=== PATIENT | female | born 1940 | race Caucasian/White ===

== ENCOUNTER → 2017-12-31 13:21 | Outpatient (CLI) | payer OTHER, SELFPAY ==
--- NOTE | 2017-12-31 | DI.MG.S_ITS ---
BILATERAL DIGITAL SCREENING MAMMOGRAM 3D/2D WITH CAD: 12/31/2017 CLINICAL: Routine screening. Family history of breast cancer. Comparison is made to exams dated: 05/15/2014 mammogram, 02/05/2012 mammogram, and 10/27/2010 mammogram - [facility]. There are scattered fibroglandular elements in both breasts. Current study was also evaluated with a Computer Aided Detection (CAD) system. No significant masses, calcifications, or other findings are seen in either breast. There has been no significant interval change. IMPRESSION: NEGATIVE There is no mammographic evidence of malignancy. A 1 year screening mammogram is recommended. This exam was interpreted at Station ID: [id number]. NOTE: For mammograms, a report in lay terms will be sent to the patient. Approximately 15% of breast malignancies will not be visualized mammographically. In the management of a palpable breast mass, a negative mammogram must not discourage biopsy of a clinically suspicious lesion. Electronically Signed By: Kassy rosario/neda:12/31/2017 14:46:40 letter sent: Normal Exam ACR BI-RADS Category 1: Negative [id number]
== END ==
PROVIDERS: Family Provider Nurse Practitioner Family; PCP Family Medicine; Visit Provider Nurse Practitioner Family
DX: Z12.31 Encounter for screening mammogram for malignant neoplasm of breast (principal); Z80.3 Family history of malignant neoplasm of breast; M81.0 Age-related osteoporosis without current pathological fracture
CPT/HCPCS: 77063; 77067; 77080

== ENCOUNTER → 2018-03-02 13:09 | Outpatient (CLI) | payer OTHER, SELFPAY ==
--- NOTE | 2018-03-02 13:30 | DI.CT.S_ITS ---
PROCEDURE: CT CHEST WO CON INDICATIONS: DYSPNEA TECHNIQUE: Noncontrast 2.0-2.5 mm thick sections acquired from the pulmonary apices to the posterior costophrenic angles. 7 mm thick coronal and sagittal MIP reformats were then acquired. A low radiation dose technique was utilized. COMPARISON: [facility], CR, XR CHEST 2V, 12/16/2017, 14:53. FINDINGS: Image quality: Diagnostic, given the low radiation dose technique. Lungs and pleura: Lung is hyperexpanded and emphysematous. There is a 5 mm pulmonary nodule in the anterior right middle lobe, series 3/image 24. A small cluster of 2 mm nodules is present in the posterolateral right middle lobe, image 39. A 5 mm subpleural nodule is present along the right fissure, image 45. On the left, there are 2 mm and 3 mm adjacent nodules in the base of the lingula, image 42. There is a 4 mm nodule in the posterior sulcus of the left lower lobe, image 57. Mediastinum: Heart size is normal. Aortic and coronary artery calcifications. No pericardial effusion. No mediastinal adenopathy by size criteria. Thoracic aorta and central pulmonary arteries are normal in size. Esophagus is normal in caliber. No hiatal hernia. Bones and chest wall: No suspicious bony lesions. No vertebral body compression fractures. No axillary or supraclavicular adenopathy by size criteria. Thyroid gland appears normal. Abdomen: Visualized upper abdomen solid organs and bowel loops appear normal in the absence of contrast. Pneumobilia. IMPRESSION: 1. Centrilobular pulmonary emphysema, upper lobe predominant 2. Bilateral subcentimeter pulmonary nodules measuring up to 5 mm in size. Appropriate followup recommended. 3. Atherosclerosis. Fleischner Society criteria for SOLID lung nodule followup. Nodule size (mm)Low-risk patientHigh-risk patient<6 (single or multiple)No routine followup.Optional CT at 12 months. 6-8 (single or multiple)CT at 6-12 months, then optional CT at 18-24 mo.CT at 6-12 months, then CT at 18-24 months. >8 (single)CT at 3 months, PET-CT, or biopsy. Same as for low-risk pts. >8 (multiple)CT at 3-6 months, then optional CT at 18-24 mo.CT at 3-6 months, then CT at 18-24 months. Recommendations do not apply to lung cancer screening, patients with immunosuppression, or patients with known primary cancer. Dictated by: Claudio Salvador M.D. on 03/02/2018 at 15:13 Approved by: Claudio Salvador M.D. on 03/02/2018 at 15:32
== END ==
PROVIDERS: Family Provider Nurse Practitioner Family; PCP Family Medicine; Visit Provider Internal Medicine
DX: J43.2 Centrilobular emphysema (principal); R06.00 Dyspnea, unspecified; R91.8 Other nonspecific abnormal finding of lung field; I25.10 Atherosclerotic heart disease of native coronary artery without angina pectoris; I70.0 Atherosclerosis of aorta
CPT/HCPCS: 71250

== ENCOUNTER 2018-03-20 10:42 | Emergency (ER) | payer OTHER, SELFPAY ==
[2018-03-20] VITALS (10 sets, daily range): BP systolic 95–145; BP diastolic 47–82; PULSE 68–93; RESP 15–29; TEMP 36.8–36.9; O2SAT 94–97
--- NOTE | 2018-03-20 10:56 | DI.RAD.S_ITS ---
PROCEDURE: XR CHEST 2V INDICATIONS: SOB, cough, fever TECHNIQUE: 2 views of the chest were acquired. COMPARISON: [facility], , XR CHEST 2V, 12/16/2017, 14:53. [facility], , CHEST 2 VIEW, 10/07/2017, 14:10. [facility], CR, CHEST 2 VIEW, 01/15/2016, 8:58. [facility], , CHEST 2 VIEW, 06/11/2015, 11:31. FINDINGS: Surgical changes and devices: Surgical clips project over the left upper quadrant of the abdomen. Lungs and pleura: No pleural effusions or pneumothorax. Lungs are clear. Mediastinum: Mediastinal contours are normal. Heart size is normal. Bones and chest wall: No suspicious bony abnormalities. Soft tissues appear unremarkable. Multilevel degenerative changes of the spine. IMPRESSION: No focal consolidations consistent with pneumonia. Dictated by: Javan Foreman M.D. on 03/20/2018 at 12:14 Approved by: Javan Foreman M.D. on 03/20/2018 at 12:15
--- NOTE | 2018-03-20 10:56 | ED.URI ---
HPI - URI/Sore Throat General Chief Complaint: Upper Respiratory Symptoms Stated Complaint: trouble breathing, cold/shivering Time Seen by Provider: 03/20/18 10:43 Source: patient Mode of arrival: ambulatory Limitations: no limitations History of Present Illness HPI Narrative: 77-year-old female with history of COPD presents to the emergency department with a chief complaint of shaking chills and subjective fever with cough and some increased shortness of breath over the course of the day. She denies any chest pain and states her sputum is whitish. She denies nausea, vomiting or diarrhea. She has had no dysuria, frequency or urgency. She denies the use of home oxygen and has not increased the use of her bronchodilators. MD Complaint: fever and cough Onset (ago): hour(s) Duration: constant Severity: moderate Exacerbating factors: nothing Description of mucous: clear Able to tolerate fluids by mouth: Yes Associated symptoms: fever and chills Treatments prior to arrival: none Related Data Previous Rx's Medication Instructions Recorded albuterol sulfate [Ventolin HFA] 2 puff INH Q4HP PRN #1 ea 10/07/17 levofloxacin [Levaquin] 750 mg PO DAILY #6 tab 03/20/18 Allergies Allergy/AdvReac Type Severity Reaction Status Date / Time codeine [CODEINE] Allergy Unknown SLEEPY Unverified 11/17/17 12:05 iodine [IODINE] Allergy Unknown HIVES Unverified 11/17/17 12:05 lansoprazole [LANSOPRAZOLE] AdvReac Unknown GI UPSET Unverified 11/17/17 12:05 Review of Systems Review of Systems All systems reviewed & are unremarkable except as noted in HPI and below Constitutional Reports body ache(s), Reports chills, Reports fever(s), Denies lethargy and Denies weakness Eyes Denies change in vision, Denies eye discharge, Denies irritation and Denies loss of vision ENT Ears, Nose, Mouth, and Throat: Denies change in voice, Denies neck pain and Denies sore throat Cardiovascular Denies chest pain, Denies irregular heart rhythm, Denies lightheadedness, Denies palpitations, Reports dyspnea, Denies dyspnea on exertion and Denies orthopnea Respiratory Reports cough, Reports excessive phlegm production, Reports dyspnea, Denies dyspnea on exertion and Denies wheezing Gastrointestinal Gastrointestinal: Denies abdominal pain, Denies change in bowel habits, Denies diarrhea, Denies nausea and Denies vomiting Genitourinary Denies hematuria, Denies flank pain, Denies urinary incontinence and Denies urinary urgency Musculoskeletal Denies neck pain Integumentary/Breasts Denies pruritus, Denies erythema, Denies rash and Denies wounds Neurologic Denies confusion, Denies loss of vision and Denies weakness Psychiatric Denies anxiety, Denies confusion, Denies depression, Denies homicidal ideation and Denies suicidal ideation Endocrine Denies palpitations Hematologic/Lymphatic Denies easy bruising Allergic/Immunologic Denies wheezing PFSH Social History Smoking Status: Current every day smoker Exam Narrative Exam Narrative: Frail 77-year-old female, chronically ill in no significant distress. Pulse ox in the mid 90s on arrival, room air Initial Vital Signs Initial Vital Signs: Vital Signs Temperature 98.4 F 03/20/18 10:45 Pulse Rate 92 H 03/20/18 10:45 Respiratory Rate 22 03/20/18 10:45 Blood Pressure 145/71 H 03/20/18 10:45 Pulse Oximetry 97 03/20/18 10:45 Const General: cooperative and well developed Nutritional Appearance: thin and underweight Orientation: alert, awake, oriented x3 and not confused [facility] Head: normocephalic and atraumatic Ears: external ears normal and TM's normal bilaterally Nose: external nose normal and No nasal discharge Face and sinus: sinuses nontender, face symmetric, no sinus tenderness and No dry mucous membranes Mouth: oral mucosae normal and moist mucous membranes Teeth and gingiva: dentition normal Throat: tonsils normal and uvula midline Eyes General: appearance normal, both eyes and all related structures Eyelids: eyelids normal Conjunctivae: conjunctivae normal Sclera: sclerae normal Pupils: PERRL EOM: EOM intact bilaterally Neck Neck: normal visual inspection, trachea midline, No lymphadenopathy, No midline deformity and No JVD Lymphatic: No lymphedema Chest Chest: normal inspection of the chest Resp Effort & Inspection: normal respiratory effort, able to speak in complete sentences, no respiratory distress and no use of accessory muscles Auscultation: diminished lung sounds, no rales, no rhonchi and wheezes Cardio Rate: regular rate Rhythm: regular rhythm Heart Sounds: no click, no gallops, no murmurs and no rubs Pulses: normal peripheral pulses GI Inspection: non-distended Palpation: soft, no hepatosplenomegaly, No guarding, No pulsatile mass and No tender Auscultation: normal bowel sounds Back/Spine/Pelvis Back: No CVA tenderness Cervical Spine: cervical ROM normal and No pain with cervical ROM Thoracic/Lumbar Spine: thoracic and lumbar spine normal to inspection Skin General: no rashes or lesions noted, No jaundice and No petechiae Neuro General: alert, oriented x3, gait normal and no focal motor deficits Speech: speech normal Extrem General: full ROM, no clubbing, cyanosis or edema, no pedal edema and no calf tenderness Psych Appearance: well kempt Mental Status: mental status grossly normal Attitude: cooperative Thought Content: normal and suicidality Judgment: judgment good Course Orders Ordered: ED Orders 03/20/18 10:56 XR chest 2V Stat 03/20/18 11:05 Basic Metabolic Panel Stat Complete Blood Count AUTO DIFF Stat Procalcitonin Stat 03/20/18 11:30 Lactate (Lactic Acid) Stat 03/20/18 11:40 Blood Culture Stat 03/20/18 14:06 Urine Culture Stat Urine Microscopic Stat Levofloxacin (Levaquin) 750 mg in 150 mls @ 100 mls/hr IV NOW KELLI Last Admin: 03/20/18 11:57 Dose: 100 mls/hr Sodium Chloride (Normal Saline 0.9%) 1,578.51 mls @ 526.17 mls/hr 30 ml/kg infuse over 3 hr (1578.51 ml) IV CONT KELLI Last Admin: 03/20/18 11:56 Dose: 526.17 mls/hr Discontinued Medications Albuterol (Ventolin) 2.5 mg INH Q20M PRN PRN Reason: Shortness Of Breath Stop: 03/20/18 15:11 Last Admin: 03/20/18 14:32 Dose: 2.5 mg Consultations Consultation #1: CURB-65 Score for Pneumonia Severity from [email or web address] on 03/20/2018 All calculations should be rechecked by clinician prior to use RESULT SUMMARY: 1 points Low risk group: 2.7% 30-day mortality. Consider outpatient treatment. INPUTS: Confusion ?> 0 = No BUN > 19 mg/dL (> 7 mmol/L) ?> 0 = No Respiratory Rate ? 30 ?> 0 = No Systolic BP < 90 mmHg or Diastolic BP ? 60 mmHg ?> 0 = No Age ? 64 ?> 1 = Yes Vital Signs - 8 hr 03/20/18 10:45 03/20/18 11:08 03/20/18 11:55 Temperature 98.4 F Pulse Rate 92 H 68 93 H Respiratory Rate 22 24 19 Blood Pressure 145/71 H Blood Pressure [Left Arm] 128/82 H 119/47 L Pulse Oximetry 97 95 95 03/20/18 12:02 03/20/18 12:10 03/20/18 12:38 Temperature Pulse Rate 90 87 Respiratory Rate 22 22 23 Blood Pressure Blood Pressure [Left Arm] 106/48 L 95/54 L Pulse Oximetry 94 96 03/20/18 13:21 03/20/18 13:39 03/20/18 14:31 Temperature Pulse Rate 86 87 81 Respiratory Rate 25 H 29 H 15 Blood Pressure Blood Pressure [Left Arm] 104/56 L 103/54 L Pulse Oximetry 96 96 94 03/20/18 15:03 Temperature 98.2 F Pulse Rate 72 Respiratory Rate 22 Blood Pressure Blood Pressure [Left Arm] 95/54 L Pulse Oximetry 97 MDM - URI/Sore Throat Differential Diagnosis Differential diagnosis: Likely upper respiratory infection Medical Records Attestation: I reviewed the patient's medical records. Lab Data Attestation: I reviewed the patient's lab results. Result diagrams: 03/20/18 11:05 03/20/18 11:05 Lab Results 03/20/18 03/20/18 03/20/18 Range/Units 11:05 11:05 11:05 WBC 21.2 H (4.5-11.0) X10^3/uL RBC 4.68 (4.0-5.2) X10^6/uL Hgb 15.2 (12.0-16.0) g/dL Hct 44.8 (36-46) % MCV 95.8 (80-100) fL MCH 32.6 (26-34) PG MCHC 34.0 (30-36) % RDW 14.2 (11.6-14.8) % Plt Count 279 (150-400) X10^3/uL Neut % (Auto) 87.8 H (50-75) % Lymph % (Auto) 4.3 L (25-40) % [place] % (Auto) 6.9 (3-14) % Eos % (Auto) 0.3 L (2-4) % Baso % (Auto) 0.7 (0-2) % Neut # (Auto) 86544 H (5704-8533) /uL Sodium 135 L (137-145) mmol/L Potassium 4.7 (3.4-5.1) mmol/L Chloride 97 L (98-107) mmol/L Carbon Dioxide 31 (22-32) mmol/L BUN 10 (7-17) mg/dL Creatinine 0.40 L (0.52-1.04) mg/dL Estimated GFR > 60.0 (>60) mL/min BUN/Creatinine Ratio 25.0 H (6-22) Glucose 82 (80-110) mg/dL Lactate (0.7-2.1) mmol/L Calcium 8.7 (8.4-10.2) mg/dL Procalcitonin 0.13 (<0.5) ng/mL Urine RBC (0-5/HPF) Urine WBC (0-5/HPF) Ur Squamous Epith Cells Urine Bacteria (None) Ur Culture Indicated? Micro UA Comment 03/20/18 03/20/18 Range/Units 11:30 14:06 WBC (4.5-11.0) X10^3/uL RBC (4.0-5.2) X10^6/uL Hgb (12.0-16.0) g/dL Hct (36-46) % MCV (80-100) fL MCH (26-34) PG MCHC (30-36) % RDW (11.6-14.8) % Plt Count (150-400) X10^3/uL Neut % (Auto) (50-75) % Lymph % (Auto) (25-40) % [place] % (Auto) (3-14) % Eos % (Auto) (2-4) % Baso % (Auto) (0-2) % Neut # (Auto) (0230-1938) /uL Sodium (137-145) mmol/L Potassium (3.4-5.1) mmol/L Chloride (98-107) mmol/L Carbon Dioxide (22-32) mmol/L BUN (7-17) mg/dL Creatinine (0.52-1.04) mg/dL Estimated GFR (>60) mL/min BUN/Creatinine Ratio (6-22) Glucose (80-110) mg/dL Lactate 1.0 (0.7-2.1) mmol/L Calcium (8.4-10.2) mg/dL Procalcitonin (<0.5) ng/mL Urine RBC 0-1/hpf (0-5/HPF) Urine WBC 1-5/hpf (0-5/HPF) Ur Squamous Epith Cells 0-1 /hpf Urine Bacteria Few (2-10) H (None) Ur Culture Indicated? Specimen cultured Micro UA Comment Not Reportable Imaging Data Chest x-ray: My impression: NAP Radiologist's impression: CURB-65 Score for Pneumonia Severity from [employer] on 03/20/2018 All calculations should be rechecked by clinician prior to use RESULT SUMMARY: 1 points Low risk group: 2.7% 30-day mortality. Consider outpatient treatment. INPUTS: Confusion ?> 0 = No BUN > 19 mg/dL (> 7 mmol/L) ?> 0 = No Respiratory Rate ? 30 ?> 0 = No Systolic BP < 90 mmHg or Diastolic BP ? 60 mmHg ?> 0 = No Age ? 64 ?> 1 = Yes Discharge Plan Departure Prescriptions: New levofloxacin [Levaquin] 750 mg tablet 750 mg PO DAILY Qty: 6 RF: 0 No Action albuterol sulfate [Ventolin HFA] 90 MCG/PUFF HFA aerosol inhaler 2 puff INH Q4HP PRNQty: 1 RF: 0
[2018-03-20 11:20] LABS: Add Manual Diff / Slide Review NO; Basophils Percent Auto 0.7 % (0-2); Eosinophils Percent Auto 0.3 % (2-4); Hematocrit 44.8 % (36-46); Hemoglobin 15.2 g/dL (12.0-16.0); Lymphocytes Percent Auto 4.3 % (25-40); Mean Corpuscular Hemoglobin 32.6 PG (26-34); Mean Corpuscular Volume 95.8 fL (80-100); Monocytes Percent Auto 6.9 % (3-14); Neutrophils Absolute Auto 18600 /uL (3000-5900); Neutrophils Percent Auto 87.8 % (50-75); Platelet Count 279 X10^3/uL (150-400); Red Blood Cell Count 4.68 X10^6/uL (4.0-5.2); Red Cell Distribution Width 14.2 % (11.6-14.8); White Blood Cell Count 21.2 X10^3/uL (4.5-11.0)
[2018-03-20 11:30] LABS: Blood Urea Nitrogen 10 mg/dL (7-17); Calcium 8.7 mg/dL (8.4-10.2); Carbon Dioxide 31 mmol/L (22-32); Chloride 97 mmol/L (98-107); Estimated Glomerular Filt Rate > 60.0 mL/min (>60); Glucose 82 mg/dL (80-110); HEMOLYSIS 39 (0-50); Potassium 4.7 mmol/L (3.4-5.1); Sodium 135 mmol/L (137-145)
[2018-03-20 11:49] LABS: Procalcitonin 0.13 ng/mL (<0.5)
[2018-03-20] MEDS: SODIUM CHLORIDE 0.9% 526.17 ML IV (11:56)
[2018-03-20] MEDS: levoFLOXacin 750 MG/150 ML PIGGYBACK 100 MG IV (11:57)
[2018-03-20] MEDS: ALBUTEROL 2.5 MG/3 ML NEB (ADULT) INH (14:32)
[2018-03-20 15:03] LABS: Bacteria Urine Few (2-10); RBC Urine 0-1/HPF (0-5/HPF); Squamous Epithelial Cell Urine 0-1 /HPF; WBC Urine 1-5/HPF (0-5/HPF)
[2018-03-20 15:04] LABS: Culture Indicated Urine Specimen Cultured
== END 2018-03-20 15:15 | disposition home or self-care (01) ==
PROVIDERS: Emergency Provider Emergency Medicine; Family Provider Nurse Practitioner Family; PCP Family Medicine
DX: J18.9 Pneumonia, unspecified organism (principal); J44.9 Chronic obstructive pulmonary disease, unspecified
CPT/HCPCS: 71046; 80048; 81003; 81015; 83605; 84145; 85025; 87040; 87086; 94640; 96361; 96365; 96366; 99284; 99285; J1956; J7613

== ENCOUNTER → 2018-04-02 11:19 | Outpatient (CLI) | payer OTHER, SELFPAY ==
[2018-04-02 12:11] LABS: Alanine Aminotransferase 27 IU/L (9-52); Albumin 4.4 g/dL (3.5-5.0); Albumin Globulin Ratio 1.6 (1.0-2.8); Alkaline Phosphatase 54 U/L (38-126); Aspartate Aminotransferase 27 IU/L (14-36); BUN Creatinine Ratio 17.5 (6-22); Bilirubin Total 0.7 mg/dL (0.2-1.3); Blood Urea Nitrogen 7 mg/dL (7-17); Carbon Dioxide 30 mmol/L (22-32); Chloride 99 mmol/L (98-107); Estimated Glomerular Filt Rate > 60.0 mL/min (>60); Globulin 2.8 g/dL (1.7-4.1); Glucose 91 mg/dL (80-110); HEMOLYSIS 17 (0-50); Potassium 4.4 mmol/L (3.4-5.1); Sodium 139 mmol/L (137-145); Total Protein 7.2 g/dL (6.3-8.2)
[2018-04-02 12:16] LABS: Add Manual Diff / Slide Review NO; Basophils Percent Auto 0.6 % (0-2); Eosinophils Percent Auto 1.1 % (2-4); Hematocrit 48.6 % (36-46); Hemoglobin 16.7 g/dL (12.0-16.0); Lymphocytes Percent Auto 14.6 % (25-40); Mean Corpuscular HGB Conc 34.5 % (30-36); Mean Corpuscular Hemoglobin 32.9 PG (26-34); Mean Corpuscular Volume 95.4 fL (80-100); Monocytes Percent Auto 9.8 % (3-14); Neutrophils Absolute Auto 7200 /uL (3000-5900); Neutrophils Percent Auto 73.9 % (50-75); Platelet Count 324 X10^3/uL (150-400); Red Blood Cell Count 5.09 X10^6/uL (4.0-5.2); Red Cell Distribution Width 13.7 % (11.6-14.8); White Blood Cell Count 9.7 X10^3/uL (4.5-11.0)
[2018-04-02 12:42] LABS: Thyroid Stimulating Hormone 0.75 uIU/mL (0.47-4.68)
== END ==
PROVIDERS: Family Provider Nurse Practitioner Family; PCP Family Medicine; Visit Provider Family Medicine
DX: J18.9 Pneumonia, unspecified organism (principal); R53.83 Other fatigue
CPT/HCPCS: 36415; 80053; 84443; 85025

== ENCOUNTER → 2018-04-18 14:33 | Outpatient (CLI) | payer OTHER, SELFPAY ==
--- NOTE | 2018-04-18 | DI.US.S_ITS ---
PROCEDURE: US RETRO PERITONEAL LIMITED INDICATIONS: HISTORY OF ABDOMINAL AORTIC DISEASE TECHNIQUE: Real time scanning was performed of the aorta and iliac arteries, with image documentation. COMPARISON: None. FINDINGS: Aorta: Proximal aortic diameter measures 1.9 cm. Mid-aorta measures 1.4 cm. Distal aortic diameter is 1.7 cm AP, and 1.8 cm in transverse dimension. Iliac arteries: Right common iliac artery measures 0.8 cm. Left common iliac artery measures 0.8 cm. 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 Dictated by: Benito Duran M.D. on 04/18/2018 at 15:59 Approved by: Benito Duran M.D. on 04/18/2018 at 16:01
== END ==
PROVIDERS: Family Provider Nurse Practitioner Family; PCP Family Medicine; Visit Provider Family Medicine
DX: I71.4 Abdominal aortic aneurysm, without rupture (principal)
CPT/HCPCS: 76775

== ENCOUNTER 2018-08-10 09:24 | Emergency (ER) | payer OTHER, SELFPAY ==
--- NOTE | 2018-08-10 09:25 | ED.ABDPAIN ---
HPI - Abdominal Pain General Chief Complaint: Abdominal Pain Stated Complaint: Abdominal Pain Time Seen by Provider: 08/10/18 09:25 Source: patient and EMS Mode of arrival: EMS Limitations: no limitations History of Present Illness HPI narrative: 77-year-old female here for evaluation of inability to urinate and lower abdominal pain. Patient states that last evening she had some problems urinating. She states that she was been unable to urinate. The symptoms have worsened overnight till this morning where she had send significant lower abdominal pain. She called 911. No vomiting. Related Data Home Medications Medication Instructions Recorded Confirmed albuterol sulfate 2 puff INHALATION Q4-6H PRN 08/10/18 08/10/18 albuterol sulfate 2.5 mg INHALATION Q4H PRN 08/10/18 08/10/18 aspirin 81 mg PO DAILY 08/10/18 08/10/18 cetirizine [Aller-Ana] 10 mg PO DAILY 08/10/18 08/10/18 metoprolol succinate 25 mg PO BID 08/10/18 08/10/18 pravastatin 20 mg PO DAILY 08/10/18 08/10/18 Previous Rx's Medication Instructions Recorded albuterol sulfate [Ventolin HFA] 2 puff INH Q4HP PRN #1 ea 10/07/17 levofloxacin [Levaquin] 750 mg PO DAILY #6 tab 03/20/18 Allergies Allergy/AdvReac Type Severity Reaction Status Date / Time codeine [CODEINE] Allergy Unknown SLEEPY Verified 08/10/18 09:47 iodine [IODINE] Allergy Unknown HIVES Verified 08/10/18 09:47 lansoprazole [LANSOPRAZOLE] AdvReac Unknown GI UPSET Verified 08/10/18 09:47 Review of Systems Constitutional Denies fever(s) Cardiovascular Denies chest pain and Denies dyspnea Respiratory Denies dyspnea Gastrointestinal Gastrointestinal: Reports abdominal pain, Denies nausea and Denies vomiting Genitourinary Denies dysuria, Denies urinary incontinence and Denies vaginal discharge Comments: Urinary retention Integumentary/Breasts Denies rash Neurologic Denies behavioral changes Psychiatric Denies behavioral changes Hematologic/Lymphatic Denies easy bleeding and Denies easy bruising PFSH Medical History H/O: hysterectomy (Acute) Hypertension (Acute) Surgical History History of cholecystectomy (Acute) Social History Smoking Status: Current every day smoker Exam Initial Vital Signs Initial Vital Signs: Vital Signs Temperature 98.7 F 08/10/18 09:36 Pulse Rate 86 08/10/18 09:36 Respiratory Rate 18 08/10/18 09:36 Blood Pressure 183/79 H 08/10/18 09:36 Pulse Oximetry 91 08/10/18 09:36 Const General: cooperative, comfortable, well developed, well groomed and No acute distress Orientation: alert, awake and oriented x3 HENMT Head: normal to inspection and normocephalic Resp Effort & Inspection: normal respiratory effort Auscultation: clear to auscultation bilaterally Cardio Rate: regular rate Rhythm: regular rhythm Pulses: radial pulses present GI Inspection: non-distended Palpation: soft Skin Rashes: no rashes Extrem General: normal to inspection Course Orders Ordered: ED Orders 08/10/18 09:15 Complete Blood Count AUTO DIFF Stat 08/10/18 09:40 Comprehensive Metabolic Panel Stat Lipase Stat 08/10/18 10:00 Urinalysis and Microscopic Stat Sodium Chloride (Normal Saline 0.9%) 1,000 mls @ 150 mls/hr IV CONT KELLI Vital Signs - 8 hr 08/10/18 09:36 08/10/18 10:26 Temperature 98.7 F Pulse Rate 86 80 Respiratory Rate 18 16 Blood Pressure 183/79 H Blood Pressure [Left Arm] 110/52 L Pulse Oximetry 91 93 MDM - Abdominal Pain Lab Data Attestation: I reviewed the patient's lab results. Result diagrams: 08/10/18 09:15 08/10/18 09:40 Lab Results 08/10/18 08/10/18 08/10/18 Range/Units 09:15 09:40 10:00 WBC 13.7 H (4.5-11.0) X10^3/uL RBC 5.21 H (4.0-5.2) X10^6/uL Hgb 17.2 H (12.0-16.0) g/dL Hct 50.6 H (36-46) % MCV 97.0 (80-100) fL MCH 33.1 (26-34) PG MCHC 34.1 (30-36) % RDW 14.1 (11.6-14.8) % Plt Count 274 (150-400) X10^3/uL Neut % (Auto) 88.8 H (50-75) % Lymph % (Auto) 4.4 L (25-40) % [place] % (Auto) 6.3 (3-14) % Eos % (Auto) 0.1 L (2-4) % Baso % (Auto) 0.4 (0-2) % Neut # (Auto) 89413 H (1107-5649) /uL Sodium 134 L (137-145) mmol/L Potassium 4.4 (3.4-5.1) mmol/L Chloride 97 L (98-107) mmol/L Carbon Dioxide 21 L (22-32) mmol/L BUN 13 (7-17) mg/dL Creatinine 0.50 L (0.52-1.04) mg/dL Estimated GFR > 60.0 (>60) mL/min BUN/Creatinine Ratio 26.0 H (6-22) Glucose 103 (80-110) mg/dL Calcium 8.8 (8.4-10.2) mg/dL Total Bilirubin 1.3 (0.2-1.3) mg/dL AST 27 (14-36) IU/L ALT 23 (9-52) IU/L Alkaline Phosphatase 53 (38-126) U/L Total Protein 6.8 (6.3-8.2) g/dL Albumin 4.2 (3.5-5.0) g/dL Globulin 2.6 (1.7-4.1) g/dL Albumin/Globulin Ratio 1.6 (1.0-2.8) Lipase 26 (23-300) U/L Urine Color Yellow Urine Appearance Clear Urine pH 5.0 (4.5-8.0) Ur Specific [place] 1.010 (1.000-1.035) Urine Protein Negative (Negative) Urine Glucose (UA) Negative (Negative) g/dL Urine Ketones 1+ H (NEGATIVE) Urine Occult Blood 2+ H (Negative) Urine Nitrate Negative (Negative) Urine Bilirubin Negative (NEGATIVE) Urine Urobilinogen 0.2 (0.2) E.U./dL Ur Leukocyte Esterase Negative (NEGATIVE) Urine RBC 1-5/hpf (0-5/HPF) Urine WBC None seen (0-5/HPF) Urine Bacteria None seen (None) Ur Culture Indicated? Cult not indicated Micro UA Comment Not Reportable MDM Narrative Medical decision making narrative: Patient with multiple prior abdominal surgeries. She did have 700 cc of urine in her bladder on the bladder scan. Rand catheter was placed with return of approximately that amount of urine. No signs of urinary tract infection. She states that her abdominal pain has greatly improved after the placement of a Rand catheter. Discussed with her options to include removing the catheter here in the emergency department versus being sent home with a catheter in place and a leg bag and follow up with her primary doctor and Urology. The patient opted to be sent home with a catheter. I did contact her primary care doctor's office and they can see her this afternoon at 0430. The patient was given this information. She was given return precautions. She expressed understanding and agreement with plan. Discharge Plan Departure Patient Disposition: Home Clinical Impression: Acute urinary retention Instructions: How to Care for Your Rand Catheter -- Female, DI for Urinary Retention in Women Activity Restrictions/Additional Instructions: I was able to get an appointment set up with her primary doctor this afternoon at 4:30. I do recommend you make this appointment to discuss further evaluation and treatment of the urinary retention. Return to the emergency department for any new or worsening symptoms Prescriptions: No Action albuterol sulfate [Ventolin HFA] 90 MCG/PUFF HFA aerosol inhaler 2 puff INH Q4HP PRNQty: 1 RF: 0 levofloxacin [Levaquin] 750 mg tablet 750 mg PO DAILY Qty: 6 RF: 0 pravastatin 20 mg Tablet 20 mg PO DAILY RF: 0 metoprolol succinate 25 mg Tablet Extended Release 24 Hr 25 mg PO BID RF: 0 albuterol sulfate 2.5 mg /3 mL (0.083 %) Solution For Nebulization 2.5 mg INHALATION Q4H PRN (Reason: Shortness Of Breath) RF: 0 cetirizine [Aller-Ana] 10 mg Tablet 10 mg PO DAILY RF: 0 aspirin 81 mg Tablet,Chewable 81 mg PO DAILY RF: 0 albuterol sulfate 90 mcg/actuation Hfa Aerosol Inhaler 2 puff INHALATION Q4-6H PRN (Reason: Dyspnea) RF: 0
[2018-08-10 09:35] LABS: Add Manual Diff / Slide Review NO; Basophils Percent Auto 0.4 % (0-2); Eosinophils Percent Auto 0.1 % (2-4); Hematocrit 50.6 % (36-46); Hemoglobin 17.2 g/dL (12.0-16.0); Lymphocytes Percent Auto 4.4 % (25-40); Mean Corpuscular HGB Conc 34.1 % (30-36); Mean Corpuscular Hemoglobin 33.1 PG (26-34); Monocytes Percent Auto 6.3 % (3-14); Neutrophils Absolute Auto 12200 /uL (1500-7000); Neutrophils Percent Auto 88.8 % (50-75); Platelet Count 274 X10^3/uL (150-400); Red Blood Cell Count 5.21 X10^6/uL (4.0-5.2); Red Cell Distribution Width 14.1 % (11.6-14.8); White Blood Cell Count 13.7 X10^3/uL (4.5-11.0)
[2018-08-10 09:36] VITALS: BP 183/79; PULSE 86; RESP 18; TEMP 37.1; O2SAT 91
[2018-08-10 10:08] LABS: Alanine Aminotransferase 23 IU/L (9-52); Albumin 4.2 g/dL (3.5-5.0); Albumin Globulin Ratio 1.6 (1.0-2.8); Alkaline Phosphatase 53 U/L (38-126); Aspartate Aminotransferase 27 IU/L (14-36); Bilirubin Total 1.3 mg/dL (0.2-1.3); Blood Urea Nitrogen 13 mg/dL (7-17); Calcium 8.8 mg/dL (8.4-10.2); Carbon Dioxide 21 mmol/L (22-32); Chloride 97 mmol/L (98-107); Estimated Glomerular Filt Rate > 60.0 mL/min (>60); Globulin 2.6 g/dL (1.7-4.1); Glucose 103 mg/dL (80-110); HEMOLYSIS < 15 (0-50); Lipase 26 U/L (23-300); Potassium 4.4 mmol/L (3.4-5.1); Sodium 134 mmol/L (137-145); Total Protein 6.8 g/dL (6.3-8.2)
[2018-08-10 10:09] LABS: Bacteria Urine None Seen; WBC Urine None Seen (0-5/HPF)
[2018-08-10 10:11] LABS: Appearance Urine UA CLEAR; Bilirubin Urine UA NEGATIVE (NEGATIVE); Color Urine UA YELLOW; Glucose Urine UA NEGATIVE (Negative); Ketones Urine UA 1+ (NEGATIVE); Leukocyte Esterase Urine UA NEGATIVE (NEGATIVE); Nitrite Urine UA NEGATIVE (Negative); Occult Blood Urine UA 2+ (Negative); Protein Urine UA NEGATIVE (Negative); Urobilinogen Urine UA 0.2 E.U./dL (0.2)
[2018-08-10 10:16] LABS: Culture Indicated Urine Cult Not Indicated; RBC Urine 1-5/HPF (0-5/HPF)
[2018-08-10 10:26] VITALS: BP 110/52; PULSE 80; RESP 16; O2SAT 93
--- NOTE | 2018-08-10 11:05 | PC.NURSE ---
1000- while placing urinary catheter, it was noted that patient has growth/bump/scab that is brown to frontal pubic hair region. It is about [id number] in size. Patient states it has been there for two years, and occasionally the scab comes off but it always grows back. Patient reports she has not been to a PCP about this. I informed Dr. Alba to assess it.
[2018-08-10 11:34] VITALS: BP 108/55; PULSE 80; RESP 18; O2SAT 92
--- NOTE | 2018-08-10 11:34 | PC.NURSE ---
Leg bag placed prior to discharge and teaching performed.
== END 2018-08-10 11:40 | disposition home or self-care (01) ==
PROVIDERS: Emergency Provider Emergency Medicine; Family Provider Nurse Practitioner Family; PCP Family Medicine
DX: R10.9 Unspecified abdominal pain (principal); R33.9 Retention of urine, unspecified
CPT/HCPCS: 36415; 36591; 51701; 51798; 80053; 81001; 83690; 85025; 99283

== ENCOUNTER 2018-08-17 03:51 | Emergency (ER) | payer OTHER, SELFPAY ==
[2018-08-17 04:11] VITALS: BP 182/85; PULSE 96; RESP 24; TEMP 36.4; O2SAT 96
[2018-08-17 04:14] VITALS: BP 182/85; PULSE 96; RESP 24; TEMP 36.4; O2SAT 96; BMI 18.9
--- NOTE | 2018-08-17 04:15 | ED.FEMALEGU ---
HPI - Female Genitourinary General Chief complaint: Urogenital-Female Stated complaint: URINARY RETENTION Time Seen by Provider: 08/17/18 04:11 Source: patient Mode of arrival: ambulatory Limitations: no limitations History of Present Illness HPI Narrative: 77-year-old female who evaluated here in the emergency department approximately 1 week ago for acute urinary retention. A Rand catheter was placed. She left the department with a Rand catheter. She states she followed up with her primary care doctor. Had the Rand catheter removed yesterday. She states she was able to urinate afterwards. After that 1 episode of urination she stated that she then was unable to urinate and has not been able to since last evening. She is getting lower abdominal discomfort. She states that her primary doctor is working on getting her in to see Urology for these symptoms. Related Data Home Medications Medication Instructions Recorded Confirmed albuterol sulfate 2 puff INHALATION Q4-6H PRN 08/10/18 08/10/18 albuterol sulfate 2.5 mg INHALATION Q4H PRN 08/10/18 08/10/18 aspirin 81 mg PO DAILY 08/10/18 08/10/18 cetirizine [Aller-Ana] 10 mg PO DAILY 08/10/18 08/10/18 metoprolol succinate 25 mg PO BID 08/10/18 08/10/18 pravastatin 20 mg PO DAILY 08/10/18 08/10/18 Allergies Allergy/AdvReac Type Severity Reaction Status Date / Time codeine [CODEINE] Allergy Unknown SLEEPY Verified 08/10/18 09:47 iodine [IODINE] Allergy Unknown HIVES Verified 08/10/18 09:47 lansoprazole [LANSOPRAZOLE] AdvReac Unknown GI UPSET Verified 08/10/18 09:47 Review of Systems Constitutional Denies fever(s) Cardiovascular Denies chest pain and Denies dyspnea Respiratory Denies dyspnea Gastrointestinal Gastrointestinal: Reports abdominal pain Genitourinary Comments: Urinary retention Integumentary/Breasts Denies rash Hematologic/Lymphatic Denies easy bleeding and Denies easy bruising FOR[facility]LY [facility] Medical History H/O: hysterectomy (Acute) Hypertension (Acute) Surgical History History of cholecystectomy (Acute) Social History Smoking Status: Current every day smoker Exam Initial Vital Signs Initial Vital Signs: Vital Signs Temperature 97.5 F L 08/17/18 04:11 Pulse Rate 96 H 08/17/18 04:11 Respiratory Rate 24 08/17/18 04:11 Blood Pressure 182/85 H 08/17/18 04:11 Pulse Oximetry 96 08/17/18 04:11 Const General: cooperative, healthy appearing, well developed, well groomed and No acute distress Orientation: alert, awake and oriented x3 Resp Effort & Inspection: normal respiratory effort Cardio Rate: regular rate GI Other: Lower abdominal tenderness Neuro General: alert and awake Extrem General: normal to inspection and capillary refill normal Psych Appearance: grossly normal and well kempt Course Vital Signs - 8 hr 08/17/18 04:11 08/17/18 04:14 Temperature 97.5 F L 97.5 F L Pulse Rate 96 H 96 H Respiratory Rate 24 24 Blood Pressure 182/85 H Blood Pressure [Right Arm] 182/85 H Pulse Oximetry 96 96 MDM - Female Genitourinary MDM Narrative Medical decision making narrative: Bladder scan shows greater than 800 cc of urine in the bladder. A Rand catheter was placed with return of approximately that amount of urine. Patient states she feels much better. Informed her that we should leave the catheter in. Informed her that the catheter would probably stay in until she followed up with Urology. Sent her home with the larger Rand bag because she stated that the last time when she had the leg bed she had empty it too often. Will hold on any antibiotics for now. Will hold on any urinalysis for now as she is most likely colonized secondary to the week of having the Rand catheter in. She is not having any dysuria. The patient again was given return precautions. She expressed understanding and agreement with plan. Discharge Plan Departure Patient Disposition: Home Clinical Impression: Acute urinary retention Instructions: How to Care for Your Rand Catheter -- Female, DI for Urinary Retention in Women Activity Restrictions/Additional Instructions: I recommend that later today you contact your primary care doctor to tell them that we had to place the Rand again. I do recommend that you follow up with a urologist. Return to the emergency department for any new or worsening symptoms Prescriptions: No Action pravastatin 20 mg Tablet 20 mg PO DAILY RF: 0 metoprolol succinate 25 mg Tablet Extended Release 24 Hr 25 mg PO BID RF: 0 albuterol sulfate 2.5 mg /3 mL (0.083 %) Solution For Nebulization 2.5 mg INHALATION Q4H PRN (Reason: Shortness Of Breath) RF: 0 cetirizine [Aller-Ana] 10 mg Tablet 10 mg PO DAILY RF: 0 aspirin 81 mg Tablet,Chewable 81 mg PO DAILY RF: 0 albuterol sulfate 90 mcg/actuation Hfa Aerosol Inhaler 2 puff INHALATION Q4-6H PRN (Reason: Dyspnea) RF: 0
--- NOTE | 2018-08-17 04:55 | PC.NURSE ---
PT states urinary retention, had catheter placed last Wednesday for retention, removed yesterday by Dr Lemos, was able to urinate normally until 2129 last night. Denies other urinary symptoms than retention. States was to follow up with urology but could not get an appt. States normal BM x2 yesterday.
[2018-08-17 05:10] VITALS: BP 111/68; PULSE 90; RESP 15; O2SAT 97
== END 2018-08-17 05:11 | disposition home or self-care (01) ==
PROVIDERS: Emergency Provider Emergency Medicine; Family Provider Nurse Practitioner Family; PCP Family Medicine
DX: R33.9 Retention of urine, unspecified (principal)
CPT/HCPCS: 51798; 99283

== ENCOUNTER → 2018-08-24 10:37 | Outpatient (CLI) | payer OTHER, SELFPAY ==
--- NOTE | 2018-08-24 | DI.CT.S_ITS ---
PROCEDURE: CT ABDOMEN PELVIS WO/W CON INDICATIONS: HEMATURIA TECHNIQUE: Optional 5 mm thick noncontrast images acquired from the diaphragm to the symphysis pubis. After the administration of intravenous contrast, 5 mm thick images acquired from the diaphragm to the symphysis pubis after a 10-minute delay. 2 mm thick coronal and sagittal reformats were then performed of the kidneys and ureters. For radiation dose reduction, the following was used: automated exposure control, adjustment of mA and/or kV according to patient size. COMPARISON: [facility], CT, ABDOMEN/PELVIS WITH CONTRAST, 10/21/2015, 6:58. [facility], CT, CT CHEST WO CON, 03/02/2018, 13:20. FINDINGS: Image quality: Excellent. Lung bases: The 7 mm nodular density in posterior aspect of left lung base is seen series 4 image 11. This was previously measured 4 mm in size. 5 mm nodular density is seen in more inferior aspect of posterior left lung base series 4 image 14. This was not definitively seen on previous study. Chronic emphysematous changes are noted. Subtle sub-solid 4 mm nodular density is noted in lateral periphery of right lung base unchanged from previous study series 4 image 8. No pleural effusion or pneumothorax. Heart size is normal. Urinary system: Both kidneys are normal in size, without hydronephrosis on pre-contrast images. 3 mm calcification is seen in lower pole of right kidney. No gross left-sided nephrolithiasis is seen No perinephric fat stranding. There is normal bilateral renal enhancement. Tiny subcentimeter cortical cysts are noted in left kidney. Renal calyces appear normal in morphology when filled with contrast. Opacified portions of both ureters demonstrate normal caliber. Diffuse bladder wall thickening is seen. A Rand catheter is seen within the bladder lumen. No definite discrete bladder wall mass is noted. Other solid organs: Liver is normal in size and enhancement. Predominantly left-sided pneumobilia is again seen unchanged from prior study. Gallbladder is surgically absent. Biliary system is non dilated. Pancreas enhances normally. Spleen is normal in size and enhancement. No adrenal nodules. Peritoneum and bowel: Bowel loops demonstrate normal wall thickness and caliber. No free fluid or air. Nodes and vessels: No retroperitoneal or mesenteric adenopathy by size criteria. Aorta and inferior vena cava are normal in size. Atherosclerotic ossifications throughout abdominal aorta and bilateral iliac arteries are seen, unchanged from prior study. Abdominal wall: No ventral hernias. Pelvis: No pathologic free pelvic fluid. No inguinal hernias or adenopathy. Bones: No suspicious bony lesions. Degenerative disc disease throughout lower thoracic and lumbar spine is seen. Chronic appearing anterior wedge compression deformity at L4 level is again noted and unchanged from previous study. Chronic appearing anterior wedge compression deformity at T11 level is also unchanged. IMPRESSION: 1. Marked diffuse bladder wall thickening, which may represent infectious inflammatory cystitis. No gross calcified bladder stone. Rand catheter within bladder lumen. 2. Tiny nonobstructing right renal stone. No hydronephrosis. Normal appearing bilateral ureter. No gross enhancing renal lesion. Tiny left renal cortical cysts. 3. Subcentimeter nodule seen in left lung base, increased in size compared to [address] of chest in 6 month for further evaluation. 4. Pneumobilia, not significantly changed from prior study. Prior cholecystectomy. 5. Chronic appearing compression deformity involving T11 and L4 vertebral bodies, unchanged from prior study. Dictated by: Benito Duran M.D. on 08/24/2018 12:12 Approved by: Benito Duran M.D. on 08/24/2018 at 14:05
== END ==
PROVIDERS: PCP Family Medicine; Visit Provider Specialist
DX: R31.9 Hematuria, unspecified (principal); N20.0 Calculus of kidney; N28.1 Cyst of kidney, acquired; R91.1 Solitary pulmonary nodule; Z90.49 Acquired absence of other specified parts of digestive tract
CPT/HCPCS: 74178; Q9967

== ENCOUNTER → 2018-09-23 13:06 | Outpatient (CLI) | payer OTHER, SELFPAY ==
--- NOTE | 2018-09-23 | DI.CT.S_ITS ---
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 7 mm thick coronal and sagittal MIP reformats were acquired. For radiation dose reduction, the following was used: automated exposure control, adjustment of mA and/or kV according to patient size. COMPARISON: [facility], CT, CT CHEST WO [facility], 03/02/2018, 13:20. FINDINGS: Image quality: Excellent. Lungs and pleura: There are multiple lung nodules, increasing size and number. For example, there is a is a 8 mm nodule in the right middle lobe (series 3 image 22), which has increased in size since 03/02/2018 (previously measured 5 mm). A 5 minute nodule previously seen just above the major fissure now measures 7 mm. There is a 4 x 7 mm subpleural nodule in the left upper lobe, which is new. A 6 mm anterior left upper lobe nodule previously measured 4 mm. A 5 mm nodule in the left lung base seen on the prior examination now measures 10 mm. There is severe centrilobular emphysema. No acute air space opacities. No pleural effusions or pneumothorax. Central and peripheral airways are patent and normal in caliber. Mediastinum: Heart size is normal. No pericardial effusion. No mediastinal or hilar adenopathy by size criteria. Thoracic aorta and central pulmonary arteries are normal in size. Esophagus is normal in caliber. No hiatal hernia. Bones and chest wall: No suspicious bony lesions. No vertebral body compression fractures. No axillary or supraclavicular adenopathy by size criteria. Thyroid gland is normal. Abdomen: There is a 1.8 x 3.3 cm left adrenal mass, stable in size on the prior noncontrast head CT, the mass demonstrates CT density less than 10 HU, suggesting a benign adrenal adenoma. There is pneumobilia, unchanged. IMPRESSION: 1. Multiple pulmonary nodules bilaterally, demonstrating interval increase in size and number highly suspicious for pulmonary metastases. 2. Severe centrilobular emphysema. Dictated by: Kolby Gr M.D. on 09/23/2018 at 17:25 Approved by: Kolby Gr M.D. on 09/23/2018 at 17:40
== END ==
PROVIDERS: PCP Family Medicine; Visit Provider General Practice
DX: C79.11 Secondary malignant neoplasm of bladder (principal); C80.1 Malignant (primary) neoplasm, unspecified; J43.2 Centrilobular emphysema; R91.8 Other nonspecific abnormal finding of lung field
CPT/HCPCS: 71260; Q9967

== ENCOUNTER 2018-10-19 11:18 | Day surgery (SDC) | payer OTHER, SELFPAY ==
[2018-10-19] VITALS (9 sets, daily range): BP systolic 97–129; BP diastolic 54–76; PULSE 59–111; RESP 13–26; TEMP 36.2–36.8; O2SAT 92–108; BMI 18.4
[2018-10-19] MEDS: LACTATED RINGERS 1,000 ML 42 ML IV (12:42)
--- NOTE | 2018-10-19 12:45 | DI.RAD.S_ITS ---
PROCEDURE: XR CHEST 1V INDICATIONS: PORT A CATH PALCEMENT TECHNIQUE: One view of the chest was acquired. COMPARISON: [facility], CR, XR CHEST 1V, 10/19/2018, 13:40. FINDINGS: Surgical changes and devices: Residual left Port-A-Cath, the tip of which is projected over the confluence of the brachiocephalic veins. Lungs and pleura: Lungs are clear. No pleural effusions or pneumothorax. The lung volumes are large and the diaphragms are flattened suggesting emphysema. Mediastinum: Mediastinal contours appear normal. Heart size is normal. Bones and chest wall: No suspicious bony lesions. Overlying soft tissues appear unremarkable. IMPRESSION: 1. Status post left Port-A-Cath placement. No acute cardiopulmonary findings. Severe emphysematous change. Dictated by: Kassy Mccracken M.D. on 10/19/2018 at 15:03 Approved by: Kassy Mccracken M.D. on 10/19/2018 at 15:06
[2018-10-19] MEDS: CEFAZOLIN 2 GM/100 ML FROZ.PIGGY IV (13:30)
--- NOTE | 2018-10-19 13:32 | P.HP_ITS ---
History of Present Illness Date Patient Seen: 10/19/18 Time Patient Seen: 13:30 Chief complaint: [id number] Narrative: Unfortunate 77-year-old lady who presents for port placement. She has metastatic adenocarcinoma of the colon with liver lung and pelvic involvement. She is scheduled to start chemotherapy with FOLFIRI is soon as possible. She reports that she has in her usual state of health today. She reports that she is always somewhat short of breath. She has a deep cough which is not new for her. Patient History Medical History Adenocarcinoma (Acute) Current every day smoker (Acute) Hyperlipidemia (Acute) H/O: hysterectomy (Acute) Hypertension (Acute) Surgical History History of partial colectomy (Acute) Hx of vascular surgery (Acute) History of cholecystectomy (Acute) Social History household members: none Smoking Status: Current every day smoker alcohol intake: current Family & Social History Social History: household members none Safety & Behavioral: Feels Safe in Current Unwilling to Answer Environment Tobacco & Substance use: Smoking Status Current every day smoker alcohol intake current alcohol intake frequency 0-2 drinks per day Substance Use Type does not use Meds Home Medications Medication Instructions Recorded Confirmed Type albuterol sulfate 2 puff INHALATION Q4-6H PRN 08/10/18 10/19/18 History albuterol sulfate 2.5 mg INHALATION Q4H PRN 08/10/18 10/19/18 History aspirin 81 mg PO DAILY 08/10/18 10/18/18 History cetirizine [Aller-Ana] 10 mg PO DAILY 08/10/18 10/18/18 History pravastatin 20 mg PO DAILY 08/10/18 10/18/18 History alendronate [Fosamax] 1 tab PO QWEEK 10/05/18 10/18/18 History cholecalciferol (vitamin D3) 3,000 unit PO DAILY 10/05/18 10/18/18 History [Vitamin D3] diazepam 5 mg PO BID 10/05/18 10/19/18 History salmeterol [Serevent Diskus] 1 puff INHALATION DIRECTED 10/05/18 10/19/18 History Allergies Allergy/AdvReac Type Severity Reaction Status Date / Time iodine [IODINE] Allergy Severe HIVES Verified 10/19/18 12:18 codeine [CODEINE] AdvReac Unknown SLEEPY Verified 10/19/18 12:18 lansoprazole [LANSOPRAZOLE] AdvReac Unknown GI UPSET Verified 10/19/18 12:18 Review of Systems Review of Systems She complains of shortness of breath as above. She says this has been going on for some time. She continues to use tobacco products. This is not a change it has been ongoing for many years. She denies coughing up any blood. She denies any fever at home. She denies any nausea. She denies any sick contacts. Exam Vital Signs (past 8 hours): - 10/19/18 12:22 Temperature 97.1 F L Pulse Rate 59 L Respiratory Rate 18 Blood Pressure 113/76 Pulse Oximetry 99 Oxygen Delivery Method Room Air Narrative Exam Narrative: Unfortunate and very ill-appearing 77-year-old lady in mild distress HEENT: Normocephalic and atraumatic, pupils are equal round and reactive to light accommodation and sclera are anicteric. She has a grayish appearance and skin tone Lungs: Noisy breath sounds bilaterally. No audible wheezing or rales Abd: soft, nontender, active bowel sounds Ext: Cool and menendez in color Assessment & Plan Assessment & Plan narrative: Unfortunate 77 year old lady with metastatic colon cancer. We have discussed the risks and benefits of power port placement with the patient. She understands that she is very ill and very weak and the risk she will experience with any invasive procedure is high. She understands there is some risk of damage to the lung, or bleeding or infection or complications inclu ding stroke, heart attack and even .
--- NOTE | 2018-10-19 13:49 | DI.RAD.S_ITS ---
PROCEDURE: XR CHEST 1V INDICATIONS: DECREASED BREATH SOUNDS TECHNIQUE: One view of the chest was acquired. COMPARISON: [facility], CR, XR CHEST 2V, 03/20/2018, 10:54. FINDINGS: Surgical changes and devices: None. Lungs and pleura: Lungs are clear. No pleural effusions or pneumothorax. The lung volumes are large and the diaphragms are flattened suggesting emphysema. Mediastinum: Mediastinal contours appear normal. Heart size is normal. Bones and chest wall: No suspicious bony lesions. Overlying soft tissues appear unremarkable. IMPRESSION: No acute cardiopulmonary findings. Severe emphysematous change. Dictated by: Kassy Mccracken M.D. on 10/19/2018 at 14:39 Approved by: Kassy Mccracken M.D. on 10/19/2018 at 14:41
--- NOTE | 2018-10-19 14:00 | SUR.OPER ---
Supine on padded OR bed, head on pillow, Left arm padded and tucked at side, Right arm secured on padded armboard <90 degrees abduction, legs uncrossed, safety belt at thigh, tape over blanket over lower legs .
[2018-10-19] MEDS: BUPIVACAINE 0.5% (PF) VIAL 30 ML INJ (14:08)
[2018-10-19] MEDS: LIDOCAINE 1% W/EPI INJ 20 ML INJ (14:08)
[2018-10-19] MEDS: SODIUM CHLORIDE 0.9% FLUSH 10 ML IV (14:10)
--- NOTE | 2018-10-19 14:14 | PM.OP.1 ---
Operative Date/Time/Diagnoses Date of procedure: 10/19/18 Time of procedure: 14:14 Pre-op diagnosis: Metastatic colon cancer Post-op diagnosis: same Procedure & Clinicians Procedure: Left subclavian PowerPort placement Same procedure as scheduled: Yes Indications: METASTATIC COLON CANCER Surgeon: Nikky Meza Click Yes if Unassisted: Yes Anesthesia Type: General ( Dr. Lombardo) Operative Notes Findings: power port in good position in the superior vena cava Specimen(s): none sent Prosthetic devices, grafts, tissues, transplants, or devices: low-profile PowerPort Estimated Blood Loss (mL): 5 Procedure in detail: After obtaining informed consent, the patient was brought to the operating room and placed in the supine position on the operating table. Following successful induction of general endotracheal anesthesia, appropriate padding of all bony prominences, and placement of appropriate monitors, the right chest was prepped and draped in a standard surgical fashion. A timeout was held per SCOAP protocol. A mixture of local anesthetics was infiltrated in the deltopectoral groove on the right side. The right subclavian vein was accessed via the Seldinger technique and a wire was gently placed into the vein. Fluoroscopy was used to verify position of the wire in the subclavian vein. We next created a pocket of approximately 2 cm inferior to the access site of the vein. This was checked for size and found to fit the port nicely. The included tunneling device was used to place the tubing and the pocket connecting it to the access site of the subclavian vein. The tubing was trimmed to an appropriate length and connected to the Port-A-Cath. The Port-A-Cath was sewn into place in the pocket using interrupted Prolene sutures. The pocket was closed in 2 layers. The dilator and introducer were then gently passed over the wire and into the subclavian vein. The wire and dilator were removed leaving only the introducer. The tubing was then placed in the introducer and the introducer removed per parts administrator's directions. The port was then flushed with saline solution and found to be functional and in good position. It was then hep-locked with 2000 units of heparin. The incision was closed in 2 layers with Vicryl and Monocryl sutures. Dermabond was applied to the skin. All sponge, needle, and instrument counts were correct at the conclusion of the case. Patient was allowed to awaken from anesthesia and taken to the post-anesthesia care unit in good condition. Complications: none Condition: stable Disposition: PACU Plan for aftercare: 1. Discharge to home 2. The port is ready for use
--- NOTE | 2018-10-19 14:52 | SUR.PHASEI ---
Tolerated procedure well, A&O, pleasant, talking, tolerating juice well. Dr. Meza spoke with patient. Incision site remains CDI, IV site remains WnL. Ice pack to surg site in place.
--- NOTE | 2018-10-19 15:05 | SUR.PHASEI ---
TO OPD, bed down and locked, report given. A&O, friend to bedside. tolerating PO well. Resp unlabored, skin warm and dry, surgical site CDI.
== END 2018-10-19 15:30 | disposition home or self-care (01) ==
PROVIDERS: PCP Family Medicine; Visit Provider Surgery
PROC: (CPT 36561; principal; 2018-10-19 12:45)
DX: C18.9 Malignant neoplasm of colon, unspecified (principal); F17.210 Nicotine dependence, cigarettes, uncomplicated; E78.5 Hyperlipidemia, unspecified; I10 Essential (primary) hypertension
CPT/HCPCS: 36561; 71045; 76000; C1788; J0690; J1644; J2250; J2704

== ENCOUNTER → 2018-10-24 11:42 | Outpatient (CLI) | payer OTHER, SELFPAY ==
--- NOTE | 2018-10-24 11:47 | DI.MRI.S_ITS ---
PROCEDURE: MR BRAIN (IAC) WWO CON INDICATIONS: COLON CANCER TECHNIQUE: Noncontrast sagittal T1 spin echo, axial FLAIR, axial gradient echo, axial diffusion and ADC through the brain. Axial thin-slice 3D CISS, coronal TruFISP, axial T1 spin echo with fat saturation through the internal auditory canals. After the administration of contrast, thin slice axial and coronal T1 spin echo with fat saturation through the internal auditory canals, and axial T1 spin echo with fat saturation through the brain. COMPARISON: None. FINDINGS: Image quality: Excellent. Cerebellopontine angles: No cerebellopontine angle masses. Inner ear structures appear normally formed. No suspicious enhancement in the internal auditory canal or along the course of the 7th cranial nerve. CSF spaces: Ventricles are normal in size and shape. No extra-axial fluid collections. Basal cisterns are patent. Brain: No intracranial bleeds or mass effects. Navarro-white matter interface is intact. No abnormal intracranial enhancement. Diffusion weighted images demonstrate no acute ischemic insults. There is ill-defined mild T2 hyperintense foci in the joe, without associated enhancement. Normal intravascular flow voids are present. Skull and face: Calvarial marrow signal is normal. Orbits appear normal. Sinuses: Sinuses and mastoids are clear. IMPRESSION: No definite abnormal enhancement or discrete mass lesion seen within the IAC bilaterally. Ill-defined T2 hyperintensity involving the joe, potentially chronic demyelination, versus microvascular ischemic disease among other statistically less likely possibilities. No associated enhancement Dictated by: Edwin Benitez M.D. on 10/24/2018 at 13:42 Approved by: Edwin Benitez M.D. on 10/24/2018 at 14:41
== END ==
PROVIDERS: PCP Family Medicine
DX: C18.9 Malignant neoplasm of colon, unspecified (principal)
CPT/HCPCS: 70553; A9579

== ENCOUNTER → 2018-12-08 14:00 | Oncology outpatient (ONC) | payer OTHER, SELFPAY ==
[2018-10-05 09:49] VITALS: BP 103/60; PULSE 82; RESP 20; TEMP 37
--- NOTE | 2018-10-05 12:23 | ONC.CONS ---
History of Present Illness - Data of Consult Consult date: 10/05/18 Primary Care Provider: Rohan Lemos MD - Consult Narrative Narrative: Diagnosis: Adenocarcinoma involving the bladder neck. History of present illness: Makenzie Betts is a 77 year old female who is referred for further evaluation of a newly diagnosed cancer. The patient reports that the beginning about 3-4 months ago, she began to pass some blood clots vaginally. They were up to about the size of a quarter. She started wearing a pad because of this. Then, on August 09, she developed acute bladder outlet obstruction. She was seen in the emergency room and had a Rand catheter placed. After it was removed, she had recurrence of obstruction and was then referred to urology. She underwent a cystoscopy and was found to have a thickened bladder wall as well as a mass that seemed to be obstructing the bladder outlet. Biopsies were taken. They showed a well differentiated adenocarcinoma extending into the muscle. Immunohistochemistry showed that this was suggestive of a colorectal origin. CT scan of the chest abdomen and pelvis showed diffuse thickening of the gallbladder wall there was a stable left adrenal nodule and some slowly enlarging pulmonary nodules. She did have a colonoscopy performed which showed a few small polyps but no evidence of malignancy. She who noted an ulcer in anterior vaginal wall about 2 cm in size. There is no protruding soft tissue mass. She has been referred to a gynecologic oncologist in [place] and has an appointment this afternoon. She has been losing some weight. She thinks she has lost maybe 6-8 lb over the last couple of months. Her appetite has been stable. She has not noticed any adenopathy. She denies any new aches or pains. She does have underlying COPD and dyspnea on exertion. Bowels have been moving normally. She still has a Rand catheter in place. Her past medical history is notable for COPD. She did have a previous colon resection for a recurrent polyp. It appears that there may have been a small focus of cancer at 1 point. Her recent colonoscopy has not shown any recurrence. She has had a prior hysterectomy cholecystectomy. She had vascular surgery for sounds like stenosis perhaps of the renal artery or aorta. Her current medications include albuterol Fosamax aspirin vitamin D Flovent metoprolol pravastatin and diazepam. She reports allergies to codeine iodine and lansoprazole. Her family history is notable for father having had cancer although she does not know what type. Her daughter had breast cancer. Social history: She lives by herself. She continues to smoke about 6 cigarettes a day. CC: Dany Green MD Home Medications and Allergies Home Medications Medication Instructions Recorded Confirmed Type albuterol sulfate 2 puff INHALATION Q4-6H PRN 08/10/18 08/10/18 History albuterol sulfate 2.5 mg INHALATION Q4H PRN 08/10/18 08/10/18 History aspirin 81 mg PO DAILY 08/10/18 08/10/18 History cetirizine [Aller-Ana] 10 mg PO DAILY 08/10/18 08/10/18 History metoprolol succinate 25 mg PO BID 08/10/18 08/10/18 History pravastatin 20 mg PO DAILY 08/10/18 08/10/18 History alendronate [Fosamax] 10/05/18 History cholecalciferol (vitamin D3) 3,000 unit PO DAILY 10/05/18 10/05/18 History [Vitamin D3] diazepam 5 mg PO BID 10/05/18 10/05/18 History fluticasone [Flovent HFA] 2 puff INHALATION BID 10/05/18 10/05/18 History salmeterol [Serevent Diskus] 10/05/18 History Allergies Allergy/AdvReac Type Severity Reaction Status Date / Time codeine [CODEINE] Allergy Unknown SLEEPY Verified 08/10/18 09:47 iodine [IODINE] Allergy Unknown HIVES Verified 08/10/18 09:47 lansoprazole [LANSOPRAZOLE] AdvReac Unknown GI UPSET Verified 08/10/18 09:47 Medical History - Medical, Surgical, Family History Medical History: Medical History (Last Updated 08/10/18 @ 10:48 by Rambo Alba DO) H/O: hysterectomy Hypertension Surgical History: Surgical History (Last Updated 08/10/18 @ 10:48 by Rambo Alba DO) History of cholecystectomy - Social History Smoking Status: Current every day smoker Review of Systems - Patient Self-Reported Symptoms SR Constitution: Chills, Weight loss/gain, Fatigue/Malaise SR eye issues: Vision changes SR ears, nose, mouth, throat issues: Congestion SR respiratory issues: Shortness of breath, Difficulty breathing, Mucous SR Genitourinary issues: Blood in urine, Vaginal bleeding Constitutional: weight loss, decreased activity level Respiratory: shortness of breath Gastrointestinal: no change in appetite Genitourinary: urgency, frequency, hematuria Exam Vital signs: Vital Signs Temp Pulse Resp BP 10/05/18 09:49 98.6 F 82 20 103/60 Intake and Output 10/04/18 10/05/18 10/05/18 23:59 07:59 15:59 Other: Weight 51.3 kg Patient Weight 10/06/18 07:59 Weight 51.3 kg - Constitutional positive no acute distress, positive chronically ill appearing - Routine HEENT Exam Head: Present: normocephalic, atraumatic Eye: Present: EOMI, PERRL. Absent: conjunctival icterus, scleral injection ENT: Present: mucous membranes moist, oropharynx clear Comments: She has dentures. She does have some thrush on the soft palate. - Routine Neck Exam Present: supple. Absent: lymphadenopathy, thyromegaly - Routine Respiratory Exam Present: decreased breath sounds. Absent: rales, wheezes - Routine Cardiovascular Exam Present: RRR, S1, S2. Absent: murmur - Routine Abdominal Exam Present: soft, normoactive bowel sounds. Absent: tenderness, organomegaly, mass - Routine Extremities Exam Present: clubbing, edema. Absent: cyanosis Comments: She has trace lower extremity edema. - Routine Back/Spine Exam Back/Spine: Present: kyphosis. Absent: vertebral tenderness - Routine Skin Exam Present: intact. Absent: petechiae, rash - Routine Neurological Exam Present: alert, oriented X3 - Routine Psychiatric Exam Present: normal affect, normal thought process Results - Imaging Additional studies: Procedures Closure of skin and subcutaneous tissue of other sites (03/29/11) Assessment and Plan (1) Adenocarcinoma Current visit: Yes Status: Acute 77-year-old woman with a newly diagnosed adenocarcinoma involving the bladder outlet. It appears that there may be direct extension into the anterior wall the vagina. It also appears that she has some small bilateral lung metastases that have been slowly increasing in size. Based on immunohistochemistry, this appears to be compatible with a colorectal primary but her colonoscopy does not disclose any primary tumor. She does have a distant history of a small polyp with a focus of cancer but I think that that would be fairly low risk lesion. In addition, a spread to pelvic organs and to lungs would be an unusual pattern for colon cancer. It is possible that this may represent an atypical bladder tumor with lung metastasis. Given that the patient likely has lung metastasis I do not think that surgery is the optimal way of approaching this. Other options would include radiation therapy to try and decrease the mass in the bladder and improve her urinary symptoms. The 3rd option would be chemotherapy or immunotherapy. Traditionally, colon cancers have not responded as well to immunotherapy is other types. Bladder cancer however can respond. Her tumor was MSI stable which would predict less effectiveness to immunotherapy. Given the confusion about the primary source of her tumor and uncertainty regarding the optimal therapy, I think a next generation sequencing panel would be helpful both in identifying her primary tumor and suggesting possible treatment approaches. I have asked pathology to order 1 of these panels. The patient will return to clinic here in about 2 weeks for follow-up. Hopefully at that time, we will have a better idea about how to optimally treat her.
--- NOTE | 2018-10-13 11:11 | PC.NURSE ---
Received a call from [facility] oncology regarding this pt. They did recent BX on the lesion you mentioned and it appears that her colon cancer has reoccurred and invaded into the vaginal wall. We should be getting path reports and documentation from [facility] at the mentioned location.
[2018-10-18 10:23] VITALS: BP 120/69; PULSE 89; RESP 20; TEMP 36.8
--- NOTE | 2018-10-18 13:35 | ONC.PN ---
PN -Subjective Interval history: Diagnosis: Metastatic colon cancer. Previous treatment: 1. Adenocarcinoma of the colon in a polyp that was removed at the time of a screening colonoscopy in 2012. 2. Partial sigmoid colectomy in October 2013 with a 1.1 cm adenoma but no invasive carcinoma. Interval history: The patient is a 77-year-old woman who returns today for follow-up. She was seen here last about 2 weeks ago. She has had urinary obstruction and was found to have a mass involving the bladder neck with extension to the anterior wall of the vagina. Further staging CT showed some slowly enlarging pulmonary nodules. A biopsy of her vaginal wall mass showed an adenocarcinoma consistent with colorectal primary. Likewise, biopsy from the bladder outlet showed the same tumor. An cancer type ID was performed that confirmed colorectal gene expression. Since her last visit here, she has been bothered by some visual changes. She notes that it has been difficult for her to read the newspaper or a computer screen. She can see the letters but just cannot read them. She denies any headaches. No focal numbness or weakness. No seizures. She denies any nausea or vomiting. She does have generalized weakness and fatigue. Her appetite has been poor and she continues to lose weight. She does note some dyspnea with mild exertion. She has not noticed any adenopathy. She denies any new aches or pains. She denies any other changes in her health. Her medications include albuterol Fosamax aspirin allergy tach and vitamin-D. She also takes pravastatin and Serevent. - Patient Self-Reported Symptoms SR Constitution: Chills, Weight loss/gain, Fatigue/Malaise SR eye issues: Vision changes SR ears, nose, mouth, throat issues: Congestion SR respiratory issues: Shortness of breath, Mucous SR Skin issues: Hair loss or scalp prob SR Gastrointestinal issues: Poor or no appetite SR Genitourinary issues: Blood in urine, Vaginal bleeding SR Musculoskeletal issues: Cold hands or feet Home Medications and Allergies Home Medications Medication Instructions Recorded Confirmed Type albuterol sulfate 2 puff INHALATION Q4-6H PRN 08/10/18 08/10/18 History albuterol sulfate 2.5 mg INHALATION Q4H PRN 08/10/18 08/10/18 History aspirin 81 mg PO DAILY 08/10/18 08/10/18 History cetirizine [Aller-Ana] 10 mg PO DAILY 08/10/18 08/10/18 History pravastatin 20 mg PO DAILY 08/10/18 08/10/18 History alendronate [Fosamax] 10/05/18 History cholecalciferol (vitamin D3) 3,000 unit PO DAILY 10/05/18 10/05/18 History [Vitamin D3] diazepam 5 mg PO BID 10/05/18 10/05/18 History salmeterol [Serevent Diskus] 10/05/18 History fluorouracil 3,600 mg IV NOW 1 Days #1 device 10/18/18 Rx Allergies Allergy/AdvReac Type Severity Reaction Status Date / Time codeine [CODEINE] Allergy Unknown SLEEPY Verified 08/10/18 09:47 iodine [IODINE] Allergy Unknown HIVES Verified 08/10/18 09:47 lansoprazole [LANSOPRAZOLE] AdvReac Unknown GI UPSET Verified 08/10/18 09:47 Exam Vital signs: Vital Signs Temp Pulse Resp BP 10/18/18 10:23 98.2 F 89 20 120/69 Intake and Output 10/17/18 10/18/18 10/18/18 23:59 07:59 15:59 Other: Weight 50.3 kg Patient Weight 10/19/18 07:59 Weight 50.3 kg - Constitutional positive no acute distress, positive thin Comments: She is in a wheelchair. She is not further examined. Results - Imaging Additional studies: Procedures Closure of skin and subcutaneous tissue of other sites (03/29/11) Assessment and Plan (1) Adenocarcinoma Current visit: Yes Status: Acute 77-year-old woman with a newly diagnosed adenocarcinoma involving the bladder outlet. It appears that there may be direct extension into the anterior wall the vagina. It also appears that she has some small bilateral lung metastases that have been slowly increasing in size. Based on immunohistochemistry, this appears to be compatible with a colorectal primary but her colonoscopy does not disclose any primary tumor. Cancer type ID does in fact confirm that the colorectal primary is most likely. Given that she has a mass involving the pelvic organs as well as some enlarging lung lesions, I do not think that surgery is likely to be beneficial. Instead, I think we should proceed with chemotherapy. I described the regimen of FOLFIRI given intravenously over 2 days every 2 weeks. Side effects including alopecia nausea and vomiting fatigue diarrhea mouth sores and skin rash reviewed. We also talked about a low risk for myelosuppression. She does wish to be aggressive in the treatment of her cancer. She wants to get started as soon as can be practically arranged. Will get her scheduled for Port-A-Cath begin therapy as soon as possible after that. She does have some visual changes. I think it will be important to get an MRI of her brain to rule out any baseline metastasis. If that is negative, then perhaps ophthalmological evaluation would be helpful. 40 min was spent with the patient the majority in counseling.
--- NOTE | 2018-10-20 14:01 | ONC.NAV ---
Description: T/C re: need for caregiving resources Activity: Left message for pt's cg/friend re: the need for additional caregiving in the home for patient. Requested return call.
--- NOTE | 2018-10-25 08:05 | P.CHEMO_ITS ---
Chemotherapy Counseling - History of present illness History of present illness: The patient is a 77-year-old female who presents today for chemotherapy counseling. She has been recently diagnosed with what appears to be colorectal primary with bilateral lung metastases. Presented initially as bladder tumor with direct extension into the anterior wall of the vagina. Plan today is to initiate treatment with FOLFIRI administered over 2 days every 2 weeks. Her DIL and son accompany her today. - General New Chemotherapy Patient: Yes Treatment Plan Reviewed: yes - Chemotherapy Counseling Chemotherapy Counseling: Chemotherapy Education: Makenzie Betts provided written information on all topics discussed. Written materials printed from www.[facility] and www.[employer].org. Makenzie was given an overview of cancer and mechanism of action of cancer cells, that cancer is caused by cells that are dividing rapidly, and out of control. Traditional chemotherapy works by targeting the fast dividing cells and killing them. Chemotherapy affecting healthy cells dividing quickly causes many of the side effects (hair follicles, bone marrow, mucus membranes). Overview of blood cell functions of white cells to fight infection, red cells to carry oxygen, and platelets to stop bleeding was discussed, and that when bone marrow is affected by chemo, there is a decrease in production of these cells. Home care of the patient following chemotherapy was discussed. Body fluids will be contaminated for 48 hours following treatment, and any body fluids handled by caregivers should be handled wearing gloves, surfaces need to be cleaned with soap and water, any soiled linens or clothing need to be washed separately in hot water, toilet lid should be closed when flushing, person cleaning the toilet should wear gloves. How chemotherapy is administered by the RN?s in the clinic, that orders are double checked by pharmacy and checked again by two RN?s prior to administration. Nurses wear protective gear to prevent exposure to them of the chemotherapy agents which can also cause cancer. Cancer center information discussed and written hand out provided listing on- call oncologist available weekends and after hours triage R.N. hours and infusion room guide. New patient binder given to Makenzie, which includes clinic names, phone numbers, clinic information, calendar, cancer glossary, and list of resources. Handout on advanced directives Common side effects of chemotherapy were discussed with self care tips for prevention of complications. Information also provided in writing. These included: Low blood counts (anemia, thrombocytopenia, neutropenia) Hair loss (alopecia) Nausea and vomiting Decreased appetite Loss of fertility Diarrhea Mouth sores Constipation Peripheral neuropathy Chemo brain/cognitive changes Fatigue Instructions on when to call your healthcare team or on-call physician immediately: Fever of 100.4 or higher, chills, any signs of infection Shortness of breath, wheezing, difficulty breathing, closing of throat, swelling of face, hives (signs of possible allergic reaction) Chest pain, fast heart beat or feelings of a different heart rhythm Swelling of an extremity with or without pain signs of stroke Instructions on when to call your healthcare team within the next 24 hours Nausea that interferes with ability to eat and unrelieved with prescribed medication Diarrhea (4-6 episodes in 24 hour period). Unusual bleeding or bruising Black or tarry stools, or blood in your stools Blood in the urine pain or burning with urination Extreme fatigue (unable to perform self-care activities) Mouth sores or sore areas in your mouth Bad headache Dizziness or lightheadedness Large weight gain over a short period of time General self-care tips while undergoing treatment discussed were as follows. Written materials were provided covering in detail and additional self care tips. Drink at least 2-3 quarts (8-10 glasses) of no-caffeinated beverages daily unless you are instructed otherwise and empty your bladder frequently Report any concerning symptoms to your healthcare team Avoid crowds and sick people, wash your hands frequently Use a soft bristled toothbrush, rinse three times a day with 1 tsp baking soda or 1 tsp salt mixed with warm water Avoid any mouthwashes or oral and skin products containing alcohol or fragrances Use electric razors to avoid cutting yourself Avoid contact sports or activities that could cause head injury or bleeding Avoid sun exposure, wear SPF 15 or higher, wear protective clothing Get plenty of rest, meter your activities Maintain good nutrition Avoid alcoholic beverages Attend your scheduled appointments and lab draws Treatment regimen reviewed and medications were discussed with attention to specific side effects and self care for the pt?s treatment regimen which includes [FOLFIRI]. Makenzie was provided with literature regarding [] and common side effects. Additionally, Makenzie was provided with literature regarding the diagnosis ofmetastatic colorectal cancer ]. Makenzie instructed to read literature at home. Keep a list of questions which we are happy to go over at future visits. For any urgent questions please feel free to call any time. - Response to Teaching Response to Teaching: Verbalizes Understanding
[2018-10-25] MEDS: SODIUM CHLORIDE 0.9% 100 ML 21 ML IV (09:30)
[2018-10-25] MEDS: DEXAMETHASONE 12 MG in SODIUM CHLORIDE 0.9% 50 ML 212 ML IV (09:51)
[2018-10-25 09:56] LABS: Add Manual Diff / Slide Review NO; Basophils Absolute Auto 100 /uL (0-100); Basophils Percent Auto 1.2 % (0-2); Eosinophils Absolute Auto 200 /uL (0-450); Eosinophils Percent Auto 1.6 % (2-4); Hematocrit 48.6 % (36-46); Lymphocytes Absolute Auto 800 /uL (1100-4500); Lymphocytes Percent Auto 7.2 % (25-40); Mean Corpuscular HGB Conc 32.9 % (30-36); Mean Corpuscular Hemoglobin 32.6 PG (26-34); Mean Corpuscular Volume 99.2 fL (80-100); Monocytes Absolute Auto 1000 /uL (0-900); Monocytes Percent Auto 8.9 % (3-14); Neutrophils Absolute Auto 9200 /uL (1500-7000); Neutrophils Percent Auto 81.1 % (50-75); Platelet Count 192 X10^3/uL (150-400); Red Blood Cell Count 4.91 X10^6/uL (4.0-5.2); Red Cell Distribution Width 14.7 % (11.6-14.8); White Blood Cell Count 11.3 X10^3/uL (4.5-11.0)
[2018-10-25 10:03] LABS: Alanine Aminotransferase 21 IU/L (9-52); Albumin 3.6 g/dL (3.5-5.0); Albumin Globulin Ratio 1.2 (1.0-2.8); Alkaline Phosphatase 54 U/L (38-126); Aspartate Aminotransferase 35 IU/L (14-36); BUN Creatinine Ratio 17.5 (6-22); Bilirubin Total 0.9 mg/dL (0.2-1.3); Blood Urea Nitrogen 7 mg/dL (7-17); Carbon Dioxide 24 mmol/L (22-32); Chloride 98 mmol/L (98-107); Estimated Glomerular Filt Rate > 60.0 mL/min (>60); Glucose 63 mg/dL (80-110); Potassium 4.7 mmol/L (3.4-5.1); Sodium 132 mmol/L (137-145); Total Protein 6.6 g/dL (6.3-8.2)
[2018-10-25 10:04] LABS: HEMOLYSIS 124 (0-50)
[2018-10-25] MEDS: ONDANSETRON 16 MG in SODIUM CHLORIDE 0.9% 50 ML 232 ML IV (10:14)
[2018-10-25 10:39] LABS: Carcinoembryonic Antigen 10.2 ng/mL (0.1-3.0)
[2018-10-25] MEDS: DEXTROSE 5% IV ×2 (11:31→11:32)
[2018-10-25] MEDS: LEUCOVORIN IV (11:31)
[2018-10-25] MEDS: IRINOTECAN IV (11:32)
--- NOTE | 2018-10-25 13:06 | ONC.NAV ---
Addendum entered and electronically signed by RAULTIO Lopez 10/25/18 13:50: This [employer] [facility] will also be setting up transportation for patient for all future clinic appointments. Original Note: Description: Care Planning/Resources Activity: Met with pt, her brother, and [id number] to discuss caregiving resources, complete [facility] psychosocial assessment, and complete pt's POLST form. See Assessment in worklist for details. Pt expressed concern that although we had told her that her MRI yesterday had been approved my [place], she says that when she went to admitting, she was told that Medicare was denying payment for the MRI, and thus she had to sign a form stating that it may not be paid for, and she may be responsible for the cost. [facility] relayed this information to our clinic's lead fibrous wallboard inspector, Neida, to determine what steps need to happen in order for this to be covered. Plan: Pt/family will plan to contact this [employer]IAN in about 2-weeks, once her son is in town, and they discuss completion of DPOA authorization and forms.
[2018-10-25] MEDS: ISOOSMOTIC VEHICLE IV (13:43)
[2018-10-25] MEDS: FLUOROURACIL IV (13:43)
--- NOTE | 2018-10-25 14:09 | PC.NURSE ---
pump settings reviewed frank Tomlinson. Line was flushed equashield attached and pump verified to be running with pt. Pt advised to rtn at noon 10/27
--- NOTE | 2018-10-26 09:54 | ONC.NAV ---
Description: Transportation Activity: Called the [employer] and requested rides for pt's appts. on 10/27, 11/01, and 11/08. Patient will be the main point of contact for them to coordinate her rides with.
--- NOTE | 2018-10-26 11:38 | ONC.NAV ---
Description: T/C re: transportation, billing concerns Activity: Called pt to let her know that this MANAGER TECHNOLOGY spoke with the [employer] this morning and scheduled her rides. Explained that she will be hearing from them to coordinate. Also explained to pt that in speaking with the billing dept here at ([facility]), she clarified that the initial auth. by [facility] for the brain MRI will still meet the Medical Necessity for the codes that were authorized, and that she will not be getting a bill. MANAGER TECHNOLOGY encouraged her to call me should she get any letters from [facility] or that state otherwise, and that we would assist her navigate next steps. No further needs identified at this time.
--- NOTE | 2018-10-27 13:54 | PC.NURSE ---
Pt here today for pump disconnect after 46 hours of continuous infusion of 5FU. However when it was time to D/C it was discovered that the cartridge was still full and the pump read stopped. I called [facility] and spoke with Dave and he assured me that the medication was still stable and could be administered if provider wished. I called Dr Green and he agreed that she should have the infusion. I replaced the battery and recycled the pump to find that the pump had to have been started on our end as she received almost 2mls of her infusion. Pump was in working order, confirmed again with the pt to be running without problems. Pt advised to return on Sat @ 1035
--- NOTE | 2018-11-01 10:39 | ONC.NAV ---
Description: Transportation, Care Coordination Activity: Returned call to pt re: transportation coordination. She has decided that she won't be able to utilize the [employer] for transportation, due to not being able to get in/out of the vehicle without assistance, and having a walker. She has made other arrangements with various people from her taoist to assist. She also shared that her Home Health child protective services social worker assisted her with applying for Medicaid, which will hopefully be approved soon, which should also help with some of the cg, home chores, and transportation needs. No additional assistance indicated at this time. Plan: [employer] will f/u with pt again during her next appt. in infusion.
[2018-11-02 11:43] LABS: Add Manual Diff / Slide Review NO; Basophils Absolute Auto 0 /uL (0-100); Basophils Percent Auto 0.3 % (0-2); Eosinophils Absolute Auto 400 /uL (0-450); Eosinophils Percent Auto 5.3 % (2-4); Hematocrit 44.1 % (36-46); Lymphocytes Absolute Auto 900 /uL (1100-4500); Lymphocytes Percent Auto 12.9 % (25-40); Mean Corpuscular HGB Conc 34.1 % (30-36); Mean Corpuscular Hemoglobin 32.9 PG (26-34); Mean Corpuscular Volume 96.5 fL (80-100); Monocytes Absolute Auto 500 /uL (0-900); Monocytes Percent Auto 7.6 % (3-14); Neutrophils Absolute Auto 5100 /uL (1500-7000); Neutrophils Percent Auto 73.9 % (50-75); Platelet Count 302 X10^3/uL (150-400); Red Blood Cell Count 4.57 X10^6/uL (4.0-5.2); Red Cell Distribution Width 14.1 % (11.6-14.8); White Blood Cell Count 6.9 X10^3/uL (4.5-11.0)
[2018-11-02 12:01] LABS: Alanine Aminotransferase 27 IU/L (9-52); Albumin 3.4 g/dL (3.5-5.0); Albumin Globulin Ratio 1.4 (1.0-2.8); Alkaline Phosphatase 48 U/L (38-126); Aspartate Aminotransferase 17 IU/L (14-36); BUN Creatinine Ratio 26.7 (6-22); Bilirubin Total 0.4 mg/dL (0.2-1.3); Blood Urea Nitrogen 8 mg/dL (7-17); Calcium 8.5 mg/dL (8.4-10.2); Carbon Dioxide 27 mmol/L (22-32); Chloride 95 mmol/L (98-107); Estimated Glomerular Filt Rate > 60.0 mL/min (>60); Globulin 2.4 g/dL (1.7-4.1); Glucose 123 mg/dL (80-110); HEMOLYSIS 18 (0-50); Potassium 4.1 mmol/L (3.4-5.1); Sodium 130 mmol/L (137-145); Total Protein 5.8 g/dL (6.3-8.2)
[2018-11-08 10:37] LABS: Add Manual Diff / Slide Review NO; Basophils Absolute Auto 100 /uL (0-100); Eosinophils Absolute Auto 300 /uL (0-450); Hematocrit 44.3 % (36-46); Hemoglobin 14.8 g/dL (12.0-16.0); Lymphocytes Absolute Auto 1000 /uL (1100-4500); Mean Corpuscular HGB Conc 33.5 % (30-36); Mean Corpuscular Hemoglobin 32.9 PG (26-34); Monocytes Absolute Auto 700 /uL (0-900); Monocytes Percent Auto 10.3 % (3-14); Neutrophils Absolute Auto 5100 /uL (1500-7000); Neutrophils Percent Auto 70.7 % (50-75); Platelet Count 299 X10^3/uL (150-400); Red Blood Cell Count 4.52 X10^6/uL (4.0-5.2); Red Cell Distribution Width 14.1 % (11.6-14.8); White Blood Cell Count 7.2 X10^3/uL (4.5-11.0)
[2018-11-08 10:42] VITALS: BP 124/70; PULSE 111; RESP 18; TEMP 36.4
[2018-11-08 10:55] VITALS: O2SAT 95
[2018-11-08 10:58] LABS: Alanine Aminotransferase 27 IU/L (9-52); Albumin 3.4 g/dL (3.5-5.0); Albumin Globulin Ratio 1.4 (1.0-2.8); Alkaline Phosphatase 48 U/L (38-126); Aspartate Aminotransferase 15 IU/L (14-36); Bilirubin Total 0.3 mg/dL (0.2-1.3); Blood Urea Nitrogen 8 mg/dL (7-17); Calcium 8.6 mg/dL (8.4-10.2); Carbon Dioxide 31 mmol/L (22-32); Chloride 95 mmol/L (98-107); Estimated Glomerular Filt Rate > 60.0 mL/min (>60); Globulin 2.5 g/dL (1.7-4.1); Glucose 112 mg/dL (80-110); HEMOLYSIS < 15 (0-50); Potassium 3.6 mmol/L (3.4-5.1); Sodium 133 mmol/L (137-145); Total Protein 5.9 g/dL (6.3-8.2)
--- NOTE | 2018-11-08 11:02 | P.PNONC_ITS ---
PN -Subjective Interval history: Diagnosis: Metastatic colon cancer. Previous treatment: 1. Adenocarcinoma of the colon in a polyp that was removed at the time of a screening colonoscopy in 2012. 2. Partial sigmoid colectomy in October 2013 with a 1.1 cm adenoma but no invasive carcinoma. 3. One cycle of FOLFIRI Interval history: The patient is a 77-year-old woman who returns today for follow-up. She has a history of small colon cancer that was resected at the time of a polypectomy. She now has recurrence involving the bladder neck and anterior vaginal wall as well as small pulmonary nodules. She started her chemotherapy with FOLFIRI. She has tolerated the 1st cycle pretty well. She did not have any nausea or vomiting. No diarrhea or cramping. No mouth sores or skin rash. She denies any fevers or chills. She has had some ongoing cough that she thinks is related to drainage from her sinuses. She has chronic shortness of breath that has been unchanged. Strength and energy level have been low but stable. Her appetite has been a little bit diminished but she is eating and drinking. She denies any other changes in her health. Her medications include albuterol Fosamax aspirin allergy tach and vitamin-D. She also takes pravastatin and Serevent. - Patient Self-Reported Symptoms SR Constitution: Chills, Weight loss/gain, Fatigue/Malaise SR eye issues: Vision changes SR ears, nose, mouth, throat issues: Congestion SR respiratory issues: Shortness of breath, Mucous SR Cardiovascular issues: Shortness of breath with activity or lying flat SR Skin issues: Hair loss or scalp prob SR Gastrointestinal issues: Poor or no appetite SR Genitourinary issues: Blood in urine, Vaginal bleeding SR Musculoskeletal issues: Cold hands or feet SR Hematologic issues: Bleeding/bruising Home Medications and Allergies Home Medications Medication Instructions Recorded Confirmed Type albuterol sulfate 2 puff INHALATION Q4-6H PRN 08/10/18 10/19/18 History albuterol sulfate 2.5 mg INHALATION Q4H PRN 08/10/18 10/19/18 History aspirin 81 mg PO DAILY 08/10/18 10/18/18 History cetirizine [Aller-Ana] 10 mg PO DAILY 08/10/18 10/18/18 History pravastatin 20 mg PO DAILY 08/10/18 10/18/18 History Serevent Diskus 1 puff INHALATION DIRECTED 10/05/18 10/19/18 History alendronate [Fosamax] 1 tab PO QWEEK 10/05/18 10/18/18 History cholecalciferol (vitamin D3) 3,000 unit PO DAILY 10/05/18 10/18/18 History [Vitamin D3] diazepam 5 mg PO BID 10/05/18 10/19/18 History lidocaine-prilocaine See Rx Instructions .ROUTE 10/19/18 Rx .COMPLEX #30 gram ondansetron 4 mg PO QID PRN #20 tab 10/19/18 Rx oxycodone-acetaminophen [Percocet] 1 tab PO Q4-6H PRN #20 tab 10/19/18 Rx Allergies Allergy/AdvReac Type Severity Reaction Status Date / Time iodine [IODINE] Allergy Severe HIVES Verified 10/19/18 12:18 codeine [CODEINE] AdvReac Unknown SLEEPY Verified 10/19/18 12:18 lansoprazole [LANSOPRAZOLE] AdvReac Unknown GI UPSET Verified 10/19/18 12:18 Exam Vital signs: Vital Signs Temp Pulse Resp BP Pulse Ox 11/08/18 10:55 95 11/08/18 10:42 97.6 F 111 H 18 124/70 Intake and Output 11/07/18 11/08/18 11/08/18 23:59 07:59 15:59 Other: Weight 49.3 kg Patient Weight 11/08/18 23:59 Weight 49.3 kg - Constitutional positive no acute distress, positive chronically ill appearing Comments: She is in a wheelchair. - Routine HEENT Exam Head: Present: normocephalic, atraumatic Eye: Present: EOMI, PERRL. Absent: conjunctival icterus, scleral injection ENT: Present: mucous membranes moist, oropharynx clear - Routine Neck Exam Present: supple. Absent: lymphadenopathy, thyromegaly - Routine Respiratory Exam Present: decreased breath sounds, wheezes. Absent: rales - Routine Cardiovascular Exam Present: RRR, S1, S2. Absent: murmur - Routine Abdominal Exam Present: soft, normoactive bowel sounds. Absent: tenderness, organomegaly, mass Comments: She does have a Rand in place. - Routine Extremities Exam Present: clubbing. Absent: edema - Routine Skin Exam Present: intact. Absent: petechiae, rash - Routine Neurological Exam Present: alert, oriented X3 - Routine Psychiatric Exam Present: normal affect, normal thought process Results - Labs Laboratory Last Values WBC 7.2 X10^3/uL (4.5-11.0) 11/08/18 10:20 RBC 4.52 X10^6/uL (4.0-5.2) 11/08/18 10:20 Hgb 14.8 g/dL (12.0-16.0) 11/08/18 10:20 Hct 44.3 % (36-46) 11/08/18 10:20 MCV 98.0 fL (80-100) 11/08/18 10:20 MCH 32.9 PG (26-34) 11/08/18 10:20 MCHC 33.5 % (30-36) 11/08/18 10:20 RDW 14.1 % (11.6-14.8) 11/08/18 10:20 Plt Count 299 X10^3/uL (150-400) 11/08/18 10:20 Neut % (Auto) 70.7 % (50-75) 11/08/18 10:20 Lymph % (Auto) 14.0 % (25-40) L 11/08/18 10:20 [place] % (Auto) 10.3 % (3-14) 11/08/18 10:20 Eos % (Auto) 4.0 % (2-4) 11/08/18 10:20 Baso % (Auto) 1.0 % (0-2) 11/08/18 10:20 Neut # (Auto) 5100 /uL (1894-3440) 11/08/18 10:20 Lymph # (Auto) 1000 /uL (5588-1698) L 11/08/18 10:20 [place] # (Auto) 700 /uL (0-900) 11/08/18 10:20 Eos # (Auto) 300 /uL (0-450) 11/08/18 10:20 Baso # (Auto) 100 /uL (0-100) 11/08/18 10:20 Sodium 130 mmol/L (137-145) L 11/02/18 11:35 Potassium 4.1 mmol/L (3.4-5.1) 11/02/18 11:35 Chloride 95 mmol/L (98-107) L 11/02/18 11:35 Carbon Dioxide 27 mmol/L (22-32) 11/02/18 11:35 BUN 8 mg/dL (7-17) 11/02/18 11:35 Creatinine 0.30 mg/dL (0.52-1.04) L 11/02/18 11:35 Estimated GFR > 60.0 mL/min (>60) 11/02/18 11:35 BUN/Creatinine Ratio 26.7 (6-22) H 11/02/18 11:35 Glucose 123 mg/dL (80-110) H 11/02/18 11:35 Calcium 8.5 mg/dL (8.4-10.2) 11/02/18 11:35 Total Bilirubin 0.4 mg/dL (0.2-1.3) 11/02/18 11:35 AST 17 IU/L (14-36) 11/02/18 11:35 ALT 27 IU/L (9-52) 11/02/18 11:35 Alkaline Phosphatase 48 U/L (38-126) 11/02/18 11:35 Total Protein 5.8 g/dL (6.3-8.2) L 11/02/18 11:35 Albumin 3.4 g/dL (3.5-5.0) L 11/02/18 11:35 Globulin 2.4 g/dL (1.7-4.1) 11/02/18 11:35 Albumin/Globulin Ratio 1.4 (1.0-2.8) 11/02/18 11:35 Carcinoembryonic Ag 10.2 ng/mL (0.1-3.0) H 10/25/18 09:42 - Imaging Additional studies: Procedures Closure of skin and subcutaneous tissue of other sites (03/29/11) Assessment and Plan (1) Adenocarcinoma Current visit: Yes Status: Acute 77-year-old woman with a newly diagnosed adenocarcinoma involving the bladder outlet. It appears that there may be direct extension into the anterior wall the vagina. It also appears that she has some small bilateral lung metastases that have been slowly increasing in size. Based on immunohistochemistry, this appears to be compatible with a colorectal primary but her colonoscopy does not disclose any primary tumor. Cancer type ID does in fact confirm that the colorectal primary is most likely. She has tolerated her 1st cycle of chemotherapy well. She will go ahead with her 2nd cycle today. She will return to clinic in 2 weeks for follow-up. I would anticipate a CT scan following 4-6 cycles of treatment depending on her CEA response in symptoms.
[2018-11-08] MEDS: DEXAMETHASONE 12 MG in SODIUM CHLORIDE 0.9% 50 ML 212 ML IV (11:18)
[2018-11-08] MEDS: ONDANSETRON 16 MG in SODIUM CHLORIDE 0.9% 50 ML 232 ML IV (11:41)
[2018-11-08] MEDS: SODIUM CHLORIDE 0.9% 100 ML 20 ML IV (11:42)
[2018-11-08] MEDS: DEXTROSE 5% IV ×2 (12:10→12:18)
[2018-11-08] MEDS: LEUCOVORIN IV (12:10)
[2018-11-08] MEDS: IRINOTECAN IV (12:18)
--- NOTE | 2018-11-08 13:51 | ONC.NAV ---
*Pt received a Chemo Quilt today.
[2018-11-08] MEDS: FLUOROURACIL IV (14:12)
[2018-11-08] MEDS: ISOOSMOTIC VEHICLE IV (14:12)
[2018-11-08 15:03] LABS: Carcinoembryonic Antigen 11.4 ng/mL (0.1-3.0)
[2018-11-15 11:37] LABS: Add Manual Diff / Slide Review NO; Basophils Absolute Auto 100 /uL (0-100); Basophils Percent Auto 1.1 % (0-2); Eosinophils Absolute Auto 700 /uL (0-450); Eosinophils Percent Auto 13.2 % (2-4); Hematocrit 46.7 % (36-46); Hemoglobin 15.8 g/dL (12.0-16.0); Lymphocytes Absolute Auto 1100 /uL (1100-4500); Lymphocytes Percent Auto 20.8 % (25-40); Mean Corpuscular HGB Conc 33.8 % (30-36); Mean Corpuscular Hemoglobin 32.8 PG (26-34); Mean Corpuscular Volume 97.1 fL (80-100); Monocytes Absolute Auto 300 /uL (0-900); Monocytes Percent Auto 6.3 % (3-14); Neutrophils Absolute Auto 3000 /uL (1500-7000); Neutrophils Percent Auto 58.6 % (50-75); Platelet Count 255 X10^3/uL (150-400); Red Blood Cell Count 4.81 X10^6/uL (4.0-5.2); Red Cell Distribution Width 14.2 % (11.6-14.8); White Blood Cell Count 5.1 X10^3/uL (4.5-11.0)
[2018-11-15 11:49] LABS: Alanine Aminotransferase 24 IU/L (9-52); Albumin 3.7 g/dL (3.5-5.0); Albumin Globulin Ratio 1.4 (1.0-2.8); Alkaline Phosphatase 52 U/L (38-126); Aspartate Aminotransferase 18 IU/L (14-36); BUN Creatinine Ratio 22.5 (6-22); Bilirubin Total 0.3 mg/dL (0.2-1.3); Blood Urea Nitrogen 9 mg/dL (7-17); Calcium 8.4 mg/dL (8.4-10.2); Carbon Dioxide 28 mmol/L (22-32); Chloride 95 mmol/L (98-107); Estimated Glomerular Filt Rate > 60.0 mL/min (>60); Globulin 2.6 g/dL (1.7-4.1); Glucose 110 mg/dL (80-110); HEMOLYSIS 16 (0-50); Potassium 3.2 mmol/L (3.4-5.1); Sodium 132 mmol/L (137-145); Total Protein 6.3 g/dL (6.3-8.2)
[2018-11-22 09:29] VITALS: BP 100/58; PULSE 100; RESP 22; TEMP 36.5; O2SAT 96
[2018-11-22 09:29] LABS: Add Manual Diff / Slide Review NO; Basophils Absolute Auto 100 /uL (0-100); Basophils Percent Auto 1.3 % (0-2); Eosinophils Absolute Auto 200 /uL (0-450); Eosinophils Percent Auto 4.8 % (2-4); Hematocrit 43.4 % (36-46); Hemoglobin 14.7 g/dL (12.0-16.0); Lymphocytes Absolute Auto 800 /uL (1100-4500); Lymphocytes Percent Auto 17.9 % (25-40); Mean Corpuscular HGB Conc 33.9 % (30-36); Mean Corpuscular Hemoglobin 32.9 PG (26-34); Monocytes Absolute Auto 600 /uL (0-900); Monocytes Percent Auto 13.6 % (3-14); Neutrophils Absolute Auto 2900 /uL (1500-7000); Neutrophils Percent Auto 62.4 % (50-75); Platelet Count 251 X10^3/uL (150-400); Red Blood Cell Count 4.48 X10^6/uL (4.0-5.2); White Blood Cell Count 4.7 X10^3/uL (4.5-11.0)
[2018-11-22 09:40] LABS: Alanine Aminotransferase 23 IU/L (9-52); Albumin 3.1 g/dL (3.5-5.0); Albumin Globulin Ratio 1.3 (1.0-2.8); Alkaline Phosphatase 48 U/L (38-126); Aspartate Aminotransferase 17 IU/L (14-36); Bilirubin Total 0.3 mg/dL (0.2-1.3); Blood Urea Nitrogen 6 mg/dL (7-17); Calcium 8.2 mg/dL (8.4-10.2); Carbon Dioxide 30 mmol/L (22-32); Chloride 95 mmol/L (98-107); Estimated Glomerular Filt Rate > 60.0 mL/min (>60); Globulin 2.4 g/dL (1.7-4.1); Glucose 134 mg/dL (80-110); HEMOLYSIS < 15 (0-50); Potassium 3.7 mmol/L (3.4-5.1); Sodium 132 mmol/L (137-145); Total Protein 5.5 g/dL (6.3-8.2)
--- NOTE | 2018-11-22 09:47 | ONC.PN ---
PN -Subjective Interval history: Diagnosis: Metastatic colon cancer. Previous treatment: 1. Adenocarcinoma of the colon in a polyp that was removed at the time of a screening colonoscopy in 2012. 2. Partial sigmoid colectomy in October 2013 with a 1.1 cm adenoma but no invasive carcinoma. 3. 2 cycles of FOLFIRI Interval history: The patient is a 77-year-old woman who returns today for follow-up. She has a history of small colon cancer that was resected at the time of a polypectomy. She now has recurrence involving the bladder neck and anterior vaginal wall as well as small pulmonary nodules. She started her chemotherapy with FOLFIRI. She has completed 2 cycles thus far and is due for her 3rd today. She has been tolerating it quite well. She denies any nausea or vomiting. No mouth sores or skin rash. She has not had any diarrhea. Her strength and energy level have been improving. Her appetite has been stable. She denies any new aches or pains. No shortness of breath or cough. She was able to stop smoking and has been using lozenges. Her medications include albuterol Fosamax aspirin allergy tach and vitamin-D. She also takes pravastatin and Serevent. Social history: She has been excited about her family. Her son recently was here to visit. She is working to make him her durable power of sql server dba developer and update her will. She tells me that several of her grandsons are expecting children over the summer. Another grandson has just recently got engaged. She was able to stop smoking within the last few weeks. - Patient Self-Reported Symptoms SR Constitution: Chills, Weight loss/gain, Fatigue/Malaise SR eye issues: Vision changes SR ears, nose, mouth, throat issues: Congestion SR respiratory issues: Shortness of breath, Mucous SR Cardiovascular issues: Shortness of breath with activity or lying flat SR Skin issues: Hair loss or scalp prob SR Gastrointestinal issues: Poor or no appetite SR Genitourinary issues: Blood in urine, Vaginal bleeding SR Musculoskeletal issues: Cold hands or feet SR Hematologic issues: Bleeding/bruising Home Medications and Allergies Home Medications Medication Instructions Recorded Confirmed Type albuterol sulfate 2 puff INHALATION Q4-6H PRN 08/10/18 10/19/18 History albuterol sulfate 2.5 mg INHALATION Q4H PRN 08/10/18 10/19/18 History aspirin 81 mg PO DAILY 08/10/18 10/18/18 History cetirizine [Aller-Ana] 10 mg PO DAILY 08/10/18 10/18/18 History pravastatin 20 mg PO DAILY 08/10/18 10/18/18 History Serevent Diskus 1 puff INHALATION DIRECTED 10/05/18 10/19/18 History alendronate [Fosamax] 1 tab PO QWEEK 10/05/18 10/18/18 History cholecalciferol (vitamin D3) 3,000 unit PO DAILY 10/05/18 10/18/18 History [Vitamin D3] diazepam 5 mg PO BID 10/05/18 10/19/18 History lidocaine-prilocaine See Rx Instructions .ROUTE 10/19/18 Rx .COMPLEX #30 gram ondansetron 4 mg PO QID PRN #20 tab 10/19/18 Rx oxycodone-acetaminophen [Percocet] 1 tab PO Q4-6H PRN #20 tab 10/19/18 Rx Allergies Allergy/AdvReac Type Severity Reaction Status Date / Time iodine [IODINE] Allergy Severe HIVES Verified 10/19/18 12:18 codeine [CODEINE] AdvReac Unknown SLEEPY Verified 10/19/18 12:18 lansoprazole [LANSOPRAZOLE] AdvReac Unknown GI UPSET Verified 10/19/18 12:18 Exam Vital signs: Vital Signs Temp Pulse Resp BP Pulse Ox 11/22/18 09:29 97.7 F 100 H 22 100/58 L 96 Intake and Output 11/21/18 11/22/18 11/22/18 23:59 07:59 15:59 Other: Weight 47.4 kg Patient Weight 11/22/18 23:59 Weight 47.4 kg - Constitutional positive no acute distress, positive thin Comments: She is in a wheelchair. - Routine HEENT Exam Head: Present: normocephalic, atraumatic Eye: Present: EOMI, PERRL. Absent: conjunctival icterus, scleral injection ENT: Present: mucous membranes moist, oropharynx clear - Routine Neck Exam Present: supple. Absent: lymphadenopathy, thyromegaly - Routine Respiratory Exam Present: Clear to auscultation bilaterally. Absent: rales, wheezes - Routine Cardiovascular Exam Present: RRR, S1, S2. Absent: murmur - Routine Abdominal Exam Present: soft, normoactive bowel sounds. Absent: tenderness, organomegaly Comments: Her Rand catheter is in place. - Routine Extremities Exam Absent: cyanosis, clubbing, edema Comments: She does have Dupuytren's contractures - Routine Back/Spine Exam Back/Spine: Absent: vertebral tenderness - Routine Skin Exam Present: intact. Absent: petechiae, rash - Routine Neurological Exam Present: alert, oriented X3 - Routine Psychiatric Exam Present: normal affect, normal thought process Results - Labs Laboratory Last Values WBC 4.7 X10^3/uL (4.5-11.0) 11/22/18 09:15 RBC 4.48 X10^6/uL (4.0-5.2) 11/22/18 09:15 Hgb 14.7 g/dL (12.0-16.0) 11/22/18 09:15 Hct 43.4 % (36-46) 11/22/18 09:15 MCV 97.0 fL (80-100) 11/22/18 09:15 MCH 32.9 PG (26-34) 11/22/18 09:15 MCHC 33.9 % (30-36) 11/22/18 09:15 RDW 14.0 % (11.6-14.8) 11/22/18 09:15 Plt Count 251 X10^3/uL (150-400) 11/22/18 09:15 Neut % (Auto) 62.4 % (50-75) 11/22/18 09:15 Lymph % (Auto) 17.9 % (25-40) L 11/22/18 09:15 [place] % (Auto) 13.6 % (3-14) 11/22/18 09:15 Eos % (Auto) 4.8 % (2-4) H 11/22/18 09:15 Baso % (Auto) 1.3 % (0-2) 11/22/18 09:15 Neut # (Auto) 2900 /uL (5246-5707) 11/22/18 09:15 Lymph # (Auto) 800 /uL (4369-1996) L 11/22/18 09:15 [place] # (Auto) 600 /uL (0-900) 11/22/18 09:15 Eos # (Auto) 200 /uL (0-450) 11/22/18 09:15 Baso # (Auto) 100 /uL (0-100) 11/22/18 09:15 Sodium 132 mmol/L (137-145) L 11/15/18 11:25 Potassium 3.2 mmol/L (3.4-5.1) L 11/15/18 11:25 Chloride 95 mmol/L (98-107) L 11/15/18 11:25 Carbon Dioxide 28 mmol/L (22-32) 11/15/18 11:25 BUN 9 mg/dL (7-17) 11/15/18 11:25 Creatinine 0.40 mg/dL (0.52-1.04) L 11/15/18 11:25 Estimated GFR > 60.0 mL/min (>60) 11/15/18 11:25 BUN/Creatinine Ratio 22.5 (6-22) H 11/15/18 11:25 Glucose 110 mg/dL (80-110) 11/15/18 11:25 Calcium 8.4 mg/dL (8.4-10.2) 11/15/18 11:25 Total Bilirubin 0.3 mg/dL (0.2-1.3) 11/15/18 11:25 AST 18 IU/L (14-36) 11/15/18 11:25 ALT 24 IU/L (9-52) 11/15/18 11:25 Alkaline Phosphatase 52 U/L (38-126) 11/15/18 11:25 Total Protein 6.3 g/dL (6.3-8.2) 11/15/18 11:25 Albumin 3.7 g/dL (3.5-5.0) 11/15/18 11:25 Globulin 2.6 g/dL (1.7-4.1) 11/15/18 11:25 Albumin/Globulin Ratio 1.4 (1.0-2.8) 11/15/18 11:25 Carcinoembryonic Ag 11.4 ng/mL (0.1-3.0) H 11/08/18 10:20 - Imaging Additional studies: Procedures Closure of skin and subcutaneous tissue of other sites (03/29/11) Assessment and Plan (1) Adenocarcinoma Current visit: Yes Status: Acute 77-year-old woman with a newly diagnosed adenocarcinoma involving the bladder outlet. It appears that there may be direct extension into the anterior wall the vagina. It also appears that she has some small bilateral lung metastases that have been slowly increasing in size. Based on immunohistochemistry, this appears to be compatible with a colorectal primary but her colonoscopy does not disclose any primary tumor. Cancer type ID does in fact confirm that the colorectal primary is most likely. She is tolerating her chemotherapy well. We will proceed with her 3rd cycle today. She will return to clinic in about 2 weeks for follow-up. I would anticipate a CT scan after 2-3 months of treatment to assess response.
[2018-11-22] MEDS: SODIUM CHLORIDE 0.9% 100 ML 21 ML IV (10:17)
[2018-11-22] MEDS: DEXAMETHASONE 12 MG in SODIUM CHLORIDE 0.9% 50 ML 212 ML IV (10:25)
[2018-11-22] MEDS: ONDANSETRON 16 MG in SODIUM CHLORIDE 0.9% 50 ML 232 ML IV (10:47)
[2018-11-22 11:08] LABS: Carcinoembryonic Antigen 10.2 ng/mL (0.1-3.0)
[2018-11-22] MEDS: LEUCOVORIN IV (11:55)
[2018-11-22] MEDS: IRINOTECAN IV (11:55)
[2018-11-22] MEDS: DEXTROSE 5% IV ×2 (11:55)
[2018-11-22] MEDS: ISOOSMOTIC VEHICLE IV (14:19)
[2018-11-22] MEDS: FLUOROURACIL IV (14:19)
--- NOTE | 2018-11-22 15:29 | PC.NURSE ---
1500: CADD PUMP ATTACHED TO PATIENT'S PORT ACCESS POST CONFIRMING DOSE WITH 2ND NURSE NR.RXB AND CENTRAL LINE POSITIVE FOR BLOOD RETURN. INFUSION ATTACHED USING EQUASHIELD, ALL CLAMPS OPEN, PUMP SHOWS RUNNING WITH GREEN LIGHT FLASHING. PATIENT INSTRUCTED TO RETURN FOR DEACCESS ON WEDNESDAY AT 1PM.
--- NOTE | 2018-11-23 09:55 | PC.NURSE ---
Order sent to [facility] to add on ANJUM and BRAF testing to pt's recent specimen, per Dr. Green.
--- NOTE | 2018-11-23 11:15 | PC.NURSE ---
Received phone call from JACKIE Krishna RN. Erendira explained to this investment underwriter that pt's port neddle has come out. Pt on 5FU pump at home. Instructed RN to have pt take battery out from pump, pt complaint, battery removed. Per Erendira, no areas of saturation on or around pt can be identified. Pt instructed to return to clinic immediately for port site evaluation and possible pump reconnection. Erendira states she's going to call her neighbor to see if she can bring her to the hospital. Erendira agrees to call this investment underwriter back with plan for transportation.
--- NOTE | 2018-11-23 12:08 | PC.NURSE ---
pt returns today because she inadvertently removed her needle while her infusion was running. Pt states that she thought it was ok to remove the dressing and in doing so removed the needle as well. Pump has been off since 730 or 8 which puts her about 4 hours behind [facility] for her disconnect tomorrow at 1300. I have asked her to return at 1630 tomorrow but sooner it the pump starts beeping consistently. Pt agreed to this. Site cleaned per protocol, new needle inserted and pump restarted at exactly 1200.
[2018-11-29 14:25] LABS: Add Manual Diff / Slide Review NO; Basophils Absolute Auto 100 /uL (0-100); Basophils Percent Auto 1.3 % (0-2); Eosinophils Absolute Auto 500 /uL (0-450); Eosinophils Percent Auto 12.6 % (2-4); Hematocrit 43.7 % (36-46); Hemoglobin 14.7 g/dL (12.0-16.0); Lymphocytes Absolute Auto 1300 /uL (1100-4500); Lymphocytes Percent Auto 28.9 % (25-40); Mean Corpuscular HGB Conc 33.7 % (30-36); Mean Corpuscular Hemoglobin 32.5 PG (26-34); Mean Corpuscular Volume 96.5 fL (80-100); Monocytes Absolute Auto 400 /uL (0-900); Monocytes Percent Auto 9.1 % (3-14); Neutrophils Absolute Auto 2100 /uL (1500-7000); Neutrophils Percent Auto 48.1 % (50-75); Platelet Count 218 X10^3/uL (150-400); Red Blood Cell Count 4.52 X10^6/uL (4.0-5.2); Red Cell Distribution Width 14.1 % (11.6-14.8); White Blood Cell Count 4.3 X10^3/uL (4.5-11.0)
[2018-11-29 14:43] LABS: Alanine Aminotransferase 13 IU/L (9-52); Albumin Globulin Ratio 1.3 (1.0-2.8); Alkaline Phosphatase 47 U/L (38-126); Aspartate Aminotransferase 15 IU/L (14-36); BUN Creatinine Ratio 17.5 (6-22); Bilirubin Total 0.2 mg/dL (0.2-1.3); Blood Urea Nitrogen 7 mg/dL (7-17); Calcium 8.7 mg/dL (8.4-10.2); Carbon Dioxide 30 mmol/L (22-32); Chloride 96 mmol/L (98-107); Estimated Glomerular Filt Rate > 60.0 mL/min (>60); Globulin 2.3 g/dL (1.7-4.1); Glucose 95 mg/dL (80-110); HEMOLYSIS < 15 (0-50); Potassium 3.2 mmol/L (3.4-5.1); Sodium 132 mmol/L (137-145); Total Protein 5.3 g/dL (6.3-8.2)
[2018-12-06 09:39] LABS: Add Manual Diff / Slide Review NO; Basophils Absolute Auto 0 /uL (0-100); Basophils Percent Auto 0.6 % (0-2); Eosinophils Absolute Auto 100 /uL (0-450); Eosinophils Percent Auto 1.1 % (2-4); Hematocrit 41.8 % (36-46); Hemoglobin 14.2 g/dL (12.0-16.0); Lymphocytes Absolute Auto 900 /uL (1100-4500); Lymphocytes Percent Auto 13.7 % (25-40); Mean Corpuscular Hemoglobin 32.7 PG (26-34); Mean Corpuscular Volume 96.3 fL (80-100); Monocytes Absolute Auto 700 /uL (0-900); Monocytes Percent Auto 11.8 % (3-14); Neutrophils Absolute Auto 4600 /uL (1500-7000); Neutrophils Percent Auto 72.8 % (50-75); Platelet Count 273 X10^3/uL (150-400); Red Blood Cell Count 4.34 X10^6/uL (4.0-5.2); Red Cell Distribution Width 14.1 % (11.6-14.8); White Blood Cell Count 6.3 X10^3/uL (4.5-11.0)
[2018-12-06 09:46] VITALS: BP 106/52; PULSE 111; RESP 20; TEMP 36.1
[2018-12-06 09:51] LABS: Alanine Aminotransferase 20 IU/L (9-52); Albumin Globulin Ratio 1.2 (1.0-2.8); Alkaline Phosphatase 53 U/L (38-126); Aspartate Aminotransferase 13 IU/L (14-36); BUN Creatinine Ratio 26.7 (6-22); Bilirubin Total 0.3 mg/dL (0.2-1.3); Blood Urea Nitrogen 8 mg/dL (7-17); Calcium 7.9 mg/dL (8.4-10.2); Carbon Dioxide 30 mmol/L (22-32); Chloride 92 mmol/L (98-107); Estimated Glomerular Filt Rate > 60.0 mL/min (>60); Globulin 2.5 g/dL (1.7-4.1); Glucose 97 mg/dL (80-110); HEMOLYSIS < 15 (0-50); Potassium 3.1 mmol/L (3.4-5.1); Sodium 130 mmol/L (137-145); Total Protein 5.5 g/dL (6.3-8.2)
--- NOTE | 2018-12-06 09:55 | ONC.PN ---
PN -Subjective Interval history: Diagnosis: Metastatic colon cancer. MMR normal. Previous treatment: 1. Adenocarcinoma of the colon in a polyp that was removed at the time of a screening colonoscopy in 2012. 2. Partial sigmoid colectomy in October 2013 with a 1.1 cm adenoma but no invasive carcinoma. 3. 3 cycles of FOLFIRI Interval history: The patient is a 77-year-old woman who returns today for follow-up. She has a history of small colon cancer that was resected at the time of a polypectomy. She now has recurrence involving the bladder neck and anterior vaginal wall as well as small pulmonary nodules. She started her chemotherapy with FOLFIRI. She has completed 3 cycles thus far and is due for her 4th today. Since her last visit here, she has been feeling about the same. She did have some diarrhea for a few days with her last cycle of chemotherapy. She took some ralp-vls-mhrtkuh Kaopectate which helped. Her appetite has been low. She has not had any nausea or vomiting though. She has been using some Ensure with ice cream but only every few days. She denies any pain. No fevers chills or sweats. She has not had any mouth sores or skin rash. Strength and energy level have been low but stable. She does have some dyspnea on exertion and needs to use her nebulizer she walks too far are too quickly. She has not noted any adenopathy. no dizziness or lightheadedness. She is getting plenty of fluids. She denies any other changes in her health. Her medications include albuterol Fosamax aspirin allergy tach and vitamin-D. She also takes pravastatin and Serevent. Social history: She has been excited about her family. Her son recently was here to visit. She is working to make him her durable power of [employer] and update her will. She tells me that several of her grandsons are expecting children over the summer. Another grandson has just recently got engaged. She was able to stop smoking within the last few weeks. - Patient Self-Reported Symptoms SR Constitution: Weight loss/gain, Fatigue/Malaise SR eye issues: Vision changes SR ears, nose, mouth, throat issues: Congestion SR respiratory issues: Shortness of breath, Mucous SR Cardiovascular issues: Shortness of breath with activity or lying flat SR Skin issues: Hair loss or scalp prob SR Gastrointestinal issues: Diarrhea SR Genitourinary issues: Blood in urine, Vaginal bleeding SR Musculoskeletal issues: Cold hands or feet SR Hematologic issues: Bleeding/bruising Home Medications and Allergies Home Medications Medication Instructions Recorded Confirmed Type albuterol sulfate 2 puff INHALATION Q4-6H PRN 08/10/18 12/06/18 History albuterol sulfate 2.5 mg INHALATION Q4H PRN 08/10/18 12/06/18 History aspirin 81 mg PO DAILY 08/10/18 12/06/18 History cetirizine [Aller-Ana] 10 mg PO DAILY 08/10/18 12/06/18 History pravastatin 20 mg PO DAILY 08/10/18 12/06/18 History Serevent Diskus 1 puff INHALATION DIRECTED 10/05/18 12/06/18 History alendronate [Fosamax] 1 tab PO QWEEK 10/05/18 12/06/18 History cholecalciferol (vitamin D3) 3,000 unit PO DAILY 10/05/18 12/06/18 History [Vitamin D3] diazepam 5 mg PO BID 10/05/18 12/06/18 History lidocaine-prilocaine See Rx Instructions .ROUTE 10/19/18 12/06/18 Rx .COMPLEX #30 gram ondansetron 4 mg PO QID PRN #20 tab 10/19/18 12/06/18 Rx oxycodone-acetaminophen [Percocet] 1 tab PO Q4-6H PRN #20 tab 10/19/18 12/06/18 Rx Allergies Allergy/AdvReac Type Severity Reaction Status Date / Time iodine [IODINE] Allergy Severe HIVES Verified 10/19/18 12:18 codeine [CODEINE] AdvReac Unknown SLEEPY Verified 10/19/18 12:18 lansoprazole [LANSOPRAZOLE] AdvReac Unknown GI UPSET Verified 10/19/18 12:18 Exam Vital signs: Vital Signs Temp Pulse Resp BP 12/06/18 09:46 96.9 F L 111 H 20 106/52 L Intake and Output 12/05/18 12/06/18 12/06/18 23:59 07:59 15:59 Other: Weight 103.9 kg Patient Weight 12/06/18 23:59 Weight 103.9 kg - Constitutional positive no acute distress, positive thin - Routine HEENT Exam Head: Present: normocephalic, atraumatic Eye: Present: EOMI, PERRL. Absent: conjunctival icterus, scleral injection ENT: Present: mucous membranes moist, oropharynx clear - Routine Neck Exam Present: supple. Absent: lymphadenopathy, thyromegaly - Routine Respiratory Exam Present: Clear to auscultation bilaterally, decreased breath sounds. Absent: rales, wheezes - Routine Cardiovascular Exam Present: RRR, S1, S2. Absent: murmur - Routine Abdominal Exam Present: soft, normoactive bowel sounds. Absent: tenderness, organomegaly, mass - Routine Extremities Exam Present: clubbing. Absent: cyanosis, edema - Routine Skin Exam Present: intact. Absent: petechiae, rash - Routine Neurological Exam Present: alert, oriented X3 - Routine Psychiatric Exam Present: normal affect, normal thought process Results - Labs Laboratory Last Values WBC 6.3 X10^3/uL (4.5-11.0) 12/06/18 09:25 RBC 4.34 X10^6/uL (4.0-5.2) 12/06/18 09:25 Hgb 14.2 g/dL (12.0-16.0) 12/06/18 09:25 Hct 41.8 % (36-46) 12/06/18 09:25 MCV 96.3 fL (80-100) 12/06/18 09:25 MCH 32.7 PG (26-34) 12/06/18 09:25 MCHC 34.0 % (30-36) 12/06/18 09:25 RDW 14.1 % (11.6-14.8) 12/06/18 09:25 Plt Count 273 X10^3/uL (150-400) 12/06/18 09:25 Neut % (Auto) 72.8 % (50-75) 12/06/18 09:25 Lymph % (Auto) 13.7 % (25-40) L 12/06/18 09:25 Gibson % (Auto) 11.8 % (3-14) 12/06/18 09:25 Eos % (Auto) 1.1 % (2-4) L 12/06/18 09:25 Baso % (Auto) 0.6 % (0-2) 12/06/18 09:25 Neut # (Auto) 4600 /uL (7357-0232) 12/06/18 09:25 Lymph # (Auto) 900 /uL (1404-8754) L 12/06/18 09:25 Gibson # (Auto) 700 /uL (0-900) 12/06/18 09:25 Eos # (Auto) 100 /uL (0-450) 12/06/18 09:25 Baso # (Auto) 0 /uL (0-100) 12/06/18 09:25 Sodium 130 mmol/L (137-145) L 12/06/18 09:25 Potassium 3.1 mmol/L (3.4-5.1) L 12/06/18 09:25 Chloride 92 mmol/L (98-107) L 12/06/18 09:25 Carbon Dioxide 30 mmol/L (22-32) 12/06/18 09:25 BUN 8 mg/dL (7-17) 12/06/18 09:25 Creatinine 0.30 mg/dL (0.52-1.04) L 12/06/18 09:25 Estimated GFR > 60.0 mL/min (>60) 12/06/18 09:25 BUN/Creatinine Ratio 26.7 (6-22) H 12/06/18 09:25 Glucose 97 mg/dL (80-110) 12/06/18 09:25 Calcium 7.9 mg/dL (8.4-10.2) L 12/06/18 09:25 Total Bilirubin 0.3 mg/dL (0.2-1.3) 12/06/18 09:25 AST 13 IU/L (14-36) L 12/06/18 09:25 ALT 20 IU/L (9-52) 12/06/18 09:25 Alkaline Phosphatase 53 U/L (38-126) 12/06/18 09:25 Total Protein 5.5 g/dL (6.3-8.2) L 12/06/18 09:25 Albumin 3.0 g/dL (3.5-5.0) L 12/06/18 09:25 Globulin 2.5 g/dL (1.7-4.1) 12/06/18 09:25 Albumin/Globulin Ratio 1.2 (1.0-2.8) 12/06/18 09:25 Carcinoembryonic Ag 10.2 ng/mL (0.1-3.0) H 11/22/18 09:15 - Imaging Additional studies: Procedures Closure of skin and subcutaneous tissue of other sites (03/29/11) Assessment and Plan (1) Adenocarcinoma Current visit: Yes Status: Acute 77-year-old woman with a adenocarcinoma involving the bladder outlet. It appears that there may be direct extension into the anterior wall the vagina. It also appears that she has some small bilateral lung metastases that have been slowly increasing in size. Based on immunohistochemistry, this appears to be compatible with a colorectal primary but her colonoscopy does not disclose any primary tumor. Cancer type ID did in fact confirm that the colorectal primary is most likely. Mismatch repair proteins were normal. Her CPS score for PDL1 was 2%. A ANJUM and BRAF are still pending. She is tolerating her FOLFIRI with the expected side effects. We will proceed with her 4th cycle today. She will return to clinic in about 2 weeks for follow-up. She will be due for CT scan at that time to assess response.
[2018-12-06] MEDS: DEXAMETHASONE 12 MG in SODIUM CHLORIDE 0.9% 50 ML 212 ML IV (10:56)
[2018-12-06] MEDS: SODIUM CHLORIDE 0.9% 100 ML 21 ML IV (10:56)
[2018-12-06] MEDS: ONDANSETRON 16 MG in SODIUM CHLORIDE 0.9% 50 ML 232 ML IV (11:17)
[2018-12-06] MEDS: IRINOTECAN IV (11:55)
[2018-12-06] MEDS: DEXTROSE 5% IV ×2 (11:55→11:56)
[2018-12-06] MEDS: LEUCOVORIN IV (11:56)
[2018-12-06] MEDS: FLUOROURACIL IV (14:06)
[2018-12-06] MEDS: ISOOSMOTIC VEHICLE IV (14:06)
--- NOTE | 2018-12-06 16:26 | PC.NURSE ---
Connected to 5FU CADD pump after verifying dosage and settings with DESHAWN [place] and checking for brisk blood return from port. Reiterated to patient not to try to remove dressing or pump. Verbalized understanding.
--- NOTE | 2018-12-07 13:20 | PC.NURSE ---
Patient left message for triage on 12/07 at 1240 requesting to come in for pump disconnect at 1400 instead of 1300 due to transportation issue. This nurse informed her per telephone that she should just take out battery when pump beeps and it is ok to come at 1400. Scheduling informed.
--- NOTE | 2018-12-12 16:41 | PC.NURSE ---
late note: Spoke with pt this morning at approx 9:30am. Pt c/o vomiting since 6 am. Denies fever and chills. Denies pain. Denies eating anything outside of her usual pattern states It just started and won't stop. Pt reports taking one anti nausea pill earlier. This technical writer and editor instructed to take 4mg of Zofran of home medication, pt agreed. Told pt that if n/v didn't resolve within the next two hours to notify this technical writer and editor, pt agreeable. While on the phone pt also explained that she is scheduled for a CT scan tomorrow and is sensitive to the dye. Pt states they usually give me medication before hand, where I have to take a pill every few hours before the CT. Let pt know I would clarify premeditation with order with Dr. Green. Called pt back w/i two to see if n/vomiting had subsided, pt continues to report vomiting without improvement. Pt states I just feel terrible. I keep vomiting. Explained to pt that Dr. Green is not in clinic today to evaluate her and encouraged her to be evaluated in ER. Pt's neighbor present at time of phone call. Pt's neighbor agrees to take pt to ER for evaluation immediately. Prednisone and Benadryl called into pharmacy for pt with specific instructions to be followed prior to CT.
--- NOTE | 2018-12-19 11:38 | ONC.MSW ---
Description: T/C-Hospice Records Request Activity: Hospice called requesting ONC chart notes in order to provide an informational visit with patient while she is inpt here at . Faxed the records as requested.
--- NOTE | 2018-12-20 13:25 | ONC.MSW ---
Description: Care Coordination/inpt status Activity: RAULITO has been collaborating with the nurse shoe planner to assist with any coordination and/or decision making needs. Pt has had a hospice informational visit, and has verbalized the goal of wanting to go home and be kept comfortable, no snf. She also has verbalized that she intends to continue with aggressive cancer treatment, even though her functional status on the ECOG scale is a (4). She now requires total care, has very compromised pulmonary function, is very weak, and continues to require ample O2 therapy for comfort. Her family is encouraging her to elect hospice services and hired in-home care as the discharge plan. CARD TENDER offered support and validated her goal of wanting to get better, however gently facilitated the conversation of the reality of her limited function. RAULITO also reiterated the assessment of the medical team here at , that she is not likely to improve or regain her previous level of functioning. She was unable to participate at all in the physical therapy assessment in her hospital room, and stated to PT that she just did not have the ability. CARD TENDER f/u with Dr. Green and provided report. Dr. Green will plan to go up and visit patient later this afternoon, at which time he will assess and discuss his opinion re: oncology plan of care.
--- NOTE | 2018-12-26 15:44 | PC.NURSE ---
Addendum entered by Jessa Griffiths R.N. 12/28/18 09:57: Received note back from Dr Green in response to Elif [facility]'s note. His response said done. Original Note: [facility] to say that Makenzie Betts, BD: [id number] is being admitted today to hospice. She requests a VO from Dr. Green saying that she is eligible for hospice and whether he will be managing his care or wishes a hospice doctor to do so.
--- NOTE | 2019-01-30 14:12 | ONC.MSW ---
*Sent bereavement card.
== END ==
PROVIDERS: Nurse Practitioner Gerontology; PCP Family Medicine
DX: C67.5 Malignant neoplasm of bladder neck (principal); C52 Malignant neoplasm of vagina; C78.01 Secondary malignant neoplasm of right lung; C78.02 Secondary malignant neoplasm of left lung; Z85.038 Personal history of other malignant neoplasm of large intestine
CPT/HCPCS: 36415; 36592; 80053; 82378; 85025; 96368; 96375; 96376; 96411; 96413; 96415; 96523; 99204; 99214; 99215; J0640; J1100; J2405; J9190; J9206

== ENCOUNTER 2018-12-12 15:12 | Inpatient (IN) | payer OTHER, SELFPAY ==
[2018-12-12] VITALS (9 sets, daily range): BP systolic 94–144; BP diastolic 46–67; PULSE 107–117; RESP 14–37; TEMP 36.2–37.2; O2SAT 88–94; BMI 17.1
--- NOTE | 2018-12-12 16:05 | ED.NAVMDI ---
HPI - Nausea/Vomiting/Diarrhea <Yuridia Gordillo PA-C - Last Filed: 12/12/18 23:20> General Chief complaint: Nausea/Vomiting/Diarrhea Stated complaint: CANCER PATIENT HAS BEEN THROWING UP Time Seen by Provider: 12/12/18 16:05 Source: patient Mode of arrival: ambulatory Limitations: no limitations History of Present Illness HPI Narrative: This 77-year-old female comes to ED secondary to protracted vomiting earlier today. She states that she has been receiving rounds of chemotherapy every 2 weeks. She had her 4th treatment a few days ago. She states she has had some diarrhea in the past with this chemo but no vomiting. she states she has had no abdominal pain, but had persistent nausea this morning with vomiting every few minutes and unable to stop. She did try to take Zofran orally but not sure that she kept that down. She states that she has not had diarrhea this time. She denies any chest pain. She states that she felt short of breath ?puffing? while she was vomiting but does not now. She states she feels better with oxygen on. She does have COPD and uses nebulizers at home as needed but not oxygen. She denies any recent cough or illness. She denies any fever. She has not kept down any food or fluids today. She denies any new pain or swelling in her extremities or other new complaints Related Data Home Medications Medication Instructions Recorded Confirmed albuterol sulfate 2 puff INHALATION Q4-6H PRN 08/10/18 12/12/18 albuterol sulfate 2.5 mg INHALATION Q4H PRN 08/10/18 12/12/18 aspirin 81 mg PO DAILY 08/10/18 12/12/18 cetirizine [Aller-Ana] 10 mg PO DAILY 08/10/18 12/12/18 Serevent Diskus 1 puff INHALATION DIRECTED 10/05/18 12/12/18 alendronate [Fosamax] 1 tab PO QWEEK 10/05/18 12/12/18 cholecalciferol (vitamin D3) 3,000 unit PO DAILY 10/05/18 12/12/18 [Vitamin D3] diazepam 5 mg PO BID 10/05/18 12/12/18 indomethacin 25 mg PO TID 12/12/18 12/12/18 ipratropium-albuterol 1 dose INHALATION DIRECTED 12/12/18 12/12/18 metoprolol tartrate 25 mg PO BID 12/12/18 12/12/18 pravastatin 40 mg PO BEDTIME 12/12/18 12/12/18 Previous Rx's Medication Instructions Recorded lidocaine-prilocaine See Rx Instructions .ROUTE 10/19/18 .COMPLEX #30 gram ondansetron 4 mg PO QID PRN #20 tab 10/19/18 Allergies Allergy/AdvReac Type Severity Reaction Status Date / Time iodine [IODINE] Allergy Severe HIVES Verified 10/19/18 12:18 codeine [CODEINE] AdvReac Unknown SLEEPY Verified 10/19/18 12:18 lansoprazole [LANSOPRAZOLE] AdvReac Unknown GI UPSET Verified 10/19/18 12:18 Review of Systems <Yuridia Gordillo PA-C - Last Filed: 12/12/18 23:20> Review of Systems ROS Unobtainable: All systems reviewed & are unremarkable except as noted in HPI and below PFSH <Yuridia Gordillo PA-C - Last Filed: 12/12/18 23:20> Medical History (Updated 12/12/18 @ 21:16 by Yuridia Gordillo PA-C) Adenocarcinoma (Chronic) Current every day smoker (Chronic) Hyperlipidemia (Chronic) Hypertension (Chronic) H/O: hysterectomy (Resolved) Surgical History (Updated 12/12/18 @ 17:31 by Yuridia Gordillo PA-C) History of cholecystectomy (Resolved) History of partial colectomy (Resolved) Hx of vascular surgery (Resolved) Social History household members: none Smoking Status: Current every day smoker alcohol intake: current Social History household members: none Smoking Status: Current every day smoker alcohol intake: current Exam <Yuridia Gordillo PA-C - Last Filed: 12/12/18 23:20> Narrative Exam Narrative: GENERAL APPEARANCE: Patient resting comfortably, frail appearing HEENT: PERRL, EOMI, no scleral icterus NECK: Supple LUNGS: Coarse bilaterally with generalized reduced breath sounds, no cough on exam. HEART: Rate and rhythm regular, normal S1 and S2, no S3 or S4. ABDOMEN: Soft, nontender, nondistended, bowel sounds present x 4 quadrants, no masses palpable, no hepatosplenomegaly. EXTREMITIES: No edema, no calf tenderness DERMATOLOGIC: No jaundice or exanthem NEUROLOGIC: Alert and oriented with normal speech and coordination Initial Vital Signs Initial Vital Signs: Vital Signs Temperature 97.2 F L 12/12/18 15:33 Pulse Rate 115 H 12/12/18 15:33 Respiratory Rate 14 12/12/18 15:33 Blood Pressure 94/61 12/12/18 15:33 Pulse Oximetry 92 12/12/18 15:33 <Jessica Tobin DO - Last Filed: 12/13/18 06:54> Initial Vital Signs Initial Vital Signs: Vital Signs Temperature 97.2 F L 12/12/18 15:33 Pulse Rate 115 H 12/12/18 15:33 Respiratory Rate 14 12/12/18 15:33 Blood Pressure 94/61 12/12/18 15:33 Pulse Oximetry 92 12/12/18 15:33 Course <Yuridia Gordillo PA-C - Last Filed: 12/12/18 23:20> Additional Information: 1224: I have spoken with Dr. Eldridge, revenue enforcement collection agent for Dr. Lemos and reviewed patient's history in findings including bilateral pneumonia with COPD and chronic hypoxia that is exacerbated. She also had protracted vomiting earlier, possibly related to chemotherapy, which is resolved with dehydration. Reviewed vital signs including tachycardia and hypotension, which are improving. Oxygen saturation stable on high-flow oxygen (goal close to 90 as that is likely her baseline). He is agreeable with ICU admission, requested admit under Dr. Lemos. Discussed code statuus with patient and she wishes to remain full code Orders Ordered: ED Orders 12/12/18 22:30 MRSA PCR Stat 12/12/18 23:05 RT Consult Eval and Treat Now 12/12/18 23:28 Consult to Dietitian, Adult Routine Education, smoking cessation Once 12/13/18 06:41 CBC [Complete Blood Count AUTO DIFF] Urgent CMP [Comprehensive Metabolic Panel] Urgent Acetaminophen (Tylenol) 650 mg PO Q6HR PRN PRN Reason: As Needed for Fever/Mild Pain Last Admin: 12/13/18 00:26 Dose: 650 mg Albuterol (Ventolin) 2.5 mg INH [id number] PRN PRN Reason: Shortness Of Breath Albuterol/Ipratropium (Duoneb) 3 ml INH [id number] KELLI Last Admin: 12/13/18 06:12 Dose: 3 ml Admin: 12/13/18 03:09 Dose: 3 ml Sodium Chloride (Normal Saline 0.9%) 1,000 mls @ 75 mls/hr IV CONT KELLI Last Admin: 12/13/18 00:12 Dose: 75 mls/hr Ondansetron HCl (Zofran) 4 mg IV Q4HR PRN PRN Reason: Nausea And Vomiting Discontinued Medications Albuterol (Ventolin) 2.5 mg INH NOW ONE Stop: 12/12/18 18:47 Last Admin: 12/12/18 18:56 Dose: 2.5 mg Albuterol/Ipratropium (Duoneb) 3 ml INH NOW ONE Stop: 12/12/18 18:47 Last Admin: 12/12/18 18:56 Dose: 3 ml Albuterol/Ipratropium (Duoneb) 6 ml INH NOW ONE Stop: 12/12/18 19:07 Last Admin: 12/12/18 19:07 Dose: 6 ml Albuterol/Ipratropium (Duoneb) 3 ml INH RTQ4HR PRN PRN Reason: Shortness Of Breath Last Admin: 12/12/18 23:34 Dose: 3 ml Diphenhydramine HCl (Benadryl) 50 mg IV NOW ONE Stop: 12/12/18 19:02 Last Admin: 12/12/18 19:24 Dose: 50 mg Sodium Chloride (Normal Saline 0.9%) 1,000 mls @ 1,000 mls/hr IV BOLUS ONE Stop: 12/12/18 18:26 Last Infusion: 12/12/18 18:58 Dose: 0 mls/hr Admin: 12/12/18 17:33 Dose: 1,000 mls/hr Levofloxacin (Levaquin) 750 mg in 150 mls @ 100 mls/hr IV NOW ONE Stop: 12/12/18 21:44 Last Infusion: 12/12/18 22:30 Dose: 0 mls/hr Admin: 12/12/18 20:23 Dose: 100 mls/hr Sodium Chloride (Normal Saline 0.9%) 1,000 mls @ 1,000 mls/hr IV BOLUS ONE Stop: 12/12/18 21:40 Last Infusion: 12/12/18 22:33 Dose: 0 mls/hr Admin: 12/12/18 21:20 Dose: 1,000 mls/hr Methylprednisolone (Solu-Medrol 125 Mg Vial) 125 mg IV NOW ONE Stop: 12/12/18 19:02 Last Admin: 12/12/18 19:24 Dose: 125 mg Ondansetron HCl (Zofran) 4 mg IV NOW ONE Stop: 12/12/18 17:28 Last Admin: 12/12/18 17:33 Dose: 4 mg Pantoprazole Sodium (Protonix) 40 mg IV NOW ONE Stop: 12/12/18 17:28 Last Admin: 12/12/18 17:33 Dose: 40 mg Vital Signs - 8 hr 12/12/18 23:04 12/12/18 23:34 12/13/18 00:26 Temperature 98.9 F 99.6 F Pulse Rate 115 H 111 H Respiratory Rate 37 H 30 H Blood Pressure 107/46 L Pulse Oximetry 88 L 92 12/13/18 00:53 12/13/18 01:12 12/13/18 01:28 Temperature Pulse Rate 106 H Respiratory Rate 26 H Blood Pressure 108/58 L Pulse Oximetry 93 93 12/13/18 02:11 12/13/18 03:03 12/13/18 03:09 Temperature 97.8 F Pulse Rate 99 H 105 H 101 H Respiratory Rate 24 33 H 28 H Blood Pressure 109/58 L Pulse Oximetry 94 93 94 12/13/18 03:52 12/13/18 04:01 12/13/18 05:11 Temperature 97.7 F Pulse Rate 99 H 106 H Respiratory Rate 25 H 36 H Blood Pressure 115/59 L 126/64 Pulse Oximetry 95 95 95 12/13/18 06:06 12/13/18 06:13 Temperature 98.3 F Pulse Rate 111 H 92 H Respiratory Rate 22 35 H Blood Pressure 107/57 L Pulse Oximetry 95 95 <Jessica Tobin, - Last Filed: 12/13/18 06:54> Orders Ordered: ED Orders 12/12/18 22:30 MRSA PCR Stat 12/12/18 23:05 RT Consult Eval and Treat Now 12/12/18 23:28 Consult to Dietitian, Adult Routine Education, smoking cessation Once 12/13/18 06:41 CBC [Complete Blood Count AUTO DIFF] Urgent CMP [Comprehensive Metabolic Panel] Urgent Acetaminophen (Tylenol) 650 mg PO Q6HR PRN PRN Reason: As Needed for Fever/Mild Pain Last Admin: 12/13/18 00:26 Dose: 650 mg Albuterol (Ventolin) 2.5 mg INH [id number] PRN PRN Reason: Shortness Of Breath Albuterol/Ipratropium (Duoneb) 3 ml INH [id number] KELLI Last Admin: 12/13/18 06:12 Dose: 3 ml Admin: 12/13/18 03:09 Dose: 3 ml Sodium Chloride (Normal Saline 0.9%) 1,000 mls @ 75 mls/hr IV CONT KELLI Last Admin: 12/13/18 00:12 Dose: 75 mls/hr Ondansetron HCl (Zofran) 4 mg IV Q4HR PRN PRN Reason: Nausea And Vomiting Discontinued Medications Albuterol (Ventolin) 2.5 mg INH NOW ONE Stop: 12/12/18 18:47 Last Admin: 12/12/18 18:56 Dose: 2.5 mg Albuterol/Ipratropium (Duoneb) 3 ml INH NOW ONE Stop: 12/12/18 18:47 Last Admin: 12/12/18 18:56 Dose: 3 ml Albuterol/Ipratropium (Duoneb) 6 ml INH NOW ONE Stop: 12/12/18 19:07 Last Admin: 12/12/18 19:07 Dose: 6 ml Albuterol/Ipratropium (Duoneb) 3 ml INH RTQ4HR PRN PRN Reason: Shortness Of Breath Last Admin: 12/12/18 23:34 Dose: 3 ml Diphenhydramine HCl (Benadryl) 50 mg IV NOW ONE Stop: 12/12/18 19:02 Last Admin: 12/12/18 19:24 Dose: 50 mg Sodium Chloride (Normal Saline 0.9%) 1,000 mls @ 1,000 mls/hr IV BOLUS ONE Stop: 12/12/18 18:26 Last Infusion: 12/12/18 18:58 Dose: 0 mls/hr Admin: 12/12/18 17:33 Dose: 1,000 mls/hr Levofloxacin (Levaquin) 750 mg in 150 mls @ 100 mls/hr IV NOW ONE Stop: 12/12/18 21:44 Last Infusion: 12/12/18 22:30 Dose: 0 mls/hr Admin: 12/12/18 20:23 Dose: 100 mls/hr Sodium Chloride (Normal Saline 0.9%) 1,000 mls @ 1,000 mls/hr IV BOLUS ONE Stop: 12/12/18 21:40 Last Infusion: 12/12/18 22:33 Dose: 0 mls/hr Admin: 12/12/18 21:20 Dose: 1,000 mls/hr Methylprednisolone (Solu-Medrol 125 Mg Vial) 125 mg IV NOW ONE Stop: 12/12/18 19:02 Last Admin: 12/12/18 19:24 Dose: 125 mg Ondansetron HCl (Zofran) 4 mg IV NOW ONE Stop: 12/12/18 17:28 Last Admin: 12/12/18 17:33 Dose: 4 mg Pantoprazole Sodium (Protonix) 40 mg IV NOW ONE Stop: 12/12/18 17:28 Last Admin: 12/12/18 17:33 Dose: 40 mg Vital Signs - 8 hr 12/12/18 23:04 12/12/18 23:34 12/13/18 00:26 Temperature 98.9 F 99.6 F Pulse Rate 115 H 111 H Respiratory Rate 37 H 30 H Blood Pressure 107/46 L Pulse Oximetry 88 L 92 12/13/18 00:53 12/13/18 01:12 12/13/18 01:28 Temperature Pulse Rate 106 H Respiratory Rate 26 H Blood Pressure 108/58 L Pulse Oximetry 93 93 12/13/18 02:11 12/13/18 03:03 12/13/18 03:09 Temperature 97.8 F Pulse Rate 99 H 105 H 101 H Respiratory Rate 24 33 H 28 H Blood Pressure 109/58 L Pulse Oximetry 94 93 94 12/13/18 03:52 12/13/18 04:01 12/13/18 05:11 Temperature 97.7 F Pulse Rate 99 H 106 H Respiratory Rate 25 H 36 H Blood Pressure 115/59 L 126/64 Pulse Oximetry 95 95 95 12/13/18 06:06 12/13/18 06:13 Temperature 98.3 F Pulse Rate 111 H 92 H Respiratory Rate 22 35 H Blood Pressure 107/57 L Pulse Oximetry 95 95 MDM - Nausea/Vomiting/Diarrhea <Yuridia Gordillo PA-C - Last Filed: 12/12/18 23:20> Lab Data Attestation: I reviewed the patient's lab results. Result diagrams: 12/12/18 17:00 12/12/18 17:00 Lab Results 12/12/18 12/12/18 12/12/18 Range/Units 17:00 17:00 17:00 WBC 6.2 (4.5-11.0) X10^3/uL RBC 5.04 (4.0-5.2) X10^6/uL Hgb 16.0 (12.0-16.0) g/dL Hct 48.3 H (36-46) % MCV 95.8 (80-100) fL MCH 31.7 (26-34) PG MCHC 33.1 (30-36) % RDW 14.2 (11.6-14.8) % Plt Count 311 (150-400) X10^3/uL Neut % (Auto) 85.0 H (50-75) % Lymph % (Auto) 7.0 L (25-40) % Cavalier % (Auto) 7.3 (3-14) % Eos % (Auto) 0.5 L (2-4) % Baso % (Auto) 0.2 (0-2) % Neut # (Auto) 5300 (0327-8869) /uL Lymph # (Auto) 400 L (3989-4278) /uL Cavalier # (Auto) 500 (0-900) /uL Eos # (Auto) 0 (0-450) /uL Baso # (Auto) 0 (0-100) /uL ABG pH (7.35-7.45) ABG pCO2 (35-45) mmHg ABG pO2 (80-100) mmHg ABG HCO3 (22-26) mmol/L ABG Total CO2 (21-31) mmol/L ABG O2 Saturation (95-100) % ABG Base Excess (-2-2) mmol/L FiO2 Sodium 129 L (137-145) mmol/L Potassium 3.4 (3.4-5.1) mmol/L Chloride 88 L (98-107) mmol/L Carbon Dioxide 30 (22-32) mmol/L BUN 13 (7-17) mg/dL Creatinine 0.50 L (0.52-1.04) mg/dL Estimated GFR > 60.0 (>60) mL/min BUN/Creatinine Ratio 26.0 H (6-22) Glucose 127 H (80-110) mg/dL Lactate (0.7-2.1) mmol/L Calcium 8.3 L (8.4-10.2) mg/dL Total Bilirubin 0.5 (0.2-1.3) mg/dL AST 23 (14-36) IU/L ALT 25 (9-52) IU/L Alkaline Phosphatase 60 (38-126) U/L Total Creatine Kinase (30-135) U/L CK-MB (CK-2) CK-MB (CK-2) Rel Index Troponin I (0.01-0.034) ng/mL B-Natriuretic Peptide (<100) Total Protein 6.0 L (6.3-8.2) g/dL Albumin 3.3 L (3.5-5.0) g/dL Globulin 2.7 (1.7-4.1) g/dL Albumin/Globulin Ratio 1.2 (1.0-2.8) Lipase (23-300) U/L Urine Color Yellow Urine Appearance Cloudy Urine pH 5.0 (4.5-8.0) Ur Specific Vance >=1.030 H (1.000-1.035) Urine Protein 2+ H (Negative) Urine Glucose (UA) Negative (Negative) g/dL Urine Ketones 1+ H (NEGATIVE) Urine Occult Blood 3+ H (Negative) Urine Nitrate Negative (Negative) Urine Bilirubin 1+ H (NEGATIVE) Urine Ictotest Negative (Negative) Urine Urobilinogen 1.0 (0.2) E.U./dL Ur Leukocyte Esterase 2+ H (NEGATIVE) Urine RBC 1-5/hpf (0-5/HPF) Urine WBC 30-100/hpf H (0-5/HPF) Ur Squamous Epith Cells 1-5 /hpf (0-5/HPF) Calcium Oxalate Crystal Few H Urine Bacteria Many (>30) H (None) Ur Culture Indicated? Specimen cultured Nasal Screen MRSA (PCR) (Negative) 12/12/18 12/12/18 12/12/18 Range/Units 17:00 17:00 17:00 WBC (4.5-11.0) X10^3/uL RBC (4.0-5.2) X10^6/uL Hgb (12.0-16.0) g/dL Hct (36-46) % MCV (80-100) fL MCH (26-34) PG MCHC (30-36) % RDW (11.6-14.8) % Plt Count (150-400) X10^3/uL Neut % (Auto) (50-75) % Lymph % (Auto) (25-40) % Cavalier % (Auto) (3-14) % Eos % (Auto) (2-4) % Baso % (Auto) (0-2) % Neut # (Auto) (5735-4560) /uL Lymph # (Auto) (8936-5834) /uL Cavalier # (Auto) (0-900) /uL Eos # (Auto) (0-450) /uL Baso # (Auto) (0-100) /uL ABG pH (7.35-7.45) ABG pCO2 (35-45) mmHg ABG pO2 (80-100) mmHg ABG HCO3 (22-26) mmol/L ABG Total CO2 (21-31) mmol/L ABG O2 Saturation (95-100) % ABG Base Excess (-2-2) mmol/L FiO2 Sodium (137-145) mmol/L Potassium (3.4-5.1) mmol/L Chloride (98-107) mmol/L Carbon Dioxide (22-32) mmol/L BUN (7-17) mg/dL Creatinine (0.52-1.04) mg/dL Estimated GFR (>60) mL/min BUN/Creatinine Ratio (6-22) Glucose (80-110) mg/dL Lactate (0.7-2.1) mmol/L Calcium (8.4-10.2) mg/dL Total Bilirubin (0.2-1.3) mg/dL AST (14-36) IU/L ALT (9-52) IU/L Alkaline Phosphatase (38-126) U/L Total Creatine Kinase < 20 L (30-135) U/L CK-MB (CK-2) TNP CK-MB (CK-2) Rel Index TNP Troponin I < 0.012 (0.01-0.034) ng/mL B-Natriuretic Peptide < 100 (<100) Total Protein (6.3-8.2) g/dL Albumin (3.5-5.0) g/dL Globulin (1.7-4.1) g/dL Albumin/Globulin Ratio (1.0-2.8) Lipase 31 (23-300) U/L Urine Color Urine Appearance Urine pH (4.5-8.0) Ur Specific Vance (1.000-1.035) Urine Protein (Negative) Urine Glucose (UA) (Negative) g/dL Urine Ketones (NEGATIVE) Urine Occult Blood (Negative) Urine Nitrate (Negative) Urine Bilirubin (NEGATIVE) Urine Ictotest (Negative) Urine Urobilinogen (0.2) E.U./dL Ur Leukocyte Esterase (NEGATIVE) Urine RBC (0-5/HPF) Urine WBC (0-5/HPF) Ur Squamous Epith Cells (0-5/HPF) Calcium Oxalate Crystal Urine Bacteria (None) Ur Culture Indicated? Nasal Screen MRSA (PCR) (Negative) 12/12/18 12/12/18 12/12/18 Range/Units 17:46 20:18 22:30 WBC (4.5-11.0) X10^3/uL RBC (4.0-5.2) X10^6/uL Hgb (12.0-16.0) g/dL Hct (36-46) % MCV (80-100) fL MCH (26-34) PG MCHC (30-36) % RDW (11.6-14.8) % Plt Count (150-400) X10^3/uL Neut % (Auto) (50-75) % Lymph % (Auto) (25-40) % Cavalier % (Auto) (3-14) % Eos % (Auto) (2-4) % Baso % (Auto) (0-2) % Neut # (Auto) (7878-8402) /uL Lymph # (Auto) (3993-6546) /uL Cavalier # (Auto) (0-900) /uL Eos # (Auto) (0-450) /uL Baso # (Auto) (0-100) /uL ABG pH 7.40 (7.35-7.45) ABG pCO2 39.8 (35-45) mmHg ABG pO2 49 L* (80-100) mmHg ABG HCO3 25 (22-26) mmol/L ABG Total CO2 26 (21-31) mmol/L ABG O2 Saturation 84 L* (95-100) % ABG Base Excess 0.0 (-2-2) mmol/L FiO2 21 Sodium (137-145) mmol/L Potassium (3.4-5.1) mmol/L Chloride (98-107) mmol/L Carbon Dioxide (22-32) mmol/L BUN (7-17) mg/dL Creatinine (0.52-1.04) mg/dL Estimated GFR (>60) mL/min BUN/Creatinine Ratio (6-22) Glucose (80-110) mg/dL Lactate 1.1 (0.7-2.1) mmol/L Calcium (8.4-10.2) mg/dL Total Bilirubin (0.2-1.3) mg/dL AST (14-36) IU/L ALT (9-52) IU/L Alkaline Phosphatase (38-126) U/L Total Creatine Kinase (30-135) U/L CK-MB (CK-2) CK-MB (CK-2) Rel Index Troponin I (0.01-0.034) ng/mL B-Natriuretic Peptide (<100) Total Protein (6.3-8.2) g/dL Albumin (3.5-5.0) g/dL Globulin (1.7-4.1) g/dL Albumin/Globulin Ratio (1.0-2.8) Lipase (23-300) U/L Urine Color Urine Appearance Urine pH (4.5-8.0) Ur Specific Vance (1.000-1.035) Urine Protein (Negative) Urine Glucose (UA) (Negative) g/dL Urine Ketones (NEGATIVE) Urine Occult Blood (Negative) Urine Nitrate (Negative) Urine Bilirubin (NEGATIVE) Urine Ictotest (Negative) Urine Urobilinogen (0.2) E.U./dL Ur Leukocyte Esterase (NEGATIVE) Urine RBC (0-5/HPF) Urine WBC (0-5/HPF) Ur Squamous Epith Cells (0-5/HPF) Calcium Oxalate Crystal Urine Bacteria (None) Ur Culture Indicated? Nasal Screen MRSA (PCR) Negative for mrsa (Negative) Imaging Data Chest x-ray: Radiologist's impression: [address] [address] XRay Report Signed Patient: Makenzie Betts AMR#: [id number] : 1940Acct:[id number] Age/Sex: 77 / FDate of Service: 12/12/18 Loc: ED Accession Number: [id number] Procedure: XR chest 1V Ordering Provider: Yuridia Gordillo P.A-C PROCEDURE: XR CHEST 1V INDICATIONS: fatigue/cough/shortness of breath TECHNIQUE: One view of the chest was acquired. COMPARISON: [facility], CR, XR CHEST 1V, 10/19/2018, 14:31. FINDINGS: Surgical changes and devices: Left chest wall subclavian Port-A-Cath appears stable in position. Lungs and pleura: There is hyperinflation of the lungs with flattening of the hemidiaphragms compatible with COPD. There are increased confluent airspace opacities in the right lung base consistent with consolidation. No pleural effusions or pneumothorax. Mediastinum: Mediastinal contours appear unchanged. Heart size is normal. Bones and chest wall: No suspicious bony lesions. Overlying soft tissues appear unremarkable. IMPRESSION: 1. Increased confluent right basilar airspace opacities consistent with consolidation and pneumonia given clinical history. 2. Findings compatible with COPD redemonstrated. Dictated by: Scott Brewer M.D. on 12/12/2018 at 18:15 Approved by: Scott Brewer M.D. on 12/12/2018 at 18:19 CT scan - chest: Radiologist's impression: [place] [address] CT Scan Report Signed Patient: Makenzie Betts AMR#: [id number] : 1940Acct:[id number] Age/Sex: 77 / FDate of Service: 12/12/18 Loc: ED Accession Number: [id number] Procedure: CT angio chest PE protocol Ordering Provider: Yuridia Gordillo P.A-C PROCEDURE: CT ANGIO CHEST PE PROTOCOL INDICATIONS: hypoxia, tachycardia, SOB, cancer patient is TECHNIQUE: After the administration of intravenous contrast, 2 mm thick sections acquired from the pulmonary apices to the posterior costophrenic angles. 3-dimensional maximum intensity projection (MIP) coronal and sagittal reformats were then acquired through the thorax. For radiation dose reduction, the following was used: automated exposure control, adjustment of mA and/or kV according to patient size. COMPARISON: [facility], CT, CT ABDOMEN PELVIS WO/W CON, 08/24/2018, 10:37. [facility], CT, CT CHEST WO CON, 03/02/2018, 13:20. [facility], CT, CT CHEST W CON, 09/23/2018, 13:18. [facility], CR, XR CHEST 1V, 12/12/2018, 17:22. FINDINGS: Image quality: There is mild motion artifact. Pulmonary arteries: Pulmonary arteries are normal in size, and demonstrate no intraluminal filling defects to suggest central pulmonary embolism. Evaluation of distal subsegmental branches is limited by motion artifact. Lungs and pleura: There are new confluent areas of airspace consolidation predominantly involving the posterior lower lobes, right greater than left, as well as posterior segments of the right upper and middle lobes. Multiple bilateral pulmonary nodules are redemonstrated . These include a right upper lobe nodule anteriorly on series 5 image 27 measuring up to 0.6 cm which is slightly decreased from the prior study of 09/23/18. Another sales representative business courses nodule in the right middle lobe along the right major fissure on image 44 measures up to 0.6 cm, slightly decreased from 0.7 cm previously. Severe centrilobular emphysematous changes are redemonstrated. There are new small bilateral pleural effusions. There is a small amount of dependent filling defect within the right bronchus intermedius and right lower lobe bronchus compatible with mucus and suggestive of aspiration. Mediastinum: Heart size is normal, without pericardial effusion. No mediastinal or hilar adenopathy. Thoracic aorta is normal in caliber and enhancement. There is mild fluid distention in the esophagus with concentric esophageal wall thickening and mucosal enhancement. There is a small hiatal hernia. Bones and chest wall: No suspicious bony lesions. There is a mild kyphosis of the thoracic spine with minimal anterior wedging in the lower thoracic spine. Thyroid gland demonstrates no discrete nodules. No axillary or supraclavicular adenopathy. Abdomen: Visualized upper abdomen demonstrates fluid and gas distention of the stomach which is partially visualized. There is pneumobilia again noted within the visualized liver. There is a peripheral area of hyperattenuation in the visualized right kidney. There is masslike enlargement of the bilateral adrenal glands redemonstrated. IMPRESSION: 1. No evidence of central pulmonary embolism. Evaluation of distal subsegmental branches limited by motion artifact. 2. New bilateral consolidation within posterior segments of the lungs predominantly involving the lower lobes. Given the distribution as well as mucus in the right lower lobe bronchus, the findings likely represent aspiration pneumonia. 3. Small bilateral pleural effusions. 4. Multiple bilateral pulmonary nodules likely representing metastatic disease demonstrate slight interval decrease in size suggestive of partial response to therapy. 5. Prominent fluid distention of the visualized stomach as well as the esophagus. Recommend correlation with clinical symptoms and dedicated abdominal imaging if indicated. 6. Mild esophageal wall thickening and mucosal enhancement consistent with a nonspecific esophagitis. 7. Severe centrilobular emphysematous changes redemonstrated. Dictated by: Scott Brewer M.D. on 12/12/2018 at 20:11 Approved by: Scott Brewer M.D. on 12/12/2018 at 20:26 <Jessica Tobin DO - Last Filed: 12/13/18 06:54> Lab Data Attestation: I reviewed the patient's lab results. Lab Results 12/12/18 12/12/18 12/12/18 Range/Units 17:00 17:00 17:00 WBC 6.2 (4.5-11.0) X10^3/uL RBC 5.04 (4.0-5.2) X10^6/uL Hgb 16.0 (12.0-16.0) g/dL Hct 48.3 H (36-46) % MCV 95.8 (80-100) fL MCH 31.7 (26-34) PG MCHC 33.1 (30-36) % RDW 14.2 (11.6-14.8) % Plt Count 311 (150-400) X10^3/uL Neut % (Auto) 85.0 H (50-75) % Lymph % (Auto) 7.0 L (25-40) % Cavalier % (Auto) 7.3 (3-14) % Eos % (Auto) 0.5 L (2-4) % Baso % (Auto) 0.2 (0-2) % Neut # (Auto) 5300 (2179-4980) /uL Lymph # (Auto) 400 L (3924-0300) /uL [place]ier # (Auto) 500 (0-900) /uL Eos # (Auto) 0 (0-450) /uL Baso # (Auto) 0 (0-100) /uL ABG pH (7.35-7.45) ABG pCO2 (35-45) mmHg ABG pO2 (80-100) mmHg ABG HCO3 (22-26) mmol/L ABG Total CO2 (21-31) mmol/L ABG O2 Saturation (95-100) % ABG Base Excess (-2-2) mmol/L FiO2 Sodium 129 L (137-145) mmol/L Potassium 3.4 (3.4-5.1) mmol/L Chloride 88 L (98-107) mmol/L Carbon Dioxide 30 (22-32) mmol/L BUN 13 (7-17) mg/dL Creatinine 0.50 L (0.52-1.04) mg/dL Estimated GFR > 60.0 (>60) mL/min BUN/Creatinine Ratio 26.0 H (6-22) Glucose 127 H (80-110) mg/dL Lactate (0.7-2.1) mmol/L Calcium 8.3 L (8.4-10.2) mg/dL Total Bilirubin 0.5 (0.2-1.3) mg/dL AST 23 (14-36) IU/L ALT 25 (9-52) IU/L Alkaline Phosphatase 60 (38-126) U/L Total Creatine Kinase (30-135) U/L CK-MB (CK-2) CK-MB (CK-2) Rel Index Troponin I (0.01-0.034) ng/mL B-Natriuretic Peptide (<100) Total Protein 6.0 L (6.3-8.2) g/dL Albumin 3.3 L (3.5-5.0) g/dL Globulin 2.7 (1.7-4.1) g/dL Albumin/Globulin Ratio 1.2 (1.0-2.8) Lipase (23-300) U/L Urine Color Yellow Urine Appearance Cloudy Urine pH 5.0 (4.5-8.0) Ur Specific Vance >=1.030 H (1.000-1.035) Urine Protein 2+ H (Negative) Urine Glucose (UA) Negative (Negative) g/dL Urine Ketones 1+ H (NEGATIVE) Urine Occult Blood 3+ H (Negative) Urine Nitrate Negative (Negative) Urine Bilirubin 1+ H (NEGATIVE) Urine Ictotest Negative (Negative) Urine Urobilinogen 1.0 (0.2) E.U./dL Ur Leukocyte Esterase 2+ H (NEGATIVE) Urine RBC 1-5/hpf (0-5/HPF) Urine WBC 30-100/hpf H (0-5/HPF) Ur Squamous Epith Cells 1-5 /hpf (0-5/HPF) Calcium Oxalate Crystal Few H Urine Bacteria Many (>30) H (None) Ur Culture Indicated? Specimen cultured Nasal Screen MRSA (PCR) (Negative) 12/12/18 12/12/18 12/12/18 Range/Units 17:00 17:00 17:00 WBC (4.5-11.0) X10^3/uL RBC (4.0-5.2) X10^6/uL Hgb (12.0-16.0) g/dL Hct (36-46) % MCV (80-100) fL MCH (26-34) PG MCHC (30-36) % RDW (11.6-14.8) % Plt Count (150-400) X10^3/uL Neut % (Auto) (50-75) % Lymph % (Auto) (25-40) % Cavalier % (Auto) (3-14) % Eos % (Auto) (2-4) % Baso % (Auto) (0-2) % Neut # (Auto) (1182-0329) /uL Lymph # (Auto) (6088-6601) /uL Cavalier # (Auto) (0-900) /uL Eos # (Auto) (0-450) /uL Baso # (Auto) (0-100) /uL ABG pH (7.35-7.45) ABG pCO2 (35-45) mmHg ABG pO2 (80-100) mmHg ABG HCO3 (22-26) mmol/L ABG Total CO2 (21-31) mmol/L ABG O2 Saturation (95-100) % ABG Base Excess (-2-2) mmol/L FiO2 Sodium (137-145) mmol/L Potassium (3.4-5.1) mmol/L Chloride (98-107) mmol/L Carbon Dioxide (22-32) mmol/L BUN (7-17) mg/dL Creatinine (0.52-1.04) mg/dL Estimated GFR (>60) mL/min BUN/Creatinine Ratio (6-22) Glucose (80-110) mg/dL Lactate (0.7-2.1) mmol/L Calcium (8.4-10.2) mg/dL Total Bilirubin (0.2-1.3) mg/dL AST (14-36) IU/L ALT (9-52) IU/L Alkaline Phosphatase (38-126) U/L Total Creatine Kinase < 20 L (30-135) U/L CK-MB (CK-2) TNP CK-MB (CK-2) Rel Index TNP Troponin I < 0.012 (0.01-0.034) ng/mL B-Natriuretic Peptide < 100 (<100) Total Protein (6.3-8.2) g/dL Albumin (3.5-5.0) g/dL Globulin (1.7-4.1) g/dL Albumin/Globulin Ratio (1.0-2.8) Lipase 31 (23-300) U/L Urine Color Urine Appearance Urine pH (4.5-8.0) Ur Specific Vance (1.000-1.035) Urine Protein (Negative) Urine Glucose (UA) (Negative) g/dL Urine Ketones (NEGATIVE) Urine Occult Blood (Negative) Urine Nitrate (Negative) Urine Bilirubin (NEGATIVE) Urine Ictotest (Negative) Urine Urobilinogen (0.2) E.U./dL Ur Leukocyte Esterase (NEGATIVE) Urine RBC (0-5/HPF) Urine WBC (0-5/HPF) Ur Squamous Epith Cells (0-5/HPF) Calcium Oxalate Crystal Urine Bacteria (None) Ur Culture Indicated? Nasal Screen MRSA (PCR) (Negative) 12/12/18 12/12/18 12/12/18 Range/Units 17:46 20:18 22:30 WBC (4.5-11.0) X10^3/uL RBC (4.0-5.2) X10^6/uL Hgb (12.0-16.0) g/dL Hct (36-46) % MCV (80-100) fL MCH (26-34) PG MCHC (30-36) % RDW (11.6-14.8) % Plt Count (150-400) X10^3/uL Neut % (Auto) (50-75) % Lymph % (Auto) (25-40) % Cavalier % (Auto) (3-14) % Eos % (Auto) (2-4) % Baso % (Auto) (0-2) % Neut # (Auto) (2447-5261) /uL Lymph # (Auto) (4578-3182) /uL Cavalier # (Auto) (0-900) /uL Eos # (Auto) (0-450) /uL Baso # (Auto) (0-100) /uL ABG pH 7.40 (7.35-7.45) ABG pCO2 39.8 (35-45) mmHg ABG pO2 49 L* (80-100) mmHg ABG HCO3 25 (22-26) mmol/L ABG Total CO2 26 (21-31) mmol/L ABG O2 Saturation 84 L* (95-100) % ABG Base Excess 0.0 (-2-2) mmol/L FiO2 21 Sodium (137-145) mmol/L Potassium (3.4-5.1) mmol/L Chloride (98-107) mmol/L Carbon Dioxide (22-32) mmol/L BUN (7-17) mg/dL Creatinine (0.52-1.04) mg/dL Estimated GFR (>60) mL/min BUN/Creatinine Ratio (6-22) Glucose (80-110) mg/dL Lactate 1.1 (0.7-2.1) mmol/L Calcium (8.4-10.2) mg/dL Total Bilirubin (0.2-1.3) mg/dL AST (14-36) IU/L ALT (9-52) IU/L Alkaline Phosphatase (38-126) U/L Total Creatine Kinase (30-135) U/L CK-MB (CK-2) CK-MB (CK-2) Rel Index Troponin I (0.01-0.034) ng/mL B-Natriuretic Peptide (<100) Total Protein (6.3-8.2) g/dL Albumin (3.5-5.0) g/dL Globulin (1.7-4.1) g/dL Albumin/Globulin Ratio (1.0-2.8) Lipase (23-300) U/L Urine Color Urine Appearance Urine pH (4.5-8.0) Ur Specific Vance (1.000-1.035) Urine Protein (Negative) Urine Glucose (UA) (Negative) g/dL Urine Ketones (NEGATIVE) Urine Occult Blood (Negative) Urine Nitrate (Negative) Urine Bilirubin (NEGATIVE) Urine Ictotest (Negative) Urine Urobilinogen (0.2) E.U./dL Ur Leukocyte Esterase (NEGATIVE) Urine RBC (0-5/HPF) Urine WBC (0-5/HPF) Ur Squamous Epith Cells (0-5/HPF) Calcium Oxalate Crystal Urine Bacteria (None) Ur Culture Indicated? Nasal Screen MRSA (PCR) Negative for mrsa (Negative) Imaging Data Chest x-ray: Radiologist's impression: PROCEDURE: XR CHEST 1V INDICATIONS: fatigue/cough/shortness of breath TECHNIQUE: One view of the chest was acquired. COMPARISON: [facility], CR, XR CHEST 1V, 10/19/2018, 14:31. FINDINGS: Surgical changes and devices: Left chest wall subclavian Port-A-Cath appears stable in position. Lungs and pleura: There is hyperinflation of the lungs with flattening of the hemidiaphragms compatible with COPD. There are increased confluent airspace opacities in the right lung base consistent with consolidation. No pleural effusions or pneumothorax. Mediastinum: Mediastinal contours appear unchanged. Heart size is normal. Bones and chest wall: No suspicious bony lesions. Overlying soft tissues appear unremarkable. IMPRESSION: 1. Increased confluent right basilar airspace opacities consistent with consolidation and pneumonia given clinical history. 2. Findings compatible with COPD redemonstrated. Dictated by: Scott Brewer M.D. on 12/12/2018 at 18:15 CT scan - chest: Radiologist's impression: PROCEDURE: CT ANGIO CHEST PE PROTOCOL INDICATIONS: hypoxia, tachycardia, SOB, cancer patient is TECHNIQUE: After the administration of intravenous contrast, 2 mm thick sections acquired from the pulmonary apices to the posterior costophrenic angles. 3-dimensional maximum intensity projection (MIP) coronal and sagittal reformats were then acquired through the thorax. For radiation dose reduction, the following was used: automated exposure control, adjustment of mA and/or kV according to patient size. COMPARISON: [facility], CT, CT ABDOMEN PELVIS WO/W CON, 08/24/2018, 10:37. [facility], CT, CT CHEST WO CON, 03/02/2018, 13:20. [facility], CT, CT CHEST W CON, 09/23/2018, 13:18. [facility], CR, XR CHEST 1V, 12/12/2018, 17:22. FINDINGS: Image quality: There is mild motion artifact. Pulmonary arteries: Pulmonary arteries are normal in size, and demonstrate no intraluminal filling defects to suggest central pulmonary embolism. Evaluation of distal subsegmental branches is limited by motion artifact. Lungs and pleura: There are new confluent areas of airspace consolidation predominantly involving the posterior lower lobes, right greater than left, as well as posterior segments of the right upper and middle lobes. Multiple bilateral pulmonary nodules are redemonstrated . These include a right upper lobe nodule anteriorly on series 5 image 27 measuring up to 0.6 cm which is slightly decreased from the prior study of 09/23/18. Another sales representative business courses nodule in the right middle lobe along the right major fissure on image 44 measures up to 0.6 cm, slightly decreased from 0.7 cm previously. Severe centrilobular emphysematous changes are redemonstrated. There are new small bilateral pleural effusions. There is a small amount of dependent filling defect within the right bronchus intermedius and right lower lobe bronchus compatible with mucus and suggestive of aspiration. Mediastinum: Heart size is normal, without pericardial effusion. No mediastinal or hilar adenopathy. Thoracic aorta is normal in caliber and enhancement. There is mild fluid distention in the esophagus with concentric esophageal wall thickening and mucosal enhancement. There is a small hiatal hernia. Bones and chest wall: No suspicious bony lesions. There is a mild kyphosis of the thoracic spine with minimal anterior wedging in the lower thoracic spine. Thyroid gland demonstrates no discrete nodules. No axillary or supraclavicular adenopathy. Abdomen: Visualized upper abdomen demonstrates fluid and gas distention of the stomach which is partially visualized. There is pneumobilia again noted within the visualized liver. There is a peripheral area of hyperattenuation in the visualized right kidney. There is masslike enlargement of the bilateral adrenal glands redemonstrated. IMPRESSION: 1. No evidence of central pulmonary embolism. Evaluation of distal subsegmental branches limited by motion artifact. 2. New bilateral consolidation within posterior segments of the lungs predominantly involving the lower lobes. Given the distribution as well as mucus in the right lower lobe bronchus, the findings likely represent aspiration pneumonia. 3. Small bilateral pleural effusions. 4. Multiple bilateral pulmonary nodules likely representing metastatic disease demonstrate slight interval decrease in size suggestive of partial response to therapy. 5. Prominent fluid distention of the visualized stomach as well as the esophagus. Recommend correlation with clinical symptoms and dedicated abdominal imaging if indicated. 6. Mild esophageal wall thickening and mucosal enhancement consistent with a nonspecific esophagitis. 7. Severe centrilobular emphysematous changes redemonstrated. Dictated by: Scott Brewer M.D. on 12/12/2018 at 20:11 ECG Data Attestation: I personally reviewed and interpreted this ECG as follows: Prior ECG tracings: available for review Interpretation: Normal sinus rhythm rate 113 year interval [address] changes MDM Narrative Medical decision making narrative: I had seen evaluated patient myself on now has a blood pressure of 83, was initially placed on non-rebreather now satting 100%. Chronic COPD year patient was turned down placed on high-flow nasal cannula. Troponin BNP added to the labs PE study done. Patient has received multiple bronchodilators overall seems to be improving. Discharge Plan Departure Patient Disposition: Admitted As Inpatient Clinical Impression: Dehydration Pneumonia Qualifiers: Pneumonia type: due to unspecified organism Laterality: bilateral Lung location: unspecified part of lung Qualified Code(s): J18.9 - Pneumonia, unspecified organism COPD (chronic obstructive pulmonary disease) Qualifiers: COPD type: COPD with acute exacerbation Qualified Code(s): J44.1 - Chronic obstructive pulmonary disease with (acute) exacerbation Discharge Date/Time: 12/12/18 22:25 Interventions: ED Discharge Assessment Last Done: 12/12/18 22:16 Admit Date/Time: 12/12/18 21:25 Admit Provider: Rohan Lemos <Jessica Tobin DO - Last Filed: 12/13/18 06:54> Cosign ED Attending Ruthy Attestation: I was immediately available in the department for consultation. Documentation has been reviewed. I agree with assessment and plan.
--- NOTE | 2018-12-12 17:11 | ED_ITS ---
HPI - Nausea/Vomiting/Diarrhea <Yuridia Gordillo PA-C - Last Filed: 12/12/18 23:20> General Chief complaint: Nausea/Vomiting/Diarrhea Stated complaint: CANCER PATIENT HAS BEEN THROWING UP Time Seen by Provider: 12/12/18 16:05 Source: patient Mode of arrival: ambulatory Limitations: no limitations History of Present Illness HPI Narrative: This 77-year-old female comes to ED secondary to protracted vomiting earlier today. She states that she has been receiving rounds of chemotherapy every 2 weeks. She had her 4th treatment a few days ago. She states she has had some diarrhea in the past with this chemo but no vomiting. she states she has had no abdominal pain, but had persistent nausea this morning with vomiting every few minutes and unable to stop. She did try to take Zofran orally but not sure that she kept that down. She states that she has not had diarrhea this time. She denies any chest pain. She states that she felt short of breath ?puffing? while she was vomiting but does not now. She states she feels better with oxygen on. She does have COPD and uses nebulizers at home as needed but not oxygen. She denies any recent cough or illness. She denies any fever. She has not kept down any food or fluids today. She denies any new pain or swelling in her extremities or other new complaints Related Data Home Medications Medication Instructions Recorded Confirmed albuterol sulfate 2 puff INHALATION Q4-6H PRN 08/10/18 12/12/18 albuterol sulfate 2.5 mg INHALATION Q4H PRN 08/10/18 12/12/18 aspirin 81 mg PO DAILY 08/10/18 12/12/18 cetirizine [Aller-Ana] 10 mg PO DAILY 08/10/18 12/12/18 Serevent Diskus 1 puff INHALATION DIRECTED 10/05/18 12/12/18 alendronate [Fosamax] 1 tab PO QWEEK 10/05/18 12/12/18 cholecalciferol (vitamin D3) 3,000 unit PO DAILY 10/05/18 12/12/18 [Vitamin D3] diazepam 5 mg PO BID 10/05/18 12/12/18 indomethacin 25 mg PO TID 12/12/18 12/12/18 ipratropium-albuterol 1 dose INHALATION DIRECTED 12/12/18 12/12/18 metoprolol tartrate 25 mg PO BID 12/12/18 12/12/18 pravastatin 40 mg PO BEDTIME 12/12/18 12/12/18 Previous Rx's Medication Instructions Recorded lidocaine-prilocaine See Rx Instructions .ROUTE 10/19/18 .COMPLEX #30 gram ondansetron 4 mg PO QID PRN #20 tab 10/19/18 Allergies Allergy/AdvReac Type Severity Reaction Status Date / Time iodine [IODINE] Allergy Severe HIVES Verified 10/19/18 12:18 codeine [CODEINE] AdvReac Unknown SLEEPY Verified 10/19/18 12:18 lansoprazole [LANSOPRAZOLE] AdvReac Unknown GI UPSET Verified 10/19/18 12:18 Review of Systems <Yuridia Gordillo PA-C - Last Filed: 12/12/18 23:20> Review of Systems ROS Unobtainable: All systems reviewed & are unremarkable except as noted in HPI and below PFSH <Yuridia Gordillo PA-C - Last Filed: 12/12/18 23:20> Medical History (Updated 12/12/18 @ 21:16 by Yuridia Gordillo PA-C) Adenocarcinoma (Chronic) Current every day smoker (Chronic) Hyperlipidemia (Chronic) Hypertension (Chronic) H/O: hysterectomy (Resolved) Surgical History (Updated 12/12/18 @ 17:31 by Yuridia Gordillo PA-C) History of cholecystectomy (Resolved) History of partial colectomy (Resolved) Hx of vascular surgery (Resolved) Social History household members: none Smoking Status: Current every day smoker alcohol intake: current Social History household members: none Smoking Status: Current every day smoker alcohol intake: current Exam <Yuridia Gordillo PA-C - Last Filed: 12/12/18 23:20> Narrative Exam Narrative: GENERAL APPEARANCE: Patient resting comfortably, frail appearing HEENT: PERRL, EOMI, no scleral icterus NECK: Supple LUNGS: Coarse bilaterally with generalized reduced breath sounds, no cough on exam. HEART: Rate and rhythm regular, normal S1 and S2, no S3 or S4. ABDOMEN: Soft, nontender, nondistended, bowel sounds present x 4 quadrants, no masses palpable, no hepatosplenomegaly. EXTREMITIES: No edema, no calf tenderness DERMATOLOGIC: No jaundice or exanthem NEUROLOGIC: Alert and oriented with normal speech and coordination Initial Vital Signs Initial Vital Signs: Vital Signs Temperature 97.2 F L 12/12/18 15:33 Pulse Rate 115 H 12/12/18 15:33 Respiratory Rate 14 12/12/18 15:33 Blood Pressure 94/61 12/12/18 15:33 Pulse Oximetry 92 12/12/18 15:33 <Jessica Tobin DO - Last Filed: 12/13/18 06:54> Initial Vital Signs Initial Vital Signs: Vital Signs Temperature 97.2 F L 12/12/18 15:33 Pulse Rate 115 H 12/12/18 15:33 Respiratory Rate 14 12/12/18 15:33 Blood Pressure 94/61 12/12/18 15:33 Pulse Oximetry 92 12/12/18 15:33 Course <Yuridia Gordillo PA-C - Last Filed: 12/12/18 23:20> Additional Information: [id number]: I have spoken with Dr. Eldridge, salesperson men's furnishings for Dr. Lemos and reviewed patient's history in findings including bilateral pneumonia with COPD and chronic hypoxia that is exacerbated. She also had prot racted vomiting earlier, possibly related to chemotherapy, which is resolved with dehydration. Reviewed vital signs including tachycardia and hypotension, which are improving. Oxygen saturation stable on high-flow oxygen (goal close to 90 as that is likely her baseline). He is agreeable with ICU admission, requested admit under Dr. Lemos. Discussed code statuus with patient and she wishes to remain full code Orders Ordered: ED Orders 12/12/18 22:30 MRSA PCR Stat 12/12/18 23:05 RT Consult Eval and Treat Now 12/12/18 23:28 Consult to Dietitian, Adult Routine Education, smoking cessation Once 12/13/18 06:41 CBC [Complete Blood Count AUTO DIFF] Urgent CMP [Comprehensive Metabolic Panel] Urgent Acetaminophen (Tylenol) 650 mg PO Q6HR PRN PRN Reason: As Needed for Fever/Mild Pain Last Admin: 12/13/18 00:26 Dose: 650 mg Albuterol (Ventolin) 2.5 mg INH [id number] PRN PRN Reason: Shortness Of Breath Albuterol/Ipratropium (Duoneb) 3 ml INH [id number] KELLI Last Admin: 12/13/18 06:12 Dose: 3 ml Admin: 12/13/18 03:09 Dose: 3 ml Sodium Chloride (Normal Saline 0.9%) 1,000 mls @ 75 mls/hr IV CONT KELLI Last Admin: 12/13/18 00:12 Dose: 75 mls/hr Ondansetron HCl (Zofran) 4 mg IV Q4HR PRN PRN Reason: Nausea And Vomiting Discontinued Medications Albuterol (Ventolin) 2.5 mg INH NOW ONE Stop: 12/12/18 18:47 Last Admin: 12/12/18 18:56 Dose: 2.5 mg Albuterol/Ipratropium (Duoneb) 3 ml INH NOW ONE Stop: 12/12/18 18:47 Last Admin: 12/12/18 18:56 Dose: 3 ml Albuterol/Ipratropium (Duoneb) 6 ml INH NOW ONE Stop: 12/12/18 19:07 Last Admin: 12/12/18 19:07 Dose: 6 ml Albuterol/Ipratropium (Duoneb) 3 ml INH RTQ4HR PRN PRN Reason: Shortness Of Breath Last Admin: 12/12/18 23:34 Dose: 3 ml Diphenhydramine HCl (Benadryl) 50 mg IV NOW ONE Stop: 12/12/18 19:02 Last Admin: 12/12/18 19:24 Dose: 50 mg Sodium Chloride (Normal Saline 0.9%) 1,000 mls @ 1,000 mls/hr IV BOLUS ONE Stop: 12/12/18 18:26 Last Infusion: 12/12/18 18:58 Dose: 0 mls/hr Admin: 12/12/18 17:33 Dose: 1,000 mls/hr Levofloxacin (Levaquin) 750 mg in 150 mls @ 100 mls/hr IV NOW ONE Stop: 12/12/18 21:44 Last Infusion: 12/12/18 22:30 Dose: 0 mls/hr Admin: 12/12/18 20:23 Dose: 100 mls/hr Sodium Chloride (Normal Saline 0.9%) 1,000 mls @ 1,000 mls/hr IV BOLUS ONE Stop: 12/12/18 21:40 Last Infusion: 12/12/18 22:33 Dose: 0 mls/hr Admin: 12/12/18 21:20 Dose: 1,000 mls/hr Methylprednisolone (Solu-Medrol 125 Mg Vial) 125 mg IV NOW ONE Stop: 12/12/18 19:02 Last Admin: 12/12/18 19:24 Dose: 125 mg Ondansetron HCl (Zofran) 4 mg IV NOW ONE Stop: 12/12/18 17:28 Last Admin: 12/12/18 17:33 Dose: 4 mg Pantoprazole Sodium (Protonix) 40 mg IV NOW ONE Stop: 12/12/18 17:28 Last Admin: 12/12/18 17:33 Dose: 40 mg Vital Signs - 8 hr 12/12/18 23:04 12/12/18 23:34 12/13/18 00:26 Temperature 98.9 F 99.6 F Pulse Rate 115 H 111 H Respiratory Rate 37 H 30 H Blood Pressure 107/46 L Pulse Oximetry 88 L 92 12/13/18 00:53 12/13/18 01:12 12/13/18 01:28 Temperature Pulse Rate 106 H Respiratory Rate 26 H Blood Pressure 108/58 L Pulse Oximetry 93 93 12/13/18 02:11 12/13/18 03:03 12/13/18 03:09 Temperature 97.8 F Pulse Rate 99 H 105 H 101 H Respiratory Rate 24 33 H 28 H Blood Pressure 109/58 L Pulse Oximetry 94 93 94 12/13/18 03:52 12/13/18 04:01 12/13/18 05:11 Temperature 97.7 F Pulse Rate 99 H 106 H Respiratory Rate 25 H 36 H Blood Pressure 115/59 L 126/64 Pulse Oximetry 95 95 95 12/13/18 06:06 12/13/18 06:13 Temperature 98.3 F Pulse Rate 111 H 92 H Respiratory Rate 22 35 H Blood Pressure 107/57 L Pulse Oximetry 95 95 <Jessica Tobin, - Last Filed: 12/13/18 06:54> Orders Ordered: ED Orders 12/12/18 22:30 MRSA PCR Stat 12/12/18 23:05 RT Consult Eval and Treat Now 12/12/18 23:28 Consult to Dietitian, Adult Routine Education, smoking cessation Once 12/13/18 06:41 CBC [Complete Blood Count AUTO DIFF] Urgent CMP [Comprehensive Metabolic Panel] Urgent Acetaminophen (Tylenol) 650 mg PO Q6HR PRN PRN Reason: As Needed for Fever/Mild Pain Last Admin: 12/13/18 00:26 Dose: 650 mg Albuterol (Ventolin) 2.5 mg INH [id number] PRN PRN Reason: Shortness Of Breath Albuterol/Ipratropium (Duoneb) 3 ml INH [id number] KELLI Last Admin: 12/13/18 06:12 Dose: 3 ml Admin: 12/13/18 03:09 Dose: 3 ml Sodium Chloride (Normal Saline 0.9%) 1,000 mls @ 75 mls/hr IV CONT KELLI Last Admin: 12/13/18 00:12 Dose: 75 mls/hr Ondansetron HCl (Zofran) 4 mg IV Q4HR PRN PRN Reason: Nausea And Vomiting Discontinued Medications Albuterol (Ventolin) 2.5 mg INH NOW ONE Stop: 12/12/18 18:47 Last Admin: 12/12/18 18:56 Dose: 2.5 mg Albuterol/Ipratropium (Duoneb) 3 ml INH NOW ONE Stop: 12/12/18 18:47 Last Admin: 12/12/18 18:56 Dose: 3 ml Albuterol/Ipratropium (Duoneb) 6 ml INH NOW ONE Stop: 12/12/18 19:07 Last Admin: 12/12/18 19:07 Dose: 6 ml Albuterol/Ipratropium (Duoneb) 3 ml INH RTQ4HR PRN PRN Reason: Shortness Of Breath Last Admin: 12/12/18 23:34 Dose: 3 ml Diphenhydramine HCl (Benadryl) 50 mg IV NOW ONE Stop: 12/12/18 19:02 Last Admin: 12/12/18 19:24 Dose: 50 mg Sodium Chloride (Normal Saline 0.9%) 1,000 mls @ 1,000 mls/hr IV BOLUS ONE Stop: 12/12/18 18:26 Last Infusion: 12/12/18 18:58 Dose: 0 mls/hr Admin: 12/12/18 17:33 Dose: 1,000 mls/hr Levofloxacin (Levaquin) 750 mg in 150 mls @ 100 mls/hr IV NOW ONE Stop: 12/12/18 21:44 Last Infusion: 12/12/18 22:30 Dose: 0 mls/hr Admin: 12/12/18 20:23 Dose: 100 mls/hr Sodium Chloride (Normal Saline 0.9%) 1,000 mls @ 1,000 mls/hr IV BOLUS ONE Stop: 12/12/18 21:40 Last Infusion: 12/12/18 22:33 Dose: 0 mls/hr Admin: 12/12/18 21:20 Dose: 1,000 mls/hr Methylprednisolone (Solu-Medrol 125 Mg Vial) 125 mg IV NOW ONE Stop: 12/12/18 19:02 Last Admin: 12/12/18 19:24 Dose: 125 mg Ondansetron HCl (Zofran) 4 mg IV NOW ONE Stop: 12/12/18 17:28 Last Admin: 12/12/18 17:33 Dose: 4 mg Pantoprazole Sodium (Protonix) 40 mg IV NOW ONE Stop: 12/12/18 17:28 Last Admin: 12/12/18 17:33 Dose: 40 mg Vital Signs - 8 hr 12/12/18 23:04 12/12/18 23:34 12/13/18 00:26 Temperature 98.9 F 99.6 F Pulse Rate 115 H 111 H Respiratory Rate 37 H 30 H Blood Pressure 107/46 L Pulse Oximetry 88 L 92 12/13/18 00:53 12/13/18 01:12 12/13/18 01:28 Temperature Pulse Rate 106 H Respiratory Rate 26 H Blood Pressure 108/58 L Pulse Oximetry 93 93 12/13/18 02:11 12/13/18 03:03 12/13/18 03:09 Temperature 97.8 F Pulse Rate 99 H 105 H 101 H Respiratory Rate 24 33 H 28 H Blood Pressure 109/58 L Pulse Oximetry 94 93 94 12/13/18 03:52 12/13/18 04:01 12/13/18 05:11 Temperature 97.7 F Pulse Rate 99 H 106 H Respiratory Rate 25 H 36 H Blood Pressure 115/59 L 126/64 Pulse Oximetry 95 95 95 12/13/18 06:06 12/13/18 06:13 Temperature 98.3 F Pulse Rate 111 H 92 H Respiratory Rate 22 35 H Blood Pressure 107/57 L Pulse Oximetry 95 95 MDM - Nausea/Vomiting/Diarrhea <Yuridia Gordillo PA-C - Last Filed: 12/12/18 23:20> Lab Data Attestation: I reviewed the patient's lab results. Result diagrams: 12/12/18 17:00 12/12/18 17:00 Lab Results 12/12/18 12/12/18 12/12/18 Range/Units 17:00 17:00 17:00 WBC 6.2 (4.5-11.0) X10^3/uL RBC 5.04 (4.0-5.2) X10^6/uL Hgb 16.0 (12.0-16.0) g/dL Hct 48.3 H (36-46) % MCV 95.8 (80-100) fL MCH 31.7 (26-34) PG MCHC 33.1 (30-36) % RDW 14.2 (11.6-14.8) % Plt Count 311 (150-400) X10^3/uL Neut % (Auto) 85.0 H (50-75) % Lymph % (Auto) 7.0 L (25-40) % [place] % (Auto) 7.3 (3-14) % Eos % (Auto) 0.5 L (2-4) % Baso % (Auto) 0.2 (0-2) % Neut # (Auto) 5300 (0298-3217) /uL Lymph # (Auto) 400 L (3641-3434) /uL [place] # (Auto) 500 (0-900) /uL Eos # (Auto) 0 (0-450) /uL Baso # (Auto) 0 (0-100) /uL ABG pH (7.35-7.45) ABG pCO2 (35-45) mmHg ABG pO2 (80-100) mmHg ABG HCO3 (22-26) mmol/L ABG Total CO2 (21-31) mmol/L ABG O2 Saturation (95-100) % ABG Base Excess (-2-2) mmol/L FiO2 Sodium 129 L (137-145) mmol/L Potassium 3.4 (3.4-5.1) mmol/L Chloride 88 L (98-107) mmol/L Carbon Dioxide 30 (22-32) mmol/L BUN 13 (7-17) mg/dL Creatinine 0.50 L (0.52-1.04) mg/dL Estimated GFR > 60.0 (>60) mL/min BUN/Creatinine Ratio 26.0 H (6-22) Glucose 127 H (80-110) mg/dL Lactate (0.7-2.1) mmol/L Calcium 8.3 L (8.4-10.2) mg/dL Total Bilirubin 0.5 (0.2-1.3) mg/dL AST 23 (14-36) IU/L ALT 25 (9-52) IU/L Alkaline Phosphatase 60 (38-126) U/L Total Creatine Kinase (30-135) U/L CK-MB (CK-2) CK-MB (CK-2) Rel Index Troponin I (0.01-0.034) ng/mL B-Natriuretic Peptide (<100) Total Protein 6.0 L (6.3-8.2) g/dL Albumin 3.3 L (3.5-5.0) g/dL Globulin 2.7 (1.7-4.1) g/dL Albumin/Globulin Ratio 1.2 (1.0-2.8) Lipase (23-300) U/L Urine Color Yellow Urine Appearance Cloudy Urine pH 5.0 (4.5-8.0) Ur Specific [place] >=1.030 H (1.000-1.035) Urine Protein 2+ H (Negative) Urine Glucose (UA) Negative (Negative) g/dL Urine Ketones 1+ H (NEGATIVE) Urine Occult Blood 3+ H (Negative) Urine Nitrate Negative (Negative) Urine Bilirubin 1+ H (NEGATIVE) Urine Ictotest Negative (Negative) Urine Urobilinogen 1.0 (0.2) E.U./dL Ur Leukocyte Esterase 2+ H (NEGATIVE) Urine RBC 1-5/hpf (0-5/HPF) Urine WBC 30-100/hpf H (0-5/HPF) Ur Squamous Epith Cells 1-5 /hpf (0-5/HPF) Calcium Oxalate Crystal Few H Urine Bacteria Many (>30) H (None) Ur Culture Indicated? Specimen cultured Nasal Screen MRSA (PCR) (Negative) 12/12/18 12/12/18 12/12/18 Range/Units 17:00 17:00 17:00 WBC (4.5-11.0) X10^3/uL RBC (4.0-5.2) X10^6/uL Hgb (12.0-16.0) g/dL Hct (36-46) % MCV (80-100) fL MCH (26-34) PG MCHC (30-36) % RDW (11.6-14.8) % Plt Count (150-400) X10^3/uL Neut % (Auto) (50-75) % Lymph % (Auto) (25-40) % [place] % (Auto) (3-14) % Eos % (Auto) (2-4) % Baso % (Auto) (0-2) % Neut # (Auto) (9580-7810) /uL Lymph # (Auto) (4858-5117) /uL [place] # (Auto) (0-900) /uL Eos # (Auto) (0-450) /uL Baso # (Auto) (0-100) /uL ABG pH (7.35-7.45) ABG pCO2 (35-45) mmHg ABG pO2 (80-100) mmHg ABG HCO3 (22-26) mmol/L ABG Total CO2 (21-31) mmol/L ABG O2 Saturation (95-100) % ABG Base Excess (-2-2) mmol/L FiO2 Sodium (137-145) mmol/L Potassium (3.4-5.1) mmol/L Chloride (98-107) mmol/L Carbon Dioxide (22-32) mmol/L BUN (7-17) mg/dL Creatinine (0.52-1.04) mg/dL Estimated GFR (>60) mL/min BUN/Creatinine Ratio (6-22) Glucose (80-110) mg/dL Lactate (0.7-2.1) mmol/L Calcium (8.4-10.2) mg/dL Total Bilirubin (0.2-1.3) mg/dL AST (14-36) IU/L ALT (9-52) IU/L Alkaline Phosphatase (38-126) U/L Total Creatine Kinase < 20 L (30-135) U/L CK-MB (CK-2) TNP CK-MB (CK-2) Rel Index TNP Troponin I < 0.012 (0.01-0.034) ng/mL B-Natriuretic Peptide < 100 (<100) Total Protein (6.3-8.2) g/dL Albumin (3.5-5.0) g/dL Globulin (1.7-4.1) g/dL Albumin/Globulin Ratio (1.0-2.8) Lipase 31 (23-300) U/L Urine Color Urine Appearance Urine pH (4.5-8.0) Ur Specific [place] (1.000-1.035) Urine Protein (Negative) Urine Glucose (UA) (Negative) g/dL Urine Ketones (NEGATIVE) Urine Occult Blood (Negative) Urine Nitrate (Negative) Urine Bilirubin (NEGATIVE) Urine Ictotest (Negative) Urine Urobilinogen (0.2) E.U./dL Ur Leukocyte Esterase (NEGATIVE) Urine RBC (0-5/HPF) Urine WBC (0-5/HPF) Ur Squamous Epith Cells (0-5/HPF) Calcium Oxalate Crystal Urine Bacteria (None) Ur Culture Indicated? Nasal Screen MRSA (PCR) (Negative) 12/12/18 12/12/18 12/12/18 Range/Units 17:46 20:18 22:30 WBC (4.5-11.0) X10^3/uL RBC (4.0-5.2) X10^6/uL Hgb (12.0-16.0) g/dL Hct (36-46) % MCV (80-100) fL MCH (26-34) PG MCHC (30-36) % RDW (11.6-14.8) % Plt Count (150-400) X10^3/uL Neut % (Auto) (50-75) % Lymph % (Auto) (25-40) % [place] % (Auto) (3-14) % Eos % (Auto) (2-4) % Baso % (Auto) (0-2) % Neut # (Auto) (9848-2402) /uL Lymph # (Auto) (3943-7159) /uL [place] # (Auto) (0-900) /uL Eos # (Auto) (0-450) /uL Baso # (Auto) (0-100) /uL ABG pH 7.40 (7.35-7.45) ABG pCO2 39.8 (35-45) mmHg ABG pO2 49 L* (80-100) mmHg ABG HCO3 25 (22-26) mmol/L ABG Total CO2 26 (21-31) mmol/L ABG O2 Saturation 84 L* (95-100) % ABG Base Excess 0.0 (-2-2) mmol/L FiO2 21 Sodium (137-145) mmol/L Potassium (3.4-5.1) mmol/L Chloride (98-107) mmol/L Carbon Dioxide (22-32) mmol/L BUN (7-17) mg/dL Creatinine (0.52-1.04) mg/dL Estimated GFR (>60) mL/min BUN/Creatinine Ratio (6-22) Glucose (80-110) mg/dL Lactate 1.1 (0.7-2.1) mmol/L Calcium (8.4-10.2) mg/dL Total Bilirubin (0.2-1.3) mg/dL AST (14-36) IU/L ALT (9-52) IU/L Alkaline Phosphatase (38-126) U/L Total Creatine Kinase (30-135) U/L CK-MB (CK-2) CK-MB (CK-2) Rel Index Troponin I (0.01-0.034) ng/mL B-Natriuretic Peptide (<100) Total Protein (6.3-8.2) g/dL Albumin (3.5-5.0) g/dL Globulin (1.7-4.1) g/dL Albumin/Globulin Ratio (1.0-2.8) Lipase (23-300) U/L Urine Color Urine Appearance Urine pH (4.5-8.0) Ur Specific [place] (1.000-1.035) Urine Protein (Negative) Urine Glucose (UA) (Negative) g/dL Urine Ketones (NEGATIVE) Urine Occult Blood (Negative) Urine Nitrate (Negative) Urine Bilirubin (NEGATIVE) Urine Ictotest (Negative) Urine Urobilinogen (0.2) E.U./dL Ur Leukocyte Esterase (NEGATIVE) Urine RBC (0-5/HPF) Urine WBC (0-5/HPF) Ur Squamous Epith Cells (0-5/HPF) Calcium Oxalate Crystal Urine Bacteria (None) Ur Culture Indicated? Nasal Screen MRSA (PCR) Negative for mrsa (Negative) Imaging Data Chest x-ray: Radiologist's impression: [address] [address] XRay Report Signed Patient: Makenzie Betts [facility]R#: [id number] : 1940Acct:[id number] Age/Sex: 77 / FDate of Service: 12/12/18 Loc: ED Accession Number: [id number] Procedure: XR chest 1V Ordering Provider: Yuridia Gordillo P.A-C PROCEDURE: XR CHEST 1V INDICATIONS: fatigue/cough/shortness of breath TECHNIQUE: One view of the chest was acquired. COMPARISON: [facility], CR, XR CHEST 1V, 10/19/2018, 14:31. FINDINGS: Surgical changes and devices: Left chest wall subclavian Port-A-Cath appears stable in position. Lungs and pleura: There is hyperinflation of the lungs with flattening of the hemidiaphragms compatible with COPD. There are increased confluent airspace opacities in the right lung base consistent with consolidation. No pleural effusions or pneumothorax. Mediastinum: Mediastinal contours appear unchanged. Heart size is normal. Bones and chest wall: No suspicious bony lesions. Overlying soft tissues appear unremarkable. IMPRESSION: 1. Increased confluent right basilar airspace opacities consistent with consolidation and pneumonia given clinical history. 2. Findings compatible with COPD redemonstrated. Dictated by: Scott Brewer M.D. on 12/12/2018 at 18:15 Approved by: Scott Brewer M.D. on 12/12/2018 at 18:19 CT scan - chest: Radiologist's impression: [place] [address] CT Scan Report Signed Patient: Makenzie Betts AMR#: [id number] : 1940Acct:[id number] Age/Sex: 77 / FDate of Service: 12/12/18 Loc: ED Accession Number: [id number] Procedure: CT angio chest PE protocol Ordering Provider: Yuridia Gordillo P.A-C PROCEDURE: CT ANGIO CHEST PE PROTOCOL INDICATIONS: hypoxia, tachycardia, SOB, cancer patient is TECHNIQUE: After the administration of intravenous contrast, 2 mm thick sections acquired from the pulmonary apices to the posterior costophrenic angles. 3-dimensional maximum intensity projection (MIP) coronal and sagittal reformats were then acquired through the thorax. For radiation dose reduction, the following was used: automated exposure control, adjustment of mA and/or kV according to patient size. COMPARISON: [facility], CT, CT ABDOMEN PELVIS WO/W CON, 08/24/2018, 10:37. [facility], CT, CT CHEST WO CON, 03/02/2018, 13:20. [facility], CT, CT CHEST W CON, 09/23/2018, 13:18. [facility], CR, XR CHEST 1V, 12/12/2018, 17:22. FINDINGS: Image quality: There is mild motion artifact. Pulmonary arteries: Pulmonary arteries are normal in size, and demonstrate no intraluminal filling defects to suggest central pulmonary embolism. Evaluation of distal subsegmental branches is limited by motion artifact. Lungs and pleura: There are new confluent areas of airspace consolidation predominantly involving the posterior lower lobes, right greater than left, as well as posterior segments of the right upper and middle lobes. Multiple bilateral pulmonary nodules are redemonstrated . These include a right upper lobe nodule anteriorly on series 5 image 27 measuring up to 0.6 cm which is slightly decreased from the prior study of 09/23/18. Another site safety representative nodule in the right middle lobe along the right major fissure on image 44 measures up to 0.6 cm, slightly decreased from 0.7 cm previously. Severe centrilobular emphysematous changes are redemonstrated. There are new small bilateral pleural effusions. There is a small amount of dependent filling defect within the right bronchus intermedius and right lower lobe bronchus compatible with mucus and suggestive of aspiration. Mediastinum: Heart size is normal, without pericardial effusion. No mediastinal or hilar adenopathy. Thoracic aorta is normal in caliber and enhancement. There is mild fluid distention in the esophagus with concentric esophageal wall thickening and mucosal enhancement. There is a small hiatal hernia. Bones and chest wall: No suspicious bony lesions. There is a mild kyphosis of the thoracic spine with minimal anterior wedging in the lower thoracic spine. Thyroid gland demonstrates no discrete nodules. No axillary or supraclavicular adenopathy. Abdomen: Visualized upper abdomen demonstrates fluid and gas distention of the stomach which is partially visualized. There is pneumobilia again noted within the visualized liver. There is a peripheral area of hyperattenuation in the visualized right kidney. There is masslike enlargement of the bilateral adrenal glands redemonstrated. IMPRESSION: 1. No evidence of central pulmonary embolism. Evaluation of distal subsegmental branches limited by motion artifact. 2. New bilateral consolidation within posterior segments of the lungs predominantly involving the lower lobes. Given the distribution as well as mucus in the right lower lobe bronchus, the findings likely represent aspiration pneumonia. 3. Small bilateral pleural effusions. 4. Multiple bilateral pulmonary nodules likely representing metastatic disease demonstrate slight interval decrease in size suggestive of partial response to therapy. 5. Prominent fluid distention of the visualized stomach as well as the esophagus. Recommend correlation with clinical symptoms and dedicated abdominal imaging if indicated. 6. Mild esophageal wall thickening and mucosal enhancement consistent with a nonspecific esophagitis. 7. Severe centrilobular emphysematous changes redemonstrated. Dictated by: Scott Brewer M.D. on 12/12/2018 at 20:11 Approved by: Scott Brewer M.D. on 12/12/2018 at 20:26 <Jessica Tobin DO - Last Filed: 12/13/18 06:54> Lab Data Attestation: I reviewed the patient's lab results. Lab Results 12/12/18 12/12/18 12/12/18 Range/Units 17:00 17:00 17:00 WBC 6.2 (4.5-11.0) X10^3/uL RBC 5.04 (4.0-5.2) X10^6/uL Hgb 16.0 (12.0-16.0) g/dL Hct 48.3 H (36-46) % MCV 95.8 (80-100) fL MCH 31.7 (26-34) PG MCHC 33.1 (30-36) % RDW 14.2 (11.6-14.8) % Plt Count 311 (150-400) X10^3/uL Neut % (Auto) 85.0 H (50-75) % Lymph % (Auto) 7.0 L (25-40) % [place] % (Auto) 7.3 (3-14) % Eos % (Auto) 0.5 L (2-4) % Baso % (Auto) 0.2 (0-2) % Neut # (Auto) 5300 (8074-1457) /uL Lymph # (Auto) 400 L (4868-9556) /uL [place] # (Auto) 500 (0-900) /uL Eos # (Auto) 0 (0-450) /uL Baso # (Auto) 0 (0-100) /uL ABG pH (7.35-7.45) ABG pCO2 (35-45) mmHg ABG pO2 (80-100) mmHg ABG HCO3 (22-26) mmol/L ABG Total CO2 (21-31) mmol/L ABG O2 Saturation (95-100) % ABG Base Excess (-2-2) mmol/L FiO2 Sodium 129 L (137-145) mmol/L Potassium 3.4 (3.4-5.1) mmol/L Chloride 88 L (98-107) mmol/L Carbon Dioxide 30 (22-32) mmol/L BUN 13 (7-17) mg/dL Creatinine 0.50 L (0.52-1.04) mg/dL Estimated GFR > 60.0 (>60) mL/min BUN/Creatinine Ratio 26.0 H (6-22) Glucose 127 H (80-110) mg/dL Lactate (0.7-2.1) mmol/L Calcium 8.3 L (8.4-10.2) mg/dL Total Bilirubin 0.5 (0.2-1.3) mg/dL AST 23 (14-36) IU/L ALT 25 (9-52) IU/L Alkaline Phosphatase 60 (38-126) U/L Total Creatine Kinase (30-135) U/L CK-MB (CK-2) CK-MB (CK-2) Rel Index Troponin I (0.01-0.034) ng/mL B-Natriuretic Peptide (<100) Total Protein 6.0 L (6.3-8.2) g/dL Albumin 3.3 L (3.5-5.0) g/dL Globulin 2.7 (1.7-4.1) g/dL Albumin/Globulin Ratio 1.2 (1.0-2.8) Lipase (23-300) U/L Urine Color Yellow Urine Appearance Cloudy Urine pH 5.0 (4.5-8.0) Ur Specific [place] >=1.030 H (1.000-1.035) Urine Protein 2+ H (Negative) Urine Glucose (UA) Negative (Negative) g/dL Urine Ketones 1+ H (NEGATIVE) Urine Occult Blood 3+ H (Negative) Urine Nitrate Negative (Negative) Urine Bilirubin 1+ H (NEGATIVE) Urine Ictotest Negative (Negative) Urine Urobilinogen 1.0 (0.2) E.U./dL Ur Leukocyte Esterase 2+ H (NEGATIVE) Urine RBC 1-5/hpf (0-5/HPF) Urine WBC 30-100/hpf H (0-5/HPF) Ur Squamous Epith Cells 1-5 /hpf (0-5/HPF) Calcium Oxalate Crystal Few H Urine Bacteria Many (>30) H (None) Ur Culture Indicated? Specimen cultured Nasal Screen MRSA (PCR) (Negative) 12/12/18 12/12/18 12/12/18 Range/Units 17:00 17:00 17:00 WBC (4.5-11.0) X10^3/uL RBC (4.0-5.2) X10^6/uL Hgb (12.0-16.0) g/dL Hct (36-46) % MCV (80-100) fL MCH (26-34) PG MCHC (30-36) % RDW (11.6-14.8) % Plt Count (150-400) X10^3/uL Neut % (Auto) (50-75) % Lymph % (Auto) (25-40) % [place] % (Auto) (3-14) % Eos % (Auto) (2-4) % Baso % (Auto) (0-2) % Neut # (Auto) (8387-5149) /uL Lymph # (Auto) (0297-6638) /uL [place] # (Auto) (0-900) /uL Eos # (Auto) (0-450) /uL Baso # (Auto) (0-100) /uL ABG pH (7.35-7.45) ABG pCO2 (35-45) mmHg ABG pO2 (80-100) mmHg ABG HCO3 (22-26) mmol/L ABG Total CO2 (21-31) mmol/L ABG O2 Saturation (95-100) % ABG Base Excess (-2-2) mmol/L FiO2 Sodium (137-145) mmol/L Potassium (3.4-5.1) mmol/L Chloride (98-107) mmol/L Carbon Dioxide (22-32) mmol/L BUN (7-17) mg/dL Creatinine (0.52-1.04) mg/dL Estimated GFR (>60) mL/min BUN/Creatinine Ratio (6-22) Glucose (80-110) mg/dL Lactate (0.7-2.1) mmol/L Calcium (8.4-10.2) mg/dL Total Bilirubin (0.2-1.3) mg/dL AST (14-36) IU/L ALT (9-52) IU/L Alkaline Phosphatase (38-126) U/L Total Creatine Kinase < 20 L (30-135) U/L CK-MB (CK-2) TNP CK-MB (CK-2) Rel Index TNP Troponin I < 0.012 (0.01-0.034) ng/mL B-Natriuretic Peptide < 100 (<100) Total Protein (6.3-8.2) g/dL Albumin (3.5-5.0) g/dL Globulin (1.7-4.1) g/dL Albumin/Globulin Ratio (1.0-2.8) Lipase 31 (23-300) U/L Urine Color Urine Appearance Urine pH (4.5-8.0) Ur Specific [place] (1.000-1.035) Urine Protein (Negative) Urine Glucose (UA) (Negative) g/dL Urine Ketones (NEGATIVE) Urine Occult Blood (Negative) Urine Nitrate (Negative) Urine Bilirubin (NEGATIVE) Urine Ictotest (Negative) Urine Urobilinogen (0.2) E.U./dL Ur Leukocyte Esterase (NEGATIVE) Urine RBC (0-5/HPF) Urine WBC (0-5/HPF) Ur Squamous Epith Cells (0-5/HPF) Calcium Oxalate Crystal Urine Bacteria (None) Ur Culture Indicated? Nasal Screen MRSA (PCR) (Negative) 12/12/18 12/12/18 12/12/18 Range/Units 17:46 20:18 22:30 WBC (4.5-11.0) X10^3/uL RBC (4.0-5.2) X10^6/uL Hgb (12.0-16.0) g/dL Hct (36-46) % MCV (80-100) fL MCH (26-34) PG MCHC (30-36) % RDW (11.6-14.8) % Plt Count (150-400) X10^3/uL Neut % (Auto) (50-75) % Lymph % (Auto) (25-40) % [place] % (Auto) (3-14) % Eos % (Auto) (2-4) % Baso % (Auto) (0-2) % Neut # (Auto) (2689-7100) /uL Lymph # (Auto) (0574-7921) /uL [place] # (Auto) (0-900) /uL Eos # (Auto) (0-450) /uL Baso # (Auto) (0-100) /uL ABG pH 7.40 (7.35-7.45) ABG pCO2 39.8 (35-45) mmHg ABG pO2 49 L* (80-100) mmHg ABG HCO3 25 (22-26) mmol/L ABG Total CO2 26 (21-31) mmol/L ABG O2 Saturation 84 L* (95-100) % ABG Base Excess 0.0 (-2-2) mmol/L FiO2 21 Sodium (137-145) mmol/L Potassium (3.4-5.1) mmol/L Chloride (98-107) mmol/L Carbon Dioxide (22-32) mmol/L BUN (7-17) mg/dL Creatinine (0.52-1.04) mg/dL Estimated GFR (>60) mL/min BUN/Creatinine Ratio (6-22) Glucose (80-110) mg/dL Lactate 1.1 (0.7-2.1) mmol/L Calcium (8.4-10.2) mg/dL Total Bilirubin (0.2-1.3) mg/dL AST (14-36) IU/L ALT (9-52) IU/L Alkaline Phosphatase (38-126) U/L Total Creatine Kinase (30-135) U/L CK-MB (CK-2) CK-MB (CK-2) Rel Index Troponin I (0.01-0.034) ng/mL B-Natriuretic Peptide (<100) Total Protein (6.3-8.2) g/dL Albumin (3.5-5.0) g/dL Globulin (1.7-4.1) g/dL Albumin/Globulin Ratio (1.0-2.8) Lipase (23-300) U/L Urine Color Urine Appearance Urine pH (4.5-8.0) Ur Specific [place] (1.000-1.035) Urine Protein (Negative) Urine Glucose (UA) (Negative) g/dL Urine Ketones (NEGATIVE) Urine Occult Blood (Negative) Urine Nitrate (Negative) Urine Bilirubin (NEGATIVE) Urine Ictotest (Negative) Urine Urobilinogen (0.2) E.U./dL Ur Leukocyte Esterase (NEGATIVE) Urine RBC (0-5/HPF) Urine WBC (0-5/HPF) Ur Squamous Epith Cells (0-5/HPF) Calcium Oxalate Crystal Urine Bacteria (None) Ur Culture Indicated? Nasal Screen MRSA (PCR) Negative for mrsa (Negative) Imaging Data Chest x-ray: Radiologist's impression: PROCEDURE: XR CHEST 1V INDICATIONS: fatigue/cough/shortness of breath TECHNIQUE: One view of the chest was acquired. COMPARISON: [facility], CR, XR CHEST 1V, 10/19/2018, 14:31. FINDINGS: Surgical changes and devices: Left chest wall subclavian Port-A-Cath appears stable in position. Lungs and pleura: There is hyperinflation of the lungs with flattening of the hemidiaphragms compatible with COPD. There are increased confluent airspace opacities in the right lung base consistent with consolidation. No pleural effusions or pneumothorax. Mediastinum: Mediastinal contours appear unchanged. Heart size is normal. Bones and chest wall: No suspicious bony lesions. Overlying soft tissues appear unremarkable. IMPRESSION: 1. Increased confluent right basilar airspace opacities consistent with consoli dation and pneumonia given clinical history. 2. Findings compatible with COPD redemonstrated. Dictated by: Scott Brewer M.D. on 12/12/2018 at 18:15 CT scan - chest: Radiologist's impression: PROCEDURE: CT ANGIO CHEST PE PROTOCOL INDICATIONS: hypoxia, tachycardia, SOB, cancer patient is TECHNIQUE: After the administration of intravenous contrast, 2 mm thick sections acquired from the pulmonary apices to the posterior costophrenic angles. 3-dimensional maximum intensity projection (MIP) coronal and sagittal reformats were then acquired through the thorax. For radiation dose reduction, the following was used: automated exposure control, adjustment of mA and/or kV according to patient size. COMPARISON: [facility], CT, CT ABDOMEN PELVIS WO/W CON, 08/24/2018, 10:37. [facility], CT, CT CHEST WO CON, 03/02/2018, 13:20. [facility], CT, CT CHEST W CON, 09/23/2018, 13:18. [facility], CR, XR CHEST 1V, 12/12/2018, 17:22. FINDINGS: Image quality: There is mild motion artifact. Pulmonary arteries: Pulmonary arteries are normal in size, and demonstrate no intraluminal filling defects to suggest central pulmonary embolism. Evaluation of distal subsegmental branches is limited by motion artifact. Lungs and pleura: There are new confluent areas of airspace consolidation predominantly involving the posterior lower lobes, right greater than left, as well as posterior segments of the right upper and middle lobes. Multiple bilateral pulmonary nodules are redemonstrated . These include a right upper lobe nodule anteriorly on series 5 image 27 measuring up to 0.6 cm which is slightly decreased from the prior study of 09/23/18. Another site safety representative nodule in the right middle lobe along the right major fissure on image 44 measures up to 0.6 cm, slightly decreased from 0.7 cm previously. Severe centrilobular emphysematous changes are redemonstrated. There are new small bilateral pleural effusions. There is a small amount of dependent filling defect within the right bronchus intermedius and right lower lobe bronchus compatible with mucus and suggestive of aspiration. Mediastinum: Heart size is normal, without pericardial effusion. No mediastinal or hilar adenopathy. Thoracic aorta is normal in caliber and enhancement. There i s mild fluid distention in the esophagus with concentric esophageal wall thickening and mucosal enhancement. There is a small hiatal hernia. Bones and chest wall: No suspicious bony lesions. There is a mild kyphosis of the thoracic spine with minimal anterior wedging in the lower thoracic spine. Thyroid gland demonstrates no discrete nodules. No axillary or supraclavicular adenopathy. Abdomen: Visualized upper abdomen demonstrates fluid and gas distention of the stomach which is partially visualized. There is pneumobilia again noted within the visualized liver. There is a peripheral area of hyperattenuation in the visualized right kidney. There is masslike enlargement of the bilateral adrenal glands redemonstrated. IMPRESSION: 1. No evidence of central pulmonary embolism. Evaluation of distal subsegmental branches limited by motion artifact. 2. New bilateral consolidation within posterior segments of the lungs predominantly involving the lower lobes. Given the distribution as well as mucus in the right lower lobe bronchus, the findings likely represent aspiration pneumonia. 3. Small bilateral pleural effusions. 4. Multiple bilateral pulmonary nodules likely representing metastatic disease demonstrate slight interval decrease in size suggestive of partial response to therapy. 5. Prominent fluid distention of the visualized stomach as well as the esophagus. Recommend correlation with clinical symptoms and dedicated abdominal imaging if indicated. 6. Mild esophageal wall thickening and mucosal enhancement consistent with a nonspecific esophagitis. 7. Severe centrilobular emphysematous changes redemonstrated. Dictated by: Scott Brewer M.D. on 12/12/2018 at 20:11 ECG Data Attestation: I personally reviewed and interpreted this ECG as follows: Prior ECG tracings: available for review Interpretation: Normal sinus rhythm rate 113 year interval [address] changes MDM Narrative Medical decision making narrative: I had seen evaluated patient myself on now has a blood pressure of 83, was initially placed on non-rebreather now satting 100%. Chronic COPD year patient was turned down placed on high-flow nasal cannula. Troponin BNP added to the labs PE study done. Patient has received multiple bronchodilators overall seems to be improving. Discharge Plan Departure Patient Disposition: Admitted As Inpatient Clinical Impression: Dehydration Pneumonia Qualifiers: Pneumonia type: due to unspecified organism Laterality: bilateral Lung location: unspecified part of lung Qualified Code(s): J18.9 - Pneumonia, unspecified organism COPD (chronic obstructive pulmonary disease) Qualifiers: COPD type: COPD with acute exacerbation Qualified Code(s): J44.1 - Chronic obstructive pulmonary disease with (acute) exacerbation Discharge Date/Time: 12/12/18 22:25 Interventions: ED Discharge Assessment Last Done: 12/12/18 22:16 Admit Date/Time: 12/12/18 21:25 Admit Provider: Rohan Lemos <Jessica Tobin DO - Last Filed: 12/13/18 06:54> [facility] Attending Ruthy Attestation: I was immediately available in the department for consultation. Documentation has been reviewed. I agree with assessment and plan.
[2018-12-12 17:29] LABS: Add Manual Diff / Slide Review NO; Appearance Urine UA CLOUDY; Basophils Absolute Auto 0 /uL (0-100); Basophils Percent Auto 0.2 % (0-2); Bilirubin Urine UA 1+ (NEGATIVE); Color Urine UA YELLOW; Eosinophils Absolute Auto 0 /uL (0-450); Eosinophils Percent Auto 0.5 % (2-4); Glucose Urine UA NEGATIVE (Negative); Hematocrit 48.3 % (36-46); Ketones Urine UA 1+ (NEGATIVE); Leukocyte Esterase Urine UA 2+ (NEGATIVE); Lymphocytes Absolute Auto 400 /uL (1100-4500); Mean Corpuscular HGB Conc 33.1 % (30-36); Mean Corpuscular Hemoglobin 31.7 PG (26-34); Mean Corpuscular Volume 95.8 fL (80-100); Monocytes Absolute Auto 500 /uL (0-900); Monocytes Percent Auto 7.3 % (3-14); Neutrophils Absolute Auto 5300 /uL (1500-7000); Nitrite Urine UA NEGATIVE (Negative); Occult Blood Urine UA 3+ (Negative); Platelet Count 311 X10^3/uL (150-400); Protein Urine UA 2+ (Negative); Red Blood Cell Count 5.04 X10^6/uL (4.0-5.2); Red Cell Distribution Width 14.2 % (11.6-14.8); Specific Gravity Urine UA >=1.030 (1.000-1.035); White Blood Cell Count 6.2 X10^3/uL (4.5-11.0)
[2018-12-12] MEDS: PANTOPRAZOLE 40 MG VIAL IV (17:33)
[2018-12-12] MEDS: SODIUM CHLORIDE 0.9% 1,000 ML 1000 ML IV ×2 (17:33→21:20)
[2018-12-12] MEDS: ONDANSETRON 4 MG/2 ML INJ IV (17:33)
[2018-12-12 17:36] LABS: Alanine Aminotransferase 25 IU/L (9-52); Albumin 3.3 g/dL (3.5-5.0); Albumin Globulin Ratio 1.2 (1.0-2.8); Alkaline Phosphatase 60 U/L (38-126); Aspartate Aminotransferase 23 IU/L (14-36); Bilirubin Total 0.5 mg/dL (0.2-1.3); Blood Urea Nitrogen 13 mg/dL (7-17); Calcium 8.3 mg/dL (8.4-10.2); Carbon Dioxide 30 mmol/L (22-32); Chloride 88 mmol/L (98-107); Estimated Glomerular Filt Rate > 60.0 mL/min (>60); Globulin 2.7 g/dL (1.7-4.1); Glucose 127 mg/dL (80-110); HEMOLYSIS 15 (0-50); Potassium 3.4 mmol/L (3.4-5.1); Sodium 129 mmol/L (137-145)
[2018-12-12 18:10] LABS: Ictotest Urine Negative (Negative)
[2018-12-12 18:11] LABS: Bacteria Urine Many (>30); Calcium Oxalate Crystals Urine Few; Culture Indicated Urine Specimen Cultured; RBC Urine 1-5/HPF (0-5/HPF); Squamous Epithelial Cell Urine 1-5 /HPF (0-5/HPF); WBC Urine 30-100/HPF (0-5/HPF)
[2018-12-12 18:16] LABS: Lactate (Lactic Acid) 1.1 mmol/L (0.7-2.1)
[2018-12-12 18:45] LABS: Lipase 31 U/L (23-300)
--- NOTE | 2018-12-12 18:46 | DI.CT.S_ITS ---
PROCEDURE: CT ANGIO CHEST PE PROTOCOL INDICATIONS: hypoxia, tachycardia, SOB, cancer patient is TECHNIQUE: After the administration of intravenous contrast, 2 mm thick sections acquired from the pulmonary apices to the posterior costophrenic angles. 3-dimensional maximum intensity projection (MIP) coronal and sagittal reformats were then acquired through the thorax. For radiation dose reduction, the following was used: automated exposure control, adjustment of mA and/or kV according to patient size. COMPARISON: [facility], CT, CT ABDOMEN PELVIS WO/W CON, 08/24/2018, 10:37. [facility], CT, CT CHEST WO CON, 03/02/2018, 13:20. [facility], CT, CT CHEST W CON, 09/23/2018, 13:18. [facility], CR, XR CHEST 1V, 12/12/2018, 17:22. FINDINGS: Image quality: There is mild motion artifact. Pulmonary arteries: Pulmonary arteries are normal in size, and demonstrate no intraluminal filling defects to suggest central pulmonary embolism. Evaluation of distal subsegmental branches is limited by motion artifact. Lungs and pleura: There are new confluent areas of airspace consolidation predominantly involving the posterior lower lobes, right greater than left, as well as posterior segments of the right upper and middle lobes. Multiple bilateral pulmonary nodules are redemonstrated . These include a right upper lobe nodule anteriorly on series 5 image 27 measuring up to 0.6 cm which is slightly decreased from the prior study of 09/23/18. Another site safety representative nodule in the right middle lobe along the right major fissure on image 44 measures up to 0.6 cm, slightly decreased from 0.7 cm previously. Severe centrilobular emphysematous changes are redemonstrated. There are new small bilateral pleural effusions. There is a small amount of dependent filling defect within the right bronchus intermedius and right lower lobe bronchus compatible with mucus and suggestive of aspiration. Mediastinum: Heart size is normal, without pericardial effusion. No mediastinal or hilar adenopathy. Thoracic aorta is normal in caliber and enhancement. There is mild fluid distention in the esophagus with concentric esophageal wall thickening and mucosal enhancement. There is a small hiatal hernia. Bones and chest wall: No suspicious bony lesions. There is a mild kyphosis of the thoracic spine with minimal anterior wedging in the lower thoracic spine. Thyroid gland demonstrates no discrete nodules. No axillary or supraclavicular adenopathy. Abdomen: Visualized upper abdomen demonstrates fluid and gas distention of the stomach which is partially visualized. There is pneumobilia again noted within the visualized liver. There is a peripheral area of hyperattenuation in the visualized right kidney. There is masslike enlargement of the bilateral adrenal glands redemonstrated. IMPRESSION: 1. No evidence of central pulmonary embolism. Evaluation of distal subsegmental branches limited by motion artifact. 2. New bilateral consolidation within posterior segments of the lungs predominantly involving the lower lobes. Given the distribution as well as mucus in the right lower lobe bronchus, the findings likely represent aspiration pneumonia. 3. Small bilateral pleural effusions. 4. Multiple bilateral pulmonary nodules likely representing metastatic disease demonstrate slight interval decrease in size suggestive of partial response to therapy. 5. Prominent fluid distention of the visualized stomach as well as the esophagus. Recommend correlation with clinical symptoms and dedicated abdominal imaging if indicated. 6. Mild esophageal wall thickening and mucosal enhancement consistent with a nonspecific esophagitis. 7. Severe centrilobular emphysematous changes redemonstrated. Dictated by: Scott Brewer M.D. on 12/12/2018 at 20:11 Approved by: Scott Brewer M.D. on 12/12/2018 at 20:26
[2018-12-12] MEDS: ALBUTEROL/IPRATROPIUM 3 ML AMPUL INH ×2 (18:56→23:34)
[2018-12-12] MEDS: ALBUTEROL 2.5 MG/3 ML NEB (ADULT) INH (18:56)
[2018-12-12] MEDS: ALBUTEROL/IPRATROPIUM 3 ML AMPUL 6 ML INH (19:07)
[2018-12-12] MEDS: diphenhydrAMINE 50 MG/ML VIAL IV (19:24)
[2018-12-12] MEDS: methylPREDNISolone 125 MG/2 ML VIAL IV (19:24)
[2018-12-12] MEDS: levoFLOXacin 750 MG/150 ML PIGGYBACK 100 MG IV (20:23)
[2018-12-12 20:43] LABS: HCO3 ABG 25 mmol/L (22-26); PCO2 ABG 39.8 mmHg (35-45); PO2 ABG 49 mmHg (80-100); TCO2 ABG 26 mmol/L (21-31)
[2018-12-12 20:44] LABS: Fractionated Inspired Oxygen 21; Oxygen Saturation ABG 84 % (95-100)
--- NOTE | 2018-12-12 20:44 | PC.NURSE ---
rt attempted a room air abg, pt unable tot olerate room air desatting into the upper 70s. RT placed pt on high flow to maintain sats at or close to 90 per BOTE. Pressures in the 80s, verbal order from BOTE to bolus one liter. second line placed, bolus initiated, abx infusing.
[2018-12-12 21:12] LABS: Creatine Kinase < 20 U/L (30-135)
[2018-12-12 21:25] LABS: Troponin I < 0.012 ng/mL (0.01-0.034)
[2018-12-12 21:32] LABS: B Type Natriuretic Peptide < 100 (<100)
--- NOTE | 2018-12-12 23:43 | PC.NURSE ---
admit note Pt arrived from ER with 3 L/min NC, RT at bedside to place pt back on heated high flow cannula. Pt SOB at rest, able to speak about 5 word sentences. RR 38 on arrival.
[2018-12-13] VITALS (27 sets, daily range): BP systolic 107–131; BP diastolic 57–75; PULSE 92–111; RESP 17–36; TEMP 36.3–37.6; O2SAT 92–98; BMI 21.7
[2018-12-13] MEDS: SODIUM CHLORIDE 0.9% 1,000 ML 75 ML IV (00:12)
[2018-12-13] MEDS: ACETAMINOPHEN 325 MG TABLET 650 MG PO (00:26)
[2018-12-13] MEDS: ALBUTEROL/IPRATROPIUM 3 ML AMPUL INH ×5 (03:09→21:06)
--- NOTE | 2018-12-13 06:32 | PC.NURSE ---
Addendum entered by Dorota Valverde R.N. 12/13/18 06:59: 0630 Dr. Eldridge notified of pt's continued nausea, sm. emesis. Zofran IV ordered prn. AM labs ordered. Pt given only sips of water through shift due to possible aspiration. Continue to monitor. Original Note: NOC Shift: Pt AAOx3, drowsy, fatigued. Can only speak in short few word sentences due to SOB. Currently on heated high flow NC at 88% flow, 35% FIO2. Sats 90 to 95%. Coarse BS R>L. Dry weak cough. Questionable aspiration pnuemonia on CT scan. Pt continues to have intermittent nausea and minimal spitting up of clear, white to bile secretions. Complains of generalized ache at beginning of shift tylenol given, pain resolved. Pt on clear liquid diet, should be NPO until MD wallace. ICU care.
[2018-12-13] MEDS: ONDANSETRON 4 MG/2 ML INJ IV ×2 (06:40→14:37)
[2018-12-13 07:06] LABS: Hematocrit 43.2 % (36-46); Hemoglobin 14.4 g/dL (12.0-16.0); Mean Corpuscular HGB Conc 33.4 % (30-36); Mean Corpuscular Hemoglobin 32.2 PG (26-34); Mean Corpuscular Volume 96.4 fL (80-100); Platelet Count 238 X10^3/uL (150-400); Red Blood Cell Count 4.49 X10^6/uL (4.0-5.2); Red Cell Distribution Width 14.2 % (11.6-14.8); White Blood Cell Count 7.5 X10^3/uL (4.5-11.0)
[2018-12-13 07:10] LABS: Add Manual Diff / Slide Review YES
[2018-12-13 07:20] LABS: Alanine Aminotransferase 16 IU/L (9-52); Albumin 2.7 g/dL (3.5-5.0); Albumin Globulin Ratio 1.2 (1.0-2.8); Alkaline Phosphatase 45 U/L (38-126); Aspartate Aminotransferase 11 IU/L (14-36); Bilirubin Total 0.4 mg/dL (0.2-1.3); Blood Urea Nitrogen 14 mg/dL (7-17); Calcium 7.7 mg/dL (8.4-10.2); Carbon Dioxide 24 mmol/L (22-32); Chloride 96 mmol/L (98-107); Estimated Glomerular Filt Rate > 60.0 mL/min (>60); Globulin 2.3 g/dL (1.7-4.1); Glucose 126 mg/dL (80-110); HEMOLYSIS < 15 (0-50); Potassium 3.2 mmol/L (3.4-5.1); Sodium 130 mmol/L (137-145)
[2018-12-13 07:38] LABS: Neutrophils Absolute Manual 7125 /uL (3000-5900); Total Cells Counted 100
[2018-12-13 07:42] LABS: Dohle Bodies 1+; Poikilocytosis 1+
[2018-12-13 07:43] LABS: Toxic Vacuolation Pres
--- NOTE | 2018-12-13 09:07 | CM.DANOTE ---
DCP: Case received, EMR reviewed and met with patient. Introduced self and role. Baseline information regarding patient's health and living arrangements given by patient. DCP template completed based on current information. Patient is a 77 year old female who admitted yesterday evening to the care of the hospitalist team. PCP: Dr. Lemos. Payer: confirmed: [facility]. Patient came to hospital secondary to nausea and vomiting. Patient goes to [facility] for [facility] every 2 weeks. Patient has history of COPD, and uses nebulizer at home. She is not on oxygen at home. Patient is here for treatment of hydration, as well as hypotension. Met with patient in room. Alert and oriented. She lives alone, but she stated that [facility], [place], nursing, comes in a couple of times a week. She also stated that [facility] come in a few times a week as well to help with house work. Patient mentioned that her neighbors help her out by taking her to appts, for she does not drive. She has no local family, but does have a son that lives in [place]. P:DCP to follow closely as plan unfolds. Uncertain at this time if patient will need to resume home health, or if she may need long term. She has [place], so if skilled is needed, this would need to be approved. May need P.T. eval before discharge. Jenny Araya RN/Help Desk Administrator
--- NOTE | 2018-12-13 09:25 | PM.HP.1 ---
History of Present Illness Date Patient Seen: 12/13/18 Time Patient Seen: 09:26 Chief complaint: CANCER PATIENT HAS BEEN THROWING UP Narrative: 77-year-old female long-term smoker, with a recent finding of metastatic colon adenocarcinoma, undergoing treatment, had been doing her usual fairly fatigued self until yesterday morning when she developed acute and persistent emesis. She became quite short of breath with this her energy worsened even further than this persisted. She presented to the emergency room at afternoon was evaluated found to be in acute respiratory failure and with evidence of possible aspiration pneumonia with significant and persistent hypoxia. So referred for admission. She is IN I think her 4th cycle of chemo but this is the 1st time she has had any associated nausea, I believe her last treatment though was even last week. So not clear if this is directly treatment related or otherwise. This morning she is found lying quietly but a awake and appropriate describes her situation clearly. She feels as poorly as she has ever felt, and has certainly been ill before. Reviewed status with her this morning, reviewed her preference is for code, and she is quite clear that she would have us do full code intubation as needed. Patient History Medical History (Updated 12/13/18 @ 09:45 by Rohan Lemos MD) Adenocarcinoma (Chronic) Current every day smoker (Chronic) Hyperlipidemia (Chronic) Hypertension (Chronic) H/O: hysterectomy (Resolved) Surgical History (Updated 12/12/18 @ 17:31 by Yuridia Gordillo PA-C) History of cholecystectomy (Resolved) History of partial colectomy (Resolved) Hx of vascular surgery (Resolved) Social History household members: none Smoking Status: Current every day smoker alcohol intake: current Family & Social History Social History: household members none Prior Living Arrangements House Safety & Behavioral: Feels Safe in Current Yes Environment Been Physically Hurt or No Threatened By a Person Suicidal Ideation Description None Suicide Plan Description No Plan Tobacco & Substance use: Tobacco type cigarettes Smoking Status Current every day smoker Smoking packs per day 1 alcohol intake current alcohol intake frequency 0-2 drinks per day Substance Use Type does not use Meds Home Medications Medication Instructions Recorded Confirmed Type albuterol sulfate 2 puff INHALATION Q4-6H PRN 08/10/18 12/12/18 History albuterol sulfate 2.5 mg INHALATION Q4H PRN 08/10/18 12/12/18 History aspirin 81 mg PO DAILY 08/10/18 12/12/18 History cetirizine [Aller-Ana] 10 mg PO DAILY 08/10/18 12/12/18 History Serevent Diskus 1 puff INHALATION DIRECTED 10/05/18 12/12/18 History alendronate [Fosamax] 1 tab PO QWEEK 10/05/18 12/12/18 History cholecalciferol (vitamin D3) 3,000 unit PO DAILY 10/05/18 12/12/18 History [Vitamin D3] diazepam 5 mg PO BID 10/05/18 12/12/18 History lidocaine-prilocaine See Rx Instructions .ROUTE 10/19/18 12/12/18 Rx .COMPLEX #30 gram ondansetron 4 mg PO QID PRN #20 tab 10/19/18 12/12/18 Rx indomethacin 25 mg PO TID 12/12/18 12/12/18 History ipratropium-albuterol 1 dose INHALATION DIRECTED 12/12/18 12/12/18 History metoprolol tartrate 25 mg PO BID 12/12/18 12/12/18 History pravastatin 40 mg PO BEDTIME 12/12/18 12/12/18 History Allergies Allergy/AdvReac Type Severity Reaction Status Date / Time iodine [IODINE] Allergy Severe HIVES Verified 10/19/18 12:18 codeine [CODEINE] AdvReac Unknown SLEEPY Verified 10/19/18 12:18 lansoprazole [LANSOPRAZOLE] AdvReac Unknown GI UPSET Verified 10/19/18 12:18 Review of Systems Review of Systems Nauseous with many episodes of emesis, very short of breath, intermittent productive cough, some foot pain, otherwise -16 point review of systems. Exam Vital Signs (past 8 hours): - 12/13/18 01:28 12/13/18 02:11 12/13/18 03:03 Temperature 97.8 F Pulse Rate 99 H 105 H Respiratory Rate 24 33 H Blood Pressure 109/58 L Pulse Oximetry 93 94 93 12/13/18 03:09 12/13/18 03:52 12/13/18 04:01 Temperature Pulse Rate 101 H 99 H Respiratory Rate 28 H 25 H Blood Pressure 115/59 L Pulse Oximetry 94 95 95 12/13/18 05:11 12/13/18 06:06 12/13/18 06:13 Temperature 97.7 F 98.3 F Pulse Rate 106 H 111 H 92 H Respiratory Rate 36 H 22 35 H Blood Pressure 126/64 107/57 L Pulse Oximetry 95 95 95 12/13/18 07:00 12/13/18 08:00 12/13/18 09:00 Temperature 97.9 F 98.0 F 97.5 F L Pulse Rate 104 H 105 H 102 H Respiratory Rate 22 22 22 Blood Pressure 128/61 127/65 125/62 Pulse Oximetry 95 96 94 Fraction of Inspired Oxygen 35 Oxygen Delivery Method Heated High Flow Oxygen Flow Rate 12 Narrative Exam Narrative: Frail appearing older woman in moderate increased respiratory distress. with high-flow nasal cannula in place. HEENT benign pupils are equal round reactive to light extraocular movements are intact oropharynx appears somewhat dry but otherwise clear neck is benign without jugular venous distention or bruit chest shows overall distant breath sounds but some crackles in the bases heart has a regular rate and rhythm somewhat fast without murmur, abdomen is soft nontender nondistended somewhat hyperactive bowel tones, no masses organomegaly, extremities without edema intact pulses. Neurologically seems nonfocal. Objective Labs Result Diagrams: 12/13/18 06:55 12/13/18 06:55 Labs: Laboratory Results - last 24 hr 12/12/18 12/12/18 12/12/18 17:00 17:00 17:00 WBC 6.2 RBC 5.04 Hgb 16.0 Hct 48.3 H MCV 95.8 MCH 31.7 MCHC 33.1 RDW 14.2 Plt Count 311 Neut % (Auto) 85.0 H Lymph % (Auto) 7.[address] [place] % (Auto) 7.3 Eos % (Auto) 0.5 L Baso % (Auto) 0.2 Neut # (Auto) 5300 Lymph # (Auto) [address] [place] # (Auto) 500 Eos # (Auto) 0 Baso # (Auto) 0 Total Counted Seg Neutrophils % Band Neutrophils % Lymphocytes % (Manual) Monocytes % (Manual) Metamyelocytes % Neutrophils # (Manual) Toxic Vacuolation Dohle Bodies RBC Morphology Poikilocytosis ABG pH ABG pCO2 ABG pO2 ABG HCO3 ABG Total CO2 ABG O2 Saturation ABG Base Excess FiO2 Sodium 129 L Potassium 3.4 Chloride 88 L Carbon Dioxide 30 BUN 13 Creatinine 0.50 L Estimated GFR > 60.0 BUN/Creatinine Ratio 26.0 H Glucose 127 H Lactate Calcium 8.3 L Total Bilirubin 0.5 AST 23 ALT 25 Alkaline Phosphatase 60 Total Creatine Kinase CK-MB (CK-2) CK-MB (CK-2) Rel Index Troponin I B-Natriuretic Peptide Total Protein 6.0 L Albumin 3.3 L Globulin 2.7 Albumin/Globulin Ratio 1.2 Lipase Urine Color Yellow Urine Appearance Cloudy Urine pH 5.0 Ur Specific [place] >=1.030 H Urine Protein 2+ H Urine Glucose (UA) Negative Urine Ketones 1+ H Urine Occult Blood 3+ H Urine Nitrate Negative Urine Bilirubin 1+ H Urine Ictotest Negative Urine Urobilinogen 1.0 Ur Leukocyte Esterase 2+ H Urine RBC 1-5/hpf Urine WBC 30-100/hpf H Ur Squamous Epith Cells 1-5 /hpf Calcium Oxalate Crystal Few H Urine Bacteria Many (>30) H Ur Culture Indicated? Specimen cultured Nasal Screen MRSA (PCR) 12/12/18 12/12/18 12/12/18 17:00 17:00 17:00 WBC RBC Hgb Hct MCV MCH MCHC RDW Plt Count Neut % (Auto) Lymph % (Auto) [place] % (Auto) Eos % (Auto) Baso % (Auto) Neut # (Auto) Lymph # (Auto) [place] # (Auto) Eos # (Auto) Baso # (Auto) Total Counted Seg Neutrophils % Band Neutrophils % Lymphocytes % (Manual) Monocytes % (Manual) Metamyelocytes % Neutrophils # (Manual) Toxic Vacuolation Dohle Bodies RBC Morphology Poikilocytosis ABG pH ABG pCO2 ABG pO2 ABG HCO3 ABG Total CO2 ABG O2 Saturation ABG Base Excess FiO2 Sodium Potassium Chloride Carbon Dioxide BUN Creatinine Estimated GFR BUN/Creatinine Ratio Glucose Lactate Calcium Total Bilirubin AST ALT Alkaline Phosphatase Total Creatine Kinase < 20 L CK-MB (CK-2) TNP CK-MB (CK-2) Rel Index TNP Troponin I < 0.012 B-Natriuretic Peptide < 100 Total Protein Albumin Globulin Albumin/Globulin Ratio Lipase 31 Urine Color Urine Appearance Urine pH Ur Specific [place] Urine Protein Urine Glucose (UA) Urine Ketones Urine Occult Blood Urine Nitrate Urine Bilirubin Urine Ictotest Urine Urobilinogen Ur Leukocyte Esterase Urine RBC Urine WBC Ur Squamous Epith Cells Calcium Oxalate Crystal Urine Bacteria Ur Culture Indicated? Nasal Screen MRSA (PCR) 12/12/18 12/12/18 12/12/18 17:46 20:18 22:30 WBC RBC Hgb Hct MCV MCH MCHC RDW Plt Count Neut % (Auto) Lymph % (Auto) [place] % (Auto) Eos % (Auto) Baso % (Auto) Neut # (Auto) Lymph # (Auto) [place] # (Auto) Eos # (Auto) Baso # (Auto) Total Counted Seg Neutrophils % Band Neutrophils % Lymphocytes % (Manual) Monocytes % (Manual) Metamyelocytes % Neutrophils # (Manual) Toxic Vacuolation Dohle Bodies RBC Morphology Poikilocytosis ABG pH 7.40 ABG pCO2 39.8 ABG pO2 49 L* ABG HCO3 25 ABG Total CO2 26 ABG O2 Saturation 84 L* ABG Base Excess 0.0 FiO2 21 Sodium Potassium Chloride Carbon Dioxide BUN Creatinine Estimated GFR BUN/Creatinine Ratio Glucose Lactate 1.1 Calcium Total Bilirubin AST ALT Alkaline Phosphatase Total Creatine Kinase CK-MB (CK-2) CK-MB (CK-2) Rel Index Troponin I B-Natriuretic Peptide Total Protein Albumin Globulin Albumin/Globulin Ratio Lipase Urine Color Urine Appearance Urine pH Ur Specific [place] Urine Protein Urine Glucose (UA) Urine Ketones Urine Occult Blood Urine Nitrate Urine Bilirubin Urine Ictotest Urine Urobilinogen Ur Leukocyte Esterase Urine RBC Urine WBC Ur Squamous Epith Cells Calcium Oxalate Crystal Urine Bacteria Ur Culture Indicated? Nasal Screen MRSA (PCR) Negative for mrsa 12/13/18 12/13/18 06:55 06:55 WBC 7.5 RBC 4.49 Hgb 14.4 Hct 43.2 MCV 96.4 MCH 32.2 MCHC 33.4 RDW 14.2 Plt Count 238 Neut % (Auto) Not Reportable Lymph % (Auto) Not Reportable [place] % (Auto) Not Reportable Eos % (Auto) Not Reportable Baso % (Auto) Not Reportable Neut # (Auto) Lymph # (Auto) Not Reportable [place] # (Auto) Not Reportable Eos # (Auto) Baso # (Auto) Not Reportable Total Counted 100 Seg Neutrophils % 76.0 H Band Neutrophils % 19.0 H Lymphocytes % (Manual) 1.0 L Monocytes % (Manual) 2.0 Metamyelocytes % 2.0 H Neutrophils # (Manual) 7125 H Toxic Vacuolation Pres Dohle Bodies 1+ H RBC Morphology See below Poikilocytosis 1+ H ABG pH ABG pCO2 ABG pO2 ABG HCO3 ABG Total CO2 ABG O2 Saturation ABG Base Excess FiO2 Sodium 130 L Potassium 3.2 L Chloride 96 L Carbon Dioxide 24 BUN 14 Creatinine 0.50 L Estimated GFR > 60.0 BUN/Creatinine Ratio 28.0 H Glucose 126 H Lactate Calcium 7.7 L Total Bilirubin 0.4 AST 11 L ALT 16 Alkaline Phosphatase 45 Total Creatine Kinase CK-MB (CK-2) CK-MB (CK-2) Rel Index Troponin I B-Natriuretic Peptide Total Protein 5.0 L Albumin 2.7 L Globulin 2.3 Albumin/Globulin Ratio 1.2 Lipase Urine Color Urine Appearance Urine pH Ur Specific [place] Urine Protein Urine Glucose (UA) Urine Ketones Urine Occult Blood Urine Nitrate Urine Bilirubin Urine Ictotest Urine Urobilinogen Ur Leukocyte Esterase Urine RBC Urine WBC Ur Squamous Epith Cells Calcium Oxalate Crystal Urine Bacteria Ur Culture Indicated? Nasal Screen MRSA (PCR) Assessment & Plan (1) Pneumonia: Problem details: seem to have developed after an acute episode of emesis so suspect this is aspiration related, imaging supports this. Will treat for that. Qualifiers: Aspiration pneumonia type: Laterality: bilateral Lung location: unspecified part of lung Pneumonia type: due to unspecified organism Qualified Code(s): J18.9 - Pneumonia, unspecified organism Current visit: Yes Status: Acute (2) Respiratory failure with hypoxia and hypercapnia: Problem details: long history of COPD but usually maintains oxygen but now with above having an acute episode with rather severe hypoxia and hypercapnia. Current visit: Yes Status: Acute (3) Dehydration: Problem details: from persistent emesis, still behind a bili. Current visit: Yes Status: Acute (4) COPD (chronic obstructive pulmonary disease): Problem details: long standing on fairly minimal medications. Qualifiers: COPD type: COPD with acute exacerbation Chronic bronchitis type: Emphysema type: Qualified Code(s): J44.1 - Chronic obstructive pulmonary disease with (acute) exacerbation Current visit: Yes Status: Acute (5) Adenocarcinoma: Problem details: currently in treatment has been tolerating fairly well, this is thought to be a colon source with primary impact on bladder neck. Current visit: No Status: Acute (6) Emesis, persistent: Problem details: this the primary presenting problem contributing to several above issues. Could be related to chemotherapy but has had not had that issue in prior treatment. Current visit: Yes Status: Acute Assessment & Plan narrative: Will continue hydration will add antibiotic continue respiratory therapy and same oxygen treatments. Reviewed code status with her prefers to be full code. Will have speech therapy evaluate for aspiration risk and PT also for strength and ambulation. Time Spent With Patient Time with patient: Greater than 35 minutes Quality VTE Deep Vein Thrombosis/Pulmonary Embolism Present on Admission: No
[2018-12-13] MEDS: PANTOPRAZOLE 40 MG VIAL IV (10:24)
[2018-12-13] MEDS: diazePAM 5 MG TABLET PO (10:29)
[2018-12-13] MEDS: ENOXAPARIN 40 MG/0.4 ML SYRINGE SUBCUT (10:30)
[2018-12-13] MEDS: AMPICILLIN/SULBACTAM 1.5 GM 1.5 GM in SODIUM CHLORIDE 0.9% 100 ML IV ×2 (10:30→15:47)
[2018-12-13] MEDS: DEXTROSE 5%-0.45% NS 1,000 ML 125 ML IV (10:34)
[2018-12-13] MEDS: METOPROLOL IR 25 MG TABLET PO (10:34)
[2018-12-13] MEDS: ALBUTEROL 2.5 MG/3 ML NEB (ADULT) INH (12:22)
--- NOTE | 2018-12-13 13:08 | PM.OBPNLAB ---
Date/Time Date Patient Seen: 12/13/18 Time Patient Seen: 13:08 Pain Control Pain control: tolerating well Pelvic Exam Dilation (cm): 0 Effacement (%): 70 station: -1 Amniotic membrane status: Intact Contractions Contractions on admission: irregular Contraction pattern: Irregular Contraction intensity: Moderate Status status: Category l Assessment and Plan Assessment: induction ongoing Plan: continuous present management Comments: Patient overall is tolerating well but contractions are not consistent. We discussed options patient does not want Pitocin right now she has had some slight change in I think which is okay to give her a little more time will recheck at 5 and then had Pitocin. Will check sugar follow from there. No other changes. Recheck in a few hours discussed with both patient and significant other. Questions answered.
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
--- NOTE | 2018-12-13 15:11 | ONC.MSW ---
SCRAP YARD WORKER notified ICU nurse that Dr. Green will be visting patient at the end of his day today. She will notify her brother, who was not in the room at the time of SCRAP YARD WORKER visit.
--- NOTE | 2018-12-13 15:28 | DI.RAD.S_ITS ---
PROCEDURE: XR ACUTE ABDOMEN SERIES INDICATIONS: r/o bowel obstruction TECHNIQUE: One view chest and two views of the abdomen were acquired. COMPARISON: [facility], CR, XR CHEST 1V, 10/19/2018, 14:31. [facility], CR, XR CHEST 1V, 12/12/2018, 17:22. FINDINGS: Surgical changes and devices: Left chest wall Port-A-Cath. Multiple surgical clips in the left abdomen. Chest: Focal opacity noted in the right lung base suspicious for pneumonia or aspiration. Heart size is normal. No pleural effusions. No pneumoperitoneum. Abdomen: Dilated loops of small bowel noted. Dilated loops of small bowel measure up to 4.5 cm. There is marked gaseous distention of the stomach. No suspicious calcifications. Visualized solid organ contours appear normal. Bones: No suspicious bony lesions. IMPRESSION: 1. Small bowel obstruction. 2. Right lower lobe aspiration versus pneumonia. Dictated by: Adrianna Ward MD, PhD on 12/13/2018 at 16:59 Approved by: Adrianna Ward MD, PhD on 12/13/2018 at 17:01
--- NOTE | 2018-12-13 15:47 | ST.IPCSEOM ---
Addendum entered and electronically signed by Shawn Bravo 12/13/18 15:51: Recommend solid foods as tolerated. Original Note: Care Team Visit Care Team Role Provider Type Yuridia Gordillo PA-C Emergency Provider Advanced Computer Aided Design Designer Specialty: Emergency Medicine Address: [address] [place] [address] Email: Rohan Lemos MD Admit Provider Physician Attending Provider Primary Care Provider Specialty: Family Practice Address: [address] [place] [address], [facility] Email: [email or web address] Current Diagnoses Malignant (primary) neoplasm, unspecified (12/12/18) Dehydration (12/12/18) Pneumonia, unspecified organism (12/12/18) Chronic obstructive pulmonary disease with (acute) exacerbation (12/12/18) Respiratory failure, unspecified with hypoxia (12/12/18) Respiratory failure, unspecified with hypercapnia (12/12/18) Vomiting, unspecified (12/12/18) Past Medical History (Last Updated 12/12/18 @ 17:31 by Yuridia Gordillo PA-C) Adenocarcinoma (Chronic Medical) Bladder neck Current every day smoker (Chronic Medical) Hyperlipidemia (Chronic Medical) Hypertension (Chronic Medical) H/O: hysterectomy (Resolved Medical) Speech-Language Pathology Swallow Evaluation ETL TESTER Clinical Swallow Evaluation Start: 12/13/18 15:10 Freq: Status: Active Protocol: Document 12/13/18 15:10 LNK (Rec: 12/13/18 15:46 LNK [id number]) Clinical Swallow Evaluation Session Time Visit Start Time 14:30 Visit Stop Time 14:50 Total Visit Minutes 20 Setting Assessment Location Acute Care Visit Type Note Type Initial Evaluation Next Note Type Next Note Type Re-Evaluation Patient Information Identification Type Name ID Wristband History 77-year-old female long-term smoker, with a recent finding of metastatic colon adenocarcinoma, undergoing treatment, had been doing her usual fairly fatigued self until yesterday morning when she developed acute and persistent emesis. She became quite short of breath with this her energy worsened even further than this persisted. She presented to the emergency room at afternoon was evaluated found to be in acute respiratory failure and with evidence of possible aspiration pneumonia with significant and persistent hypoxia. Swallow evaluation ordered to r/o dysphagia. Subjective Observations Pt in bed withO2 via nasal canula. Pt just received a dose of anti-nausea medication . Evaluation Liquids Trialed Ice Chips Thin Administration Type Controlled Cup Sip Straw Pharyngeal Impairment WFL Findings Impressions Pt refused trials of solids secondary to vomiting She was agreeable to try water and jaqueline codi. Pt was observed to drink from a straw and swallow thin liquids without difficulty. She did not cough/ choke, her voice was clear. After a minute or two, she vomited again. She took another drink of jaqueline codi, remarking how much she liked the flavor. Pt appears to be able to tolerate thin liquids. No overt s/sx aspiration. Tolerance of solids is unknown at this point. It is possible that the pt aspirated her emesis leading to pneumonia. Will follow up with pt to assure safe PO intake without s/s/x aspiration. Diet Recommendations Liquids Order Thin Medication Recommendations As Tolerated Other Aspiration Precautions Recommended Precautions Upright at 90 Degrees Small Bites/Sips Treatment Plan Appropriate for Therapy Yes Therapy Recommendations Continue therapeutic evaluation as pt feels more like eating to determine safety for PO intake. ETL TESTER Follow Up 1-2x day
--- NOTE | 2018-12-13 16:58 | PT.IPTN ---
Current Diagnoses Malignant (primary) neoplasm, unspecified (12/12/18) Dehydration (12/12/18) Pneumonia, unspecified organism (12/12/18) Chronic obstructive pulmonary disease with (acute) exacerbation (12/12/18) Respiratory failure, unspecified with hypoxia (12/12/18) Respiratory failure, unspecified with hypercapnia (12/12/18) Vomiting, unspecified (12/12/18) Physical Therapy Treatment Note M3 PT-IP Subjective Start: 12/13/18 16:55 Freq: NEEDED Status: Active Protocol: Document 12/13/18 16:56 AB (Rec: 12/13/18 16:58 AB [id number]) Subjective Physical Therapy Visit Type Type Patient Refusal Notes pt refused PT. stated that she continues to vomit and since yesterday and last had emesis 10 min A. pt agreed to try tomorrow.
[2018-12-13] MEDS: POTASSIUM CHLORIDE 40 MEQ in SODIUM CHLORIDE 0.9% 500 ML 130 ML IV (17:45)
--- NOTE | 2018-12-13 18:37 | ONC.CONS ---
History of Present Illness - Data of Consult Patient: known to practice within the last 3 years Consult date: 12/13/18 Primary Care Provider: Rohan Lemos MD - Consult Narrative Narrative: Diagnosis: Metastatic colon cancer. MMR normal. Previous treatment: 1. Adenocarcinoma of the colon in a polyp that was removed at the time of a screening colonoscopy in 2012. 2. Partial sigmoid colectomy in October 2013 with a 1.1 cm adenoma but no invasive carcinoma. 3. 3 cycles of FOLFIRI History of present illness: Makenzie Betts is a 77 year old female who is known from clinic. She has recently been diagnosed with metastatic adenocarcinoma that is consistent with colon primary. She had presented with bladder outlet obstruction and was found to have a mass that was located at the bladder neck extending to the vaginal wall. Biopsies showed an adenocarcinoma. Molecular testing showed that this was most consistent with a colon cancer. Colonoscopy did not show any obvious primary. In 2013, she had had a a p sigmoid colectomy for an adenoma without any obvious invasive cancer. Staging evaluation currently showed that she had the mass in the pelvis as well as some small pulmonary nodules. She started chemotherapy with FOLFIRI and has received 4 cycles thus far most recently on December 06. She had been tolerating her chemotherapy reasonably well. She was having some fatigue and some diarrhea. She was due for restaging evaluation. Yesterday, she developed relatively acute onset of nausea and vomiting which was unusual for her. She in also had some abdominal pain. She was not having any bowel movements. She came to the emergency room and was found to have pneumonia. CT pulmonary angiogram did not show any thrombosis. Her pulmonary nodules had diminished slightly in size. There were bilateral infiltrates consistent with aspiration pneumonia. KUB done earlier today is consistent with obstruction. Her past medical history is notable for COPD. She did have a previous colon resection for a recurrent polyp. It appears that there may have been a small focus of cancer at 1 point. Her recent colonoscopy has not shown any recurrence. She has had a prior hysterectomy cholecystectomy. She had vascular surgery for sounds like stenosis perhaps of the renal artery or aorta. Her family history is notable for father having had cancer although she does not know what type. Her daughter had breast cancer. Social history: She lives by herself. She continues to smoke about 6 cigarettes a day. CC: Rohan Lemos MD - Pain Details Pain Intensity: 4 Pain Scale Used: Numeric (1 - 10) Home Medications and Allergies Home Medications Medication Instructions Recorded Confirmed Type albuterol sulfate 2 puff INHALATION Q4-6H PRN 08/10/18 12/12/18 History albuterol sulfate 2.5 mg INHALATION Q4H PRN 08/10/18 12/12/18 History aspirin 81 mg PO DAILY 08/10/18 12/12/18 History cetirizine [Aller-Ana] 10 mg PO DAILY 08/10/18 12/12/18 History Serevent Diskus 1 puff INHALATION DIRECTED 10/05/18 12/12/18 History alendronate [Fosamax] 1 tab PO QWEEK 10/05/18 12/12/18 History cholecalciferol (vitamin D3) 3,000 unit PO DAILY 10/05/18 12/12/18 History [Vitamin D3] diazepam 5 mg PO BID 10/05/18 12/12/18 History lidocaine-prilocaine See Rx Instructions .ROUTE 10/19/18 12/12/18 Rx .COMPLEX #30 gram ondansetron 4 mg PO QID PRN #20 tab 10/19/18 12/12/18 Rx indomethacin 25 mg PO TID 12/12/18 12/12/18 History ipratropium-albuterol 1 dose INHALATION DIRECTED 12/12/18 12/12/18 History metoprolol tartrate 25 mg PO BID 12/12/18 12/12/18 History pravastatin 40 mg PO BEDTIME 12/12/18 12/12/18 History Allergies Allergy/AdvReac Type Severity Reaction Status Date / Time iodine [IODINE] Allergy Severe HIVES Verified 10/19/18 12:18 codeine [CODEINE] AdvReac Unknown SLEEPY Verified 10/19/18 12:18 lansoprazole [LANSOPRAZOLE] AdvReac Unknown GI UPSET Verified 10/19/18 12:18 Medical History - Medical, Surgical, Family History Medical History: Medical History (Updated 12/13/18 @ 18:45 by Dany Green MD) Adenocarcinoma Current every day smoker Hyperlipidemia Hypertension H/O: hysterectomy Surgical History: Surgical History (Updated 12/13/18 @ 18:45 by Dany Green MD) History of cholecystectomy History of partial colectomy Hx of vascular surgery - Social History Smoking Status: Current every day smoker Review of Systems Constitutional: decreased activity level, no weight loss Cardiovascular: dyspnea on exertion Respiratory: shortness of breath, cough Gastrointestinal: change in appetite, abdominal pain, nausea, vomiting, constipation Exam Vital signs: Vital Signs Temp Pulse Resp BP BP Pulse Ox 12/13/18 16:50 100 H 32 H 93 12/13/18 16:00 97.7 F 101 H 36 H 121/63 92 12/13/18 15:00 96 12/13/18 12:59 96 12/13/18 12:22 98 H 35 H 96 12/13/18 12:00 97.4 F L 97 H 20 131/72 98 12/13/18 11:00 97.6 F 100 H 22 124/75 97 12/13/18 10:00 107 H 24 125/72 93 12/13/18 09:52 103 H 24 93 12/13/18 09:00 97.5 F L 102 H 22 125/62 94 12/13/18 08:40 96 12/13/18 08:00 98.0 F 105 H 22 127/65 96 12/13/18 07:00 97.9 F 104 H 22 128/61 95 12/13/18 06:13 92 H 35 H 95 12/13/18 06:06 98.3 F 111 H 22 107/57 L 95 12/13/18 05:11 97.7 F 106 H 36 H 126/64 95 12/13/18 04:01 99 H 25 H 115/59 L 95 12/13/18 03:52 95 12/13/18 03:09 101 H 28 H 94 12/13/18 03:03 105 H 33 H 109/58 L 93 12/13/18 02:11 97.8 F 99 H 24 94 12/13/18 01:28 93 12/13/18 01:12 108/58 L 12/13/18 00:53 106 H 26 H 93 12/13/18 00:26 99.6 F 12/12/18 23:34 111 H 30 H 92 12/12/18 23:04 98.9 F 115 H 37 H 107/46 L 88 L 12/12/18 22:00 110 H 35 H 113/63 92 12/12/18 20:40 90 L 12/12/18 19:08 114 H 30 H 92 12/12/18 18:56 116 H 32 H 92 Intake and Output 12/13/18 12/13/18 12/13/18 07:59 15:59 23:59 Intake Total 200 / 1145 845 / 1145 100 / 1145 Output Total 650 / 925 275 / 925 Balance -450 / 220 570 / 220 100 / 220 Intake: IV 845 / 945 100 / 945 Ampicillin/Sulbactam 1.5 gm 1.5 100 / 200 100 / 200 gm In Sodium Chloride 0.9% 100 ml @ 100 mls/hr IV Q6H KELLI Rx# :[id number] Sodium Chloride 0.9% 1,000 ml @ 745 / 745 75 mls/hr IV CONT KELLI Rx#: [id number] Oral 200 / 200 Output: Emesis 100 / 100 Urine Amount (Catheter) 650 / 825 175 / 825 Other: # Unmeasured Emesis Episodes 1 Weight 59 kg 59 kg Patient Weight 12/13/18 23:59 Weight 59 kg - Constitutional positive no acute distress, positive thin, positive chronically ill appearing Comments: She is a thin woman lying in bed. She has oxygen on. - Routine HEENT Exam Head: Present: normocephalic, atraumatic Eye: Present: EOMI, PERRL. Absent: conjunctival icterus, scleral injection ENT: Present: mucous membranes moist, oropharynx clear - Routine Neck Exam Present: supple. Absent: lymphadenopathy, thyromegaly - Routine Respiratory Exam Present: decreased breath sounds, wheezes - Routine Cardiovascular Exam Present: RRR, S1, S2. Absent: murmur - Routine Abdominal Exam Present: soft, distended. Absent: organomegaly, mass - Routine Extremities Exam Absent: edema - Routine Skin Exam Present: intact. Absent: rash - Routine Neurological Exam Present: alert, oriented X3 - Routine Psychiatric Exam Present: normal affect, normal thought process Results - Labs Laboratory Last Values WBC 7.5 X10^3/uL (4.5-11.0) 12/13/18 06:55 RBC 4.49 X10^6/uL (4.0-5.2) 12/13/18 06:55 Hgb 14.4 g/dL (12.0-16.0) 12/13/18 06:55 Hct 43.2 % (36-46) 12/13/18 06:55 MCV 96.4 fL (80-100) 12/13/18 06:55 MCH 32.2 PG (26-34) 12/13/18 06:55 MCHC 33.4 % (30-36) 12/13/18 06:55 RDW 14.2 % (11.6-14.8) 12/13/18 06:55 Plt Count 238 X10^3/uL (150-400) 12/13/18 06:55 Neut % (Auto) Not Reportable 12/13/18 06:55 Lymph % (Auto) Not Reportable 12/13/18 06:55 [place] % (Auto) Not Reportable 12/13/18 06:55 Eos % (Auto) Not Reportable 12/13/18 06:55 Baso % (Auto) Not Reportable 12/13/18 06:55 Neut # (Auto) 5300 /uL (3123-8116) 12/12/18 17:00 Lymph # (Auto) Not Reportable 12/13/18 06:55 [place] # (Auto) Not Reportable 12/13/18 06:55 Eos # (Auto) 0 /uL (0-450) 12/12/18 17:00 Baso # (Auto) Not Reportable 12/13/18 06:55 Total Counted 100 12/13/18 06:55 Seg Neutrophils % 76.0 % (38-70) H 12/13/18 06:55 Band Neutrophils % 19.0 % (3-7) H 12/13/18 06:55 Lymphocytes % (Manual) 1.0 % (25-45) L 12/13/18 06:55 Monocytes % (Manual) 2.0 % (2-11) 12/13/18 06:55 Metamyelocytes % 2.0 % (-0) H 12/13/18 06:55 Neutrophils # (Manual) 7125 /uL (9738-1664) H 12/13/18 06:55 Toxic Vacuolation Pres 12/13/18 06:55 Dohle Bodies 1+ H 12/13/18 06:55 RBC Morphology See below 12/13/18 06:55 Poikilocytosis 1+ H 12/13/18 06:55 ABG pH 7.40 (7.35-7.45) 12/12/18 20:18 ABG pCO2 39.8 mmHg (35-45) 12/12/18 20:18 ABG pO2 49 mmHg (80-100) L* 12/12/18 20:18 ABG HCO3 25 mmol/L (22-26) 12/12/18 20:18 ABG Total CO2 26 mmol/L (21-31) 12/12/18 20:18 ABG O2 Saturation 84 % (95-100) L* 12/12/18 20:18 ABG Base Excess 0.0 mmol/L (-2-2) 12/12/18 20:18 FiO2 21 12/12/18 20:18 Sodium 130 mmol/L (137-145) L 12/13/18 06:55 Potassium 3.2 mmol/L (3.4-5.1) L 12/13/18 06:55 Chloride 96 mmol/L (98-107) L 12/13/18 06:55 Carbon Dioxide 24 mmol/L (22-32) 12/13/18 06:55 BUN 14 mg/dL (7-17) 12/13/18 06:55 Creatinine 0.50 mg/dL (0.52-1.04) L 12/13/18 06:55 Estimated GFR > 60.0 mL/min (>60) 12/13/18 06:55 BUN/Creatinine Ratio 28.0 (6-22) H 12/13/18 06:55 Glucose 126 mg/dL (80-110) H 12/13/18 06:55 Lactate 1.1 mmol/L (0.7-2.1) 12/12/18 17:46 Calcium 7.7 mg/dL (8.4-10.2) L 12/13/18 06:55 Total Bilirubin 0.4 mg/dL (0.2-1.3) 12/13/18 06:55 AST 11 IU/L (14-36) L 12/13/18 06:55 ALT 16 IU/L (9-52) 12/13/18 06:55 Alkaline Phosphatase 45 U/L (38-126) 12/13/18 06:55 Total Creatine Kinase < 20 U/L (30-135) L 12/12/18 17:00 CK-MB (CK-2) TNP 12/12/18 17:00 CK-MB (CK-2) Rel Index TNP 12/12/18 17:00 Troponin I < 0.012 ng/mL (0.01-0.034) 12/12/18 17:00 B-Natriuretic Peptide < 100 (<100) 12/12/18 17:00 Total Protein 5.0 g/dL (6.3-8.2) L 12/13/18 06:55 Albumin 2.7 g/dL (3.5-5.0) L 12/13/18 06:55 Globulin 2.3 g/dL (1.7-4.1) 12/13/18 06:55 Albumin/Globulin Ratio 1.2 (1.0-2.8) 12/13/18 06:55 Lipase 31 U/L (23-300) 12/12/18 17:00 Urine Color Yellow 12/12/18 17:00 Urine Appearance Cloudy 12/12/18 17:00 Urine pH 5.0 (4.5-8.0) 12/12/18 17:00 Ur Specific [place] >=1.030 (1.000-1.035) H 12/12/18 17:00 Urine Protein 2+ (Negative) H 12/12/18 17:00 Urine Glucose (UA) Negative g/dL (Negative) 12/12/18 17:00 Urine Ketones 1+ (NEGATIVE) H 12/12/18 17:00 Urine Occult Blood 3+ (Negative) H 12/12/18 17:00 Urine Nitrate Negative (Negative) 12/12/18 17:00 Urine Bilirubin 1+ (NEGATIVE) H 12/12/18 17:00 Urine Ictotest Negative (Negative) 12/12/18 17:00 Urine Urobilinogen 1.0 E.U./dL (0.2) 12/12/18 17:00 Ur Leukocyte Esterase 2+ (NEGATIVE) H 12/12/18 17:00 Urine RBC 1-5/hpf (0-5/HPF) 12/12/18 17:00 Urine WBC 30-100/hpf (0-5/HPF) H 12/12/18 17:00 Ur Squamous Epith Cells 1-5 /hpf (0-5/HPF) 12/12/18 17:00 Calcium Oxalate Crystal Few H 12/12/18 17:00 Urine Bacteria Many (>30) (None) H 12/12/18 17:00 Ur Culture Indicated? Specimen cultured 12/12/18 17:00 Nasal Screen MRSA (PCR) Negative for mrsa (Negative) 12/12/18 22:30 - Imaging Additional studies: Procedures Closure of skin and subcutaneous tissue of other sites (03/29/11) Assessment and Plan (1) Adenocarcinoma Problem details: 77-year-old woman with metastatic colon cancer. She has completed 4 cycles of her initial chemotherapy. Her CEA has been fairly stable. CT scan of the chest shows minimal decrease in the size were pulmonary nodules. She does have larger pelvic mass. This has not been re-evaluated yet. I think a CT scan of the abdomen and pelvis will be helpful to evaluate this as well as the site of her obstruction. Given her underlying COPD and frail status, I am not sure that she would be an operative candidate. Hopefully, her obstruction resolve with conservative management. Current visit: No Status: Acute
--- NOTE | 2018-12-13 21:39 | PC.NURSE ---
francisco note pt with frequent emesis of small amount green-brown liquid. Scant bowel tones. Abd x-rays done. Report says SBO. Called Dr. Yañez to report. New orders received. NG tube to right nare required 3 attempts. 14 gauge NGT inserted. Over 1000 ml out initially/ No further emesis.
[2018-12-14] VITALS (16 sets, daily range): BP systolic 88–122; BP diastolic 37–64; PULSE 88–102; RESP 19–28; TEMP 36.3–37.4; O2SAT 91–98
--- NOTE | 2018-12-14 | DI.CT.S_ITS ---
PROCEDURE: CT ABDOMEN PELVIS W CON INDICATIONS: colon cancer, bowel obstruction TECHNIQUE: After the administration of intravenous contrast, 5 mm thick sections acquired from the diaphragm to the symphysis. 5 mm coronal and sagittal reformats were acquired. For radiation dose reduction, the following was used: automated exposure control, adjustment of mA and/or kV according to patient size. COMPARISON: [facility], CT, ABDOMEN/PELVIS WITH CONTRAST, 04/22/2015, 11:06. [facility], CT, CT ANGIO CHEST PE PROTOCOL, 12/12/2018, 19:37. [facility], CR, XR ACUTE ABDOMEN SERIES, 12/13/2018, 16:15. [facility], CT, ABDOMEN/PELVIS WITH CONTRAST, 10/21/2015, 6:58. FINDINGS: Image quality: Excellent. ABDOMEN: Lung bases: Small bilateral pleural effusions have increased since 12/12/18. There is adjacent atelectasis and right basilar consolidation. This appears increased as well. The heart is enlarged. Coronary artery calcifications are present. Solid organs: Diffuse fatty infiltration of the liver. Subcentimeter hypodensity seen in the right lobe are technically too small to characterize and indeterminate for example image 34 series 2. Gallbladder not seen presumably surgically absent. Pneumobilia is again noted with central location. Prominence of the extrahepatic bile ducts as was the pancreatic duct although this could be postsurgical/chronic in nature. Pancreas enhances normally. Spleen is normal in size and enhancement. There is enlargement of both adrenal glands as before, with no definite interval change since 04/22/15. Bilateral renal cortical atrophy. No hydronephrosis seen. Peritoneum and bowel: Enteric tube is present with the tip seen in the stomach air there is moderate distention of the stomach with debris and air-fluid level. There is also dilatation of the duodenum, small bowel and relatively decompressed appearance of the colon. Large amounts of stool present in the rectal vault. There are scattered air-fluid levels within the small bowel, which is dilated up to 3.8 cm in diameter. There is questionable diffuse colonic wall thickening. Questionable decompressed loops of small bowel present in the right lower quadrant although the exact transition point is unclear. No definite free air identified. There is trace scattered ascites. Nodes and vessels: No retroperitoneal or mesenteric adenopathy by size criteria. Aorta and inferior vena cava are normal in size. Miscellaneous: No ventral hernias. PELVIS: Genitourinary: The bladder is partially decompressed and a Rand catheter is noted. There is air within the bladder lumen presumably due to catheterization although technically nonspecific etiology. Miscellaneous: No inguinal hernias or adenopathy. Bones: Diffuse osteopenia although no suspicious bone lesion or fracture identified. Multilevel thoracic and lumbar spondylosis. IMPRESSION: Small bowel obstruction, with associated dilatation of the stomach, duodenum and proximal-mid small bowel. Severe adynamic ileus in the differential. An exact transition point is not seen. Of note, large amount of stool and gas present in the rectal vault raising the possibility of fecal impaction/severe constipation. Additionally, diffuse colonic wall thickening is present although suboptimal evaluation given largely collapsed state. This raises possibility of concurrent infectious or inflammatory pancolitis (physical and less likely ischemic). Please correlate clinically and with laboratory data. Increasing bilateral small pleural effusions with worsening right basilar consolidation concerning for pneumonia/aspiration. Additional chronic and incidental findings as above. Dictated by: Edwin Benitez M.D. on 12/15/2018 at 9:00 Approved by: Edwin Benitez M.D. on 12/15/2018 at 9:12
[2018-12-14] MEDS: ALBUTEROL/IPRATROPIUM 3 ML AMPUL INH ×6 (00:08→18:56)
[2018-12-14] MEDS: SALMETEROL 50 MCG DISKUS 1 PUFF INH ×3 (00:09→18:56)
[2018-12-14] MEDS: DEXTROSE 5%-0.45% NS 1,000 ML 125 ML IV ×3 (00:21→22:00)
[2018-12-14] MEDS: LORazepam 2 MG/ML SYRINGE 0.5 MG IV (02:01)
[2018-12-14] MEDS: AMPICILLIN/SULBACTAM 1.5 GM 1.5 GM in SODIUM CHLORIDE 0.9% 100 ML IV ×4 (04:00→22:00)
[2018-12-14 05:47] LABS: Alanine Aminotransferase 13 IU/L (9-52); Albumin 2.4 g/dL (3.5-5.0); Albumin Globulin Ratio 1.1 (1.0-2.8); Alkaline Phosphatase 35 U/L (38-126); Aspartate Aminotransferase 11 IU/L (14-36); Bilirubin Total 0.2 mg/dL (0.2-1.3); Blood Urea Nitrogen 16 mg/dL (7-17); Calcium 7.7 mg/dL (8.4-10.2); Carbon Dioxide 29 mmol/L (22-32); Chloride 97 mmol/L (98-107); Estimated Glomerular Filt Rate > 60.0 mL/min (>60); Globulin 2.2 g/dL (1.7-4.1); Glucose 113 mg/dL (80-110); HEMOLYSIS 31 (0-50); Potassium 3.7 mmol/L (3.4-5.1); Sodium 131 mmol/L (137-145); Total Protein 4.6 g/dL (6.3-8.2)
[2018-12-14 07:05] LABS: Add Manual Diff / Slide Review YES; Hematocrit 37.9 % (36-46); Hemoglobin 12.7 g/dL (12.0-16.0); Mean Corpuscular HGB Conc 33.5 % (30-36); Mean Corpuscular Hemoglobin 32.2 PG (26-34); Platelet Count 229 X10^3/uL (150-400); Red Blood Cell Count 3.94 X10^6/uL (4.0-5.2); White Blood Cell Count 7.9 X10^3/uL (4.5-11.0)
--- NOTE | 2018-12-14 07:10 | PC.NURSE ---
NOC Shift: Pt increasingly confused, agitated throughout shift wanting to get up and go, doesn't know where she wants to go. Knows she is in the hospital, but doesn't know why. States she feels fine. Ativan 0.5mg given x1 earlier in shift with some affectiveness but unsure if it caused more confusion. Remains on heated high flow NC at 35% at 55% flow. Sats stable high 90's through the shift. NG placed on eves for SBO for large amt. (1899) LIS overnight for only 100mls. NPO. IVF's and ABX tx for UTI. VSS. Needs to address Code status remains full code at this time. ICU care.
[2018-12-14 08:00] LABS: Neutrophils Absolute Manual 6952 /uL (3000-5900); Total Cells Counted 100
[2018-12-14 08:02] LABS: Dohle Bodies 1+
[2018-12-14] MEDS: ENOXAPARIN 40 MG/0.4 ML SYRINGE SUBCUT (08:35)
[2018-12-14] MEDS: PANTOPRAZOLE 40 MG VIAL IV (08:41)
--- NOTE | 2018-12-14 09:28 | PM.PN.1 ---
Subjective Date Patient Seen: 12/14/18 Time Patient Seen: 09:28 Interval history: Much better, with the NG tube in place. Yesterday x-rays indicated small-bowel obstruction which does fit her symptoms although seemingly not so much her exam but with the NG she has stopped having nausea her bowel feels less distended and just better overall. Still some struggle with breathing. Notes that Dr. Green visited last night gave her some good news with the recent CT scan suggesting that the mass in her lung is somewhat smaller, indicates she will need to get imaging a little lower end of the pelvis area to check the status of her bladder neck and vaginal area. She found that a positive note. Exam Vital Signs (past 8 hours): - 12/14/18 04:21 12/14/18 05:36 12/14/18 07:31 Temperature 97.4 F L 99.3 F Pulse Rate 97 H 97 H Respiratory Rate 28 H 26 H Blood Pressure 117/47 L 104/37 L Pulse Oximetry 97 95 97 12/14/18 08:16 Temperature Pulse Rate 90 Respiratory Rate 20 Blood Pressure Pulse Oximetry 95 Fraction of Inspired Oxygen 35 Oxygen Delivery Method Heated High Flow Oxygen Flow Rate 55 Narrative Exam Narrative: Frail appearing with nasal cannula in place but awake and alert and appropriate. HEENT unremarkable neck benign no jugular venous distention the chest shows fairly clear heart regular without murmur abdomen soft nondistended bowel tones likely due to NG extremities unremarkable neurologically nonfocal. Objective Labs Result Diagrams: 12/14/18 06:39 12/14/18 05:00 Labs: Laboratory Results - last 24 hr 12/14/18 12/14/18 05:00 06:39 WBC 7.9 RBC 3.94 L Hgb 12.7 Hct 37.9 MCV 96.0 MCH 32.2 MCHC 33.5 RDW 14.0 Plt Count 229 Neut % (Auto) Not Reportable Lymph % (Auto) Not Reportable [place] % (Auto) Not Reportable Eos % (Auto) Not Reportable Baso % (Auto) Not Reportable Lymph # (Auto) Not Reportable [place] # (Auto) Not Reportable Baso # (Auto) Not Reportable Total Counted 100 Seg Neutrophils % 71.0 H Band Neutrophils % 17.0 H Lymphocytes % (Manual) 3.0 L Monocytes % (Manual) 8.0 Metamyelocytes % 1.0 H Neutrophils # (Manual) 6952 H Dohle Bodies 1+ H RBC Morphology See below Sodium 131 L Potassium 3.7 Chloride 97 L Carbon Dioxide 29 BUN 16 Creatinine 0.40 L Estimated GFR > 60.0 BUN/Creatinine Ratio 40.0 H Glucose 113 H Calcium 7.7 L Total Bilirubin 0.2 AST 11 L ALT 13 Alkaline Phosphatase 35 L Total Protein 4.6 L Albumin 2.4 L Globulin 2.2 Albumin/Globulin Ratio 1.1 Assessment & Plan (1) Pneumonia: Problem details: Still suspect aspiration as an underlying cause that should be helped with the NG, and could certainly have been contributed to by her small bowel obstruction. Continue same antibiotics Qualifiers: Aspiration pneumonia type: Laterality: bilateral Lung location: unspecified part of lung Pneumonia type: due to unspecified organism Qualified Code(s): J18.9 - Pneumonia, unspecified organism Current visit: Yes Status: Acute (2) Respiratory failure with hypoxia and hypercapnia: Problem details: Despite some improvement with above item continues to have fair O2 demand continue same for now. Qualifiers: Chronicity: Current visit: Yes Status: Acute (3) Dehydration: Problem details: Seems largely resolved at this time will cut back on IV fluids Current visit: Yes Status: Acute (4) Emesis, persistent: Problem details: Now resolved with findings and treatment of small-bowel obstruction. Current visit: Yes Status: Acute (5) Small bowel obstruction: Problem details: New finding. She does have a history of adenocarcinoma of the colon with metastasis to the bladder neck and elsewhere so probably not unfair to suspect that there is some connection with this problem as well. Will continue NG tube bowel rest and hope this turns around soon. I believe general surgery has been consulted indicates patient unlikely to be a candidate for any surgical intervention. Especially given other and overall health status. Current visit: Yes Status: Acute (6) Adenocarcinoma: Problem details: Some good news it seems from Oncology indicating only some improvement with treatment. Current visit: No Status: Acute (7) Hypokalemia: Problem details: Likely due to persistent emesis, resolved now after replacement. Current visit: Yes Status: Acute Assessment & Plan narrative: Will cut back on IV fluids continue same antibiotics and other treatments. Time Spent With Patient Time with patient: 25 - 35 minutes Quality VTE Deep Vein Thrombosis/Pulmonary Embolism Present on Admission: No
--- NOTE | 2018-12-14 10:17 | SLP.IPNOTE ---
Chart review completed. Pt now on NG tube with small bowel obstruction. ST will d/c at this time and re- consult when indicated.
--- NOTE | 2018-12-14 11:46 | PT.IIE ---
Current Diagnoses Malignant (primary) neoplasm, unspecified (12/12/18) Dehydration (12/12/18) Hypokalemia (12/12/18) Pneumonia, unspecified organism (12/12/18) Chronic obstructive pulmonary disease with (acute) exacerbation (12/12/18) Respiratory failure, unspecified with hypoxia (12/12/18) Respiratory failure, unspecified with hypercapnia (12/12/18) Unspecified intestinal obstruction, unspecified as to partial versus complete obstruction (12/12/18) Vomiting, unspecified (12/12/18) Surgical History (Last Updated 12/12/18 @ 17:31 by Yuridia Gordillo PA-C) History of cholecystectomy (Resolved) History of partial colectomy (Resolved) Hx of vascular surgery (Resolved) Medical History (Last Updated 12/12/18 @ 17:31 by Yuridia Gordillo PA-C) Adenocarcinoma (Chronic) Current every day smoker (Chronic) Hyperlipidemia (Chronic) Hypertension (Chronic) H/O: hysterectomy (Resolved) Physical Therapy Inpatient Evaluation/Re-Eval M1 PT/OT-IP Prior Functional Status Start: 12/13/18 16:55 Freq: NEEDED Status: Active Protocol: Document 12/14/18 09:55 (Rec: 12/14/18 11:46 [email or web address]) Medical Review Prior Functional Status Medical History Reviewed Yes Diet/Fluid Consistency NPO Communication No deficits noted. Able to make needs known. Mobility and Gait Pt states she is mostly homebound and occasionally used FWW for home mobility recently due to increased weakness. Pt does not drive. Activities of Daily Living and IADL's Pt states she was independent for ADLs except bathing. She usually has her friend to come over and took her catheter out in order to shower since August. Pt has [employer] come in a few times a week as well to help with house work. Patient mentioned that her neighbors help her out by taking her to [employer], for she does not drive Social History Household Members none Living Arrangements House Number of Floors (Floors) One Floor Number of Stairs To Enter/Railing? 3/4 MOUSTAPHA to front porch without railing 1 MOUSTAPHA from garage to back entrance without railing Home Environment Standard Height Toilet Walk in Shower Home Equipment Front Wheel Walker Shower Seat with Backrest Hand Held Shower Grab Bars In Shower Employment Status Retired Additional Social History Comment Pt lives alone with her 13 years old dog in a 1 level house. Patient came to hospital secondary to nausea and vomiting. 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 Patient has history of COPD, and uses nebulizer at home. She is a current smoke and She is not on oxygen at home. Patient is here for treatment of hydration, as well as hypotension. Pt stated that [employer], [place], nursing, comes in twice a week. She also has [employer] come in a twice a week for 2.5 hrs each (Mon & Fri) as well to help with house work. Patient mentioned that her neighbors help her out by taking her to [employer], for she does not drive M2 PT-IP Current Condition Start: 12/13/18 16:55 Freq: NEEDED Status: Active Protocol: Document 12/14/18 09:55 (Rec: 12/14/18 11:46 [email or web address]) Physical Therapy Current Condition Current Condition Evaluation Date 12/14/18 Treatment Diagnosis Nausea, vomiting, diarrhea, generalized weakness, impaired activity manuel Onset Date 12/12/18 Weight Bearing Status Weight Bearing Status Weight Bear as Tolerated M3 PT-IP Subjective Start: 12/13/18 16:55 Freq: NEEDED Status: Active Protocol: Document 12/14/18 09:55 (Rec: 12/14/18 11:46 [email or web address]) Subjective Physical Therapy Visit Type Type Initial Evaluation Visit Start Time 09:55 Visit Stop Time 10:45 Total Visit Minutes 50 Notes Per RN, Pt with the NG tube in place. Yesterday x-rays indicated small-bowel obstruction. Remains on heated high flow NC at 35% at 55% flow. Sats stable high 90's. Number of [employer] SUSPENSION AND STEERING MECH[employer]IC Visits 0 Physical Therapy Visit Comments Patient Comments I amb getting better today. Patient Goals To get stronger and return home. Therapy Pain Assessment Pain When Pain Assessed At Rest Pain Present Pain Present Pain Reported Location Generalized Intensity 3 Scale Used Numeric (1 - 10) Description Dull Pain Management Techniques Timing of Activity with Medications M4 PT-IP Mobility and Gait Start: 12/13/18 16:55 Freq: NEEDED Status: Active Protocol: Document 12/14/18 09:55 (Rec: 12/14/18 11:46 [email or web address]) PT-Bed Mobility Assessment Rolling Type of Rolling Roll to Right Level of Assist Contact Guard Assistance Supine to Sit Supine to Sit Contact Guard Assistance Head of Bed Elevated Bedrails Sit to Supine Sit to Supine Contact Guard Assistance Head of Bed Elevated Bedrails Scooting Scooting to Edge of Bed Contact Guard Assistance PT-Transfer Assessment Sit to and From Stand Sit to and from Stand Contact Guard Assistance Use of Upper Extremities Equipment Transfer Assistive Device Gait Belt Front Wheeled Walker Orthotic/Prosthetic Devices or Brace: No Transfers Transfer Destination Bed Chair Transfer Technique Stand Step Pivot Transfer Ability Level of Assist Contact Guard Assistance Comments Mobility Comments HR 90-110, RR 20-28, O2 90-98% , BP 98/53 ==> 84/42 RN assisted in lines&tubes management during session. Pt performed 2 x supine <>sit due to false alarm of V-tach after she sat up at EOB for the first time. Notified RN and reset VS monitor. Pt then sat up again on R side of the bed. Pt sat up for 5 mins with B UE support on bed without c /o. Pt then stood up and transferred to chair on R side with FWW and CGA. Pt presents increased trunk flexion and required cues to stand upright . Pt sat in chair with elevated leg rest in place and call light within reach. Gait Assessment Comments Gait Comments did not attempt due to fatigue Stair Climbing Assessment Comments Stair Climbing Comments did not attempt due to fatigue PT-Balance Assessment Sitting Balance and Reactions Static Sitting Balance Ability Good Dynamic Sitting Balance Ability Fair Standing Balance and Reactions Static Standing Balance Ability Fair Dynamic Standing Balance Ability Fair Device Used FWW M5 PT-IP Objective Assessments Start: 12/13/18 16:55 Freq: NEEDED Status: Active Protocol: Document 12/14/18 09:55 (Rec: 12/14/18 11:46 [email or web address]) Orientation Orientation/Cognition Level of Alertness Alert Orientation Name Age Birthday Month Date Year Day of Week Place Situation Language Function Ability No Deficits Noted Safety Awareness Understands Safety Issues Memory Description No Deficits Noted Gross Range of Motion Upper Extremity ROM Assessment Within Functional Limits Lower Extremity ROM Assessment Within Functional Limits Strength Upper Extremity Strength Assessment Bilaterally Impaired Lower Extremity Strength Assessment Bilaterally Impaired Comments Strength Comments B UEs/LEs appear weak 3+/5 Coordination Assessment Gross Coordination Gross Coordination WNL Sensation Assessment Sensation Gross Sensation WNL Light Touch Intact Proprioception (Position) Intact Muscle Tone Muscle Tone WNL Yes M6 PT-IP Treatment Start: 12/13/18 16:55 Freq: NEEDED Status: Active Protocol: Document 12/14/18 09:55 HH (Rec: 12/14/18 11:46 HH [email or web address]) Physical Therapy Treatment Education Education Provided Safety M7 PT-IP Assessment and Plan Start: 12/13/18 16:55 Freq: NEEDED Status: Active Protocol: Document 12/14/18 09:55 HH (Rec: 12/14/18 11:46 HH [email or web address]) PT Summary Assessment and Plan Potential Rehabilitation Potential Excellent Status of Condition at Evaluation Stable Summary Impairments Pain Strength Balance Bed Mobility Transfers Gait Activity Tolerance Assessment Summary Pt is a high complexity at this point with her metastatic colon adenocarinoma and small bowel obstruction. Pt currently with the NG tube in place and heated high flow NC at 35% at 55% flow. Pt hasnt gotten OOB since admission and she appears very weak and fragile at this point. Pt did get up to chair during assessment with overall CGA and FWW but 2PA for lines & tubes management. Pt seems to be less confused during session and able to appropriate respond to questions and recalled her social hx and PMH. Pt at this point is far from baseline regarding mobility and will not able to manuel BID tx due to poor conditioning. She also requires extensive medical assistance and will not be safe to go home. Pt will benefit from SNF care to improve her overall mobility once she is medically stable. Goals Bed Mobility Goal Standby Assistance Transfer Goal Standby Assistance Front Wheeled Walker Gait Goal Standby Assistance Front Wheel Walker Gait Distance 50 Other Goals climb 3/4 steps without AD SBA Days to Meet Goals 10 Frequency of Treatment Frequency Of Treatment Once a Day Treatment Plan Physical Therapy Treatment Plan Bed Mobility Training Transfer Training Gait Training Therapeutic Exercise Discharge Planning Other Recommendations and Next Treatment bed mob, transfer and gait Focus training as manuel close monitoring on VSS Recommendations To Nursing Amount of Assist Needed 2 Person Assist Discharge Recommendations PT Discharge Recommendations SNF Rehab Other Discharge Recommendations She also requires extensive medical assistance and will not be safe to go home. Pt will benefit from SNF care to improve her overall mobility once she is medically stable. Equipment Needed for Home Before BSC if go home Discharge
--- NOTE | 2018-12-14 17:00 | ONC.PN ---
PN -Subjective Interval history: Diagnosis: Metastatic colon cancer. MMR normal. Previous treatment: 1. Adenocarcinoma of the colon in a polyp that was removed at the time of a screening colonoscopy in 2012. 2. Partial sigmoid colectomy in October 2013 with a 1.1 cm adenoma but no invasive carcinoma. 3. 3 cycles of FOLFIRI Interval history: Patient is a 77-year-old woman with a history of metastatic colon cancer. She has been on chemotherapy with FOLFIRI and has been tolerating it reasonably well. She is hospitalized now with acute onset of shortness of breath associated with nausea vomiting and abdominal distension. She has what appears to be an aspiration pneumonia and also a bowel obstruction. She has had a NG tube placed. She reports that her stomach is feeling much better. She no longer feels nauseated. She has less abdominal distention. She has not had any passage of stool or flatus however. She is not having any abdominal pain. she feels like her breathing has improved. She denies any significant cough. She was sitting up in a chair for a few hours today. Home Medications and Allergies Home Medications Medication Instructions Recorded Confirmed Type albuterol sulfate 2 puff INHALATION Q4-6H PRN 08/10/18 12/12/18 History albuterol sulfate 2.5 mg INHALATION Q4H PRN 08/10/18 12/12/18 History aspirin 81 mg PO DAILY 08/10/18 12/12/18 History cetirizine [Aller-Ana] 10 mg PO DAILY 08/10/18 12/12/18 History Serevent Diskus 1 puff INHALATION DIRECTED 10/05/18 12/12/18 History alendronate [Fosamax] 1 tab PO QWEEK 10/05/18 12/12/18 History cholecalciferol (vitamin D3) 3,000 unit PO DAILY 10/05/18 12/12/18 History [Vitamin D3] diazepam 5 mg PO BID 10/05/18 12/12/18 History lidocaine-prilocaine See Rx Instructions .ROUTE 10/19/18 12/12/18 Rx .COMPLEX #30 gram ondansetron 4 mg PO QID PRN #20 tab 10/19/18 12/12/18 Rx indomethacin 25 mg PO TID 12/12/18 12/12/18 History ipratropium-albuterol 1 dose INHALATION DIRECTED 12/12/18 12/12/18 History metoprolol tartrate 25 mg PO BID 12/12/18 12/12/18 History pravastatin 40 mg PO BEDTIME 12/12/18 12/12/18 History Allergies Allergy/AdvReac Type Severity Reaction Status Date / Time iodine [IODINE] Allergy Severe HIVES Verified 10/19/18 12:18 codeine [CODEINE] AdvReac Unknown SLEEPY Verified 10/19/18 12:18 lansoprazole [LANSOPRAZOLE] AdvReac Unknown GI UPSET Verified 10/19/18 12:18 Exam Vital signs: Vital Signs Temp Pulse Resp BP Pulse Ox 12/14/18 15:45 98.3 F 88 23 88/57 L 12/14/18 15:38 93 H 22 96 12/14/18 12:34 97.8 F 92 H 23 101/57 L 12/14/18 11:28 95 H 28 H 91 12/14/18 10:55 90 21 119/46 L 12/14/18 08:25 96 12/14/18 08:16 90 20 95 12/14/18 07:31 99.3 F 97 H 26 H 104/37 L 97 12/14/18 05:36 95 12/14/18 04:21 97.4 F L 97 H 28 H 117/47 L 97 12/14/18 00:09 95 12/14/18 00:00 98.0 F 102 H 19 112/59 L 92 12/13/18 21:05 93 12/13/18 19:51 97.8 F 107 H 17 114/69 94 Intake and Output 12/14/18 12/14/18 12/14/18 07:59 15:59 23:59 Intake Total 1200 / 1200 Output Total 275 / 1325 1050 / 1325 Balance -275 / -125 150 / -125 Intake: IV 1200 / 1200 Ampicillin/Sulbactam 1.5 gm 1.5 200 / 200 gm In Sodium Chloride 0.9% 100 ml @ 100 mls/hr IV Q6H KELLI Rx# :[id number] Dextrose 5%-0.45% Ns 1,000 ml @ 1000 / 1000 125 mls/hr IV CONT KELLI Rx#: [id number] Oral 0 / 0 Output: Urine Amount (Catheter) 175 / 375 200 / 375 Gastric Drainage 100 / 950 850 / 950 Right Nare 100 / 950 850 / 950 Other: Weight 60.8 kg Patient Weight 12/14/18 23:59 Weight 60.8 kg - Constitutional positive no acute distress, positive thin - Routine HEENT Exam Head: Present: normocephalic, atraumatic Eye: Present: EOMI. Absent: conjunctival icterus, scleral injection Comments: She is wearing oxygen. - Routine Respiratory Exam Present: Clear to auscultation bilaterally. Absent: wheezes - Routine Cardiovascular Exam Present: RRR, S1, S2 - Routine Abdominal Exam Present: soft. Absent: tenderness, distended, organomegaly - Routine Extremities Exam Absent: edema Comments: She does have some ecchymoses on her legs. - Routine Neurological Exam Present: alert, oriented X3 - Routine Psychiatric Exam Present: normal affect, normal thought process Results - Labs Laboratory Last Values WBC 7.9 X10^3/uL (4.5-11.0) 12/14/18 06:39 RBC 3.94 X10^6/uL (4.0-5.2) L 12/14/18 06:39 Hgb 12.7 g/dL (12.0-16.0) 12/14/18 06:39 Hct 37.9 % (36-46) 12/14/18 06:39 MCV 96.0 fL (80-100) 12/14/18 06:39 MCH 32.2 PG (26-34) 12/14/18 06:39 MCHC 33.5 % (30-36) 12/14/18 06:39 RDW 14.0 % (11.6-14.8) 12/14/18 06:39 Plt Count 229 X10^3/uL (150-400) 12/14/18 06:39 Neut % (Auto) Not Reportable 12/14/18 06:39 Lymph % (Auto) Not Reportable 12/14/18 06:39 [place] % (Auto) Not Reportable 12/14/18 06:39 Eos % (Auto) Not Reportable 12/14/18 06:39 Baso % (Auto) Not Reportable 12/14/18 06:39 Neut # (Auto) 5300 /uL (5147-2092) 12/12/18 17:00 Lymph # (Auto) Not Reportable 12/14/18 06:39 [place] # (Auto) Not Reportable 12/14/18 06:39 Eos # (Auto) 0 /uL (0-450) 12/12/18 17:00 Baso # (Auto) Not Reportable 12/14/18 06:39 Total Counted 100 12/14/18 06:39 Seg Neutrophils % 71.0 % (38-70) H 12/14/18 06:39 Band Neutrophils % 17.0 % (3-7) H 12/14/18 06:39 Lymphocytes % (Manual) 3.0 % (25-45) L 12/14/18 06:39 Monocytes % (Manual) 8.0 % (2-11) 12/14/18 06:39 Metamyelocytes % 1.0 % (-0) H 12/14/18 06:39 Neutrophils # (Manual) 6952 /uL (8312-0074) H 12/14/18 06:39 Toxic Vacuolation Pres 12/13/18 06:55 Dohle Bodies 1+ H 12/14/18 06:39 RBC Morphology See below 12/14/18 06:39 Poikilocytosis 1+ H 12/13/18 06:55 ABG pH 7.40 (7.35-7.45) 12/12/18 20:18 ABG pCO2 39.8 mmHg (35-45) 12/12/18 20:18 ABG pO2 49 mmHg (80-100) L* 12/12/18 20:18 ABG HCO3 25 mmol/L (22-26) 12/12/18 20:18 ABG Total CO2 26 mmol/L (21-31) 12/12/18 20:18 ABG O2 Saturation 84 % (95-100) L* 12/12/18 20:18 ABG Base Excess 0.0 mmol/L (-2-2) 12/12/18 20:18 FiO2 21 12/12/18 20:18 Sodium 131 mmol/L (137-145) L 12/14/18 05:00 Potassium 3.7 mmol/L (3.4-5.1) 12/14/18 05:00 Chloride 97 mmol/L (98-107) L 12/14/18 05:00 Carbon Dioxide 29 mmol/L (22-32) 12/14/18 05:00 BUN 16 mg/dL (7-17) 12/14/18 05:00 Creatinine 0.40 mg/dL (0.52-1.04) L 12/14/18 05:00 Estimated GFR > 60.0 mL/min (>60) 12/14/18 05:00 BUN/Creatinine Ratio 40.0 (6-22) H 12/14/18 05:00 Glucose 113 mg/dL (80-110) H 12/14/18 05:00 Lactate 1.1 mmol/L (0.7-2.1) 12/12/18 17:46 Calcium 7.7 mg/dL (8.4-10.2) L 12/14/18 05:00 Total Bilirubin 0.2 mg/dL (0.2-1.3) 12/14/18 05:00 AST 11 IU/L (14-36) L 12/14/18 05:00 ALT 13 IU/L (9-52) 12/14/18 05:00 Alkaline Phosphatase 35 U/L (38-126) L 12/14/18 05:00 Total Creatine Kinase < 20 U/L (30-135) L 12/12/18 17:00 CK-MB (CK-2) TNP 12/12/18 17:00 CK-MB (CK-2) Rel Index TNP 12/12/18 17:00 Troponin I < 0.012 ng/mL (0.01-0.034) 12/12/18 17:00 B-Natriuretic Peptide < 100 (<100) 12/12/18 17:00 Total Protein 4.6 g/dL (6.3-8.2) L 12/14/18 05:00 Albumin 2.4 g/dL (3.5-5.0) L 12/14/18 05:00 Globulin 2.2 g/dL (1.7-4.1) 12/14/18 05:00 Albumin/Globulin Ratio 1.1 (1.0-2.8) 12/14/18 05:00 Lipase 31 U/L (23-300) 12/12/18 17:00 Urine Color Yellow 12/12/18 17:00 Urine Appearance Cloudy 12/12/18 17:00 Urine pH 5.0 (4.5-8.0) 12/12/18 17:00 Ur Specific [place] >=1.030 (1.000-1.035) H 12/12/18 17:00 Urine Protein 2+ (Negative) H 12/12/18 17:00 Urine Glucose (UA) Negative g/dL (Negative) 12/12/18 17:00 Urine Ketones 1+ (NEGATIVE) H 12/12/18 17:00 Urine Occult Blood 3+ (Negative) H 12/12/18 17:00 Urine Nitrate Negative (Negative) 12/12/18 17:00 Urine Bilirubin 1+ (NEGATIVE) H 12/12/18 17:00 Urine Ictotest Negative (Negative) 12/12/18 17:00 Urine Urobilinogen 1.0 E.U./dL (0.2) 12/12/18 17:00 Ur Leukocyte Esterase 2+ (NEGATIVE) H 12/12/18 17:00 Urine RBC 1-5/hpf (0-5/HPF) 12/12/18 17:00 Urine WBC 30-100/hpf (0-5/HPF) H 12/12/18 17:00 Ur Squamous Epith Cells 1-5 /hpf (0-5/HPF) 12/12/18 17:00 Calcium Oxalate Crystal Few H 12/12/18 17:00 Urine Bacteria Many (>30) (None) H 12/12/18 17:00 Ur Culture Indicated? Specimen cultured 12/12/18 17:00 Nasal Screen MRSA (PCR) Negative for mrsa (Negative) 12/12/18 22:30 - Imaging Additional studies: Procedures Closure of skin and subcutaneous tissue of other sites (03/29/11) Assessment and Plan (1) Dehydration Problem details: Seems largely resolved at this time will cut back on IV fluids Current visit: Yes Status: Acute (2) Small bowel obstruction Problem details: Symptomatic lead improved with the insertion of her NG tube. She does have a fairly large pelvic mass related to her colon cancer. Will get her scheduled for CT scan of the abdomen and pelvis to see if there has been any evidence of progression or change there. It also help to evaluate the site of obstruction. I think given her frail status it is not clear that she would be a surgical candidate. Hopefully this will improve with conservative management. Current visit: Yes Status: Acute
[2018-12-14] MEDS: methylPREDNISolone 125 MG/2 ML VIAL IV (19:02)
[2018-12-14] MEDS: diphenhydrAMINE 50 MG/ML VIAL IV (19:03)
[2018-12-15] VITALS (16 sets, daily range): BP systolic 104–121; BP diastolic 46–62; PULSE 97–103; RESP 18–24; TEMP 36.4–37.2; O2SAT 93–98
--- NOTE | 2018-12-15 | DI.RAD.S_ITS ---
PROCEDURE: XR CHEST 1V INDICATIONS: no respiratory change TECHNIQUE: One view of the chest was acquired. COMPARISON: [facility], CT, CT ANGIO CHEST PE PROTOCOL, 12/12/2018, 19:37. [facility], CT, CT ABDOMEN PELVIS W CON, 12/14/2018, 19:32. [facility], CR, XR CHEST 1V, 12/12/2018, 17:22. FINDINGS: Surgical changes and devices: Left chest port with the tip projecting in the upper SVC. Enteric tube with the tip not well-visualized although probably projecting in the stomach. Lungs and pleura: Right basilar consolidation which is better depicted on the recent comparison CT. Please see report. Chronic diffuse interstitial disease/scarring Bilateral pleural effusions are also better depicted on the comparison CT study. No pneumothorax. Mediastinum: Mediastinal contours appear normal. Heart size is normal. Bones and chest wall: Diffuse osteopenia. Multilevel spondylosis. Lateral curvature of the spine noted. IMPRESSION: Worsening right basilar consolidation. Bilateral small pleural effusions, better depicted on the recent comparison CT. Please see report. Dictated by: Edwin Benitez M.D. on 12/15/2018 at 10:44 Approved by: Edwin Benitez M.D. on 12/15/2018 at 10:47
[2018-12-15] MEDS: AMPICILLIN/SULBACTAM 1.5 GM 1.5 GM in SODIUM CHLORIDE 0.9% 100 ML IV ×4 (03:49→21:54)
[2018-12-15 06:00] LABS: Blood Urea Nitrogen 10 mg/dL (7-17); Calcium 7.8 mg/dL (8.4-10.2); Carbon Dioxide 32 mmol/L (22-32); Chloride 95 mmol/L (98-107); Estimated Glomerular Filt Rate > 60.0 mL/min (>60); Glucose 147 mg/dL (80-110); HEMOLYSIS < 15 (0-50); Potassium 3.3 mmol/L (3.4-5.1); Sodium 132 mmol/L (137-145)
[2018-12-15 06:01] LABS: Add Manual Diff / Slide Review NO; Basophils Absolute Auto 0 /uL (0-100); Eosinophils Absolute Auto 0 /uL (0-450); Hematocrit 39.8 % (36-46); Hemoglobin 13.2 g/dL (12.0-16.0); Lymphocytes Absolute Auto 100 /uL (1100-4500); Lymphocytes Percent Auto 1.9 % (25-40); Mean Corpuscular HGB Conc 33.2 % (30-36); Mean Corpuscular Hemoglobin 31.9 PG (26-34); Mean Corpuscular Volume 95.9 fL (80-100); Monocytes Absolute Auto 200 /uL (0-900); Monocytes Percent Auto 3.2 % (3-14); Neutrophils Absolute Auto 6400 /uL (1500-7000); Neutrophils Percent Auto 94.9 % (50-75); Platelet Count 240 X10^3/uL (150-400); Red Blood Cell Count 4.14 X10^6/uL (4.0-5.2); Red Cell Distribution Width 14.4 % (11.6-14.8); White Blood Cell Count 6.7 X10^3/uL (4.5-11.0)
[2018-12-15] MEDS: SALMETEROL 50 MCG DISKUS 1 PUFF INH ×2 (06:09→19:41)
[2018-12-15] MEDS: ALBUTEROL/IPRATROPIUM 3 ML AMPUL INH ×4 (06:09→18:09)
--- NOTE | 2018-12-15 08:46 | PM.PN.1 ---
Subjective Date Patient Seen: 12/15/18 Time Patient Seen: 08:46 Interval history: Says she feels fine. Feels breathing is okay no pain she does feel hungry though. Had CT of the abdomen and pelvis last night no results available as yet. Exam Vital Signs (past 8 hours): - 12/15/18 04:39 12/15/18 06:10 12/15/18 08:15 Temperature 97.6 F 97.7 F Pulse Rate 103 H 101 H 99 H Respiratory Rate 20 24 Blood Pressure 104/51 L 121/62 Pulse Oximetry 93 94 96 12/15/18 08:36 Temperature Pulse Rate Respiratory Rate Blood Pressure Pulse Oximetry 97 Fraction of Inspired Oxygen 35 Oxygen Delivery Method Heated High Flow Oxygen Flow Rate 55 Narrative Exam Narrative: Frail-appearing somewhat increased respiratory effort HEENT unremarkable no jugular venous distention chest seems distant but fairly clear heart regular without murmur abdomen soft nontender nondistended normoactive bowel tones no organomegaly or mass extremities benign. Objective Labs Result Diagrams: 12/15/18 04:50 12/15/18 04:50 Labs: Laboratory Results - last 24 hr 12/15/18 12/15/18 04:50 04:50 WBC 6.7 RBC 4.14 Hgb 13.2 Hct 39.8 MCV 95.9 MCH 31.9 MCHC 33.2 RDW 14.4 Plt Count 240 Neut % (Auto) 94.9 H Lymph % (Auto) 1.9 L [place] % (Auto) 3.2 Eos % (Auto) 0.0 L Baso % (Auto) 0.0 Neut # (Auto) 6400 Lymph # (Auto) 100 L [place] # (Auto) 200 Eos # (Auto) 0 Baso # (Auto) 0 Sodium 132 L Potassium 3.3 L Chloride 95 L Carbon Dioxide 32 BUN 10 Creatinine 0.40 L Estimated GFR > 60.0 BUN/Creatinine Ratio 25.0 H Glucose 147 H Calcium 7.8 L Assessment & Plan (1) Pneumonia: Problem details: We are seeing little improvement in O2 demand though no white count or fever but wondering about adequacy of current antibiotics. Will add azithromycin for better atypical coverage continue same Unasyn. Qualifiers: Aspiration pneumonia type: Laterality: bilateral Lung location: unspecified part of lung Pneumonia type: due to unspecified organism Qualified Code(s): J18.9 - Pneumonia, unspecified organism Current visit: Yes Status: Acute (2) Respiratory failure with hypoxia and hypercapnia: Problem details: Again no significant improvement in O2 demand still requiring high-flow nasal cannula, see above. Qualifiers: Chronicity: Current visit: Yes Status: Acute (3) Small bowel obstruction: Problem details: I hear a few bowel tones with the NG clamped will continue for the time being. Interested to see the results of the CT of this area perhaps there will be some indication of why this is occurring. Current visit: Yes Status: Acute (4) Emesis, persistent: Problem details: Now resolved with findings and treatment of small-bowel obstruction. Current visit: Yes Status: Acute (5) Hypokalemia: Problem details: Likely due to persistent emesis, resolved now after replacement. Current visit: Yes Status: Acute (6) COPD (chronic obstructive pulmonary disease): Problem details: long standing on fairly minimal medications. Qualifiers: COPD type: COPD with acute exacerbation Chronic bronchitis type: Emphysema type: Qualified Code(s): J44.1 - Chronic obstructive pulmonary disease with (acute) exacerbation Current visit: Yes Status: Acute (7) Dehydration: Problem details: Seems stable but will need to consider nutritional status with ongoing NPO. Current visit: Yes Status: Acute Assessment & Plan narrative: Will get an additional plain film of the chest today to check pulmonary status, awaiting read of CT of the abdomen and pelvis, will add an additional antibiotic, will see General surgery can help us with the SBO issue depending on results of CT. Continue to follow labs Time Spent With Patient Time with patient: 25 - 35 minutes Quality VTE Deep Vein Thrombosis/Pulmonary Embolism Present on Admission: No
[2018-12-15] MEDS: DEXTROSE 5%-0.45% NS 1,000 ML 100 ML IV (09:29)
[2018-12-15] MEDS: AZITHROMYCIN 500 MG in DEXTROSE 5% IN WATER 250 ML IV (09:58)
[2018-12-15] MEDS: PANTOPRAZOLE 40 MG VIAL IV (09:58)
[2018-12-15] MEDS: ENOXAPARIN 40 MG/0.4 ML SYRINGE SUBCUT (09:58)
[2018-12-15] MEDS: POTASSIUM CHLORIDE 40 MEQ in SODIUM CHLORIDE 0.9% 500 ML 130 ML IV (10:05)
--- NOTE | 2018-12-15 11:12 | PM.CN ---
History of Present Illness Date Patient Seen: 12/15/18 Time Patient Seen: 11:12 Chief complaint: CANCER PATIENT HAS BEEN THROWING UP Reason for consult: Small-bowel obstruction metastatic colon cancer Narrative: 77-year-old white female patient with stage IV colon carcinoma. She has been in the hospital for several days now with small bowel obstruction. She has a severe pneumonia possibly related to aspiration of emesis. She is in intensive care on high-flow oxygen to maintain her oxygen saturations above 90%. She denies abdominal pain. [facility] Medical History Adenocarcinoma (Chronic) Current every day smoker (Chronic) Hyperlipidemia (Chronic) Hypertension (Chronic) H/O: hysterectomy (Resolved) Surgical History History of cholecystectomy (Resolved) History of partial colectomy (Resolved) Hx of vascular surgery (Resolved) Social History household members: none Smoking Status: Current every day smoker alcohol intake: current Social History household members: none Smoking Status: Current every day smoker alcohol intake: current Meds Home Medications Medication Instructions Recorded Confirmed Type albuterol sulfate 2 puff INHALATION Q4-6H PRN 08/10/18 12/12/18 History albuterol sulfate 2.5 mg INHALATION Q4H PRN 08/10/18 12/12/18 History aspirin 81 mg PO DAILY 08/10/18 12/12/18 History cetirizine [Aller-Ana] 10 mg PO DAILY 08/10/18 12/12/18 History Serevent Diskus 1 puff INHALATION DIRECTED 10/05/18 12/12/18 History alendronate [Fosamax] 1 tab PO QWEEK 10/05/18 12/12/18 History cholecalciferol (vitamin D3) 3,000 unit PO DAILY 10/05/18 12/12/18 History [Vitamin D3] diazepam 5 mg PO BID 10/05/18 12/12/18 History lidocaine-prilocaine See Rx Instructions .ROUTE 10/19/18 12/12/18 Rx .COMPLEX #30 gram ondansetron 4 mg PO QID PRN #20 tab 10/19/18 12/12/18 Rx indomethacin 25 mg PO TID 12/12/18 12/12/18 History ipratropium-albuterol 1 dose INHALATION DIRECTED 12/12/18 12/12/18 History metoprolol tartrate 25 mg PO BID 12/12/18 12/12/18 History pravastatin 40 mg PO BEDTIME 12/12/18 12/12/18 History Allergies Allergy/AdvReac Type Severity Reaction Status Date / Time iodine [IODINE] Allergy Severe HIVES Verified 10/19/18 12:18 codeine [CODEINE] AdvReac Unknown SLEEPY Verified 10/19/18 12:18 lansoprazole [LANSOPRAZOLE] AdvReac Unknown GI UPSET Verified 10/19/18 12:18 Exam Vital Signs (past 8 hours): - 12/15/18 04:39 12/15/18 06:10 12/15/18 07:45 Temperature 97.6 F Pulse Rate 103 H 101 H Respiratory Rate 20 24 Blood Pressure 104/51 L Pulse Oximetry 93 94 98 12/15/18 08:15 12/15/18 08:36 12/15/18 10:27 Temperature 97.7 F Pulse Rate 99 H 100 H Respiratory Rate 22 Blood Pressure 121/62 Pulse Oximetry 96 97 98 Fraction of Inspired Oxygen 35 Oxygen Delivery Method Heated High Flow Oxygen Flow Rate 55 Narrative Exam Narrative: Patient is fairly alert and oriented and does give valid historical data. She denies pain at this time. Patient is emaciated. She is using accessory muscles of respiration. She is on high-flow oxygen with an oxygen saturation 95%. NG tube is in place producing bilious fluid. Abdomen is not distended, is fairly soft. There is no focal abdominal tenderness. I do not palpate any abdominal masses. Patient has normal-sounding borborygmi. Objective Labs Result Diagrams: 12/15/18 04:50 12/15/18 04:50 Labs: Laboratory Results - last 24 hr 12/15/18 12/15/18 04:50 04:50 WBC 6.7 RBC 4.14 Hgb 13.2 Hct 39.8 MCV 95.9 MCH 31.9 MCHC 33.2 RDW 14.4 Plt Count 240 Neut % (Auto) 94.9 H Lymph % (Auto) 1.9 L [place] % (Auto) 3.2 Eos % (Auto) 0.0 L Baso % (Auto) 0.0 Neut # (Auto) 6400 Lymph # (Auto) 100 L [place] # (Auto) 200 Eos # (Auto) 0 Baso # (Auto) 0 Sodium 132 L Potassium 3.3 L Chloride 95 L Carbon Dioxide 32 BUN 10 Creatinine 0.40 L Estimated GFR > 60.0 BUN/Creatinine Ratio 25.0 H Glucose 147 H Calcium 7.8 L Assessment & Plan Assessment & Plan narrative: I have personally reviewed her recent CT scans of chest and abdomen over the past few weeks including 1 CT scan of the abdomen done last night. I reviewed these studies with the radiologist here. CT of the chest clearly shows a large right lower lobe pneumonia and bilateral pleural effusions. She also has bilateral pulmonary solid nodules. These are likely representing metastatic carcinoma. Abdominal CT scan shows some small nodularity to the liver. These nodules are suspicious but not conclusive for hepatic metastases. I do not see evidence of tumor within the abdominal cavity. She does have dilated loops of small bowel and a dilated stomach. This would be indicative of partial small bowel obstruction in the mid to late jejunum. The colon is relatively collapsed however there is air and stool present in the left colon and clearly a large amount of air in the rectum. This is indicative of a partial small-bowel obstruction. Despite her advanced stage IV carcinoma, with only a partial obstruction of the small bowel demonstrated on CT scanning it gives us some room to try conservative manipulations to restore some intestinal function. Clearly with her pneumonia and bilateral pleural effusions and distant metastatic disease, I would not consider that she would be a candidate for surgical remedy of her bowel obstruction. Furthermore would be likely although we cannot see clearly tumor causing this obstruction, often that would be the cause. I have done some things to try to remedy her partial small-bowel obstruction using enemas stimulants etc if we can establish some degree of GI function then she could be placed on oral nutrition in the next 24-48 hours. I have explained all of this to the patient who understands and has no further questions.
--- NOTE | 2018-12-15 11:34 | PT.IPTN ---
Current Diagnoses Malignant (primary) neoplasm, unspecified (12/12/18) Dehydration (12/12/18) Hypokalemia (12/12/18) Pneumonia, unspecified organism (12/12/18) Chronic obstructive pulmonary disease with (acute) exacerbation (12/12/18) Respiratory failure, unspecified with hypoxia (12/12/18) Respiratory failure, unspecified with hypercapnia (12/12/18) Unspecified intestinal obstruction, unspecified as to partial versus complete obstruction (12/12/18) Vomiting, unspecified (12/12/18) Physical Therapy Treatment Note M2 PT-IP Current Condition Start: 12/13/18 16:55 Freq: NEEDED Status: Active Protocol: Document 12/14/18 09:55 HH (Rec: 12/14/18 11:46 HH [email or web address]) Physical Therapy Current Condition Current Condition Evaluation Date 12/14/18 Treatment Diagnosis Nausea, vomiting, diarrhea, generalized weakness, impaired activity manuel Onset Date 12/12/18 Weight Bearing Status Weight Bearing Status Weight Bear as Tolerated M3 PT-IP Subjective Start: 12/13/18 16:55 Freq: NEEDED Status: Active Protocol: Document 12/15/18 11:33 GGD (Rec: 12/15/18 11:34 [email or web address] [id number]) Subjective Physical Therapy Visit Type Type Patient Unavailable Notes Per RN, wait to see pt until afternoon.
[2018-12-15] MEDS: FLEETS ENEMA 2 EACH PR (11:58)
[2018-12-15] MEDS: MINERAL OIL EMULSIFIED 30 ML PO (11:58)
[2018-12-15] MEDS: ALBUTEROL 2.5 MG/3 ML NEB (ADULT) INH (12:36)
--- NOTE | 2018-12-15 14:33 | PT.IPTN ---
Current Diagnoses Malignant (primary) neoplasm, unspecified (12/12/18) Dehydration (12/12/18) Hypokalemia (12/12/18) Pneumonia, unspecified organism (12/12/18) Chronic obstructive pulmonary disease with (acute) exacerbation (12/12/18) Respiratory failure, unspecified with hypoxia (12/12/18) Respiratory failure, unspecified with hypercapnia (12/12/18) Unspecified intestinal obstruction, unspecified as to partial versus complete obstruction (12/12/18) Vomiting, unspecified (12/12/18) Physical Therapy Treatment Note M2 PT-IP Current Condition Start: 12/13/18 16:55 Freq: NEEDED Status: Active Protocol: Document 12/14/18 09:55 HH (Rec: 12/14/18 11:46 [email or web address]) Physical Therapy Current Condition Current Condition Evaluation Date 12/14/18 Treatment Diagnosis Nausea, vomiting, diarrhea, generalized weakness, impaired activity manuel Onset Date 12/12/18 Weight Bearing Status Weight Bearing Status Weight Bear as Tolerated M3 PT-IP Subjective Start: 12/13/18 16:55 Freq: NEEDED Status: Active Protocol: Document 12/15/18 14:29 GGD (Rec: 12/15/18 14:32 GGD [id number]) Subjective Physical Therapy Visit Type Notes Hold per RN, due to fatigue from activity. M4 PT-IP Mobility and Gait Start: 12/13/18 16:55 Freq: NEEDED Status: Active Protocol: Document 12/14/18 09:55 HH (Rec: 12/14/18 11:46 [email or web address]) PT-Bed Mobility Assessment Rolling Type of Rolling Roll to Right Level of Assist Contact Guard Assistance Supine to Sit Supine to Sit Contact Guard Assistance Head of Bed Elevated Bedrails Sit to Supine Sit to Supine Contact Guard Assistance Head of Bed Elevated Bedrails Scooting Scooting to Edge of Bed Contact Guard Assistance PT-Transfer Assessment Sit to and From Stand Sit to and from Stand Contact Guard Assistance Use of Upper Extremities Equipment Transfer Assistive Device Gait Belt Front Wheeled Walker Orthotic/Prosthetic Devices or Brace: No Transfers Transfer Destination Bed Chair Transfer Technique Stand Step Pivot Transfer Ability Level of Assist Contact Guard Assistance Comments Mobility Comments HR 90-110, RR 20-28, O2 90-98% , BP 98/53 ==> 84/42 RN assisted in lines&tubes management during session. Pt performed 2 x supine <>sit due to false alarm of V-tach after she sat up at EOB for the first time. Notified RN and reset VS monitor. Pt then sat up again on R side of the bed. Pt sat up for 5 mins with B UE support on bed without c /o. Pt then stood up and transferred to chair on R side with FWW and CGA. Pt presents increased trunk flexion and required cues to stand upright . Pt sat in chair with elevated leg rest in place and call light within reach. Gait Assessment Comments Gait Comments did not attempt due to fatigue Stair Climbing Assessment Comments Stair Climbing Comments did not attempt due to fatigue PT-Balance Assessment Sitting Balance and Reactions Static Sitting Balance Ability Good Dynamic Sitting Balance Ability Fair Standing Balance and Reactions Static Standing Balance Ability Fair Dynamic Standing Balance Ability Fair Device Used FWW M5 PT-IP Objective Assessments Start: 12/13/18 16:55 Freq: NEEDED Status: Active Protocol: Document 12/14/18 09:55 (Rec: 12/14/18 11:46 [email or web address]) Orientation Orientation/Cognition Level of Alertness Alert Orientation Name Age Birthday Month Date Year Day of Week Place Situation Language Function Ability No Deficits Noted Safety Awareness Understands Safety Issues Memory Description No Deficits Noted Gross Range of Motion Upper Extremity ROM Assessment Within Functional Limits Lower Extremity ROM Assessment Within Functional Limits Strength Upper Extremity Strength Assessment Bilaterally Impaired Lower Extremity Strength Assessment Bilaterally Impaired Comments Strength Comments B UEs/LEs appear weak 3+/5 Coordination Assessment Gross Coordination Gross Coordination WNL Sensation Assessment Sensation Gross Sensation WNL Light Touch Intact Proprioception (Position) Intact Muscle Tone Muscle Tone WNL Yes M6 PT-IP Treatment Start: 12/13/18 16:55 Freq: NEEDED Status: Active Protocol: Document 12/14/18 09:55 (Rec: 12/14/18 11:46 [email or web address]) Physical Therapy Treatment Education Education Provided Safety M7 PT-IP Assessment and Plan Start: 12/13/18 16:55 Freq: NEEDED Status: Active Protocol: Document 12/14/18 09:55 (Rec: 12/14/18 11:46 [email or web address]) PT Summary Assessment and Plan Potential Rehabilitation Potential Excellent Status of Condition at Evaluation Stable Summary Impairments Pain Strength Balance Bed Mobility Transfers Gait Activity Tolerance Assessment Summary Pt is a high complexity at this point with her metastatic colon adenocarinoma and small bowel obstruction. Pt currently with the NG tube in place and heated high flow NC at 35% at 55% flow. Pt hasnt gotten OOB since admission and she appears very weak and fragile at this point. Pt did get up to chair during assessment with overall CGA and FWW but 2PA for lines & tubes management. Pt seems to be less confused during session and able to appropriate respond to questions and recalled her social hx and PMH. Pt at this point is far from baseline regarding mobility and will not able to manuel BID tx due to poor conditioning. She also requires extensive medical assistance and will not be safe to go home. Pt will benefit from SNF care to improve her overall mobility once she is medically stable. Goals Bed Mobility Goal Standby Assistance Transfer Goal Standby Assistance Front Wheeled Walker Gait Goal Standby Assistance Front Wheel Walker Gait Distance 50 Other Goals climb 3/4 steps without AD SBA Days to Meet Goals 10 Frequency of Treatment Frequency Of Treatment Once a Day Treatment Plan Physical Therapy Treatment Plan Bed Mobility Training Transfer Training Gait Training Therapeutic Exercise Discharge Planning Other Recommendations and Next Treatment bed mob, transfer and gait Focus training as manuel close monitoring on VSS Recommendations To Nursing Amount of Assist Needed 2 Person Assist Discharge Recommendations PT Discharge Recommendations SNF Rehab Other Discharge Recommendations She also requires extensive medical assistance and will not be safe to go home. Pt will benefit from SNF care to improve her overall mobility once she is medically stable. Equipment Needed for Home Before BSC if go home Discharge
[2018-12-15] MEDS: METOCLOPRAMIDE 10 MG/2 ML INJ IV ×2 (14:34→21:55)
[2018-12-15] MEDS: BISACODYL 10 MG SUPP PR ×2 (14:34→21:55)
--- NOTE | 2018-12-15 15:24 | OT.IP.EVAL ---
Current Diagnoses Malignant (primary) neoplasm, unspecified (12/12/18) Dehydration (12/12/18) Hypokalemia (12/12/18) Pneumonia, unspecified organism (12/12/18) Chronic obstructive pulmonary disease with (acute) exacerbation (12/12/18) Respiratory failure, unspecified with hypoxia (12/12/18) Respiratory failure, unspecified with hypercapnia (12/12/18) Unspecified intestinal obstruction, unspecified as to partial versus complete obstruction (12/12/18) Vomiting, unspecified (12/12/18) Past Medical History (Last Reviewed 12/15/18 @ 11:13 by Francisco Jaimes MD) Adenocarcinoma (Chronic) Current every day smoker (Chronic) Hyperlipidemia (Chronic) Hypertension (Chronic) H/O: hysterectomy (Resolved) Surgical History (Last Reviewed 12/15/18 @ 11:13 by Francisco Jaimes MD) History of cholecystectomy (Resolved) History of partial colectomy (Resolved) Hx of vascular surgery (Resolved) Occupational Therapy Inpatient Evaluation/Re-Eval M1 PT/OT-IP Prior Functional Status Start: 12/13/18 16:55 Freq: NEEDED Status: Active Protocol: Document 12/15/18 15:24 PJM (Rec: 12/15/18 18:12 PJM [id number]) Medical Review Prior Functional Status Medical History Reviewed Yes Diet/Fluid Consistency Regular NPO Communication WNL Mobility and Gait Pt states she is mostly homebound and occasionally used FWW for home mobility recently due to increased weakness. Activities of Daily Living and IADL's Pt states she was independent for ADLs except bathing. She usually has her friend ( retired APPRENTICESHIP TRAINING REPRESENTATIVE) assist her with shower since August. Pt has [employer] caregivers for 2.5 hrs Mon & Fri to assist with conveyor line bakery worker, shopping. Pt has home health RN services 2x week. Pt states her neighbors assist with transport to app, as she no longer drives. Prior Functional Level (Other details) Neighbors are caring for pt's dog at present. Her son (BRISA) lives in [place] and brother lives in [place]. Social History Household Members none Living Arrangements House Number of Floors (Floors) One Floor Number of Stairs To Enter/Railing? 4 MOUSTAPHA to front porch without railing 1 MOUSTAPHA from garage to back entrance without railing Home Environment Standard Height Toilet Walk in Shower Home Equipment Front Wheel Walker Shower Seat with Backrest Hand Held Shower Grab Bars In Shower Employment Status Retired Additional Social History Comment Patient goes to [facility] for chemo tx's for adenocarcinoma of the colon with multiple mets. Patient has history of COPD, and uses nebulizer at home. She is a current smoker; not on oxygen at home. M2 OT-IP Current Condition Start: 12/15/18 17:42 Freq: Status: Active Protocol: Document 12/15/18 15:24 PJM (Rec: 12/15/18 18:12 PJ [id number]) Occupational Therapy Current Condition Current Condition Evaluation Date 12/15/18 Treatment Diagnosis decreased act manuel,mobility, self care due to partial SBO w /stage IV colon CA Diagnosis Onset Date 12/12/18 Post Operative Precautions Other Precautions ICU status, heated high flow O2 (flow rate 55), NG suction, sánchez M3 OT- IP Subjective and Pain Start: 12/15/18 17:42 Freq: Status: Active Protocol: Document 12/15/18 15:24 PJM (Rec: 12/15/18 18:12 [facility] [id number]) OT- Subjective Occupational Therapy Visit Type Type Initial Evaluation Visit Start Time 15:00 Visit Stop Time 15:24 Total Visit Minutes 24 Notes Pt seen at bedside due to fatigue from enema earlier this afternoon. Occupational Therapy Visit Comments Patient Comments I don't think I can get up again today, I am so tired. Patient/Caregiver Goals to go home and see her dog OT Pain Assessment Pain When Pain Assessed After Treatment Pain Present Pain Present Denied Pain M4 OT- IP ADL's Start: 12/15/18 17:42 Freq: Status: Active Protocol: Document 12/15/18 15:24 PJM (Rec: 12/15/18 18:12 [facility] [id number]) OT [id number] General Evaluation Diet Level for Self-Feeding NPO, ice chips Self-Feeding Ability Standby Assistance Comments OT Self-Feeding Comments to eat ice chips from cup with spoon OT ADL-Grooming Comments OT Grooming Comments did not occur this session OT ADL-Oral Care Comments Oral Care Comments did not occur this session OT ADL-Dressing General Eval Upper Body Dressing Ability Moderate Assistance with gown Lower Body Dressing Ability Total Assistance OT ADL-Toileting General Evaluation Toileting Ability Total Assistance Areas Needing Assistance Empty Catheter or Colostomy Devices Toileting Assistive Devices Bedpan OT ADL-Bathing Bathing Type Bathing Type Bed Bath General Evaluation Bathing Ability Maximal Assistance M5 OT- IP IADL's Start: 12/15/18 17:42 Freq: Status: Active Protocol: Document 12/15/18 15:24 PJM (Rec: 12/15/18 18:12 PJ [id number]) OT-Instrumental Activities of Daily Living Deficits IADL Deficits Identified Deficits Home Safety Awareness Awareness of Need for Assistance at Home Good Awareness Ability to Problem Solve Emergency Able to Problem Solve Situations Medication Management Medication Management Comments pt normally manges own meds at home with HH RN 2x week Money Management Money Management Comments son/brother have been assisting PRN Meal Preparation Meal Preparation Comments total assist at present due to weakness, pt has been doing own simple meal prep at home by her report except when caregivers there 2x week Practice Clinician Practice Clinician Caregiver Provides Assist Practice Clinician Comments caregivers 2x week to assist with cleaning, meal prep, shopping Driving Driving Comments neighbors provide assist M6 OT- IP Functional Cognition Start: 12/15/18 17:42 Freq: Status: Active Protocol: Document 12/15/18 15:24 PJM (Rec: 12/15/18 18:12 [facility] [id number]) Cognitive Factors Limiting Selfcare Function Cognitive Ability Level of Alertness Alert Patient Orientation Name Month Date Year Place Attention Span Ability Capable of Focused Attention Capable of Sustained Attention Ability to Follow Commands Able to Follow One Step Commands Safety Awareness Underestimates Need for Assistance Cognitive Comments Cognitive Assessment Comments Pt alert and oriented, pleasant with minimal complaints. Pt initiates use of white board to determine date. She is able to use cell phone using stylus to text her family. OT- Vision and Hearing OT- Hearing Assessment OT- Hearing Assessment WFL OT- Vision Assessment Vision History Cataracts Blurred Vision Visual Acuity Glasses All The Time Vision Assessment Comments Pt reports low blurred vision in R eye due to cataract and uses magnifier to read mail and pill bottles at home. She has bifocals in place this session. Pt can read clock white board with glasses. M7 OT- IP Mobility and Balance Start: 12/15/18 17:42 Freq: Status: Active Protocol: Document 12/15/18 15:24 PJM (Rec: 12/15/18 18:12 [facility] [id number]) OT-Transfer Assessment Comments Mobility Comments see P.T. notes, pt too tired to get up second time today OT- Gait Assessment Comments Gait Ability Comments did not occur due to ICU status with multiple lines OT- Balance Assessment Comments Other Balance Tests/Deviations/Treatment see P.T. notes : M8 OT- IP Objective Assessments Start: 12/15/18 17:42 Freq: Status: Active Protocol: Document 12/15/18 15:24 PJM (Rec: 12/15/18 18:12 PJ [id number]) OT Gross Range of Motion Upper Extremity Range of Motion Assessment Bilaterally Impaired ROM Impairments B shoulder scaption to 70 degrees due to stiffness, B Dupytren's contractures R worse than L in R fifth finger and L fourth/fifth fingers. Mildly limited IP extension in other fingers due to arthritis. OT Strength Upper Extremity Strength Assessment Bilaterally Impaired Hand Medical Technologist Generalist Strength Hand Dominance Right Comments Strength Comments Pt presents with generalized weakness with B shoulders 3-/5 , 3+/5 distally. No focal weakness noted. OT- Coordination Assessment Comments Coordination Comments impaired by long standing arthritic changes and B Dupytren's contractures OT-Muscle Tone Assessment Muscle Tone WNL Yes OT Sensation Assessment Comments Summary Comments Pt denies sensory deficits in BUE's Edema Edema Absent M9 OT- IP Assessment and Plan Start: 12/15/18 17:42 Freq: Status: Active Protocol: Document 12/15/18 15:24 PJM (Rec: 12/15/18 18:12 [facility] [id number]) OT Summary Assessment and Plan Potential Analytic Complexity at Evaluation Moderate Summary OT Impairments Range of Motion Strength Balance Coordination Functional Mobility Grooming Dressing Toileting Bathing Toilet Transfers Shower Transfers Assessment Summary Moderate complexity OT assessment completed due to high acuity/ICU status on this 77 yr old female admitted with partial SBO (not a surgical candidate) with hx of Stage IV metastatic colon CA, currently receiving chemo tx's Pt being treated conservatively with NG suction , enemas, NPO status except ice chips. Pt currently on heated high flow O2 (flow rate 55). Pt is alert and oriented but with significantly decreased activity tolerance and performance deficits in all functional mobility/ transfers, and all self care at present. Pt will benefit from OT services here, if consistent with goals of care, to increase activity tolerance, independence and safety in basic self care and functional mobility. Will update OT plan of care pending progress. Currently pt would need SNF at d/c due to high care needs as she lives alone. Goals Self-Feeding Goal Independent Grooming Goal Standby Assistance Dressing Goal Minimal Assistance Toileting Goal Minimal Assistance Bathing Goal Moderate Assistance Toilet Transfer Goal Standby Assistance Patient/Caregiver Education Goal Demonstrate Energy Conservation and Pacing Days to Meet Goals 7 Frequency of Treatment Frequency Of Treatment Once a Day Treatment Plan OT Treatment Plan ADL Training Functional Mobility Patient/Family Education Discharge Planning Discharge Recommendations OT Discharge Recommendations SNF Rehab Other Discharge Recommendations will update d/c recommendations pending progress here
[2018-12-15] MEDS: LIDOCAINE VISCOUS 2% 30 ML, MAG HYDROX/ALUMINUM/SIMETH SUS 30 ML, NYSTATIN SUSP 3,000,0... MM ×2 (16:16→21:52)
[2018-12-16] VITALS (16 sets, daily range): BP systolic 106–136; BP diastolic 48–60; PULSE 98–113; RESP 20–33; TEMP 36.6–37.6; O2SAT 90–97
[2018-12-16] MEDS: AMPICILLIN/SULBACTAM 1.5 GM 1.5 GM in SODIUM CHLORIDE 0.9% 100 ML IV (04:17)
[2018-12-16 05:25] LABS: Add Manual Diff / Slide Review NO; Basophils Absolute Auto 0 /uL (0-100); Basophils Percent Auto 0.1 % (0-2); Eosinophils Absolute Auto 0 /uL (0-450); Eosinophils Percent Auto 0.1 % (2-4); Hematocrit 39.4 % (36-46); Hemoglobin 12.8 g/dL (12.0-16.0); Lymphocytes Absolute Auto 600 /uL (1100-4500); Lymphocytes Percent Auto 4.7 % (25-40); Mean Corpuscular HGB Conc 32.6 % (30-36); Mean Corpuscular Hemoglobin 31.3 PG (26-34); Monocytes Absolute Auto 1200 /uL (0-900); Monocytes Percent Auto 9.7 % (3-14); Neutrophils Absolute Auto 10400 /uL (1500-7000); Neutrophils Percent Auto 85.4 % (50-75); Platelet Count 262 X10^3/uL (150-400); Red Cell Distribution Width 13.9 % (11.6-14.8); White Blood Cell Count 12.2 X10^3/uL (4.5-11.0)
[2018-12-16 05:38] LABS: Blood Urea Nitrogen 8 mg/dL (7-17); Calcium 7.7 mg/dL (8.4-10.2); Carbon Dioxide 32 mmol/L (22-32); Chloride 97 mmol/L (98-107); Estimated Glomerular Filt Rate > 60.0 mL/min (>60); Glucose 113 mg/dL (80-110); HEMOLYSIS < 15 (0-50); Sodium 133 mmol/L (137-145)
[2018-12-16] MEDS: METOCLOPRAMIDE 10 MG/2 ML INJ IV ×3 (05:46→21:09)
[2018-12-16] MEDS: BISACODYL 10 MG SUPP PR ×3 (05:50→21:09)
[2018-12-16] MEDS: SALMETEROL 50 MCG DISKUS 1 PUFF INH (06:15)
[2018-12-16] MEDS: ALBUTEROL/IPRATROPIUM 3 ML AMPUL INH ×4 (06:15→17:45)
--- NOTE | 2018-12-16 08:00 | PC.NURSE ---
Reviewed NGT output and stool frequency with Dr. Jaimes on rounds at 0740. Reported labs. VORB to dc NGT and start clear liquid diet. Removed NGT at 0750. Pt tolerated well. Denies abd pain, bloating, nausea. BTs active. Pt requesting water.
[2018-12-16] MEDS: AZITHROMYCIN 500 MG in DEXTROSE 5% IN WATER 250 ML IV (08:09)
[2018-12-16] MEDS: ENOXAPARIN 40 MG/0.4 ML SYRINGE SUBCUT (08:10)
[2018-12-16] MEDS: PANTOPRAZOLE 40 MG VIAL IV (08:10)
--- NOTE | 2018-12-16 08:52 | PM.PN.1 ---
Subjective Date Patient Seen: 12/16/18 Time Patient Seen: 08:52 Interval history: Says she feels a bit better today. Quite groggy at the moment, the NG tube was removed just recently. Appreciate input from General surgery. They have advised the removal of the NG tube after some success in getting stool and gas out last night and on reviewing images feel that the obstruction is no longer complete but partial so therefore advancing as possible. So while the NG has been out only for a little while she has so far had no nausea but some bits of emesis. Says breathing has been okay but coughing a bit more and somewhat productive with cough. Denies any pain. Exam Vital Signs (past 8 hours): - 12/16/18 04:04 12/16/18 06:15 12/16/18 07:50 Temperature 98.1 F Pulse Rate 112 H 101 H Respiratory Rate 24 27 H Blood Pressure 110/58 L Pulse Oximetry 97 91 94 12/16/18 07:57 Temperature 98.2 F Pulse Rate 98 H Respiratory Rate 27 H Blood Pressure 111/58 L Pulse Oximetry 94 Fraction of Inspired Oxygen 35 Oxygen Delivery Method Heated High Flow Oxygen Flow Rate 55 Narrative Exam Narrative: Frail-appearing, somewhat sluggish but no obvious distress. HEENT unremarkable neck is benign without jugular venous distention chest seems pretty clear although distant heart regular without murmur, somewhat fast, abdomen soft NG is out but I could hear only trace bowel tones. Extremities benign neurologically nonfocal. Objective Labs Result Diagrams: 12/16/18 04:56 12/16/18 04:56 Labs: Laboratory Results - last 24 hr 12/16/18 12/16/18 04:56 04:56 WBC 12.2 H D RBC 4.10 Hgb 12.8 Hct 39.4 MCV 96.0 MCH 31.3 MCHC 32.6 RDW 13.9 Plt Count 262 Neut % (Auto) 85.4 H Lymph % (Auto) 4.7 L [place] % (Auto) 9.7 Eos % (Auto) 0.1 L Baso % (Auto) 0.1 Neut # (Auto) 60335 H Lymph # (Auto) 600 L [place] # (Auto) 1200 H Eos # (Auto) 0 Baso # (Auto) 0 Sodium 133 L Potassium 3.0 L Chloride 97 L Carbon Dioxide 32 BUN 8 Creatinine 0.40 L Estimated GFR > 60.0 BUN/Creatinine Ratio 20.0 Glucose 113 H Calcium 7.7 L Assessment & Plan (1) Pneumonia: Problem details: There is a bit of a white count today, O2 demand remains stable, this is after I added azithromycin to the Unasyn. And the reading of the chest x-ray suggestive anything the lung consolidation has gotten a bit bigger. So I will switch over to ceftriaxone continue the Zithromax consider other options. Qualifiers: Aspiration pneumonia type: Laterality: bilateral Lung location: unspecified part of lung Pneumonia type: due to unspecified organism Qualified Code(s): J18.9 - Pneumonia, unspecified organism Current visit: Yes Status: Acute (2) Respiratory failure with hypoxia and hypercapnia: Problem details: No significant change see above. Qualifiers: Chronicity: Current visit: Yes Status: Acute (3) Dehydration: Problem details: Continue same IV fluid and now is allowed a clear liquid diet so that should help her hydration and nutritional status. Current visit: Yes Status: Acute (4) Small bowel obstruction: Problem details: Appreciate input from General surgery, they feel this is at this point more of a partial small-bowel, he could not find any clear evidence that malignancy was contributing but there remained some suspicion. So she is now without NG and allowed a diet. Will hope that works today. Current visit: Yes Status: Acute (5) Hypokalemia: Problem details: Dropped considerably over night even with 40 mEq yesterday, will check magnesium, and additional supplement today. Current visit: Yes Status: Acute (6) Adenocarcinoma: Problem details: Continues to seem that her malignancy has been improved a bit. Speaking with General surgery yesterday and considering all aspects of this current admission, long-term prognosis came up and it seems that given her current state of health complicated by pneumonia, small-bowel obstruction, and others, that her prognosis perhaps is not great for long-term survival. No changes but it may be worth considering hospice in the near future Current visit: No Status: Acute Assessment & Plan narrative: Changes as indicated above. Time Spent With Patient Time with patient: 25 - 35 minutes Quality VTE Deep Vein Thrombosis/Pulmonary Embolism Present on Admission: No
[2018-12-16] MEDS: POTASSIUM CHLORIDE 40 MEQ in SODIUM CHLORIDE 0.9% 500 ML 130 ML IV (09:38)
[2018-12-16] MEDS: CEFTRIAXONE 1 GM/50 ML FROZ.PIGGY IV ×2 (09:38→21:05)
[2018-12-16] MEDS: LIDOCAINE VISCOUS 2% 30 ML, MAG HYDROX/ALUMINUM/SIMETH SUS 30 ML, NYSTATIN SUSP 3,000,0... MM ×3 (09:39→21:06)
--- NOTE | 2018-12-16 10:45 | PT.IPTN ---
Current Diagnoses Malignant (primary) neoplasm, unspecified (12/12/18) Dehydration (12/12/18) Hypokalemia (12/12/18) Pneumonia, unspecified organism (12/12/18) Chronic obstructive pulmonary disease with (acute) exacerbation (12/12/18) Respiratory failure, unspecified with hypoxia (12/12/18) Respiratory failure, unspecified with hypercapnia (12/12/18) Unspecified intestinal obstruction, unspecified as to partial versus complete obstruction (12/12/18) Vomiting, unspecified (12/12/18) Physical Therapy Treatment Note M2 PT-IP Current Condition Start: 12/13/18 16:55 Freq: NEEDED Status: Active Protocol: Document 12/14/18 09:55 HH (Rec: 12/14/18 11:46 HH [email or web address]) Physical Therapy Current Condition Current Condition Evaluation Date 12/14/18 Treatment Diagnosis Nausea, vomiting, diarrhea, generalized weakness, impaired activity manuel Onset Date 12/12/18 Weight Bearing Status Weight Bearing Status Weight Bear as Tolerated M3 PT-IP Subjective Start: 12/13/18 16:55 Freq: NEEDED Status: Active Protocol: Document 12/16/18 10:45 GGD (Rec: 12/16/18 11:18 GGD [id number]) Subjective Physical Therapy Visit Type Type Treatment Note Visit Start Time 10:20 Visit Stop Time 10:45 Total Visit Minutes 30 Number of ROUTE RELIEF DRIVER Visits 1 Physical Therapy Visit Comments Patient Comments Pt states she needs to use the bathroom. M4 PT-IP Mobility and Gait Start: 12/13/18 16:55 Freq: NEEDED Status: Active Protocol: Document 12/16/18 10:45 GGD (Rec: 12/16/18 11:18 GGD [id number]) PT-Bed Mobility Assessment Rolling Type of Rolling Roll to Right Level of Assist Contact Guard Assistance Supine to Sit Supine to Sit Contact Guard Assistance Head of Bed Elevated Bedrails Scooting Scooting to Edge of Bed Contact Guard Assistance PT-Transfer Assessment Sit to and From Stand Sit to and from Stand Contact Guard Assistance Use of Upper Extremities Equipment Transfer Assistive Device Gait Belt Front Wheeled Walker Orthotic/Prosthetic Devices or Brace: No Transfers Transfer Destination Chair Bedside Commode Transfer Technique Stand Step Pivot Transfer Ability Level of Assist Contact Guard Assistance Gait Assessment Gait Gait Assistance Required: Contact Guard Assist 1 Person Assist Distance (Feet) 5 Able to Maintain Weight Bearing Status Yes During Gait Assistive Devices Assistive Device Front Wheeled Walker Orthotic/Prosthetic Devices or Brace: No Gait Deviations General Gait Pattern Decreased Stride Length Decreased Feet Clearance Flexed Trunk Factors Limiting Gait Function Factors Limiting Gait Function Decreased Activity Tolerance Decreased Strength Pain Poor Balance Respiratory Distress M5 PT-IP Objective Assessments Start: 12/13/18 16:55 Freq: NEEDED Status: Active Protocol: Document 12/14/18 09:55 (Rec: 12/14/18 11:46 [email or web address]) Orientation Orientation/Cognition Level of Alertness Alert Orientation Name Age Birthday Month Date Year Day of Week Place Situation Language Function Ability No Deficits Noted Safety Awareness Understands Safety Issues Memory Description No Deficits Noted Gross Range of Motion Upper Extremity ROM Assessment Within Functional Limits Lower Extremity ROM Assessment Within Functional Limits Strength Upper Extremity Strength Assessment Bilaterally Impaired Lower Extremity Strength Assessment Bilaterally Impaired Comments Strength Comments B UEs/LEs appear weak 3+/5 Coordination Assessment Gross Coordination Gross Coordination WNL Sensation Assessment Sensation Gross Sensation WNL Light Touch Intact Proprioception (Position) Intact Muscle Tone Muscle Tone WNL Yes M6 PT-IP Treatment Start: 12/13/18 16:55 Freq: NEEDED Status: Active Protocol: Document 12/14/18 09:55 (Rec: 12/14/18 11:46 [email or web address]) Physical Therapy Treatment Education Education Provided Safety M7 PT-IP Assessment and Plan Start: 12/13/18 16:55 Freq: NEEDED Status: Active Protocol: Document 12/16/18 10:45 GGD (Rec: 12/16/18 11:18 GGD [id number]) PT Summary Assessment and Plan Summary Assessment Summary Pt slowly with mobility. She fatigues quickly. She did need 2nd assist for lines and tubes. She would benefit from SNF to improve strength and mobility. Frequency of Treatment Frequency Of Treatment Once a Day Treatment Plan Physical Therapy Treatment Plan Bed Mobility Training Transfer Training Gait Training Therapeutic Exercise Discharge Planning Recommendations To Nursing Amount of Assist Needed 1 Person Assist Discharge Recommendations PT Discharge Recommendations SNF Rehab
[2018-12-16] MEDS: DEXTROSE 5%-0.45% NS 1,000 ML 100 ML IV ×2 (11:36→21:18)
--- NOTE | 2018-12-16 14:18 | DIET.PN ---
F/U: Per notes/surgeon consult, SBO now partial. Pt starting PO clears. Intervention: Adding Ensure Clear to trays. Will continue to monitor progress
--- NOTE | 2018-12-16 16:01 | OT.IP.TRT ---
Current Diagnoses Malignant (primary) neoplasm, unspecified (12/12/18) Dehydration (12/12/18) Hypokalemia (12/12/18) Pneumonia, unspecified organism (12/12/18) Chronic obstructive pulmonary disease with (acute) exacerbation (12/12/18) Respiratory failure, unspecified with hypoxia (12/12/18) Respiratory failure, unspecified with hypercapnia (12/12/18) Unspecified intestinal obstruction, unspecified as to partial versus complete obstruction (12/12/18) Vomiting, unspecified (12/12/18) Occupational Therapy Treatment Note M2 OT-IP Current Condition Start: 12/15/18 17:42 Freq: Status: Active Protocol: Document 12/15/18 15:24 PJM (Rec: 12/15/18 18:12 PJ [id number]) Occupational Therapy Current Condition Current Condition Evaluation Date 12/15/18 Treatment Diagnosis decreased act manuel,mobility, self care due to partial SBO w /stage IV colon CA Diagnosis Onset Date 12/12/18 Post Operative Precautions Other Precautions ICU status, heated high flow O2 (flow rate 55), NG suction, sánchez M3 OT- IP Subjective and Pain Start: 12/15/18 17:42 Freq: Status: Active Protocol: Document 12/16/18 16:00 CCC (Rec: 12/16/18 16:01 CCC [email or web address]) OT- Subjective Occupational Therapy Visit Type Type Patient Refusal Notes Approached pt for OT treatment and pt states just got back to bed earlier and just wanting to sleep. Therefore check on pt tomorrow for OT treatment.
--- NOTE | 2018-12-16 16:34 | CM.DPC ---
DCP: continued: Case discussed in Team Rounds, OLVIN Wu noted that therapy is now recommending SNF stay. PT/OT and MARGARINE MAKER are seeing pt. Review of the DCP assessment notes show that pt does have quite a bit of support at home. Due to lateness of hour will need to defer further discussion with pt and her support team until tomorrow. DCP team will be following to see pt again and update the d/c plan. Received a message from team that Chelsea: [phone] had called from [facility]. That office is now closed for the weekend but will follow up prn. Pt does recieve caregiver support from [facility].
[2018-12-16] MEDS: SIMETHICONE 80 MG TABLET PO ×2 (17:13→21:07)
[2018-12-16] MEDS: LORazepam 2 MG/ML SYRINGE 0.5 MG IV (18:07)
[2018-12-16] MEDS: METOPROLOL TARTRATE 5 MG/5 ML INJ IV (23:05)
--- NOTE | 2018-12-16 23:35 | PC.NURSE ---
2300: Pt HR sustained 120-130, BP 130/59. C/O SOB, Remains on HFNC at 35% FiO2, Spo2 92%. Given metoprolol 5mg IV push- HR now 90s. Resp called for breathing tx.
[2018-12-17] VITALS (15 sets, daily range): BP systolic 114–146; BP diastolic 56–71; PULSE 91–126; RESP 20–37; TEMP 36.5–37.4; O2SAT 91–97; BMI 23.0
[2018-12-17] MEDS: ALBUTEROL 2.5 MG/3 ML NEB (ADULT) INH (00:04)
[2018-12-17] MEDS: LORazepam 2 MG/ML SYRINGE 1 MG IV (00:13)
[2018-12-17 05:39] LABS: Hematocrit 39.8 % (36-46); Hemoglobin 13.1 g/dL (12.0-16.0); Mean Corpuscular HGB Conc 32.9 % (30-36); Mean Corpuscular Hemoglobin 31.8 PG (26-34); Mean Corpuscular Volume 96.6 fL (80-100); Platelet Count 227 X10^3/uL (150-400); Red Blood Cell Count 4.12 X10^6/uL (4.0-5.2); White Blood Cell Count 14.2 X10^3/uL (4.5-11.0)
[2018-12-17 05:43] LABS: Blood Urea Nitrogen 3 mg/dL (7-17); Calcium 7.3 mg/dL (8.4-10.2); Carbon Dioxide 34 mmol/L (22-32); Chloride 90 mmol/L (98-107); Estimated Glomerular Filt Rate > 60.0 mL/min (>60); Glucose 87 mg/dL (80-110); HEMOLYSIS < 15 (0-50); Sodium 129 mmol/L (137-145)
[2018-12-17 05:45] LABS: Add Manual Diff / Slide Review YES
[2018-12-17] MEDS: METOCLOPRAMIDE 10 MG/2 ML INJ IV ×2 (06:13→14:30)
[2018-12-17] MEDS: BISACODYL 10 MG SUPP PR ×2 (06:13→12:50)
[2018-12-17] MEDS: SALMETEROL 50 MCG DISKUS 1 PUFF INH (06:14)
[2018-12-17] MEDS: ALBUTEROL/IPRATROPIUM 3 ML AMPUL INH ×5 (06:14→22:18)
[2018-12-17 06:21] LABS: Potassium 2.7 mmol/L (3.4-5.1)
[2018-12-17 06:33] LABS: Anisocytosis 1+; Macrocytosis 1+; Neutrophils Absolute Manual 10934 /uL (3000-5900); Total Cells Counted 100
[2018-12-17] MEDS: DEXTROSE 5%-0.45% NS 1,000 ML 100 ML IV ×2 (06:56→18:42)
[2018-12-17] MEDS: POTASSIUM CHLORIDE 40 MEQ in SODIUM CHLORIDE 0.9% 500 ML 130 ML IV (07:33)
[2018-12-17] MEDS: POTASSIUM CHLORIDE 20 MEQ TAB 40 MEQ PO (08:52)
[2018-12-17] MEDS: CEFTRIAXONE 1 GM/50 ML FROZ.PIGGY IV (08:52)
[2018-12-17] MEDS: SIMETHICONE 80 MG TABLET PO ×4 (08:53→23:14)
[2018-12-17] MEDS: ENOXAPARIN 40 MG/0.4 ML SYRINGE SUBCUT (08:53)
[2018-12-17] MEDS: PANTOPRAZOLE 40 MG VIAL IV (08:53)
[2018-12-17] MEDS: LIDOCAINE VISCOUS 2% 30 ML, MAG HYDROX/ALUMINUM/SIMETH SUS 30 ML, NYSTATIN SUSP 3,000,0... MM ×2 (08:58→23:14)
[2018-12-17] MEDS: AZITHROMYCIN 500 MG in DEXTROSE 5% IN WATER 250 ML IV (11:05)
--- NOTE | 2018-12-17 12:02 | PM.PN.1 ---
Subjective Date Patient Seen: 12/17/18 Time Patient Seen: 12:02 Interval history: Met with patient and her brother and [id number] at bedside. Greater than 30 minutes spent with patient. Reviewed chart and history and evaluation thus far. This is a new patient to me. Dr. gloria mejia has seen patient already this morning. Patient had NG tube removed yesterday and is not having any nausea or vomiting and is tolerating clear liquids without difficulty. Patient states that she is feeling better but still feels very weak. She denies any pain. Her brother feels that she is improved from how she was doing on Wednesday in terms of cognitively and obviously is no longer vomiting excessively. Patient has a daughter in [place] who she does not speak too for the last 14 years. She has a son who lives in [place] and they are working on the paperwork to have him be the durable power of tax attorney. Twelve point review of systems is otherwise negative She has a history of smoking previous diagnosis of COPD and has been on nebulizers for the same. Exam Vital Signs (past 8 hours): - 12/17/18 06:14 12/17/18 07:55 12/17/18 08:25 Temperature 97.7 F Pulse Rate 111 H 107 H Respiratory Rate 24 24 Blood Pressure 133/71 Pulse Oximetry 94 93 93 12/17/18 11:14 Temperature Pulse Rate 106 H Respiratory Rate 28 H Blood Pressure Pulse Oximetry 97 Fraction of Inspired Oxygen 0.35 Oxygen Delivery Method Heated High Flow Oxygen Flow Rate 50 Narrative Exam Narrative: Afebrile, vital signs stable Patient appears very tired is alert and oriented x3. She is very weak her and her voice is barely audible Mucous membranes moist and pink Neck: Supple without masses or adenopathy Chest: Shows decreased breath sounds bibasilar. She has diffuse rhonchi and very wet weak cough she has some expiratory wheezes and diffusely prolonged expiratory phase Cor: Regular rate and rhythm with distant S1 and S2 but no murmurs rubs or gallops Abdomen: Positive bowel sounds, soft, nontender, nondistended, slightly tympanitic bowel sounds. No guarding, no rebound Extremities: No edema, pulses intact Objective Labs Result Diagrams: 12/17/18 04:45 12/17/18 04:45 Labs: Laboratory Results - last 24 hr 12/17/18 12/17/18 04:45 04:45 WBC 14.2 H RBC 4.12 Hgb 13.1 Hct 39.8 MCV 96.6 MCH 31.8 MCHC 32.9 RDW 14.0 Plt Count 227 Neut % (Auto) Not Reportable Lymph % (Auto) Not Reportable [place] % (Auto) Not Reportable Eos % (Auto) Not Reportable Baso % (Auto) Not Reportable Lymph # (Auto) Not Reportable [place] # (Auto) Not Reportable Baso # (Auto) Not Reportable Total Counted 100 Seg Neutrophils % 64.0 Band Neutrophils % 13.0 H Lymphocytes % (Manual) 11.0 L Monocytes % (Manual) 12.0 H Neutrophils # (Manual) 71750 H Plt Morphology Comment RBC Morphology See below Anisocytosis 1+ H Macrocytosis 1+ H Sodium 129 L Potassium 2.7 L* Chloride 90 L Carbon Dioxide 34 H BUN 3 L Creatinine 0.30 L Estimated GFR > 60.0 BUN/Creatinine Ratio 10.0 Glucose 87 Calcium 7.3 L Assessment & Plan Assessment & Plan narrative: 77-year-old female Assessment 1. Small bowel obstruction of unclear etiology but suspicious for possible metastatic colon cancer contributing. She is improving with conservative treatment and I appreciate Dr. gloria casesed input. Plan: Continue the same. Continue with clear liquids and advanced as tolerated. Continue with IV fluids. Assessment 2. Acute respiratory failure in the setting of a long-term smoker with COPD. Suspect a component of aspiration pneumonia and worsened with change from Unasyn to ceftriaxone Plan: Will stop ceftriaxone and restart Unasyn. Will continue azithromycin. Will add Solu-Medrol. Will continue with oxygen support, will continue with respiratory therapy. Again we readdressed code status and patient is adamant that she wants to be a full code and would want to be intubated and put on a ventilator if her condition warranted this. She understands she has a very poor prognosis given her underlying health. And her comorbidities. Assessment 3. Chronic kidney disease stable Plan: Continue to monitor Assessment 4. Severe hypokalemia thought to be attributed to vomiting. Certainly may be she is not absorbing the oral potassium. She was given K rider and oral potassium and has a potassium pending. We will reassess in the a.m. as well. Assessment 5. DVT prophylaxis Plan: Continue on Lovenox Assessment 6. GI prophylaxis Plan: Continue on proton pump inhibitor Quality VTE Deep Vein Thrombosis/Pulmonary Embolism Present on Admission: No
--- NOTE | 2018-12-17 12:09 | P.PN_ITS ---
Subjective Date Patient Seen: 12/17/18 Time Patient Seen: 12:02 Interval history: Met with patient and her brother and [id number] at bedside. Greater than 30 minutes spent with patient. Reviewed chart and history and evaluation thus far. This is a new patient to me. Dr. gloria mejia has seen patient already this morning. Patient had NG tube removed yesterday and is not having any nausea or vomiting and is tolerating clear liquids without difficulty. Patient states that she is feeling better but still feels very weak. She denies any pain. Her brother feels that she is improved from how she was doing on Wednesday in terms of cognitively and obviously is no longer vomiting excessively. Patient has a daughter in [place] who she does not speak too for the last 14 years. She has a son who lives in [place] and they are working on the paperwork to have him be the durable power of health care attorney. Twelve point review of systems is otherwise negative She has a history of smoking previous diagnosis of COPD and has been on nebulizers for the same. Exam Vital Signs (past 8 hours): - 12/17/18 06:14 12/17/18 07:55 12/17/18 08:25 Temperature 97.7 F Pulse Rate 111 H 107 H Respiratory Rate 24 24 Blood Pressure 133/71 Pulse Oximetry 94 93 93 12/17/18 11:14 Temperature Pulse Rate 106 H Respiratory Rate 28 H Blood Pressure Pulse Oximetry 97 Fraction of Inspired Oxygen 0.35 Oxygen Delivery Method Heated High Flow Oxygen Flow Rate 50 Narrative Exam Narrative: Afebrile, vital signs stable Patient appears very tired is alert and oriented x3. She is very weak her and her voice is barely audible Mucous membranes moist and pink Neck: Supple without masses or adenopathy Chest: Shows decreased breath sounds bibasilar. She has diffuse rhonchi and very wet weak cough she has some expiratory wheezes and diffusely prolonged expiratory phase Cor: Regular rate and rhythm with distant S1 and S2 but no murmurs rubs or gallops Abdomen: Positive bowel sounds, soft, nontender, nondistended, slightly tympanitic bowel sounds. No guarding, no rebound Extremities: No edema, pulses intact Objective Labs Result Diagrams: 12/17/18 04:45 12/17/18 04:45 Labs: Laboratory Results - last 24 hr 12/17/18 12/17/18 04:45 04:45 WBC 14.2 H RBC 4.12 Hgb 13.1 Hct 39.8 MCV 96.6 MCH 31.8 MCHC 32.9 RDW 14.0 Plt Count 227 Neut % (Auto) Not Reportable Lymph % (Auto) Not Reportable [place] % (Auto) Not Reportable Eos % (Auto) Not Reportable Baso % (Auto) Not Reportable Lymph # (Auto) Not Reportable [place] # (Auto) Not Reportable Baso # (Auto) Not Reportable Total Counted 100 Seg Neutrophils % 64.0 Band Neutrophils % 13.0 H Lymphocytes % (Manual) 11.0 L Monocytes % (Manual) 12.0 H Neutrophils # (Manual) 74657 H Plt Morphology Comment RBC Morphology See below Anisocytosis 1+ H Macrocytosis 1+ H Sodium 129 L Potassium 2.7 L* Chloride 90 L Carbon Dioxide 34 H BUN 3 L Creatinine 0.30 L Estimated GFR > 60.0 BUN/Creatinine Ratio 10.0 Glucose 87 Calcium 7.3 L Assessment & Plan Assessment & Plan narrative: 77-year-old female Assessment 1. Small bowel obstruction of unclear etiology but suspicious for possible metastatic colon cancer contributing. She is improving with conservat ruben treatment and I appreciate all tossed input. Plan: Continue the same. Continue with clear liquids and advanced as tolerated. Continue with IV fluids. Assessment 2. Acute respiratory failure in the setting of a long-term smoker with COPD. Suspect a component of aspiration pneumonia and worsened with change from Unasyn to ceftriaxone Plan: Will stop ceftriaxone and restart Unasyn. Will continue azithromycin. Will add Solu-Medrol. Will continue with oxygen support, will continue with respiratory therapy. Again we readdressed code status and patient is adamant that she wants to be a full code and would want to be intubated and put on a ventilator if her condition warranted this. She understands she has a very poor prognosis given her underlying health. And her comorbidities. Assessment 3. Chronic kidney disease stable Plan: Continue to monitor Assessment 4. Severe hypokalemia thought to be attributed to vomiting. Certainly may be she is not absorbing the oral potassium. She was given K rider and oral potassium and has a potassium pending. We will reassess in the a.m. as well. Assessment 5. DVT prophylaxis Plan: Continue on Lovenox Assessment 6. GI prophylaxis Plan: Continue on proton pump inhibitor Quality VTE Deep Vein Thrombosis/Pulmonary Embolism Present on Admission: No
[2018-12-17 12:45] LABS: HEMOLYSIS 15 (0-50); Potassium 3.2 mmol/L (3.4-5.1)
[2018-12-17] MEDS: methylPREDNISolone 125 MG/2 ML VIAL 60 MG IV ×2 (12:47→18:45)
[2018-12-17] MEDS: AMPICILLIN/SULBACTAM 1.5 GM 1.5 GM in SODIUM CHLORIDE 0.9% 100 ML IV ×2 (12:47→18:42)
--- NOTE | 2018-12-17 15:31 | CM.DPC ---
DCP Cont: Met with patient's family today, brother, Trell, and his . Discussed possible long-term rehab at discharge. At this time, patient continues to be medically unstable for discharge, and is on high flow oxygen. P.T. recommending long-term at discharge secondary to increased weakness. Gave Medicare choice list to brother today. He stated that [facility] might [facility] and look at facility. Encouraged him to make second choice as well. Alysha is case therapist at [facility]. Left her a message regarding patient needing long-term. At this time, discharge date is not known, but will go ahead and send over physical therapy notes that are available so they can be reviewed. Do not have notes from today from therapy, but will include provider's note from today. P: DCP to continue to follow closely. Will fax over therapy notes to [facility], and will continue to collaborate with family on plan. Will also continue to consult with physical therapy team. Jenny Araya RN/Chemical Engineering Technologist
--- NOTE | 2018-12-17 16:54 | PT.IPTN ---
Current Diagnoses Malignant (primary) neoplasm, unspecified (12/12/18) Dehydration (12/12/18) Hypokalemia (12/12/18) Pneumonia, unspecified organism (12/12/18) Chronic obstructive pulmonary disease with (acute) exacerbation (12/12/18) Respiratory failure, unspecified with hypoxia (12/12/18) Respiratory failure, unspecified with hypercapnia (12/12/18) Unspecified intestinal obstruction, unspecified as to partial versus complete obstruction (12/12/18) Vomiting, unspecified (12/12/18) Physical Therapy Treatment Note M2 PT-IP Current Condition Start: 12/13/18 16:55 Freq: NEEDED Status: Active Protocol: Document 12/14/18 09:55 HH (Rec: 12/14/18 11:46 HH [id number]) Physical Therapy Current Condition Current Condition Evaluation Date 12/14/18 Treatment Diagnosis Nausea, vomiting, diarrhea, generalized weakness, impaired activity manuel Onset Date 12/12/18 Weight Bearing Status Weight Bearing Status Weight Bear as Tolerated M3 PT-IP Subjective Start: 12/13/18 16:55 Freq: NEEDED Status: Active Protocol: Document 12/17/18 16:53 AB (Rec: 12/17/18 16:54 AB [id number]) Subjective Physical Therapy Visit Type Type Patient Refusal Notes pt refused PT. stated that she is tired and does not want to do anything. she stated that she was already up with nurses this morning.
--- NOTE | 2018-12-17 17:43 | OT.IP.TRT ---
Current Diagnoses Malignant (primary) neoplasm, unspecified (12/12/18) Dehydration (12/12/18) Hypokalemia (12/12/18) Pneumonia, unspecified organism (12/12/18) Chronic obstructive pulmonary disease with (acute) exacerbation (12/12/18) Respiratory failure, unspecified with hypoxia (12/12/18) Respiratory failure, unspecified with hypercapnia (12/12/18) Unspecified intestinal obstruction, unspecified as to partial versus complete obstruction (12/12/18) Vomiting, unspecified (12/12/18) Occupational Therapy Treatment Note M2 OT-IP Current Condition Start: 12/15/18 17:42 Freq: Status: Active Protocol: Document 12/15/18 15:24 PJM (Rec: 12/15/18 18:12 PJ [email or web address]) Occupational Therapy Current Condition Current Condition Evaluation Date 12/15/18 Treatment Diagnosis decreased act manuel,mobility, self care due to partial SBO w /stage IV colon CA Diagnosis Onset Date 12/12/18 Post Operative Precautions Other Precautions ICU status, heated high flow O2 (flow rate 55), NG suction, sánchez M3 OT- IP Subjective and Pain Start: 12/15/18 17:42 Freq: Status: Active Protocol: Document 12/17/18 17:42 CCC (Rec: 12/17/18 17:43 CCC [id number]) OT- Subjective Occupational Therapy Visit Type Type Patient Refusal Notes PT check on pt in PM and states too tired to do therapy as already go up with nursing earlier.
--- NOTE | 2018-12-17 23:23 | PC.NURSE ---
francisco note pt had loose stool, incontinent. Denies N/V. Butt red, does not want to turn hourly. Waffle cushion added to bed.
[2018-12-18] VITALS (18 sets, daily range): BP systolic 86–139; BP diastolic 45–73; PULSE 86–122; RESP 20–24; TEMP 35.9–37.7; O2SAT 78–100
[2018-12-18] MEDS: HYDROMORPHONE 0.5 MG INJ IV (00:37)
[2018-12-18] MEDS: AMPICILLIN/SULBACTAM 1.5 GM 1.5 GM in SODIUM CHLORIDE 0.9% 100 ML IV ×4 (00:41→18:16)
[2018-12-18] MEDS: methylPREDNISolone 125 MG/2 ML VIAL 60 MG IV ×4 (00:41→18:19)
[2018-12-18 04:59] LABS: Add Manual Diff / Slide Review NO; Basophils Absolute Auto 0 /uL (0-100); Eosinophils Absolute Auto 0 /uL (0-450); Hematocrit 36.5 % (36-46); Lymphocytes Absolute Auto 200 /uL (1100-4500); Lymphocytes Percent Auto 3.7 % (25-40); Mean Corpuscular HGB Conc 32.9 % (30-36); Mean Corpuscular Hemoglobin 31.5 PG (26-34); Mean Corpuscular Volume 95.9 fL (80-100); Monocytes Absolute Auto 300 /uL (0-900); Monocytes Percent Auto 5.4 % (3-14); Neutrophils Absolute Auto 5600 /uL (1500-7000); Neutrophils Percent Auto 90.9 % (50-75); Platelet Count 201 X10^3/uL (150-400); Red Cell Distribution Width 13.8 % (11.6-14.8); White Blood Cell Count 6.2 X10^3/uL (4.5-11.0)
--- NOTE | 2018-12-18 05:00 | DI.RAD.S_ITS ---
PROCEDURE: XR CHEST 1V INDICATIONS: respiratory failure TECHNIQUE: One view of the chest was acquired. COMPARISON: [facility], CT, CT ANGIO CHEST PE PROTOCOL, 12/12/2018, 19:37. [facility], CT, CT ABDOMEN PELVIS W CON, 12/14/2018, 19:32. [facility], CR, XR CHEST 1V, 12/15/2018, 8:48. FINDINGS: Surgical changes and devices: There is a stable right-sided chest port. The previously seen gastric tube has been removed. Epigastric clips are seen. Lungs and pleura: On this supine study, there is increased opacity seen involving the right lower lung, which is attributed to a layering pleural effusion. No large pneumothorax is seen. Interstitial prominence can be seen throughout. Mediastinum: The cardiac contours are within normal limits. The aorta demonstrates calcification and tortuosity. Bones and chest wall: Mild dextroconvex scoliotic curvature is seen. Age-appropriate bony degenerative changes are seen. No suspicious bony lesions. Overlying soft tissues appear unremarkable. IMPRESSION: Right-sided pleural effusion, which is better demonstrated on the prior recent CT. Interstitial prominence is seen throughout. This may be related to pulmonary edema. Postoperative and degenerative changes are seen. As clinically appropriate, a short-term followup chest series (with PA and lateral views) performed in deep inspiration or a dedicated chest CT would be suggested for further evaluation. Dictated by: Jeff Blancas M.D. on 12/18/2018 at 7:07 Approved by: Jeff Blancas M.D. on 12/18/2018 at 7:10
[2018-12-18 05:01] LABS: Alanine Aminotransferase 11 IU/L (9-52); Albumin 2.1 g/dL (3.5-5.0); Alkaline Phosphatase 49 U/L (38-126); Aspartate Aminotransferase 10 IU/L (14-36); BUN Creatinine Ratio 7.5 (6-22); Bilirubin Total 0.2 mg/dL (0.2-1.3); Blood Urea Nitrogen 3 mg/dL (7-17); Calcium 7.4 mg/dL (8.4-10.2); Carbon Dioxide 33 mmol/L (22-32); Chloride 90 mmol/L (98-107); Estimated Glomerular Filt Rate > 60.0 mL/min (>60); Globulin 2.2 g/dL (1.7-4.1); Glucose 195 mg/dL (80-110); HEMOLYSIS < 15 (0-50); Potassium 3.3 mmol/L (3.4-5.1); Sodium 129 mmol/L (137-145); Total Protein 4.3 g/dL (6.3-8.2)
[2018-12-18] MEDS: LORazepam 2 MG/ML SYRINGE 1 MG IV (05:28)
[2018-12-18] MEDS: METOCLOPRAMIDE 10 MG/2 ML INJ IV ×3 (05:28→22:01)
[2018-12-18] MEDS: DEXTROSE 5%-0.45% NS 1,000 ML 100 ML IV (05:29)
[2018-12-18] MEDS: BISACODYL 10 MG SUPP PR (07:06)
[2018-12-18] MEDS: ALBUTEROL/IPRATROPIUM 3 ML AMPUL INH ×4 (08:51→19:54)
[2018-12-18] MEDS: SALMETEROL 50 MCG DISKUS 1 PUFF INH ×2 (08:53→19:54)
--- NOTE | 2018-12-18 08:59 | P.PN_ITS ---
Subjective Date Patient Seen: 12/18/18 Time Patient Seen: 08:52 Interval history: Patient received lorazepam for anxiety last night and slept but required some increased oxygen to maintain saturations. She is awake and alert this morning and is feeling better. She denies any chest pain. She does not feel air hunger or shortness of breath. She is tolerating clear liquids without difficulty. She is getting scheduled Reglan and schedule due a lax and is now having diarrheal stools. She is not having abdominal pain. She is not having any nausea. Twelve point review of systems is negative other than above. No blood in her stool. No chest pain. No headaches. Exam Vital Signs (past 8 hours): - 12/18/18 04:30 12/18/18 07:20 Temperature 98.7 F 98.6 F Pulse Rate 106 H 111 H Respiratory Rate 24 24 Blood Pressure 124/65 139/73 Pulse Oximetry 92 98 Fraction of Inspired Oxygen 35 Oxygen Delivery Method Heated High Flow Oxygen Flow Rate 50 Narrative Exam Narrative: Afebrile, vital signs are stable HEENT: Unchanged mucous membranes moist and pink no oral mucosal lesions neck: Supple without adenopathy chest: unchanged from yesterday. Decreased breath sounds. New crackles in the base. Scattered rhonchi. Cor: Regular rate and rhythm without murmur abdomen benign, positive bowel sounds, soft, nontender, nondistended extremities: No edema, pulses intact Objective Labs Result Diagrams: 12/18/18 04:20 12/18/18 04:20 Labs: Laboratory Results - last 24 hr 12/17/18 12/18/18 12/18/18 12:15 04:20 04:20 WBC 6.2 D RBC 3.80 L Hgb 12.0 Hct 36.5 MCV 95.9 MCH 31.5 MCHC 32.9 RDW 13.8 Plt Count 201 Neut % (Auto) 90.9 H Lymph % (Auto) 3.7 L [place] % (Auto) 5.4 Eos % (Auto) 0.0 L Baso % (Auto) 0.0 Neut # (Auto) 5600 Lymph # (Auto) 200 L [place] # (Auto) 300 Eos # (Auto) 0 Baso # (Auto) 0 Sodium 129 L Potassium 3.2 L 3.3 L Chloride 90 L Carbon Dioxide 33 H BUN 3 L Creatinine 0.40 L Estimated GFR > 60.0 BUN/Creatinine Ratio 7.5 Glucose 195 H D Calcium 7.4 L Total Bilirubin 0.2 AST 10 L ALT 11 Alkaline Phosphatase 49 Total Protein 4.3 L Albumin 2.1 L Globulin 2.2 Albumin/Globulin Ratio 1.0 Assessment & Plan Assessment & Plan narrative: 77-year-old female assessment 1. Partial small-bowel obstruction resolving and now taking full liquid diet without difficulty and advancing as tolerated. We will stop the Nair lax and continue to monitor. Assessment 2. Metastatic colon cancer with suspicion that this contributed to the small-bowel obstruction. At this point patient is not a candidate for further chemotherapy. Although patient wishes to pursue if she improves her baseline functional status. At this time patient is still requesting to be a full code. Assessment 3. suspected aspiration pneumonia. Acute respiratory failure. Underlying COPD. Subjective improvement in respiratory status but maintains requiring high level oxygen requirements. Plan: Continue on Unasyn and azithromycin. Continue on Solu-Medrol which was started on 12/17/2018. Continue with respiratory therapy and oxygen support. Some component of fluid overload. Will add 20 mg of Lasix assessment 4. acute congestive heart failure with suspected maintained left ventricular systolic function. Plan: Will stop IV fluids. Will give 20 mg of IV Lasix. Will re-evaluate in a.m.. Assessment 5. Hypokalemia improved will give 40 mEq of oral potassium. Will give this is this morning as well as at noon because we are giving IV Lasix. We will reassess at 3:00 p.m.. A assessment 6. GI prophylaxis plan: Continue proton pump inhibitor assessment 7. DVT prophylaxis plan: Continue on Lovenox Quality VTE Deep Vein Thrombosis/Pulmonary Embolism Present on Admission: No
[2018-12-18] MEDS: FUROSEMIDE 20 MG/2 ML VIAL IV ×2 (09:03→10:20)
[2018-12-18] MEDS: AZITHROMYCIN 500 MG in DEXTROSE 5% IN WATER 250 ML IV (09:03)
[2018-12-18] MEDS: POTASSIUM CHLORIDE 20 MEQ TAB 40 MEQ PO (09:05)
[2018-12-18] MEDS: ENOXAPARIN 40 MG/0.4 ML SYRINGE SUBCUT (09:07)
[2018-12-18] MEDS: LORATADINE 10 MG TABLET PO (09:08)
[2018-12-18] MEDS: PANTOPRAZOLE 40 MG VIAL IV (09:08)
[2018-12-18] MEDS: SIMETHICONE 80 MG TABLET PO ×3 (09:08→22:01)
[2018-12-18] MEDS: CHOLECALCIFEROL (VITAMIN D3) 1,000 UNIT TABLET 3000 UNIT PO (09:08)
[2018-12-18] MEDS: LIDOCAINE VISCOUS 2% 30 ML, MAG HYDROX/ALUMINUM/SIMETH SUS 30 ML, NYSTATIN SUSP 3,000,0... MM ×2 (09:09→22:02)
--- NOTE | 2018-12-18 11:00 | PC.NURSE ---
Addendum entered by Pete Taylor R.N. 12/18/18 14:51: error noted in previous note, Heated high flow at 34% with 50L (not 15L) flow. Original Note: 1015 patient noted to have desaturation on continuous pulse ox. Patient laying bed on side, talking with her friend and mouth breathing. Denied acute shortness of breath. Assisted to sit upright, 02 readings confirmed and matching, RT called to bedside to assist with oxygenation adjustments. RR 24-26. Oxygen increased by RT upto 100% with 55L flow on heated high flow until patient able to maintain saturation above 92%. Dr. Yañez notified and ABG and IV lasix stat ordered and completed. ABG taken by RT without complications, and oxygen again adjusted down to off. Patient currently sleeping without signs of distress. Heated high flow at 34% with 15L. Will continue to follow closely. Bed alarm on for safety with call light within reach.
[2018-12-18 11:18] LABS: PCO2 ABG 54.4 mmHg (35-45); pH ABG 7.43 (7.35-7.45)
[2018-12-18 11:19] LABS: Oxygen Saturation ABG 99 % (95-100); PO2 ABG 140 mmHg (80-100); TCO2 ABG 38 mmol/L (21-31)
[2018-12-18 11:20] LABS: Fractionated Inspired Oxygen 100
[2018-12-18] MEDS: SODIUM CHLORIDE 0.9% 250 ML 21 ML IV (12:15)
[2018-12-18] MEDS: POTASSIUM CHLORIDE 20 MEQ/15 ML UDC 40 MEQ PO (12:16)
--- NOTE | 2018-12-18 14:25 | CM.DPC ---
DCP Cont: Attempted to reach patient's brother, Trell, to inquire upon facility of choice. Left a message for him to call back. Called son, Álvaro, in [place]. He stated that he is not sure which facility that his uncle has picked out as of yet. Son did mention that he spoke to his mother briefly this morning, and stated that she mentioned going home on hospice. Looked at provider notes, and this was not indicated in note. Note indicates that patient wishes to continue being a full code. Let son know that this case operator would speak to ICU nurse and call him back. Pete, ICU nurse indicated that Dr. Yañez had discussion with patient and her brother, and indicated that she wishes to continue to be a full code, and have treatments. Updated son on this matter. Let him know that care management would continue to update him on condition. P: DCP to continue to follow closely. Will fax updated P.T. notes to [facility] as soon as they are in. Will also continue to reach out to patient's brother regarding choice of facility. Jenny Araya RN/Chief Operations Officer
--- NOTE | 2018-12-18 15:11 | PT.IPTN ---
Current Diagnoses Malignant (primary) neoplasm, unspecified (12/12/18) Dehydration (12/12/18) Hypokalemia (12/12/18) Pneumonia, unspecified organism (12/12/18) Chronic obstructive pulmonary disease with (acute) exacerbation (12/12/18) Respiratory failure, unspecified with hypoxia (12/12/18) Respiratory failure, unspecified with hypercapnia (12/12/18) Unspecified intestinal obstruction, unspecified as to partial versus complete obstruction (12/12/18) Vomiting, unspecified (12/12/18) Physical Therapy Treatment Note M2 PT-IP Current Condition Start: 12/13/18 16:55 Freq: NEEDED Status: Active Protocol: Document 12/14/18 09:55 HH (Rec: 12/14/18 11:46 HH [id number]) Physical Therapy Current Condition Current Condition Evaluation Date 12/14/18 Treatment Diagnosis Nausea, vomiting, diarrhea, generalized weakness, impaired activity manuel Onset Date 12/12/18 Weight Bearing Status Weight Bearing Status Weight Bear as Tolerated M3 PT-IP Subjective Start: 12/13/18 16:55 Freq: NEEDED Status: Active Protocol: Document 12/18/18 14:00 CLB (Rec: 12/18/18 15:11 CLB [id number]) Subjective Physical Therapy Visit Type Type Patient Refusal Notes Pt refused tx.
[2018-12-18 16:17] LABS: HCO3 ABG 36 mmol/L (22-26)
[2018-12-18 16:18] LABS: B Type Natriuretic Peptide 281 (<100)
[2018-12-18 16:24] LABS: Alanine Aminotransferase 21 IU/L (9-52); Albumin 2.4 g/dL (3.5-5.0); Alkaline Phosphatase 45 U/L (38-126); Aspartate Aminotransferase 24 IU/L (14-36); BUN Creatinine Ratio 13.3 (6-22); Bilirubin Total 0.4 mg/dL (0.2-1.3); Blood Urea Nitrogen 4 mg/dL (7-17); Calcium 7.5 mg/dL (8.4-10.2); Carbon Dioxide 33 mmol/L (22-32); Chloride 88 mmol/L (98-107); Estimated Glomerular Filt Rate > 60.0 mL/min (>60); Globulin 2.4 g/dL (1.7-4.1); Glucose 176 mg/dL (80-110); HEMOLYSIS 40 (0-50); Potassium 3.2 mmol/L (3.4-5.1); Sodium 129 mmol/L (137-145); Total Protein 4.8 g/dL (6.3-8.2)
[2018-12-18] MEDS: POTASSIUM CHLORIDE 40 MEQ in SODIUM CHLORIDE 0.9% 500 ML 130 ML IV (19:30)
[2018-12-19] VITALS (15 sets, daily range): BP systolic 94–112; BP diastolic 51–60; PULSE 96–126; RESP 18–28; TEMP 35.9–37.1; O2SAT 91–100
[2018-12-19] MEDS: AMPICILLIN/SULBACTAM 1.5 GM 1.5 GM in SODIUM CHLORIDE 0.9% 100 ML IV ×4 (00:08→17:28)
[2018-12-19] MEDS: methylPREDNISolone 125 MG/2 ML VIAL 60 MG IV ×4 (00:15→17:28)
[2018-12-19] MEDS: SODIUM CHLORIDE 0.9% FLUSH 10 ML IV ×11 (01:12→20:35)
[2018-12-19] MEDS: SALMETEROL 50 MCG DISKUS 1 PUFF INH ×2 (05:38→20:39)
[2018-12-19] MEDS: ALBUTEROL/IPRATROPIUM 3 ML AMPUL INH ×4 (05:38→20:39)
[2018-12-19] MEDS: METOCLOPRAMIDE 10 MG/2 ML INJ IV ×2 (05:39→14:43)
--- NOTE | 2018-12-19 06:00 | DI.RAD.S_ITS ---
PROCEDURE: XR CHEST 1V INDICATIONS: COPD, PNA, Cancer TECHNIQUE: One view of the chest was acquired. COMPARISON: [facility], CR, XR CHEST 1V, 12/18/2018, 5:11. FINDINGS: Surgical changes and devices: Left chest wall Port-A-Cath is stable. Multiple surgical clips in the left upper abdomen. Lungs and pleura: Small right subpleural fluid collection is stable. Small left subdural fluid collection is developed. There is increased opacification in the left lung base which could represent atelectasis or developing pneumonia. Bilateral interstitial prominence is not significantly changed. Mediastinum: Mediastinal contours appear normal. Heart size is normal. Bones and chest wall: No suspicious bony lesions. Overlying soft tissues appear unremarkable. IMPRESSION: 1. Increased opacification the left lung base compatible atelectasis or developing pneumonia. 2. Trace left-sided pleural fluid collection. 3. Small right pleural fluid collection stable compared to 12/18/2018. Dictated by: Adrianna Ward MD, PhD on 12/19/2018 at 8:59 Approved by: Adrianna Ward MD, PhD on 12/19/2018 at 9:01
--- NOTE | 2018-12-19 08:00 | PC.NURSE ---
Upon my arrival this morning, patient wakes easily, states she is feeling better this morning and denies pain or shortness of breath. VSS, on 30% fio2 with 35L heated high adria, with continous pulse ox in place 94-97% noted. Patient to be transferred upstairs to an acute care room this morning. Belongings packed and report called to Radha HESS. charge master specialist here to take up patient to room.
--- NOTE | 2018-12-19 08:30 | P.PN_ITS ---
Subjective Date Patient Seen: 12/19/18 Time Patient Seen: 08:24 Interval history: Patient had excellent diuresis yesterday with 40 mg of IV Lasix. Her oxygen requirement increased and then after the Lasix as AA in significantly decreased. She states she is feeling better today and would like to go home. We discussed options at this point. Patient is now requesting hospice consult. She still wishes to be full code. She understands what hospice would mean. She would like to discuss with them further. She really wants to get home to her dog. She is eating without nausea or vomiting. She is not having abdominal pain. She is still stooling. She still has a Rand catheter in place. She denies chest pain lightheadedness or dizziness Exam Vital Signs (past 8 hours): - 12/19/18 03:23 12/19/18 05:38 12/19/18 08:00 Temperature 96.7 F L 97.0 F L Pulse Rate 96 H 100 H Respiratory Rate 22 18 Blood Pressure 112/60 109/52 L Pulse Oximetry 95 97 94 Fraction of Inspired Oxygen 0.32 Oxygen Delivery Method High Flow Nasal Cannula Oxygen Flow Rate 35 Narrative Exam Narrative: Afebrile, vital signs are stable Patient alert and oriented in no apparent distress. HEENT: No lesions of mucous membranes moist And pink Neck: Supple without jugular venous distention or bruit. No masses Chest: Improved air exchange. Increase proved breath sounds in the base. Still diminished bilaterally. Still scattered rhonchi. Abdomen: Positive bowel sounds, soft, nontender, nondistended Extremities: No edema pulses intact Objective Labs Result Diagrams: 12/18/18 04:20 12/18/18 15:00 Labs: Laboratory Results - last 24 hr 12/18/18 12/18/18 12/18/18 10:50 15:00 15:00 WBC Cancelled RBC Cancelled Hgb Cancelled Hct Cancelled MCV Cancelled MCH Cancelled MCHC Cancelled RDW Cancelled Plt Count Cancelled Neut % (Auto) Cancelled Lymph % (Auto) Cancelled [place] % (Auto) Cancelled Eos % (Auto) Cancelled Baso % (Auto) Cancelled Neut # (Auto) Cancelled Lymph # (Auto) Cancelled [place] # (Auto) Cancelled Eos # (Auto) Cancelled Baso # (Auto) Cancelled ABG pH 7.43 ABG pCO2 54.4 H ABG pO2 140 H ABG HCO3 36 H ABG Total CO2 38 H ABG O2 Saturation 99 ABG Base Excess 12.0 H FiO2 100 Sodium 129 L Potassium 3.2 L Chloride 88 L Carbon Dioxide 33 H BUN 4 L Creatinine 0.30 L Estimated GFR > 60.0 BUN/Creatinine Ratio 13.3 Glucose 176 H Calcium 7.5 L Total Bilirubin 0.4 AST 24 ALT 21 Alkaline Phosphatase 45 B-Natriuretic Peptide 281 H Total Protein 4.8 L Albumin 2.4 L Globulin 2.4 Albumin/Globulin Ratio 1.0 Assessment & Plan Assessment & Plan narrative: 77-year-old female Assessment 1. Small-bowel obstruction, partial, resolved Plan: Continue with regular diet. Appreciate surgery's input. Assessment 2. Acute respiratory failure improved with IV antibiotics, Unasyn and azithromycin and IV steroids and IV Lasix. Still requiring significant oxygen supplementation. Will continue the same. Will consult hospice. Will continue with respiratory therapy. Assessment 3. Metastatic colon cancer now wishing for hospice consult Plan: Consult hospice Assessment 4. Hypokalemia. Unfortunately labs were not drawn this morning and t hey are pending. We will give 40 mg IV Lasix now. We will continue with potassium supplement. I will reassess. Assessment 5. DVT prophylaxis Plan: Continue on Lovenox Assessment 6. GI prophylaxis Plan: Continue on pantoprazole Quality VTE Deep Vein Thrombosis/Pulmonary Embolism Present on Admission: No
[2018-12-19] MEDS: POTASSIUM CHLORIDE 20 MEQ TAB 40 MEQ PO (08:58)
[2018-12-19] MEDS: FUROSEMIDE 40 MG/4 ML VIAL IV (09:03)
[2018-12-19] MEDS: SODIUM CHLORIDE 0.9% 250 ML 21 ML IV ×2 (09:05→17:36)
[2018-12-19 09:30] LABS: Add Manual Diff / Slide Review NO; Basophils Absolute Auto 0 /uL (0-100); Eosinophils Absolute Auto 0 /uL (0-450); Hematocrit 37.7 % (36-46); Hemoglobin 12.7 g/dL (12.0-16.0); Lymphocytes Absolute Auto 300 /uL (1100-4500); Lymphocytes Percent Auto 4.3 % (25-40); Mean Corpuscular HGB Conc 33.6 % (30-36); Mean Corpuscular Hemoglobin 31.9 PG (26-34); Mean Corpuscular Volume 94.9 fL (80-100); Monocytes Absolute Auto 700 /uL (0-900); Monocytes Percent Auto 11.9 % (3-14); Neutrophils Absolute Auto 5200 /uL (1500-7000); Neutrophils Percent Auto 83.8 % (50-75); Platelet Count 285 X10^3/uL (150-400); Red Blood Cell Count 3.98 X10^6/uL (4.0-5.2); Red Cell Distribution Width 14.1 % (11.6-14.8); White Blood Cell Count 6.2 X10^3/uL (4.5-11.0)
[2018-12-19] MEDS: AZITHROMYCIN 500 MG in DEXTROSE 5% IN WATER 250 ML IV (09:43)
[2018-12-19] MEDS: ENOXAPARIN 40 MG/0.4 ML SYRINGE SUBCUT (09:53)
[2018-12-19] MEDS: CHOLECALCIFEROL (VITAMIN D3) 1,000 UNIT TABLET 3000 UNIT PO (09:53)
[2018-12-19] MEDS: LORATADINE 10 MG TABLET PO (09:53)
[2018-12-19] MEDS: SIMETHICONE 80 MG TABLET PO ×4 (09:54→20:35)
[2018-12-19] MEDS: PANTOPRAZOLE 40 MG VIAL IV (09:54)
[2018-12-19] MEDS: LIDOCAINE VISCOUS 2% 30 ML, MAG HYDROX/ALUMINUM/SIMETH SUS 30 ML, NYSTATIN SUSP 3,000,0... MM ×3 (09:54→20:35)
[2018-12-19 09:57] LABS: Alanine Aminotransferase 21 IU/L (9-52); Albumin 2.4 g/dL (3.5-5.0); Alkaline Phosphatase 48 U/L (38-126); Aspartate Aminotransferase 15 IU/L (14-36); BUN Creatinine Ratio 23.3 (6-22); Bilirubin Total 0.4 mg/dL (0.2-1.3); Blood Urea Nitrogen 7 mg/dL (7-17); Calcium 8.1 mg/dL (8.4-10.2); Carbon Dioxide 35 mmol/L (22-32); Chloride 91 mmol/L (98-107); Estimated Glomerular Filt Rate > 60.0 mL/min (>60); Globulin 2.4 g/dL (1.7-4.1); Glucose 121 mg/dL (80-110); HEMOLYSIS 43 (0-50); Potassium 4.3 mmol/L (3.4-5.1); Sodium 132 mmol/L (137-145); Total Protein 4.8 g/dL (6.3-8.2)
--- NOTE | 2018-12-19 11:32 | PC.NURSE ---
Addendum entered by Radha Gabriel R.N. 12/19/18 13:52: pt refused afternoon RT treatment. patient is still missing magnifying glass (pink and has lights). I looked through personal belongings and linen two times now and still unsuccessful. ICU and coordinator aware. Addendum entered by Radha Gabriel R.N. 12/19/18 11:40: pt reports her magnifying glass missing. We checked her purse and personal items in the closet, the table drawers, and pink basins, but unsuccessful. I called down to ICU and have [facility] on the lookout. Original Note: AM Shift Patient arrived to room from ICU at 0750. pt is AO and pleasant. Denying pt, receptive to most care, but has refused PT the last couple days. PT has yet to see patient as time of this note (5991). pt has productive, intermittent cough and is able to expel phlegm into tissues. States she feels like she is getting enough air and oxygen. Incontinent of loose stool x1 this AM and able to help reposition during pericare. Catheter is draining to gravity, nelia/cath care provided during brief change this AM. ABX infusing and pt tolerating well. BP low at 1130 at 97/55 and heart rate between 100-114. Heated high flow NC applied at 35L and O2 sat is between 89-95%. Lungs were clear, but diminished. Hospice has been discussed and consulted. Son in [place] has called to check up on pt, pt gave the okay to provide information to him as he will be her POA.
--- NOTE | 2018-12-19 15:09 | OT.IP.TRT ---
Current Diagnoses Malignant (primary) neoplasm, unspecified (12/12/18) Dehydration (12/12/18) Hypokalemia (12/12/18) Pneumonia, unspecified organism (12/12/18) Chronic obstructive pulmonary disease with (acute) exacerbation (12/12/18) Respiratory failure, unspecified with hypoxia (12/12/18) Respiratory failure, unspecified with hypercapnia (12/12/18) Unspecified intestinal obstruction, unspecified as to partial versus complete obstruction (12/12/18) Vomiting, unspecified (12/12/18) Occupational Therapy Treatment Note M2 OT-IP Current Condition Start: 12/15/18 17:42 Freq: Status: Active Protocol: Document 12/15/18 15:24 PJM (Rec: 12/15/18 18:12 PJM [id number]) Occupational Therapy Current Condition Current Condition Evaluation Date 12/15/18 Treatment Diagnosis decreased act manuel,mobility, self care due to partial SBO w /stage IV colon CA Diagnosis Onset Date 12/12/18 Post Operative Precautions Other Precautions ICU status, heated high flow O2 (flow rate 55), NG suction, sánchez M3 OT- IP Subjective and Pain Start: 12/15/18 17:42 Freq: Status: Active Protocol: Document 12/19/18 15:06 CCC (Rec: 12/19/18 15:09 CCC [id number]) OT- Subjective Occupational Therapy Visit Type Type Administrative Note Notes Spoke to manager rn casecredentialing manager to consult with pt at this time and therefore hold OT treatments at this time.
--- NOTE | 2018-12-19 15:23 | PT.IPTN ---
Current Diagnoses Malignant (primary) neoplasm, unspecified (12/12/18) Dehydration (12/12/18) Hypokalemia (12/12/18) Pneumonia, unspecified organism (12/12/18) Chronic obstructive pulmonary disease with (acute) exacerbation (12/12/18) Respiratory failure, unspecified with hypoxia (12/12/18) Respiratory failure, unspecified with hypercapnia (12/12/18) Unspecified intestinal obstruction, unspecified as to partial versus complete obstruction (12/12/18) Vomiting, unspecified (12/12/18) Physical Therapy Treatment Note M2 PT-IP Current Condition Start: 12/13/18 16:55 Freq: NEEDED Status: Active Protocol: Document 12/14/18 09:55 HH (Rec: 12/14/18 11:46 HH [email or web address]) Physical Therapy Current Condition Current Condition Evaluation Date 12/14/18 Treatment Diagnosis Nausea, vomiting, diarrhea, generalized weakness, impaired activity manuel Onset Date 12/12/18 Weight Bearing Status Weight Bearing Status Weight Bear as Tolerated M3 PT-IP Subjective Start: 12/13/18 16:55 Freq: NEEDED Status: Active Protocol: Document 12/19/18 15:22 CLB (Rec: 12/19/18 15:23 CLB [id number]) Subjective Physical Therapy Visit Type Type Patient Unavailable Notes Pt on hold per Yarn Dumper
--- NOTE | 2018-12-19 15:25 | CM.DPC ---
DCP: continued: case received, EMR reviewed. Noted that Dr. Yañez has discussed plan for consideration of [facility]. EMR reviewed and then met with pt. Pt confirms this plan but does say I want to be a full code still. She currently has limited assist at home: is on TSOA program with [facility]. JAKY Tran confirms that this support is only 2x week for housekeeping and errands. [facility] has been seeing pt and their high school social studies teacher has helped pt apply for [employer]. The application went in 12/12. Chelsea was aware of this, could see this in her [facility] information base and said it appeared that pt would qualify for this program. Pt says she just wants to be in her home. She says she has helpful neighbors but this is not yet confirmed and [employer] high school social studies teacher Josie has indicated that pt may have limited insight into the assist that she will need and what is actually available. Have set up [facility] infor visit now with Jayson. She says Isabella will be out here tomorrow at 1100. Pt is updated. Have called her son Álvaro with update. He is POA, lives in [place]. He is agreeable to discussing the situation with Hospice but is unsure what help he can offer. Have also left a vm for pt's brother Trell: [place], with her permission. Pt is currently on HI Ian O@ at 30 L. She has not been working with PT and OT as does not feel able to do so.
--- NOTE | 2018-12-19 19:33 | PC.NURSE ---
Addendum entered by Jessa Swift R.N. 12/19/18 23:01: pt able to be weaned to 3L high flow nc. hr 104, o2 saturation 98% Original Note: francisco shift- assumed care of pt from outgoing shift. PT awake and alert. pt calls appropriately. uses call wong. belongings and call light within reach. refusing PT or to get up. RT changed pt to high flow NC with humidification. currently 10L, 100% will attempt to wean. see worklist for weaning. Pt currently on 5:L high adria humidified, saturation 97%. PT doing well. family from [place] arrived around 6. Pt uses call wong. still on full liquid diet. doing well. will continue to monitor.
[2018-12-20] VITALS (16 sets, daily range): BP systolic 101–125; BP diastolic 55–63; PULSE 100–125; RESP 16–28; TEMP 36.3–37.2; O2SAT 85–100
[2018-12-20] MEDS: AMPICILLIN/SULBACTAM 1.5 GM 1.5 GM in SODIUM CHLORIDE 0.9% 100 ML IV ×4 (00:40→17:34)
[2018-12-20] MEDS: methylPREDNISolone 125 MG/2 ML VIAL 60 MG IV ×4 (00:40→17:45)
--- NOTE | 2018-12-20 00:54 | PC.NURSE ---
Rehabilitation Clerk Note: 0030: Awake, resting in bed. Vital signs stable. IV in place in rt upper arm. Pt remains on O2 3L/HHFNC. Incontinent of small amt liquid stool. Nova care and sánchez cath care given. Allevyn on coccyx removed due to fecal contamination: skin under dressing intact, no breakdown noted but pt has bony prominence. Turned and repositioned.
[2018-12-20] MEDS: HYDROMORPHONE 0.5 MG INJ IV (04:47)
[2018-12-20] MEDS: ALBUTEROL/IPRATROPIUM 3 ML AMPUL INH ×4 (05:17→19:54)
[2018-12-20] MEDS: SALMETEROL 50 MCG DISKUS 1 PUFF INH ×2 (05:18→19:54)
[2018-12-20 05:53] LABS: Add Manual Diff / Slide Review NO; Basophils Absolute Auto 0 /uL (0-100); Basophils Percent Auto 0.1 % (0-2); Eosinophils Absolute Auto 0 /uL (0-450); Hematocrit 35.4 % (36-46); Hemoglobin 11.9 g/dL (12.0-16.0); Lymphocytes Absolute Auto 200 /uL (1100-4500); Lymphocytes Percent Auto 3.3 % (25-40); Mean Corpuscular HGB Conc 33.8 % (30-36); Mean Corpuscular Hemoglobin 32.3 PG (26-34); Mean Corpuscular Volume 95.7 fL (80-100); Monocytes Absolute Auto 800 /uL (0-900); Monocytes Percent Auto 13.3 % (3-14); Neutrophils Absolute Auto 5300 /uL (1500-7000); Neutrophils Percent Auto 83.3 % (50-75); Platelet Count 286 X10^3/uL (150-400); Red Cell Distribution Width 13.9 % (11.6-14.8); White Blood Cell Count 6.4 X10^3/uL (4.5-11.0)
[2018-12-20 06:13] LABS: Blood Urea Nitrogen 12 mg/dL (7-17); Calcium 7.6 mg/dL (8.4-10.2); Carbon Dioxide 36 mmol/L (22-32); Chloride 93 mmol/L (98-107); Estimated Glomerular Filt Rate > 60.0 mL/min (>60); Glucose 177 mg/dL (80-110); HEMOLYSIS 16 (0-50); Potassium 3.5 mmol/L (3.4-5.1); Sodium 132 mmol/L (137-145)
[2018-12-20] MEDS: METOCLOPRAMIDE 10 MG/2 ML INJ IV ×3 (06:18→22:24)
--- NOTE | 2018-12-20 08:57 | PM.PN.1 ---
Subjective Date Patient Seen: 12/20/18 Time Patient Seen: 08:57 Interval history: Seems in good spirits today, perhaps feeling a bit better. She understands recent discussions about hospice but still insists that she would have full code. She explains that when she became ill she feels she made an arrangement with her God, they would he would look after her and see that she survive this. She feels that resuscitation as part of that deal. She also understands that there may be limitations with hospice as far as what can be provided, nothing that could be considered curative. They will be meeting with her later this morning. She is quite insistent on going home, has no interest whatsoever in SNF. I explained what she needs to be able to do physically in order to be home independent, she is certain she can do that, even as she has refused physical therapy recently because she did not feel up to it. So I have asked that she allow PT to evaluate her for home independent. She says she has neighbors that are always willing to come had moments notice, thinks family may be helpful as well. Exam Vital Signs (past 8 hours): - 12/20/18 01:00 12/20/18 04:00 12/20/18 05:18 Temperature 98.8 F Pulse Rate 105 H Respiratory Rate 16 Blood Pressure 125/63 Pulse Oximetry 100 98 99 12/20/18 07:48 12/20/18 07:53 Temperature 97.3 F L Pulse Rate 100 H Respiratory Rate 16 Blood Pressure 105/57 L Pulse Oximetry 99 98 Fraction of Inspired Oxygen 30 Oxygen Delivery Method Nasal Cannula,Humidification Oxygen Flow Rate 2 Narrative Exam Narrative: Frail-appearing but awake and alert and appropriate. HEENT unremarkable neck is benign without JVD, chest fairly clear heart regular without murmur abdomen soft nontender nondistended normoactive bowel tones extremities benign neurologically nonfocal. Objective Labs Result Diagrams: 12/20/18 05:00 12/20/18 05:00 Labs: Laboratory Results - last 24 hr 12/19/18 12/19/18 12/20/18 08:15 08:15 05:00 WBC 6.2 6.4 RBC 3.98 L 3.70 L Hgb 12.7 11.9 L Hct 37.7 35.4 L MCV 94.9 95.7 MCH 31.9 32.3 MCHC 33.6 33.8 RDW 14.1 13.9 Plt Count 285 286 Neut % (Auto) 83.8 H 83.3 H Lymph % (Auto) 4.3 L 3.3 L [place] % (Auto) 11.9 13.3 Eos % (Auto) 0.0 L 0.0 L Baso % (Auto) 0.0 0.1 Neut # (Auto) 5200 5300 Lymph # (Auto) 300 L 200 L [place] # (Auto) 700 800 Eos # (Auto) 0 0 Baso # (Auto) 0 0 Sodium 132 L Potassium 4.3 Chloride 91 L Carbon Dioxide 35 H BUN 7 Creatinine 0.30 L Estimated GFR > 60.0 BUN/Creatinine Ratio 23.3 H Glucose 121 H Calcium 8.1 L Total Bilirubin 0.4 AST 15 ALT 21 Alkaline Phosphatase 48 Total Protein 4.8 L Albumin 2.4 L Globulin 2.4 Albumin/Globulin Ratio 1.0 12/20/18 05:00 WBC RBC Hgb Hct MCV MCH MCHC RDW Plt Count Neut % (Auto) Lymph % (Auto) [place] % (Auto) Eos % (Auto) Baso % (Auto) Neut # (Auto) Lymph # (Auto) [place] # (Auto) Eos # (Auto) Baso # (Auto) Sodium 132 L Potassium 3.5 Chloride 93 L Carbon Dioxide 36 H BUN 12 Creatinine 0.40 L Estimated GFR > 60.0 BUN/Creatinine Ratio 30.0 H Glucose 177 H Calcium 7.6 L Total Bilirubin AST ALT Alkaline Phosphatase Total Protein Albumin Globulin Albumin/Globulin Ratio Assessment & Plan (1) Pneumonia: Problem details: Does seem a bit better now back on Unasyn and along with Zithromax. Chest x-ray was not convincing yesterday. Qualifiers: Aspiration pneumonia type: Laterality: bilateral Lung location: unspecified part of lung Pneumonia type: due to unspecified organism Qualified Code(s): J18.9 - Pneumonia, unspecified organism Current visit: Yes Status: Acute (2) Respiratory failure with hypoxia and hypercapnia: Problem details: O2 demand has improved somewhat. Qualifiers: Chronicity: Current visit: Yes Status: Acute (3) CHF (congestive heart failure): Problem details: This was identified over the weekend suspected as a volume overload, has improved with diuresis. Will continue oral diuresis. Current visit: Yes Status: Acute (4) Small bowel obstruction: Problem details: Seems resolved, no emesis bowel function resuming. Current visit: Yes Status: Acute (5) Hypokalemia: Problem details: Maintain with daily supplement. Current visit: Yes Status: Acute (6) Adenocarcinoma: Problem details: This seems to be doing okay, patient is hoping for a visit by Oncology today. Current visit: No Status: Acute (7) Terminal care: Problem details: Given the last item above, and the range of issues during this hospitalization, and general frail health of this individual my sense is her long-term survival is limited. I feel hospice is absolutely appropriate however I am not sure she can go home independently I will evaluate that with PT today, but if they feel that that is not the case and I do not see that we have any option other than SNF unless 24 hour home care as possible. Continue all usual care at this time but will defer to hospice as far as what can be for right at long-term under their services. Current visit: Yes Status: Acute Assessment & Plan narrative: Continue same as above, home as possible versus SNF soon. Time Spent With Patient Time with patient: Greater than 35 minutes Quality VTE Deep Vein Thrombosis/Pulmonary Embolism Present on Admission: No
[2018-12-20] MEDS: CHOLECALCIFEROL (VITAMIN D3) 1,000 UNIT TABLET 3000 UNIT PO (10:27)
[2018-12-20] MEDS: POTASSIUM CHLORIDE 20 MEQ TAB 40 MEQ PO (10:27)
[2018-12-20] MEDS: ENOXAPARIN 40 MG/0.4 ML SYRINGE SUBCUT (10:28)
[2018-12-20] MEDS: SIMETHICONE 80 MG TABLET PO ×4 (10:29→20:27)
[2018-12-20] MEDS: LORATADINE 10 MG TABLET PO (10:29)
[2018-12-20] MEDS: FUROSEMIDE 40 MG TABLET PO (10:29)
[2018-12-20] MEDS: LIDOCAINE VISCOUS 2% 30 ML, MAG HYDROX/ALUMINUM/SIMETH SUS 30 ML, NYSTATIN SUSP 3,000,0... MM ×3 (10:30→20:27)
[2018-12-20] MEDS: SODIUM CHLORIDE 0.9% FLUSH 10 ML IV ×2 (10:41→20:27)
[2018-12-20] MEDS: PANTOPRAZOLE 40 MG VIAL IV (10:41)
--- NOTE | 2018-12-20 12:29 | PT.IPTN ---
Current Diagnoses Malignant (primary) neoplasm, unspecified (12/12/18) Dehydration (12/12/18) Hypokalemia (12/12/18) Heart failure, unspecified (12/12/18) Pneumonia, unspecified organism (12/12/18) Chronic obstructive pulmonary disease with (acute) exacerbation (12/12/18) Respiratory failure, unspecified with hypoxia (12/12/18) Respiratory failure, unspecified with hypercapnia (12/12/18) Unspecified intestinal obstruction, unspecified as to partial versus complete obstruction (12/12/18) Vomiting, unspecified (12/12/18) Encounter for palliative care (12/12/18) Physical Therapy Treatment Note M2 PT-IP Current Condition Start: 12/13/18 16:55 Freq: NEEDED Status: Active Protocol: Document 12/14/18 09:55 HH (Rec: 12/14/18 11:46 HH [email or web address]) Physical Therapy Current Condition Current Condition Evaluation Date 12/14/18 Treatment Diagnosis Nausea, vomiting, diarrhea, generalized weakness, impaired activity manuel Onset Date 12/12/18 Weight Bearing Status Weight Bearing Status Weight Bear as Tolerated M3 PT-IP Subjective Start: 12/13/18 16:55 Freq: NEEDED Status: Active Protocol: Document 12/20/18 12:28 CLB (Rec: 12/20/18 12:29 CLB [id number]) Subjective Physical Therapy Visit Type Type Discharge Summary Notes Discharging pt due to pt opting to go on hospice. M4 PT-IP Mobility and Gait Start: 12/13/18 16:55 Freq: NEEDED Status: Active Protocol: Document 12/16/18 10:45 GGD (Rec: 12/16/18 11:18 GGD [id number]) PT-Bed Mobility Assessment Rolling Type of Rolling Roll to Right Level of Assist Contact Guard Assistance Supine to Sit Supine to Sit Contact Guard Assistance Head of Bed Elevated Bedrails Scooting Scooting to Edge of Bed Contact Guard Assistance PT-Transfer Assessment Sit to and From Stand Sit to and from Stand Contact Guard Assistance Use of Upper Extremities Equipment Transfer Assistive Device Gait Belt Front Wheeled Walker Orthotic/Prosthetic Devices or Brace: No Transfers Transfer Destination Chair Bedside Commode Transfer Technique Stand Step Pivot Transfer Ability Level of Assist Contact Guard Assistance Gait Assessment Gait Gait Assistance Required: Contact Guard Assist 1 Person Assist Distance (Feet) 5 Able to Maintain Weight Bearing Status Yes During Gait Assistive Devices Assistive Device Front Wheeled Walker Orthotic/Prosthetic Devices or Brace: No Gait Deviations General Gait Pattern Decreased Stride Length Decreased Feet Clearance Flexed Trunk Factors Limiting Gait Function Factors Limiting Gait Function Decreased Activity Tolerance Decreased Strength Pain Poor Balance Respiratory Distress M5 PT-IP Objective Assessments Start: 12/13/18 16:55 Freq: NEEDED Status: Active Protocol: Document 12/14/18 09:55 (Rec: 12/14/18 11:46 [email or web address]) Orientation Orientation/Cognition Level of Alertness Alert Orientation Name Age Birthday Month Date Year Day of Week Place Situation Language Function Ability No Deficits Noted Safety Awareness Understands Safety Issues Memory Description No Deficits Noted Gross Range of Motion Upper Extremity ROM Assessment Within Functional Limits Lower Extremity ROM Assessment Within Functional Limits Strength Upper Extremity Strength Assessment Bilaterally Impaired Lower Extremity Strength Assessment Bilaterally Impaired Comments Strength Comments B UEs/LEs appear weak 3+/5 Coordination Assessment Gross Coordination Gross Coordination WNL Sensation Assessment Sensation Gross Sensation WNL Light Touch Intact Proprioception (Position) Intact Muscle Tone Muscle Tone WNL Yes M6 PT-IP Treatment Start: 12/13/18 16:55 Freq: NEEDED Status: Active Protocol: Document 12/14/18 09:55 (Rec: 12/14/18 11:46 [email or web address]) Physical Therapy Treatment Education Education Provided Safety M7 PT-IP Assessment and Plan Start: 12/13/18 16:55 Freq: NEEDED Status: Active Protocol: Document 12/16/18 10:45 GGD (Rec: 12/16/18 11:18 GGD [id number]) PT Summary Assessment and Plan Summary Assessment Summary Pt slowly with mobility. She fatigues quickly. She did need 2nd assist for lines and tubes. She would benefit from SNF to improve strength and mobility. Frequency of Treatment Frequency Of Treatment Once a Day Treatment Plan Physical Therapy Treatment Plan Bed Mobility Training Transfer Training Gait Training Therapeutic Exercise Discharge Planning Recommendations To Nursing Amount of Assist Needed 1 Person Assist Discharge Recommendations PT Discharge Recommendations SNF Rehab
--- NOTE | 2018-12-20 12:46 | OT.IP.TRT ---
Current Diagnoses Malignant (primary) neoplasm, unspecified (12/12/18) Dehydration (12/12/18) Hypokalemia (12/12/18) Heart failure, unspecified (12/12/18) Pneumonia, unspecified organism (12/12/18) Chronic obstructive pulmonary disease with (acute) exacerbation (12/12/18) Respiratory failure, unspecified with hypoxia (12/12/18) Respiratory failure, unspecified with hypercapnia (12/12/18) Unspecified intestinal obstruction, unspecified as to partial versus complete obstruction (12/12/18) Vomiting, unspecified (12/12/18) Encounter for palliative care (12/12/18) Occupational Therapy Treatment Note M2 OT-IP Current Condition Start: 12/15/18 17:42 Freq: Status: Active Protocol: Document 12/15/18 15:24 PJM (Rec: 12/15/18 18:12 PJM [id number]) Occupational Therapy Current Condition Current Condition Evaluation Date 12/15/18 Treatment Diagnosis decreased act manuel,mobility, self care due to partial SBO w /stage IV colon CA Diagnosis Onset Date 12/12/18 Post Operative Precautions Other Precautions ICU status, heated high flow O2 (flow rate 55), NG suction, sánchez M3 OT- IP Subjective and Pain Start: 12/15/18 17:42 Freq: Status: Active Protocol: Document 12/20/18 12:45 CCC (Rec: 12/20/18 12:46 CCC [id number]) OT- Subjective Occupational Therapy Visit Type Type Discharge Summary Notes Pt and family now deciding on Hospice, therefore discharge from OT services.
--- NOTE | 2018-12-20 17:27 | PC.NURSE ---
francisco shift- assumed care of pt from outgoing shift at 1500 this day. pt awake and alert. makes needs known. bed alarm on. side rails upx3 for pt request.safety. uses call wong. belongings and call light within reach. refusing at this time to get up for dinner. sánchez patent. clear, straw colored urine with sediment. cooperative with staff. states she feels much better ans stronger today. will continue to monitor pt for safety.
--- NOTE | 2018-12-20 17:56 | P.PNONC_ITS ---
PN -Subjective Interval history: Diagnosis: Metastatic colon cancer. MMR normal. Previous treatment: 1. Adenocarcinoma of the colon in a polyp that was removed at the time of a screening colonoscopy in 2012. 2. Partial sigmoid colectomy in October 2013 with a 1.1 cm adenoma but no invasive carcinoma. 3. 3 cycles of FOLFIRI Interval history: Patient is a 77-year-old woman with a history of metastatic colon cancer. She has been on chemotherapy with FOLFIRI and has been tolerating it reasonably well. She is hospitalized now with a bowel obstruction and pneumonia. Over the last several days, her bowel obstruction has improved. She is not having any further abdominal pain. Her bowels are moving. She is eating although she does not feel hungry. Her shortness of breath has improved. She still has a little bit of a cough but no pain. She is not having any fever. She anticipates going home with hospice tomorrow. On exam: She is alert and oriented ill-appearing but in no acute distress. She is wearing oxygen. Her lungs show some coarse breath sounds anteriorly do not hear any wheezes. Heart is regular rate and rhythm without murmur. Abdomen is soft and nontender. Assessment plan: Metastatic colon cancer. She does not have any ashley evidence of progression but did have a recent bowel obstruction and pneumonia. Her performance status at this point is limited. I do not think that she is in any shape for any further chemotherapy at this time. I think discharged home on hospice is appropriate. The patient is hopeful that she may improve enough to tolerate further chemotherapy. I think if her performance status does improved sufficiently, we could consider that. The more likely outcome however is that it will not. Home Medications and Allergies Home Medications Medication Instructions Recorded Confirmed Type albuterol sulfate 2 puff INHALATION Q4-6H PRN 08/10/18 12/12/18 History albuterol sulfate 2.5 mg INHALATION Q4H PRN 08/10/18 12/12/18 History aspirin 81 mg PO DAILY 08/10/18 12/12/18 History cetirizine [Aller-Ana] 10 mg PO DAILY 08/10/18 12/12/18 History Serevent Diskus 1 puff INHALATION DIRECTED 10/05/18 12/12/18 History alendronate [Fosamax] 1 tab PO QWEEK 10/05/18 12/12/18 History cholecalciferol (vitamin D3) 3,000 unit PO DAILY 10/05/18 12/12/18 History [Vitamin D3] diazepam 5 mg PO BID 10/05/18 12/12/18 History lidocaine-prilocaine See Rx Instructions .ROUTE 10/19/18 12/12/18 Rx .COMPLEX #30 gram ondansetron 4 mg PO QID PRN #20 tab 10/19/18 12/12/18 Rx indomethacin 25 mg PO TID 12/12/18 12/12/18 History ipratropium-albuterol 1 dose INHALATION DIRECTED 12/12/18 12/12/18 History metoprolol tartrate 25 mg PO BID 12/12/18 12/12/18 History pravastatin 40 mg PO BEDTIME 12/12/18 12/12/18 History Allergies Allergy/AdvReac Type Severity Reaction Status Date / Time iodine [IODINE] Allergy Severe HIVES Verified 10/19/18 12:18 codeine [CODEINE] AdvReac Unknown SLEEPY Verified 10/19/18 12:18 lansoprazole [LANSOPRAZOLE] AdvReac Unknown GI UPSET Verified 10/19/18 12:18 Exam Vital signs: Vital Signs Temp Pulse Resp BP Pulse Ox 12/20/18 15:45 98 12/20/18 15:00 98.0 F 113 H 17 112/58 L 97 12/20/18 14:30 94 12/20/18 13:36 118 H 28 H 90 L 12/20/18 11:54 97.5 F L 125 H 20 101/61 96 12/20/18 09:25 99 12/20/18 09:10 117 H 24 98 12/20/18 08:30 109/60 12/20/18 07:53 97.3 F L 100 H 16 105/57 L 98 12/20/18 07:48 99 12/20/18 05:18 99 12/20/18 04:00 98.8 F 105 H 16 125/63 98 12/20/18 01:00 100 12/20/18 00:55 98.9 F 106 H 16 112/55 L 100 12/19/18 20:40 99 12/19/18 20:34 98.7 F 102 H 20 95/51 L 100 12/19/18 19:22 97 12/19/18 18:42 100 12/19/18 18:17 100 Intake and Output 12/20/18 12/20/18 12/20/18 07:59 15:59 23:59 Intake Total 200 / 1132 932 / 1132 Output Total 200 / 925 725 / 925 Balance 0 207 / 207 Intake: IV 200 / 292 92 / 292 Ampicillin/Sulbactam 1.5 gm 1.5 200 / 292 92 / 292 gm In Sodium Chloride 0.9% 100 ml @ 100 mls/hr IV Q6H [facility] Rx# :[id number] Oral 840 / 840 Output: Urine Amount (Catheter) 200 / 925 725 / 925 Other: Percent Meal Consumed 25% Stool Size Small # Bowel Movements 1 Weight 64.9 kg Patient Weight 12/20/18 23:59 Weight 64.9 kg Results - Labs Laboratory Last Values WBC 6.4 X10^3/uL (4.5-11.0) 12/20/18 05:00 RBC 3.70 X10^6/uL (4.0-5.2) L 12/20/18 05:00 Hgb 11.9 g/dL (12.0-16.0) L 12/20/18 05:00 Hct 35.4 % (36-46) L 12/20/18 05:00 MCV 95.7 fL (80-100) 12/20/18 05:00 MCH 32.3 PG (26-34) 12/20/18 05:00 MCHC 33.8 % (30-36) 12/20/18 05:00 RDW 13.9 % (11.6-14.8) 12/20/18 05:00 Plt Count 286 X10^3/uL (150-400) 12/20/18 05:00 Neut % (Auto) 83.3 % (50-75) H 12/20/18 05:00 Lymph % (Auto) 3.3 % (25-40) L 12/20/18 05:00 [place] % (Auto) 13.3 % (3-14) 12/20/18 05:00 Eos % (Auto) 0.0 % (2-4) L 12/20/18 05:00 Baso % (Auto) 0.1 % (0-2) 12/20/18 05:00 Neut # (Auto) 5300 /uL (8228-8533) 12/20/18 05:00 Lymph # (Auto) 200 /uL (6666-0514) L 12/20/18 05:00 [place] # (Auto) 800 /uL (0-900) 12/20/18 05:00 Eos # (Auto) 0 /uL (0-450) 12/20/18 05:00 Baso # (Auto) 0 /uL (0-100) 12/20/18 05:00 Total Counted 100 12/17/18 04:45 Seg Neutrophils % 64.0 % (38-70) 12/17/18 04:45 Band Neutrophils % 13.0 % (3-7) H 12/17/18 04:45 Lymphocytes % (Manual) 11.0 % (25-45) L 12/17/18 04:45 Monocytes % (Manual) 12.0 % (2-11) H 12/17/18 04:45 Metamyelocytes % 1.0 % (-0) H 12/14/18 06:39 Neutrophils # (Manual) 12741 /uL (7845-1721) H 12/17/18 04:45 Toxic Vacuolation Pres 12/13/18 06:55 Dohle Bodies 1+ H 12/14/18 06:39 Plt Morphology Comment 12/17/18 04:45 RBC Morphology See below 12/17/18 04:45 Poikilocytosis 1+ H 12/13/18 06:55 Anisocytosis 1+ H 12/17/18 04:45 Macrocytosis 1+ H 12/17/18 04:45 ABG pH 7.43 (7.35-7.45) 12/18/18 10:50 ABG pCO2 54.4 mmHg (35-45) H 12/18/18 10:50 ABG pO2 140 mmHg (80-100) H 12/18/18 10:50 ABG HCO3 36 mmol/L (22-26) H 12/18/18 10:50 ABG Total CO2 38 mmol/L (21-31) H 12/18/18 10:50 ABG O2 Saturation 99 % (95-100) 12/18/18 10:50 ABG Base Excess 12.0 mmol/L (-2-2) H 12/18/18 10:50 FiO2 100 12/18/18 10:50 Sodium 132 mmol/L (137-145) L 12/20/18 05:00 Potassium 3.5 mmol/L (3.4-5.1) 12/20/18 05:00 Chloride 93 mmol/L (98-107) L 12/20/18 05:00 Carbon Dioxide 36 mmol/L (22-32) H 12/20/18 05:00 BUN 12 mg/dL (7-17) 12/20/18 05:00 Creatinine 0.40 mg/dL (0.52-1.04) L 12/20/18 05:00 Estimated GFR > 60.0 mL/min (>60) 12/20/18 05:00 BUN/Creatinine Ratio 30.0 (6-22) H 12/20/18 05:00 Glucose 177 mg/dL (80-110) H 12/20/18 05:00 Lactate 1.1 mmol/L (0.7-2.1) 12/12/18 17:46 Calcium 7.6 mg/dL (8.4-10.2) L 12/20/18 05:00 Magnesium 2.0 mg/dL (1.6-2.3) 12/16/18 04:36 Total Bilirubin 0.4 mg/dL (0.2-1.3) 12/19/18 08:15 AST 15 IU/L (14-36) 12/19/18 08:15 ALT 21 IU/L (9-52) 12/19/18 08:15 Alkaline Phosphatase 48 U/L (38-126) 12/19/18 08:15 Total Creatine Kinase < 20 U/L (30-135) L 12/12/18 17:00 CK-MB (CK-2) TNP 12/12/18 17:00 CK-MB (CK-2) Rel Index TNP 12/12/18 17:00 Troponin I < 0.012 ng/mL (0.01-0.034) 12/12/18 17:00 B-Natriuretic Peptide 281 (<100) H 12/18/18 15:00 Total Protein 4.8 g/dL (6.3-8.2) L 12/19/18 08:15 Albumin 2.4 g/dL (3.5-5.0) L 12/19/18 08:15 Globulin 2.4 g/dL (1.7-4.1) 12/19/18 08:15 Albumin/Globulin Ratio 1.0 (1.0-2.8) 12/19/18 08:15 Lipase 31 U/L (23-300) 12/12/18 17:00 Urine Color Yellow 12/12/18 17:00 Urine Appearance Cloudy 12/12/18 17:00 Urine pH 5.0 (4.5-8.0) 12/12/18 17:00 Ur Specific [place] >=1.030 (1.000-1.035) H 12/12/18 17:00 Urine Protein 2+ (Negative) H 12/12/18 17:00 Urine Glucose (UA) Negative g/dL (Negative) 12/12/18 17:00 Urine Ketones 1+ (NEGATIVE) H 12/12/18 17:00 Urine Occult Blood 3+ (Negative) H 12/12/18 17:00 Urine Nitrate Negative (Negative) 12/12/18 17:00 Urine Bilirubin 1+ (NEGATIVE) H 12/12/18 17:00 Urine Ictotest Negative (Negative) 12/12/18 17:00 Urine Urobilinogen 1.0 E.U./dL (0.2) 12/12/18 17:00 Ur Leukocyte Esterase 2+ (NEGATIVE) H 12/12/18 17:00 Urine RBC 1-5/hpf (0-5/HPF) 12/12/18 17:00 Urine WBC 30-100/hpf (0-5/HPF) H 12/12/18 17:00 Ur Squamous Epith Cells 1-5 /hpf (0-5/HPF) 12/12/18 17:00 Calcium Oxalate Crystal Few H 12/12/18 17:00 Urine Bacteria Many (>30) (None) H 12/12/18 17:00 Ur Culture Indicated? Specimen cultured 12/12/18 17:00 Nasal Screen MRSA (PCR) Negative for mrsa (Negative) 12/12/18 22:30 - Imaging Additional studies: Procedures Closure of skin and subcutaneous tissue of other sites (03/29/11) Assessment and Plan (1) Pneumonia Problem details: Does seem a bit better now back on Unasyn and along with Zithromax. Chest x-ray was not convincing yesterday. Current visit: Yes Status: Acute (2) Respiratory failure with hypoxia and hypercapnia Problem details: O2 demand has improved somewhat. Current visit: Yes Status: Acute (3) CHF (congestive heart failure) Problem details: This was identified over the weekend suspected as a volume overload, has improved with diuresis. Will continue oral diuresis. Current visit: Yes Status: Acute (4) Small bowel obstruction Problem details: Seems resolved, no emesis bowel function resuming. Current visit: Yes Status: Acute (5) Hypokalemia Problem details: Maintain with daily supplement. Current visit: Yes Status: Acute (6) Adenocarcinoma Problem details: This seems to be doing okay, patient is hoping for a visit by Oncology today. Current visit: No Status: Acute (7) Terminal care Problem details: Given the last item above, and the range of issues during this hospitalization, and general frail health of this individual my sense is her long-term survival is limited. I feel hospice is absolutely appropriate however I am not sure she can go home independently I will evaluate that with PT today, but if they feel that that is not the case and I do not see that we have any option other than SNF unless 24 hour home care as possible. Continue all usual care at this time but will defer to hospice as far as what can be for right at long-term under their services. Current visit: Yes Status: Acute (1) Pneumonia Qualifiers: Pneumonia type: due to unspecified organism Laterality: bilateral Lung location: unspecified part of lung Qualified Code(s): J18.9 - Pneumonia, unspecified organism
--- NOTE | 2018-12-20 18:01 | CM.DPC ---
DCP: continued: HNW visit did occur as planned at 1100. Pt's brother Dottie and his were in attendence. Pt did sign consents with HNW Isabella after much discussion and with continuation of her Full Code status Pt expressed hopefulness that she would recover enough to continue with her oncology treatment and was hoping that Dr. Green would see her later today. electrical worker Josie did come over during and after the Hospice info visit discussion. Pt at this point wishes to go to her home setting, with HNW if appropriate and very likely to be bedbound. She already has her ongoing suprapubic catherter in place and says she uses a brief for incontinence of bowel. She has limited options for care at this time and this was discussed in detail. Pt says she has about $7000 that she just tranferred into her account from an NICK that she wishes to use for extra caregiving. She also has the FLORA option which has just been initiated and the silver spray worker will need to continue to assist with this. Isabella/HNW will alert the RN at [facility] that pt should be a priority for an open to service as her home plan is tenuous and she would not have an appropriate home d/c plan if the HNW RN was not there at time of d/c. DCP team will need to continue to follow on all this in collaboration with HNW and oncology [employer] Josie as wll as pt's family. No family members are able to be a part of her care team at home, at this point. Pt does seem to have limited insight into what her needs might be at home but she has no interest in being in any other setting. She plans to have the hospital bed put up in her family room and to stay in bed unless someone is there to assist her. Progress was made on her d/c plan but still far from completed. Total time spend today on a safe appropriate d/c plan for pt: approx 2.5 hours.
[2018-12-21] VITALS (13 sets, daily range): BP systolic 103–126; BP diastolic 56–68; PULSE 93–120; RESP 15–24; TEMP 36.3–36.7; O2SAT 86–95
[2018-12-21] MEDS: AMPICILLIN/SULBACTAM 1.5 GM 1.5 GM in SODIUM CHLORIDE 0.9% 100 ML IV ×2 (00:53→06:12)
[2018-12-21] MEDS: methylPREDNISolone 125 MG/2 ML VIAL 60 MG IV ×2 (00:54→06:11)
[2018-12-21] MEDS: SODIUM CHLORIDE 0.9% FLUSH 10 ML IV ×5 (00:55→22:02)
[2018-12-21] MEDS: SODIUM CHLORIDE 0.9% 250 ML 21 ML IV (00:55)
--- NOTE | 2018-12-21 05:29 | PC.NURSE ---
Addendum entered by Mag Sanchez R.N. 12/21/18 06:20: Incontinent loose stools this am. Sats decreased to 88%; increased oxygen to 2.5L Hum NC. Denies SOB, Denies discomfort. Original Note: Assumed care of pt at 2300 on 12/20/18. Pt sleeping during hand-off. Awakens to voice. A/O. Denies pain or discomfort. 2L hum NC sats 95%, cpox on. Able to reposition independently or with minimal assist. Chronic sánchez draining to gravity. IV with intermit abx. IV changed on prior shift. Bed alarm on. Calling appropriately for needs.
[2018-12-21 05:51] LABS: Add Manual Diff / Slide Review NO; Basophils Absolute Auto 0 /uL (0-100); Basophils Percent Auto 0.2 % (0-2); Eosinophils Absolute Auto 0 /uL (0-450); Hematocrit 37.4 % (36-46); Hemoglobin 12.7 g/dL (12.0-16.0); Lymphocytes Absolute Auto 300 /uL (1100-4500); Lymphocytes Percent Auto 3.6 % (25-40); Mean Corpuscular HGB Conc 33.9 % (30-36); Mean Corpuscular Hemoglobin 32.1 PG (26-34); Mean Corpuscular Volume 94.8 fL (80-100); Monocytes Absolute Auto 800 /uL (0-900); Monocytes Percent Auto 9.9 % (3-14); Neutrophils Absolute Auto 6700 /uL (1500-7000); Neutrophils Percent Auto 86.3 % (50-75); Platelet Count 279 X10^3/uL (150-400); Red Blood Cell Count 3.95 X10^6/uL (4.0-5.2); Red Cell Distribution Width 14.1 % (11.6-14.8); White Blood Cell Count 7.7 X10^3/uL (4.5-11.0)
[2018-12-21 06:06] LABS: Blood Urea Nitrogen 12 mg/dL (7-17); Calcium 7.7 mg/dL (8.4-10.2); Carbon Dioxide 37 mmol/L (22-32); Chloride 91 mmol/L (98-107); Estimated Glomerular Filt Rate > 60.0 mL/min (>60); Glucose 100 mg/dL (80-110); HEMOLYSIS < 15 (0-50); Sodium 130 mmol/L (137-145)
[2018-12-21] MEDS: METOCLOPRAMIDE 10 MG/2 ML INJ IV ×3 (06:11→22:02)
[2018-12-21] MEDS: SALMETEROL 50 MCG DISKUS 1 PUFF INH ×2 (07:55→19:21)
[2018-12-21] MEDS: ALBUTEROL/IPRATROPIUM 3 ML AMPUL INH ×4 (07:55→19:21)
[2018-12-21] MEDS: POTASSIUM CHLORIDE 20 MEQ TAB 40 MEQ PO (09:25)
[2018-12-21] MEDS: CHOLECALCIFEROL (VITAMIN D3) 1,000 UNIT TABLET 3000 UNIT PO (09:25)
[2018-12-21] MEDS: ENOXAPARIN 40 MG/0.4 ML SYRINGE SUBCUT (09:26)
[2018-12-21] MEDS: FUROSEMIDE 40 MG TABLET PO (09:27)
[2018-12-21] MEDS: SIMETHICONE 80 MG TABLET PO ×3 (09:27→20:56)
[2018-12-21] MEDS: LORATADINE 10 MG TABLET PO (09:27)
--- NOTE | 2018-12-21 09:38 | P.PN_ITS ---
Subjective Date Patient Seen: 12/21/18 Time Patient Seen: 09:28 Interval history: Feels about the same. She is expecting to go home today, as a variety of discussions yesterday indicated to her that everything will be in place. Reading all notes I see 1st of all and PT as indicated a need for SNF placement, I do see that hospice has met with her and indicated a willingness to work with her even with her full code status, and that they would be trying to be available by today if discharge occurred, given that they understood that she will need extensive assistance right away. She also notes that she has other support in place with family and perhaps neighbors although I do not get a sense that they will be there a community support associate. She has indicated that she would be okay with a Rand and a diaper so that she would not need someone there all the time to get into the bathroom and back. Finally noting that doctor Peter has ?over ruled? me by indicating he feels that she can go home. She continues to insist that she is confident that she will overcome this, with God's help. So she just needs to get home so she can get on with her recovery. Review of systems is unchanged. Exam Vital Signs (past 8 hours): - 12/21/18 05:28 12/21/18 07:57 12/21/18 09:00 Temperature 97.8 F 97.4 F L Pulse Rate 98 H 93 H 100 H Respiratory Rate 20 24 20 Blood Pressure 125/68 126/66 Pulse Oximetry 92 93 93 Fraction of Inspired Oxygen 30 Oxygen Delivery Method Nasal Cannula Oxygen Flow Rate 2 Narrative Exam Narrative: Frail-appearing, no acute distress, awake and appropriate. HEENT unremarkable neck is benign no jugular venous distention, chest seems actually pretty clear although distant, heart regular without murmur abdomen slightly distended but without tenderness but with active bowel tones. Extremities unremarkable neurologically unremarkable. Objective Labs Result Diagrams: 12/21/18 05:15 12/21/18 05:15 Labs: Laboratory Results - last 24 hr 12/21/18 12/21/18 05:15 05:15 WBC 7.7 RBC 3.95 L Hgb 12.7 Hct 37.4 MCV 94.8 MCH 32.1 MCHC 33.9 RDW 14.1 Plt Count 279 Neut % (Auto) 86.3 H Lymph % (Auto) 3.6 L [place] % (Auto) 9.9 Eos % (Auto) 0.0 L Baso % (Auto) 0.2 Neut # (Auto) 6700 Lymph # (Auto) 300 L [place] # (Auto) 800 Eos # (Auto) 0 Baso # (Auto) 0 Sodium 130 L Potassium 4.0 Chloride 91 L Carbon Dioxide 37 H BUN 12 Creatinine 0.50 L Estimated GFR > 60.0 BUN/Creatinine Ratio 24.0 H Glucose 100 Calcium 7.7 L Assessment & Plan (1) Pneumonia: Problem details: Does seem a bit better now back on Unasyn and along with Zithromax. Chest x-ray was not convincing yesterday. Qualifiers: Aspiration pneumonia type: Laterality: bilateral Lung location: unspecified part of lung Pneumonia type: due to unspecified organism Qualified Code(s): J18.9 - Pneumonia, unspecified organism Current visit: Yes Status: Acute (2) Respiratory failure with hypoxia and hypercapnia: Problem details: Has improved now to 2 L by nasal cannula. Qualifiers: Chronicity: Current visit: Yes Status: Acute (3) Small bowel obstruction: Problem details: Seems resolved, no emesis bowel function resuming. Current visit: Yes Status: Acute (4) Hypokalemia: Problem details: Maintain with daily supplement. Current visit: Yes Status: Acute (5) CHF (congestive heart failure): Problem details: Remains stable on oral diuresis Qualifiers: Heart failure type: Heart failure chronicity: Current visit: Yes Status: Acute (6) Adenocarcinoma: Problem details: I believe Oncology met with her yesterday, they seem to indicate given the setting of this hospitalization and her history that her prognosis remains rather poor. Did seem to support home discharge. Current visit: No Status: Acute (7) Terminal care: Problem details: I remain convinced that she is not strong enough to go home, especially given absence of resources required for 24 hour care, she seems convinced on the other hand that she can manage, with a Rand and or diaper and therefore does not need to be cared for at all times. I do not believe that she will live very much longer although I hope that her desires overcome this. I also do not that everything will be in place today so Care Management is working on that to assure that all was in place that as much support as possible as available to pursue comfort care with hospice and minimal additional therapies. Current visit: Yes Status: Acute Assessment & Plan narrative: Will switch to orals from IV medications, for portability, anticipating likely discharge tomorrow if everything falls in place. Time Spent With Patient Time with patient: Greater than 35 minutes Quality VTE Deep Vein Thrombosis/Pulmonary Embolism Present on Admission: No
[2018-12-21] MEDS: AMOXICILLIN/CLAV 875/125 MG 1 TAB PO ×2 (09:41→20:56)
[2018-12-21] MEDS: predniSONE 20 MG TABLET 60 MG PO (09:42)
[2018-12-21] MEDS: PANTOPRAZOLE 40 MG TABLET PO (09:50)
[2018-12-21] MEDS: LORazepam 2 MG/ML SYRINGE 0.5 MG IV ×2 (11:15→21:04)
--- NOTE | 2018-12-21 11:34 | PC.NURSE ---
AM NOTE - pt is alert, sitting upright in bed, asking for RT treatment during bedside shift report, pursed lipped breathing, 2l high flow cannula 93%, expir wheezes upper airways, dim,, thin, fragile skin with mult skin tears, bruising deonte ue, dry, flaky skin feet, applied allevyn dsg to tape tear near iv site, lotion to feet, RT in this am for tmt, later when pt awoke from sleep, sat were decr to 78%, breathing shallow, incr RR, incr 02 to 5L and RT notified, pt states she feels anxious, RT in and treatment provided, 0.5mg iv ativan given and pt gradually improved to where her 02 sat 96% and placed back on 2L, more relaxed, less shallow breaths and able to speak to her friend at bedside.
--- NOTE | 2018-12-21 13:01 | ONC.MSW ---
Discharge Plan Cont. This FILTER ASSEMBLER has been coordinating with discharge planners and hospice re: creating a safe discharge plan home for patient. She has told various people in her room that she thinks that she is going home today, however this is not the case. FILTER ASSEMBLER called pt's son/DPOA, Álvaro, to discuss the steps necessary to discharge patient home with hospice, which is primarily hiring 24-hour care in the home prior to pt's return home. He stated that he was feeling frustrated and angry that he doesn't know what's really going on, and insisted that he needed to speak to a doctor to clarify what her plan is. FILTER ASSEMBLER shared that both Dr. Lazaro and I had met with the patient, and he is in agreement with the inpt providers that pt is not a candidate for further chemotherapy due to her diminished functional status, and that he supports her transitioning to hospice care. Discussed the costs of hiring in-home care, what to expect with hospice services, and updated him on pt's total inability to care for herself. He already knew that she was refusing to go to a chcf facility, and that this could become an option once she spends down her money and qualifies for Medicaid. FILTER ASSEMBLER also discussed that hospice will have a outreach and education social worker to assist him and the family in continuing to assess her level of care needs in the home, offer resources and assist with a SNF placement if it becomes too difficult to manage her care in the home. He resides in [place], and her local brother (Antonio Santillan) is not available to help with her care. Pt is now incontinent of stool, has an in-dwelling catheter, is unable to bear weight, and is continuing to have respiratory difficulty with breathing, even on O2. Discussed that the best case scenario is for hospice to deliver all DME, including O2, and have a hospice nurse waiting at the home when pt's ambulance arrives from hospital discharge. FILTER ASSEMBLER and Álvaro agreed on plan that I would email him a caregiving resource list, as well as a resource for affordable burial, which was also one of his expressed concerns/needs. He expressed feeling much better, understands now his next steps in order to get pt back home. He will review the caregiving info when he gets home tonight, and will begin making calls by tomorrow morning in order to secure 24-hour in-home care. Additionally, FILTER ASSEMBLER informed him that pt has told hospital staff that she has moved $7000 from her NICK into her checking account to pay for care. He stated that she doesn't have much more money than that, and that she will most likely run out of funds by the end of 1-month. He also stated that given her diminished mental capacity and difficulty with memory/processing, that she should not be signing anything on her own, nor should she be moving money around. He will take care of this as both her healthcare DPOA/General DPOA for finances. Plan: Álvaro will call this FILTER ASSEMBLER tomorrow late morning to update on his progress with the care plan.
[2018-12-22] VITALS (15 sets, daily range): BP systolic 114–131; BP diastolic 59–65; PULSE 88–110; RESP 16–22; TEMP 36.2–37.1; O2SAT 86–99
--- NOTE | 2018-12-22 02:55 | PC.NURSE ---
Addendum entered by Mag Sanchez R.N. 12/22/18 06:53: Desats to 84% on 3L NC. Increased oxygen to 5L with no change in sats, increased to 7L, sats increased to 91% Pt requests neb, Notified RT. Original Note: Assumed care of pt at 2300 on 12/21/18. Pt sleeping during bedside hand-off. CPOX on. Desats to 81% on 2L. RT notified; per RT increase oxygen to 5L . Sats increased to 89% on 5L and then to 99% 5L. Titrated Oxygen to 3L Sats 95%. Denies pain or sob. BS dim. Rand draining to gravity. Pt is able to reposition with minimal assist. Declines to turn so far tonight. Pressure injury prevention education provided. Bed alarm on. Door open for close monitoring.
[2018-12-22 05:47] LABS: Add Manual Diff / Slide Review NO; Basophils Absolute Auto 0 /uL (0-100); Basophils Percent Auto 0.1 % (0-2); Eosinophils Absolute Auto 0 /uL (0-450); Eosinophils Percent Auto 0.1 % (2-4); Hematocrit 37.7 % (36-46); Hemoglobin 12.6 g/dL (12.0-16.0); Lymphocytes Absolute Auto 600 /uL (1100-4500); Mean Corpuscular HGB Conc 33.4 % (30-36); Mean Corpuscular Hemoglobin 31.9 PG (26-34); Mean Corpuscular Volume 95.5 fL (80-100); Monocytes Absolute Auto 1500 /uL (0-900); Monocytes Percent Auto 13.9 % (3-14); Neutrophils Absolute Auto 8400 /uL (1500-7000); Neutrophils Percent Auto 79.9 % (50-75); Platelet Count 293 X10^3/uL (150-400); Red Blood Cell Count 3.95 X10^6/uL (4.0-5.2); Red Cell Distribution Width 14.1 % (11.6-14.8); White Blood Cell Count 10.5 X10^3/uL (4.5-11.0)
[2018-12-22 05:56] LABS: Blood Urea Nitrogen 11 mg/dL (7-17); Calcium 7.7 mg/dL (8.4-10.2); Carbon Dioxide 37 mmol/L (22-32); Chloride 90 mmol/L (98-107); Estimated Glomerular Filt Rate > 60.0 mL/min (>60); Glucose 79 mg/dL (80-110); HEMOLYSIS < 15 (0-50); Potassium 4.6 mmol/L (3.4-5.1); Sodium 128 mmol/L (137-145)
[2018-12-22] MEDS: METOCLOPRAMIDE 10 MG/2 ML INJ IV (06:11)
[2018-12-22] MEDS: SODIUM CHLORIDE 0.9% FLUSH 10 ML IV ×3 (06:11→21:35)
[2018-12-22] MEDS: PANTOPRAZOLE 40 MG TABLET PO (06:13)
[2018-12-22] MEDS: ALBUTEROL/IPRATROPIUM 3 ML AMPUL INH (07:06)
[2018-12-22] MEDS: SALMETEROL 50 MCG DISKUS 1 PUFF INH (07:07)
[2018-12-22] MEDS: POTASSIUM CHLORIDE 20 MEQ TAB 40 MEQ PO (09:01)
[2018-12-22] MEDS: AMOXICILLIN/CLAV 875/125 MG 1 TAB PO ×2 (09:01→21:36)
[2018-12-22] MEDS: predniSONE 20 MG TABLET 60 MG PO (09:02)
[2018-12-22] MEDS: CHOLECALCIFEROL (VITAMIN D3) 1,000 UNIT TABLET 3000 UNIT PO (09:02)
[2018-12-22] MEDS: FUROSEMIDE 40 MG TABLET PO (09:02)
[2018-12-22] MEDS: LORATADINE 10 MG TABLET PO (09:02)
[2018-12-22] MEDS: ENOXAPARIN 40 MG/0.4 ML SYRINGE SUBCUT (09:02)
[2018-12-22] MEDS: SIMETHICONE 80 MG TABLET PO ×4 (09:03→21:35)
--- NOTE | 2018-12-22 09:06 | P.PN_ITS ---
Subjective Date Patient Seen: 12/22/18 Time Patient Seen: 08:55 Interval history: She says she feels fine. Quite frustrated though in the process of getting home. Again had expectation that she could go home yesterday full arrangements could not be made so discharge was delayed at least until today and I was expecting that we could make those arrangements this morning. However, see the electronic instrument trades worker note, about the involvement of her son, Álvaro, who is in [place], but who is her DPOA, enlisting his help in arranging 24 hour care. Certainly this has been her primary goal feeling that she would not be safe at home alone but that she insisted on not going to SNF. So getting some combination of care to be available 24 hours was very important. She understands that, though this and continues to insist on home today. Exam Vital Signs (past 8 hours): - 12/22/18 01:00 12/22/18 01:31 12/22/18 05:13 Temperature 97.4 F L Pulse Rate 92 H Respiratory Rate 18 Blood Pressure 124/63 Pulse Oximetry 95 95 95 12/22/18 07:15 12/22/18 08:09 12/22/18 08:34 Temperature 97.1 F L Pulse Rate 95 H 97 H Respiratory Rate 17 22 Blood Pressure 118/60 Pulse Oximetry 91 95 97 Fraction of Inspired Oxygen 30 Oxygen Delivery Method Nasal Cannula Oxygen Flow Rate 2 Narrative Exam Narrative: Resting quietly in bed no acute distress HEENT unremarkable neck is benign without JVD, chest a crackle or 2 in the left otherwise clear heart regular without murmur abdomen soft nontender nondistended normoactive bowel tones extremities benign neurologically nonfocal Objective Labs Result Diagrams: 12/22/18 05:08 12/22/18 05:08 Labs: Laboratory Results - last 24 hr 12/22/18 12/22/18 05:08 05:08 WBC 10.5 RBC 3.95 L Hgb 12.6 Hct 37.7 MCV 95.5 MCH 31.9 MCHC 33.4 RDW 14.1 Plt Count 293 Neut % (Auto) 79.9 H Lymph % (Auto) 6.0 L [place] % (Auto) 13.9 Eos % (Auto) 0.1 L Baso % (Auto) 0.1 Neut # (Auto) 8400 H Lymph # (Auto) 600 L [place] # (Auto) 1500 H Eos # (Auto) 0 Baso # (Auto) 0 Sodium 128 L Potassium 4.6 Chloride 90 L Carbon Dioxide 37 H BUN 11 Creatinine 0.50 L Estimated GFR > 60.0 BUN/Creatinine Ratio 22.0 Glucose 79 L Calcium 7.7 L Assessment & Plan (1) Pneumonia: Problem details: Continues to improve, now on oral antibiotics. Qualifiers: Aspiration pneumonia type: Laterality: bilateral Lung location: unspecified part of lung Pneumonia type: due to unspecified organism Qualified Code(s): J18.9 - Pneumonia, unspecified organism Current visit: Yes Status: Acute (2) Respiratory failure with hypoxia and hypercapnia: Problem details: Doing pretty well still on 2 L Qualifiers: Chronicity: Current visit: Yes Status: Acute (3) COPD (chronic obstructive pulmonary disease): Problem details: Continue same medications returning to baseline Qualifiers: COPD type: COPD with acute exacerbation Chronic bronchitis type: Emphysema type: Qualified Code(s): J44.1 - Chronic obstructive pulmonary disease with (acute) exacerbation Current visit: Yes Status: Acute (4) Small bowel obstruction: Problem details: Seems resolved, no emesis bowel function resuming. Current visit: Yes Status: Acute (5) Hypokalemia: Problem details: Approaching high will back off on oral supplement Current visit: Yes Status: Acute (6) CHF (congestive heart failure): Problem details: Stable continue oral diuresis Qualifiers: Heart failure type: Heart failure chronicity: Current visit: Yes Status: Acute (7) Adenocarcinoma: Problem details: See Oncology QUARTER LINING SMOOTHER note yesterday that indicates they no longer feel chemotherapy is appropriate but that hospice is appropriate. Current visit: No Status: Acute (8) Terminal care: Problem details: Hospice is involved sounds like equipment has been delivered but still needs 24 hour care, at this point that is the holdup, son is involved with arranging for that if that is not possible my sense is the patient will still insist on going home regardless of what can be arranged, continues to insist that she can get the help she needs and can do so without someone there all the time. Current visit: Yes Status: Acute (9) Protein calorie malnutrition: Problem details: New issue understand that there was a nutritional evaluation, she notes that she has not been eating much over the past few months as continued during this hospitalization, and in fact was NPO for several days with her SBO, only compounding the issue. Not clear at this time that we need to supplement nutrition further except with standard oral supplements. Current visit: Yes Status: Acute Assessment & Plan narrative: Continue to follow pending home care arrangements. Reviewing recent QUARTER LINING SMOOTHER notes as well as meeting with care management on the floor and extensive visit with patient. Time Spent With Patient Time with patient: Greater than 35 minutes Quality VTE Deep Vein Thrombosis/Pulmonary Embolism Present on Admission: No
--- NOTE | 2018-12-22 10:35 | PC.NURSE ---
Addendum entered by Lety Duran R.N. 12/22/18 13:39: ANXIETY - pt lying bed, RR unlabored and declined earlier RT tmt, 2l 94%, states she is anxious regarding disposition home and arrangements, states she does take valium at home, given 0.5mg iv ztivan now. Original Note: AM NOTE - pt is awake, RT in tmt this am, sat 93% 2l, moist, congested non productive cough, expir wheezes upper lobes, denies pain, after breakfast states I'd like to go sleep, repositioned for comfort.
[2018-12-22] MEDS: LORazepam 2 MG/ML SYRINGE 0.5 MG IV ×2 (13:24→21:33)
--- NOTE | 2018-12-22 13:39 | ONC.MSW ---
DCP: Cont... This SIDE SEAM TENDER called pt's son/DPOA, Álvaro, to find out about the status of his process of calling caregiving agencies to establish 24-hour care for pt's discharge. He had originally said that he would have this done before noon today, however when I just called him at approx. 1:30pm, he had not begun to make calls yet. He states that he will call this SIDE SEAM TENDER by 3:00pm today to update re: his progress and the plan.
[2018-12-23] VITALS (14 sets, daily range): BP systolic 90–143; BP diastolic 56–75; PULSE 79–112; RESP 14–30; TEMP 36.4–37.1; O2SAT 79–100
[2018-12-23 05:43] LABS: Add Manual Diff / Slide Review NO; Basophils Absolute Auto 0 /uL (0-100); Basophils Percent Auto 0.1 % (0-2); Eosinophils Absolute Auto 100 /uL (0-450); Eosinophils Percent Auto 0.7 % (2-4); Hematocrit 39.8 % (36-46); Hemoglobin 13.3 g/dL (12.0-16.0); Lymphocytes Absolute Auto 1200 /uL (1100-4500); Lymphocytes Percent Auto 9.4 % (25-40); Mean Corpuscular HGB Conc 33.6 % (30-36); Mean Corpuscular Hemoglobin 31.6 PG (26-34); Mean Corpuscular Volume 94.3 fL (80-100); Monocytes Absolute Auto 1700 /uL (0-900); Monocytes Percent Auto 13.1 % (3-14); Neutrophils Absolute Auto 9800 /uL (1500-7000); Neutrophils Percent Auto 76.7 % (50-75); Platelet Count 311 X10^3/uL (150-400); Red Blood Cell Count 4.22 X10^6/uL (4.0-5.2); Red Cell Distribution Width 14.2 % (11.6-14.8); White Blood Cell Count 12.8 X10^3/uL (4.5-11.0)
[2018-12-23 05:54] LABS: Blood Urea Nitrogen 9 mg/dL (7-17); Calcium 7.9 mg/dL (8.4-10.2); Carbon Dioxide 34 mmol/L (22-32); Chloride 90 mmol/L (98-107); Estimated Glomerular Filt Rate > 60.0 mL/min (>60); Glucose 62 mg/dL (80-110); HEMOLYSIS < 15 (0-50); Potassium 4.1 mmol/L (3.4-5.1); Sodium 128 mmol/L (137-145)
[2018-12-23] MEDS: PANTOPRAZOLE 40 MG TABLET PO (06:26)
--- NOTE | 2018-12-23 08:37 | PM.PN.1 ---
Subjective Date Patient Seen: 12/23/18 Time Patient Seen: 08:37 Interval history: Feels fine, no particular complaints. Not much appetite but is eating a bit. Main issue for her at home. Reviewing information seems the ball is in her son's Court at this point he has promised to look into 24 hour care options but I can see that that has occurred yet. Exam Vital Signs (past 8 hours): - 12/23/18 00:50 12/23/18 05:15 12/23/18 07:21 Temperature 98.7 F 97.6 F 97.6 F Pulse Rate 93 H 93 H 109 H Respiratory Rate 16 16 20 Blood Pressure 126/73 127/67 143/75 H Pulse Oximetry 98 95 94 12/23/18 07:52 Temperature Pulse Rate 104 H Respiratory Rate Blood Pressure Pulse Oximetry 96 Fraction of Inspired Oxygen 30 Oxygen Delivery Method High Flow Nasal Cannula Oxygen Flow Rate 4 Narrative Exam Narrative: Frail no acute distress HEENT unremarkable neck is benign without jugular venous distention, chest is clear heart regular somewhat fast without murmur abdomen soft nontender nondistended normoactive bowel tones no organomegaly or mass extremities and neurologic benign Objective Labs Result Diagrams: 12/23/18 04:58 12/23/18 04:58 Labs: Laboratory Results - last 24 hr 12/23/18 12/23/18 04:58 04:58 WBC 12.8 H RBC 4.22 Hgb 13.3 Hct 39.8 MCV 94.3 MCH 31.6 MCHC 33.6 RDW 14.2 Plt Count 311 Neut % (Auto) 76.7 H Lymph % (Auto) 9.4 L [place] % (Auto) 13.1 Eos % (Auto) 0.7 L Baso % (Auto) 0.1 Neut # (Auto) 9800 H Lymph # (Auto) 1200 [place] # (Auto) 1700 H Eos # (Auto) 100 Baso # (Auto) 0 Sodium 128 L Potassium 4.1 Chloride 90 L Carbon Dioxide 34 H BUN 9 Creatinine 0.50 L Estimated GFR > 60.0 BUN/Creatinine Ratio 18.0 Glucose 62 L Calcium 7.9 L Assessment & Plan (1) Pneumonia: Problem details: Continues to improve, now on oral antibiotics. Qualifiers: Aspiration pneumonia type: Laterality: bilateral Lung location: unspecified part of lung Pneumonia type: due to unspecified organism Qualified Code(s): J18.9 - Pneumonia, unspecified organism Current visit: Yes Status: Acute (2) Respiratory failure with hypoxia and hypercapnia: Problem details: Doing pretty well still on 2 L, will need at home. Qualifiers: Chronicity: Current visit: Yes Status: Acute (3) CHF (congestive heart failure): Problem details: Stable continue oral diuresis, will resume beta-danielle Qualifiers: Heart failure type: Heart failure chronicity: Current visit: Yes Status: Acute (4) COPD (chronic obstructive pulmonary disease): Problem details: Continue same medications returning to baseline, will cut prednisone dose Qualifiers: COPD type: COPD with acute exacerbation Chronic bronchitis type: Emphysema type: Qualified Code(s): J44.1 - Chronic obstructive pulmonary disease with (acute) exacerbation Current visit: Yes Status: Acute (5) Small bowel obstruction: Problem details: Seems resolved, no emesis bowel function resuming. Current visit: Yes Status: Acute (6) Protein calorie malnutrition: Problem details: Not eating much, not making much headway here. Current visit: Yes Status: Acute (7) Terminal care: Problem details: We are still on holding pattern for home care. She is still I believe a terminal status, as hospice in place, but really too weak to go home alone and insistent on not going to SNF. The son is to arrange 24 hour care hopefully he will follow through, understand he may be traveling up to take care of an on-site. I think she is stable enough medically at this point that she could be discharged at any time as soon as those resources are available. Current visit: Yes Status: Acute (8) Hypokalemia: Problem details: Stable on oral dose Current visit: Yes Status: Acute Assessment & Plan narrative: This point awaiting home care arrangements. Reviewed situation in detail with patient also reviewed with care management, grain i farmworker is currently following through with home planning. Time Spent With Patient Time with patient: Greater than 35 minutes Quality VTE Deep Vein Thrombosis/Pulmonary Embolism Present on Admission: No
[2018-12-23] MEDS: SIMETHICONE 80 MG TABLET PO ×4 (09:01→20:26)
[2018-12-23] MEDS: POTASSIUM CHLORIDE 20 MEQ TAB PO (09:02)
[2018-12-23] MEDS: AMOXICILLIN/CLAV 875/125 MG 1 TAB PO ×2 (09:02→20:27)
[2018-12-23] MEDS: LORATADINE 10 MG TABLET PO (09:04)
[2018-12-23] MEDS: ENOXAPARIN 40 MG/0.4 ML SYRINGE SUBCUT (09:04)
[2018-12-23] MEDS: FUROSEMIDE 40 MG TABLET PO (09:04)
[2018-12-23] MEDS: SODIUM CHLORIDE 0.9% FLUSH 10 ML IV ×2 (09:05→20:27)
[2018-12-23] MEDS: predniSONE 20 MG TABLET 40 MG PO (09:05)
[2018-12-23] MEDS: METOPROLOL ER 25 MG TABLET PO (09:06)
[2018-12-23] MEDS: CHOLECALCIFEROL (VITAMIN D3) 1,000 UNIT TABLET 3000 UNIT PO (09:14)
[2018-12-23] MEDS: LORazepam 2 MG/ML SYRINGE 0.5 MG IV (09:16)
[2018-12-23] MEDS: ALBUTEROL/IPRATROPIUM 3 ML AMPUL INH (10:09)
--- NOTE | 2018-12-23 10:15 | CM.DPNOTE ---
DCP: note: case was discussed today in Team Rounds. RAULITO Vidal stated that after discussion with the dc materials planner/production planner Jenny on 12/21 the laceworker team had agreed to take over this case in collaboration with the humidifier maintenance worker (who will follow again today.)
[2018-12-23] MEDS: FUROSEMIDE 40 MG/4 ML VIAL IV (10:19)
--- NOTE | 2018-12-23 12:19 | CM.DPNOTE ---
DCP efforts reviewed w/both Dr Lemos and UR DESHAWN Chavez this morning; both have question what are the current barriers to DC today? See Oncology SWer/ INDUSTRIAL MAINTENANCE REPAIRER HELPER Josie Means' notes re: DCP efforts over the last two days. This SANDING MACHINE OPERATOR OR TENDER placed call to son Álvaro to see if any updates on efforts to secure in home care giving? Álvaro explains in no uncertain terms that he is working on coordinating 24/7 cg for his mom and he is talking to multiple agencies to understand who can provide this amount of care, when, and how much it will cost pt and her family to arrange this. Álvaro indicated that monies need to be moved around and stocks/bonds cahed out in order to fund this amount of private cg. This SANDING MACHINE OPERATOR OR TENDER asked about liquid funds available to pt in checking ? Álvaro explained this would not be enough to secure this level of care in pt's home. SANDING MACHINE OPERATOR OR TENDER team could investigate further FLORA as a cg resource although this is also a timely process and cgs would not be available in pt's home right away. Efforts will continue on coordinating a safe DCP for this pt; home w/ care giving support and hospice. Pt has no local friends or family to provide any assistance and pt unable to care for herself w/o 1-2 person assist. RAULITO Gerber
--- NOTE | 2018-12-23 12:56 | CM.DPC ---
DCP: Continued This BRAKE LINING CURER spoke with Dr. Lemos to update on pt's son's progress in securing an in-home care plan. BRAKE LINING CURER then spoke with [facility] to clarify when they could have a nurse meet pt at the home to admit, which they are not able to do until 10:00am Wednesday-12/26. They confirmed that they had not yet delivered equipment. BRAKE LINING CURER requested that they call pt's brother, Trell, to make arrangements for him to be at the home to receive medical equipment and O2 withing the next few days. Called son, Álvaro. He confirmed that he has a plan with [facility] to begin care on Wednesday, and that they will be here at to evaluate pt sometime today. This care plan was delayed due to son needing to transfer money out of pt's NICK in order to pay for the care. [facility] has agreed to begin care on Wednesday, even though the funds won't be available for withdrawal until Wednesday (this was the main holdup). Hospice would need pt to be discharged early enough Wednesday in order for the ambulance to be at the home by 10:00am. Son will call this BRAKE LINING CURER back again later today to again confirm that all parties are on the same page and are understanding of this final discharge plan. BRAKE LINING CURER offered emotional support, and acknowledged how difficult this must be for him and the family, due to his mother being at the end of life. He expressed feeling at his wits end in trying to get things going as quickly as possible, while at the same time trying to do all of this while he is at work. He will also plan to fly up here once she has been discharged home, and is established in her care with hospice. BRAKE LINING CURER will also address pt's FULL CODE status with son when he calls back.
--- NOTE | 2018-12-23 14:18 | PC.NURSE ---
Addendum entered by Ame Jordan R.N. 12/23/18 15:04: Pt just given 1mg of iv morphine for comfort and she is resting comfortably. Original Note: Pt had an episode of saturation going down into the 70s. Her fingernails were blue and face ordonez. Pt had just been given 0.5mg of iv ativan as she was complaining of increased anxiety. Pt was a&ox3 during breathing issues. RT up to see patient and she was placed on a mask at 15l, sats began to go up to 86 and then eventually 94%. Pt has been switched to HFNC and is satting at 95%. She was also given 40mg of iv lasix and pt had a lot of urine output in her sánchez catheter. She now just has wheezes in lung szymanski when auscultated. Pt would like to come and sit out in the halls and take a walk in wheelchair, explained to patient that when staff was free we could do that. She is comfortable and had a chocolate candy bar for lunch. Pt has refused her lunch this afternoon and only ate about 15% of her breakfast.
[2018-12-23] MEDS: MORPHINE 2 MG/ML INJ 1 MG IV (14:54)
--- NOTE | 2018-12-23 15:26 | PC.NURSE ---
Patient desaturating this am, call to RT and MD to notify of change in status. Increase of high flow nasal cannula as well as PRN breathing treatment and IV lasix ordered one time. Lasix assisted in breathing. Primary RN Ame spoke with MD again this afternoon regarding prn morphine for dyspnea/sob, new order, patient updated to POC.
--- NOTE | 2018-12-23 21:16 | PC.NURSE ---
pt was 96% 12L hi flow at the beginning of francisco shift. pt now on 4L hi flow 100%. desats to 70's while talking. pt is a two person assist-stand and pivot. princess patent. cms+. call light in reach. bed alarm active. pt did not eat her dinner and had a few sips of jaqueline codi.
[2018-12-24] VITALS (14 sets, daily range): BP systolic 82–99; BP diastolic 43–55; PULSE 22–89; RESP 18–26; TEMP 36.5–37.2; O2SAT 89–99
[2018-12-24] MEDS: ALBUTEROL/IPRATROPIUM 3 ML AMPUL INH ×2 (00:50→05:44)
[2018-12-24] MEDS: SALMETEROL 50 MCG DISKUS 1 PUFF INH (05:46)
[2018-12-24] MEDS: PANTOPRAZOLE 40 MG TABLET PO (06:05)
[2018-12-24] MEDS: POTASSIUM CHLORIDE 20 MEQ TAB PO (08:56)
[2018-12-24] MEDS: AMOXICILLIN/CLAV 875/125 MG 1 TAB PO ×2 (08:57→22:52)
[2018-12-24] MEDS: SIMETHICONE 80 MG TABLET PO ×2 (08:57→22:52)
[2018-12-24] MEDS: SODIUM CHLORIDE 0.9% FLUSH 10 ML IV ×2 (08:57→22:07)
[2018-12-24] MEDS: predniSONE 20 MG TABLET 40 MG PO (08:57)
[2018-12-24] MEDS: ENOXAPARIN 40 MG/0.4 ML SYRINGE SUBCUT (08:57)
[2018-12-24] MEDS: CHOLECALCIFEROL (VITAMIN D3) 1,000 UNIT TABLET 3000 UNIT PO (08:57)
[2018-12-24] MEDS: LORATADINE 10 MG TABLET PO (08:58)
[2018-12-24] MEDS: METOPROLOL ER 25 MG TABLET PO (08:59)
[2018-12-24] MEDS: FUROSEMIDE 40 MG TABLET PO (08:59)
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
--- NOTE | 2018-12-24 10:25 | P.PN_ITS ---
Subjective Date Patient Seen: 12/24/18 Time Patient Seen: 10:14 Interval history: Overall feeling well today. No major new changes. No cough. Not significantly short of breath. No other changes. Patient otherwise has no other significant new changes or complaints. Apparently son coming tomorrow. Hospice is set up for Wednesday. No other changes. Exam Vital Signs (past 8 hours): - 12/24/18 04:20 12/24/18 05:46 12/24/18 08:00 Temperature 97.7 F 97.7 F Pulse Rate 79 80 89 Respiratory Rate 24 19 Blood Pressure 93/50 L 92/55 L Pulse Oximetry 95 91 89 L 12/24/18 09:38 Temperature Pulse Rate 84 Respiratory Rate 22 Blood Pressure Pulse Oximetry 95 Fraction of Inspired Oxygen 36 Oxygen Delivery Method Nasal Cannula Oxygen Flow Rate 4 Narrative Exam Narrative: Alert female with O2 in no acute distress. Lungs are clear. Heart's regular rate and rhythm. Abdomen is soft positive bowel sounds nontender. Extremities without cyanosis clubbing edema. Objective Labs Result Diagrams: 12/23/18 04:58 12/23/18 04:58 Assessment & Plan Assessment & Plan narrative: Colon cancer with Mets. At this point she is going home with hospice. Oncologists apparently do not want to treat at this time. I t appears as if mostly we will be transitioning to comfort care at that time. Hyponatremia. No other significant changes will check tomorrow morning. Elevated white count. Possibly secondary pneumonia. Possibly secondary to blocked airways. We will see how things go. Continue Unasyn for now. No other change. COPD. Stable. On O2. Congestive heart failure ALEXANDRA seem to be stable. No other changes History of SBO. Patient's birthday today. Patient has been on clear liquids. Will advance diet. Follow from there. History of hypokalemia. Will recheck tomorrow. Code status. Patient still desires full code. Present disposition. Discussed with social work program coordinator. Will set up discharge for Wednesday. Hospice with son. Quality VTE Deep Vein Thrombosis/Pulmonary Embolism Present on Admission: No
[2018-12-24 10:29] LABS: Hemoglobin 13.3 g/dL (12.0-16.0); Mean Corpuscular HGB Conc 33.2 % (30-36); Mean Corpuscular Hemoglobin 31.3 PG (26-34); Mean Corpuscular Volume 94.3 fL (80-100); Platelet Count 316 X10^3/uL (150-400); Red Blood Cell Count 4.25 X10^6/uL (4.0-5.2); Red Cell Distribution Width 14.2 % (11.6-14.8); White Blood Cell Count 15.5 X10^3/uL (4.5-11.0)
[2018-12-24 10:31] LABS: Add Manual Diff / Slide Review YES
[2018-12-24 10:35] LABS: Blood Urea Nitrogen 9 mg/dL (7-17); Calcium 7.6 mg/dL (8.4-10.2); Carbon Dioxide 35 mmol/L (22-32); Chloride 87 mmol/L (98-107); Estimated Glomerular Filt Rate > 60.0 mL/min (>60); Glucose 95 mg/dL (80-110); HEMOLYSIS 15 (0-50); Potassium 3.9 mmol/L (3.4-5.1); Sodium 129 mmol/L (137-145)
[2018-12-24 11:01] LABS: RBC Morphology Normal Morphology
--- NOTE | 2018-12-24 14:27 | CM.DPC ---
DCP/continued: Received verbal referral from Dr. Eldridge this AM re: d/c plan. Per Dr. Eldridge his thought was that patient would be going home with hospice in the next 24-48hrs. SIGN WRITER LETTERER OR PAINTER also received call from patient's son/Álvaro # [phone], he confirms that he has spoken with hospice and that patient is expected to d/c from [facility] on Wednesday12-26-18. Hospice expected at the residence at 10:00am. Son/Álvaro is out of town but plans to arrive tomorrow. SIGN WRITER LETTERER OR PAINTER confirmed the above information with Ella at [facility]. She confirms that DME is being delivered to residence between 9-10:00am. Placed call to non-urgent [facility] transport. BLS scheduled to pick patient up from room# 228 at 9:30am on Wednesday. MD will need to be notified on Wednesday12-25-18 that all orders will need to be completed for discharge by 9:00am. Also non-urgent BLS form will need to be signed by MD. Currently it is filled out and with face sheet. P: Home wednesday12-26-18 with hospice opening at the residence at 10:00am. Son and patient aware and agreeable. MD to be notified on Wednesday12-25-18. BLS transport arranged. RN updated. RAULITO Holland
[2018-12-24] MEDS: LORazepam 2 MG/ML SYRINGE 0.5 MG IV (16:31)
[2018-12-25] VITALS (16 sets, daily range): BP systolic 91–102; BP diastolic 44–62; PULSE 69–84; RESP 18–20; TEMP 36.6–37.1; O2SAT 88–97
[2018-12-25] MEDS: PANTOPRAZOLE 40 MG TABLET PO (06:04)
[2018-12-25] MEDS: ENOXAPARIN 40 MG/0.4 ML SYRINGE SUBCUT (08:07)
[2018-12-25] MEDS: POTASSIUM CHLORIDE 20 MEQ TAB PO (08:07)
[2018-12-25] MEDS: FUROSEMIDE 40 MG TABLET PO (08:07)
[2018-12-25] MEDS: LORATADINE 10 MG TABLET PO (08:07)
[2018-12-25] MEDS: METOPROLOL ER 25 MG TABLET PO (08:07)
[2018-12-25] MEDS: AMOXICILLIN/CLAV 875/125 MG 1 TAB PO ×2 (08:07→20:01)
[2018-12-25] MEDS: CHOLECALCIFEROL (VITAMIN D3) 1,000 UNIT TABLET 3000 UNIT PO (08:07)
[2018-12-25] MEDS: predniSONE 20 MG TABLET 40 MG PO (08:07)
[2018-12-25] MEDS: SIMETHICONE 80 MG TABLET PO ×2 (08:07→20:01)
[2018-12-25] MEDS: LORazepam 2 MG/ML SYRINGE 1 MG IV ×2 (09:56→20:01)
--- NOTE | 2018-12-25 10:33 | PM.PN.1 ---
Subjective Date Patient Seen: 12/25/18 Time Patient Seen: 10:34 Interval history: Patient seen in follow-up of metastatic colon cancer with SBO and acute respiratory failure.. Patient anxious this morning but feels pretty well. Was able to eat completely. breathing has been good. Using O2. No other significant new changes or complaints. Exam Vital Signs (past 8 hours): - 12/25/18 04:45 12/25/18 07:36 12/25/18 07:41 Temperature 97.9 F Pulse Rate 74 74 71 Respiratory Rate 19 20 20 Blood Pressure 93/44 L Pulse Oximetry 97 97 94 12/25/18 07:49 12/25/18 07:50 Temperature 98.8 F Pulse Rate 69 Respiratory Rate 18 Blood Pressure 102/62 Pulse Oximetry 92 93 Fraction of Inspired Oxygen 24 Oxygen Delivery Method Nasal Cannula Oxygen Flow Rate 1 Narrative Exam Narrative: Alert elderly female no acute distress lying comfortably in bed. Lungs decreased breath sounds but no rhonchi or wheeze. Heart regular rate and rhythm. Abdomen is soft positive bowel sounds nontender. Objective Labs Result Diagrams: 12/24/18 10:15 12/24/18 10:15 Labs: Laboratory Results - last 24 hr 12/24/18 12/24/18 10:15 10:15 Seg Neutrophils % 82.0 H Band Neutrophils % 0.0 L Lymphocytes % (Manual) 5.0 L Monocytes % (Manual) 9.0 Eosinophils % (Manual) 4.0 Basophils % (Manual) 0.0 RBC Morphology Normal morphology Sodium 129 L Potassium 3.9 Chloride 87 L Carbon Dioxide 35 H BUN 9 Creatinine 0.50 L Estimated GFR > 60.0 BUN/Creatinine Ratio 18.0 Glucose 95 Calcium 7.6 L Assessment & Plan Assessment & Plan narrative: Colon cancer with metastatic disease to lungs. Seems to be still stable at this time. Looks to be going home on hospice. Currently not a candidate for further treatment. Will be going home with comfort care. Acute respiratory failure. Combination of probable pneumonia and COPD exacerbation. Treatment seems to have gone well. Will require O2 at home which I discussed with discharge planning. Should be set up. No other changes. Elevated white count. on Augmentin. We will see how things go. Clinically doing well. Recheck tomorrow before discharge. COPD appears to be stable at this time. Congestive heart failure. I&O seems to be good clinically stable follow. History of small-bowel obstruction. Concerned that this may return secondary to her cancer. Seems to be tolerating p.o. well. A much happier eating. At this point will continue. Hypokalemia. Stable. Will recheck tomorrow. No change in treatment. Hyponatremia. Stable. Slightly improved yesterday will recheck in a.m.. Code status still full code Disposition. Discussed with discharge planning nurse and nurse. Hospice set up tomorrow. Ambulance set up tomorrow. Son coming in today. Should be set for discharge tomorrow. Quality VTE Deep Vein Thrombosis/Pulmonary Embolism Present on Admission: No
--- NOTE | 2018-12-25 11:22 | CM.DPNOTE ---
Addendum entered by RAULITO Gerber 12/25/18 11:38: Correction: Kevin Rea arriving today, Wednesday. Original Note: Reviewed chart. Spoke w/ Dr Eldridge this morning to go over expected DC for Wednesday. Dr Eldridge signed medical necessity form for BLS crew; Dr Eldridge will alert Dr Lemos that the DC order/medication list needs to be completed by 0830 Wednesday to assist in a smooth transition from [facility], home w/hospice. Met w/pt to review IMM, she requested verbal agreement w/this NEUROLOGY SPECIALIST, [id number]. Then placed call to [facility] dispatch P# [phone] to confirm they had the transport set for 0930 w/ continuous O2. O2 was confirmed for pt's transport home, pt requiring 4L this morning. Clinical faxed to [facility] today F#[phone]. P: DC Wednesday, home via BLS at 0930, w/Hospice DME delivered and pulp cooker arriving at 1000. Kevin Rea to arrive Wednesday at pt's residence as well. Álvaro ph# [phone]. RAULITO Gerber
--- NOTE | 2018-12-25 14:02 | PC.NURSE ---
Pt is a&o3. Given ativan at her request. Bs with wheezes and crackles to lower lobes. Rand putting out clear yellow urine. Pt is resting comfortably. She is confused at times but lucid for the most part. She will be discharging home with hospice tomorrow.
--- NOTE | 2018-12-25 14:35 | PC.NURSE ---
Pt has had a small bm and smears with both incontinent changes. He is confused but pleasant with care.
[2018-12-25] MEDS: SODIUM CHLORIDE 0.9% FLUSH 10 ML IV (20:01)
[2018-12-26 01:05] VITALS: O2SAT 94
[2018-12-26 01:11] VITALS: BP 96/60; PULSE 77; RESP 15; TEMP 36.3; O2SAT 93
[2018-12-26 05:25] VITALS: BP 101/57; PULSE 79; RESP 18; TEMP 36.6; O2SAT 93
[2018-12-26 05:35] LABS: Add Manual Diff / Slide Review NO; Basophils Absolute Auto 100 /uL (0-100); Basophils Percent Auto 0.4 % (0-2); Eosinophils Absolute Auto 100 /uL (0-450); Eosinophils Percent Auto 0.4 % (2-4); Hematocrit 44.8 % (36-46); Hemoglobin 14.8 g/dL (12.0-16.0); Lymphocytes Absolute Auto 1600 /uL (1100-4500); Lymphocytes Percent Auto 7.7 % (25-40); Mean Corpuscular HGB Conc 33.1 % (30-36); Mean Corpuscular Hemoglobin 31.1 PG (26-34); Mean Corpuscular Volume 94.1 fL (80-100); Monocytes Absolute Auto 2100 /uL (0-900); Monocytes Percent Auto 10.4 % (3-14); Neutrophils Absolute Auto 16300 /uL (1500-7000); Neutrophils Percent Auto 81.1 % (50-75); Platelet Count 412 X10^3/uL (150-400); Red Blood Cell Count 4.76 X10^6/uL (4.0-5.2); White Blood Cell Count 20.1 X10^3/uL (4.5-11.0)
[2018-12-26 05:47] LABS: Blood Urea Nitrogen 12 mg/dL (7-17); Calcium 8.2 mg/dL (8.4-10.2); Carbon Dioxide 37 mmol/L (22-32); Chloride 88 mmol/L (98-107); Estimated Glomerular Filt Rate > 60.0 mL/min (>60); Glucose 65 mg/dL (80-110); HEMOLYSIS < 15 (0-50); Potassium 3.8 mmol/L (3.4-5.1); Sodium 129 mmol/L (137-145)
[2018-12-26] MEDS: PANTOPRAZOLE 40 MG TABLET PO (06:03)
[2018-12-26 07:45] VITALS: BP 92/50; PULSE 101; RESP 22; TEMP 36.3; O2SAT 87
[2018-12-26 07:53] VITALS: PULSE 94; RESP 40; O2SAT 85
[2018-12-26] MEDS: ALBUTEROL/IPRATROPIUM 3 ML AMPUL INH (07:53)
[2018-12-26 07:55] VITALS: O2SAT 86
[2018-12-26] MEDS: SALMETEROL 50 MCG DISKUS 1 PUFF INH (07:56)
[2018-12-26] MEDS: CHOLECALCIFEROL (VITAMIN D3) 1,000 UNIT TABLET 3000 UNIT PO (08:46)
[2018-12-26] MEDS: FUROSEMIDE 40 MG TABLET PO (08:46)
[2018-12-26] MEDS: predniSONE 20 MG TABLET 40 MG PO (08:46)
[2018-12-26] MEDS: POTASSIUM CHLORIDE 20 MEQ TAB PO (08:47)
[2018-12-26] MEDS: ENOXAPARIN 40 MG/0.4 ML SYRINGE SUBCUT (08:47)
[2018-12-26] MEDS: AMOXICILLIN/CLAV 875/125 MG 1 TAB PO (08:47)
[2018-12-26] MEDS: SIMETHICONE 80 MG TABLET PO (08:47)
[2018-12-26] MEDS: LORATADINE 10 MG TABLET PO (08:47)
[2018-12-26 08:52] LABS: Appearance Urine UA CLOUDY; Bilirubin Urine UA NEGATIVE (NEGATIVE); Color Urine UA YELLOW; Glucose Urine UA NEGATIVE (Negative); Ketones Urine UA NEGATIVE (NEGATIVE); Leukocyte Esterase Urine UA 1+ (NEGATIVE); Nitrite Urine UA NEGATIVE (Negative); Occult Blood Urine UA 2+ (Negative); Protein Urine UA TRACE (Negative); Urobilinogen Urine UA 0.2 E.U./dL (0.2); pH Urine UA 7.5 (4.5-8.0)
--- NOTE | 2018-12-26 08:57 | P.DS_ITS ---
History of Present Illness Chief complaint: CANCER PATIENT HAS BEEN THROWING UP Narrative: See H&P Discharge Providers Date of admission: 12/12/18 21:25 Discharge Date: 12/26/18 Primary care physician: Rohan Lemos MD Consults: 12/12/18 23:28 Consult to Dietitian, Adult Routine Comment: Reason For Exam: low BMI, high risk, on chemo 12/13/18 09:22 Consult to Speech Therapy Evaluate & Treat Comment: poss aspiration Physician Instructions: Evaluate and treat 12/13/18 09:23 Consult to Physical Therapy Evaluate & Treat Comment: Physician Instructions: Evaluate and Treat 12/15/18 10:30 Consult to General Surgery Routine Comment: Dr. Lemos spoke with Dr. Jaimes re consult Consulting Provider: Francisco Jaimes Reason for consultation: SBO Has provider been notified: Yes 12/15/18 12:07 Consult to Occupational Therapy Evaluate & Treat Comment: Physician Instructions: Evaluate and treat 12/19/18 08:21 Consult to Hospice Referral Routine Comment: 12/20/18 09:01 Consult to Physical Therapy Evaluate & Treat Comment: Pls eval for home independent, pt willing Physician Instructions: Evaluate and Treat Discharge provider: Rohan Lemos MD Summary Discharge Diagnosis: 1. Pneumonia, possibly aspiration, versus community- acquired. 2. Small-bowel obstruction, uncertain etiology but might be related to her abdominal cancers, now improved 3. Metastatic adenocarcinoma suspected source of colon with known metastasis to bladder neck and lung 4. Congestive heart failure possibly iatrogenic, now improved. Suspect as systolic 5. Respiratory failure, with a baseline of hypoxia but worse likely due to items 1 and 4 above. 6. Hypokalemia, replaced. 7. COPD contributed to some of the above. Long-term smoker. 8. Terminal care, given all of the above and the underlying cancer issues it was felt that our ability to do much for her was limited. 9. Volume depletion early on now resolved. Hospital Course: Admitted after increasing nausea emesis and shortness of breath found to have a suspected bilateral basilar pneumonia and admitted for IV antibiotics. Also some evidence of volume depletion that was replaced. The emesis persisted and ultimately x-ray within the 1st few days identified a small bowel obstruction. She was placed then on bowel rest and within a couple of days seemed to improve. During this space general surgery was consulted a CT of the abdomen was done the with the suspicion that her metastasis might have been involved but though that was not confirmed. Surgeons thought was she was beginning to move so he liberalized her diet and she received to respond fine. That has not been an issue since then. Continued with the respiratory failure on admission was quite low O2 sats on room air when the 70s that was improved with high-flow oxygen which she was on through the half for so of the hospitalization and things began to improve and she got down to just 2 L nasal cannula until today when it started to climb am a bit. Potassium was found to be a little low that was replaced other issues as identified were addressed. Seemed fairly early on given the range of issues and her overall rather frail state of health that her prognosis for long-term survival did not seem rate. Oncology visited the patient a couple of times initially providing some positive news as the initial chest imaging did suggest the chest lesions had improved somewhat but later indicated that the poor prognosis long-term suggested the need for hospice. We had been discussing the possibility of hospice for home. She lives alone and was so anxious to go home that she would be willing to take the chance of being home alone even her frail state of health. She had also indicated from the start and despite discussions on several occasions during her stay that she would prefer full code/full intervention. She explained this as having had a deal with God. He was going to help her get better so she did want have any one get in the way of that. It took several days coordinating with her son who lives in [place] who is now presented at her bedside to make arrangements for home. So she now has 24 hour care available plus hospice and he will also be available for at least a short stay. Various issues are largely at baseline or improved she is found with an elevated white count and some increased hypoxia this morning will address that with the change in antibiotics on discharge. Has remained on Lovenox for DVT prophylaxis and on PPI for GI prophylaxis throughout the stay. Status at Discharge Cognitive/behavioral status at discharge: oriented Functional status at discharge: bed bound Overall status at discharge: patient is not back to baseline Time Spent with Patient Greater than 30 minutes Exam Vital Signs (past 8 hours): - 12/26/18 01:05 12/26/18 01:11 12/26/18 05:25 Temperature 97.3 F L 97.8 F Pulse Rate 77 79 Respiratory Rate 15 18 Blood Pressure 96/60 101/57 L Pulse Oximetry 94 93 93 12/26/18 07:45 12/26/18 07:53 12/26/18 07:55 Temperature 97.3 F L Pulse Rate 101 H 94 H Respiratory Rate 22 40 H Blood Pressure 92/50 L Pulse Oximetry 87 L 85 L 86 L Fraction of Inspired Oxygen 21 Oxygen Delivery Method High Flow Nasal Cannula Oxygen Flow Rate 6 Narrative Exam Narrative: Quite frail and ill-appearing to me this morning although no obvious distress. She is awake and alert and interactive appropriately. HEENT unremarkable neck is benign chest is clear heart regular abdomen soft nontender nondistended normoactive bowel tones extremities benign neurologically largely benign. Objective Labs Result Diagrams: 12/26/18 05:05 12/26/18 05:05 Labs: Laboratory Results - last 24 hr 12/26/18 12/26/18 05:05 05:05 WBC 20.1 H RBC 4.76 Hgb 14.8 Hct 44.8 MCV 94.1 MCH 31.1 MCHC 33.1 RDW 14.0 Plt Count 412 H Neut % (Auto) 81.1 H Lymph % (Auto) 7.7 L [place] % (Auto) 10.4 Eos % (Auto) 0.4 L Baso % (Auto) 0.4 Neut # (Auto) 35671 H Lymph # (Auto) 1600 [place] # (Auto) 2100 H Eos # (Auto) 100 Baso # (Auto) 100 Sodium 129 L Potassium 3.8 Chloride 88 L Carbon Dioxide 37 H BUN 12 Creatinine 0.50 L Estimated GFR > 60.0 BUN/Creatinine Ratio 24.0 H Glucose 65 L Calcium 8.2 L Discharge Plan Discharge Plan Patient Disposition: Hospice - Home Discharge comment: frail, chooses full code Discharge Med Rec/Prescriptions Prescriptions: New furosemide 40 mg Tablet 40 mg PO DAILY Qty: 30 RF: 0 ciprofloxacin HCl [Cipro] 500 mg tablet 500 mg PO BID Qty: 20 RF: 0 Continued Serevent Diskus 50 mcg/dose Blister With Device 1 puff Inhalation DIRECTED RF: 0 lidocaine-prilocaine 2.5-2.5 % cream See Rx Instructions .ROUTE .COMPLEX Qty: 30 RF: 0 albuterol sulfate 2.5 mg /3 mL (0.083 %) Solution For Nebulization 2.5 mg INHALATION Q4H PRN (Reason: Shortness Of Breath) RF: 0 cetirizine [Aller-Ana] 10 mg Tablet 10 mg PO DAILY RF: 0 aspirin 81 mg Tablet,Chewable 81 mg PO DAILY RF: 0 albuterol sulfate 90 mcg/actuation Hfa Aerosol Inhaler 2 puff INHALATION Q4-6H PRN (Reason: Dyspnea) RF: 0 ipratropium-albuterol 0.5 mg-3 mg(2.5 mg base)/3 mL Solution For Nebulization 1 dose Inhalation DIRECTED RF: 0 Discontinued cholecalciferol (vitamin D3) [Vitamin D3] 2,000 unit Capsule 3,000 unit PO DAILY RF: 0 alendronate [Fosamax] 70 mg Tablet 1 tab PO QWEEK RF: 0 diazepam 5 mg Tablet 5 mg PO BID RF: 0 ondansetron 4 mg tablet,disintegrating 4 mg PO QID PRN (Reason: nausea and vomiting) Qty: 20 RF: 0 pravastatin 40 mg Tablet 40 mg PO BEDTIME RF: 0 indomethacin 25 mg Capsule 25 mg PO TID RF: 0 metoprolol tartrate 25 mg Tablet 25 mg PO BID RF: 0 Follow up/Referrals: Rohan Lemos MD [Primary Care Provider] - Provider Discharge Instructions Diet: Diet as Tolerated Skin/Wound/Dressing Care Report to your healthcare provider any signs of infection, such as:: chills, fever, night sweats, increased pain, unusual drainage and unusual redness Discharge Data Primary Care Provider: Rohan Lemos Attending Provider: Rohan Lemos Admit Date/Time: 12/12/18 21:25 Quality VTE Deep Vein Thrombosis/Pulmonary Embolism Present on Admission: No
[2018-12-26 09:13] LABS: Amorphous Sediment Urine 2+; Bacteria Urine Many (>30); Culture Indicated Urine Specimen Cultured; RBC Urine 5-10/HPF (0-5/HPF); WBC Urine 5-10/HPF (0-5/HPF)
--- NOTE | 2018-12-26 10:14 | CM.DPNOTE ---
Addendum entered by Rula Hassan 12/26/18 10:21: Faxed d/c summary to Hospice per there request. Original Note: DCP/continued: Reviewed chart. Spoke with Ella at hospice this AM. She confirms that hospice will be meeting patient at residence today at around 10:00ish. Met with patient and son/Álvaro at bedside. Son concerned because as of 9:00AM equipment had not been delivered? Notified Ella at [facility] and she suggests changing BLS machine pecan picker time to 10:00AM. Placed call to [facility] transport provider and time changed. [facility] expected to pick patient up at approximately 10:00am. All paperwork completed for non-urgent BLS transport. Son and patient in agreement. P: Home today. Hospice expected to see patient at residence when she arrives home. RAULITO Holland
--- NOTE | 2018-12-26 11:07 | PC.NURSE ---
Discharge pt left via S ambulance. Son took pt's belongings home. Supplies delivered to pt's home at time of d/c. d/c instructions provided to pt's son per pt's request. PIV removed prior to d/c.
== END 2018-12-26 10:05 | disposition hospice, home (50) | DRG 177 ==
LOC: ED 21:16 → AC 21:26 → ICU 22:34 → AC 12-19 08:13
PROVIDERS: Emergency Medicine; Family Medicine; Admitting Provider Family Medicine; Emergency Provider Internal Medicine; PCP Family Medicine; Visit Provider Family Medicine
DX: J69.0 Pneumonitis due to inhalation of food and vomit (principal); J96.01 Acute respiratory failure with hypoxia; J96.02 Acute respiratory failure with hypercapnia; J44.1 Chronic obstructive pulmonary disease with (acute) exacerbation; C18.9 Malignant neoplasm of colon, unspecified; C79.11 Secondary malignant neoplasm of bladder; C79.89 Secondary malignant neoplasm of other specified sites; C78.02 Secondary malignant neoplasm of left lung; C78.01 Secondary malignant neoplasm of right lung; K56.600 Partial intestinal obstruction, unspecified as to cause; E46 Unspecified protein-calorie malnutrition; Z68.1 Body mass index [BMI] 19.9 or less, adult; E86.0 Dehydration; I50.9 Heart failure, unspecified; F17.210 Nicotine dependence, cigarettes, uncomplicated; I10 Essential (primary) hypertension; E78.5 Hyperlipidemia, unspecified; E87.6 Hypokalemia
CPT/HCPCS: 36415; 36600; 71045; 71275; 74022; 74177; 80048; 80053; 81001; 82550; 82805; 83605; 83690; 83735; 83880; 84132; 84484; 85025; 87040; 87077; 87086; 87797; 92610; 93005; 94640; 94760; 94762; 96365; 96366; 96375; 97163; 97166; 97530; 99231; 99233; 99283; 99285; C9113; J0295; J1170; J1200; J1650; J1940; J1956; J2060; J2270; J2405; J2765; J2930; J3480; J7613; Q9967